=== PATIENT | male | born 1950 | race Caucasian/White ===

== ENCOUNTER → 2016-11-15 | Outpatient (CLI) | payer BC, OTHER ==
[~2016-11-15] MED LIST: ADVIN10/60 INH; ASPI81TA28 PO; CARB25TA7 PO; CARBIDOPA-LEVO PO; DIAZ5TAB3 PO; DSWCR15 TOP; JNV100 PO; KETO2CRE14 TOP; LPT/20 PO; METF500T5 PO; MULT-506 PO; NRV/5 PO; OMEP20CA9 PO; REPA1TAB8 PO; TNR50 PO; VALSARTAN-HCTZ PO
[2016-11-15 13:01] LABS: ALT/SGPT 23 U/L (12-78); BLOOD UREA NITROGEN 18 mg/dl (7-18); BUN/CREATININE RATIO 19.9 (10-20); CALCIUM 9.3 mg/dl (8.5-10.1); CARBON DIOXIDE 28 mmol/L (21-32); CHLORIDE 105 mmol/L (98-107); CHOLESTEROL 199 mg/dl (0-200); GLUCOSE 156 mg/dl (70-99); POTASSIUM 3.9 mmol/L (3.5-5.1); SODIUM 141 mmol/L (136-145); TRIGLYCERIDES 122 mg/dl (0-150); VERY LOW DENSITY LIPOPROT CALC 24 mg/dl
[2016-11-15 13:16] LABS: HEMATOCRIT 40.5 % (42-52); MEAN CELL VOLUME 91.8 fL (80-100); MEAN CORPUSCULAR HEMOGLOBIN 31.7 pg (25-34); MEAN CORPUSCULAR HGB CONC 34.6 g/dl (32-36); MEAN PLATELET VOLUME 9.4 fL (7.4-10.4); PLATELET COUNT 309 K/uL (130-400); RED BLOOD COUNT 4.41 M/uL (4.7-6.1); WHITE BLOOD COUNT 5.56 K/uL (4.8-10.8)
[2016-11-15 13:19] LABS: RATIO 673.3 mcg/mg (0-30.0)
[2016-11-15 13:26] LABS: ESTIMATED AVERAGE GLUCOSE 154 mg/dl; HA1C FLAG Normal (Normal)
[2016-11-15 13:30] LABS: ALB/GLOB RATIO 1.2 (0.9-2); ALKALINE PHOSPHATASE 46 U/L (45-117); AST/SGOT 13 U/L (15-37); CHOLESTEROL/HDL RATIO 3.8; HDL CHOLESTEROL 53 mg/dl; LDL CHOLESTEROL CALCULATED 122 mg/dl
== END | disposition home or self-care (01) ==
LOC: C.LABBFT 08:29
PROVIDERS: ATTEND Internal Medicine
DX: E11.29 Type 2 diabetes mellitus with other diabetic kidney complication (principal); Z12.5 Encounter for screening for malignant neoplasm of prostate

== ENCOUNTER → 2016-12-10 | Outpatient (CLI) | payer BC ==
--- NOTE | 2016-12-10 14:37 | DIAGNOSTIC IMAGING REPORT ---
CT LUNG SCREENING, LOW DOSE WITH COMPUTER-AIDED DETECTION (CAD) CLINICAL HISTORY: FORMER SMOKER COMPARISON STUDY: No previous studies for comparison. CT DOSE: 85.12 mGy.cm TECHNIQUE: Low-dose helical CT was acquired without intravenous contrast from lung apices to bases and reconstructed at 2.5 mm every 2 mm. CAD was utilized for this study. FINDINGS: No enlarged axillary, mediastinal or hilar lymph nodes are present. The size of the heart is at the upper limits of normal. This extensive coronary artery calcification. Central airways are patent. There is no consolidation to suggest pneumonia. There is a 3 mm calcified granuloma within the right lower lobe. There are no suspicious pulmonary nodules. Low attenuation bilateral adrenal nodules favor adenomas. The left adrenal nodule measures 3.1 cm. The right adrenal nodule measures 2.2 cm. IMPRESSION: 1. No suspicious pulmonary nodules. 2. No acute intrathoracic findings. 3. Bilateral adrenal nodules which measure near water attenuation and suggest adenomas. CAD FINDINGS: Overall Lung RADS Category: 1 Lung RADS Management Recommendation: Lung-RADS 1: Continue annual screening in 12 months. Lung RADS Follow Up Date: 2017-12-10 Electronically signed by: Sammy Segura M.D. 12/10/2016 2:36 PM Dictated Date/Time: 12/10/2016 1:20 PM
== END | disposition home or self-care (01) ==
LOC: C.CTS 12:14
PROVIDERS: ATTEND Internal Medicine
DX: Z87.891 Personal history of nicotine dependence (principal)

== ENCOUNTER 2018-12-17 12:40 | Inpatient (IN) ==
--- NOTE | 2018-12-17 13:34 | Emergency Department Note ---
History of Present Illness General Chief complaint: Visual Disturbance Stated complaint: TROUBLE WITH VISION,CLOUDY,SEEING COLOR Time Seen by Provider: 12/17/18 12:58 History of Present Illness This 68-year-old male presents the ER with chief complaint of visual disturbances in both eyes and bilateral eye pain. The patient states that he was seen by his radioactivity technician at [facility] on December 02 for the symptoms. He was not given any diagnosis at the time. He was told that they would contact his PCP to get a carotid Doppler. The patient states that he just got called last week and has an appointment on January 19 for the Doppler exam. The patient states that the visual disturbances are getting worse. He states that he sees different colors and images that are not really there. The states that they were driving down the road the other day and he was asking her why she was driving through the [place]. The patient denies any dizziness. The patient does admit to history of smoking for 32 years but quit 17 years ago. He does have hyperlipidemia. Home Medications Home Medications Medication Instructions Recorded Confirmed Type Tradjenta 5 mg PO HS 07/06/18 12/17/18 History amlodipine 5 mg PO QAM 07/06/18 12/17/18 History aspirin 81 mg PO QAM 07/06/18 12/17/18 History atenolol 50 mg PO HS 07/06/18 12/17/18 History carbidopa-levodopa 1 tab PO BID 07/06/18 12/17/18 History carbidopa-levodopa 1 tab PO DAILY PRN 07/06/18 12/17/18 History escitalopram oxalate 10 mg PO QAM 07/06/18 12/17/18 History glipizide 10 mg PO BID 07/06/18 12/17/18 History ibuprofen [Advil] 400 mg PO TID PRN 07/06/18 12/17/18 History losartan 100 mg PO HS 07/06/18 12/17/18 History metformin 1,000 mg PO BID 07/06/18 12/17/18 History mometasone [Nasonex] 2 spray INTRANASAL QAM PRN 07/06/18 12/17/18 History multivitamin 1 tab PO QAM 07/06/18 12/17/18 History nicotine (polacrilex) 2 mg BUCCAL UD PRN 07/06/18 12/17/18 History omeprazole 20 mg PO BID 07/06/18 12/17/18 History amlodipine 2.5 mg PO QAM 08/31/18 12/17/18 History cholecalciferol (vitamin D3) 2,000 unit PO QAM 08/31/18 12/17/18 History [Vitamin D3] fluticasone propion-salmeterol 1 puff INHALATION DAILY PRN 08/31/18 12/17/18 History [Advair Diskus] tamsulosin 0.4 mg PO HS 08/31/18 12/17/18 History albuterol sulfate 1 - 2 puff INHALATION UD PRN 10/07/18 12/17/18 History oxycodone-acetaminophen [Percocet] 1 tab PO Q8H PRN #5 tab 10/19/18 12/17/18 Rx carbidopa-levodopa [Sinemet] 1 tab PO TID 12/17/18 12/17/18 History Allergies Allergy/AdvReac Type Severity Reaction Status Date / Time Tetanus Vaccines and Toxoid AdvReac Unknown "TETANUS Verified 10/19/18 06:36 SHOT" - FEVER [employer] AdvReac Unknown SEE NOTES Uncoded 10/19/18 06:36 Past Med/Surg History Medical History Anxiety Asthma STABLE BPH (benign prostatic hyperplasia) Basal cell carcinoma of face Chronic obstructive pulmonary disease STABLE Depression Diabetes mellitus, type 2 NIDDM GERD (gastroesophageal reflux disease) History of poliomyelitis Hyperlipidemia Hypertension IBS (irritable bowel syndrome) POSSIBLE Restless leg syndrome ON CARBIDOPA-LEVODOPA Sleep apnea NO DEVICE Surgical History History of colonoscopy History of esophagogastroduodenoscopy (EGD) History of right inguinal hernia repair History of tooth extraction Family History Sister Family history of diabetes mellitus 2 Father Family history of lung cancer Mother Family history of adrenal cancer Social History Preferred Language: Swiss Communication Ability: Effective Communication Ability Comment: [facility] Flatware Maker Required: No Beliefs That Will Affect Care: None Current Living Situation: Spouse Feels Safe at Home: Yes Safety Concerns: Feels Safe At This Time Smoking Status: Former smoker Tobacco Type: cigarettes Smoking End Date: 2001, still uses nicotine gum Second Hand Exposure: Yes (childhood) Tobacco Cessation Education Requested by Patient: No Hx Alcohol Use: Yes Alcohol type: wine Hx Substance Use: No Review of Systems A total of 10 systems reviewed and were otherwise negative Physical Exam Vital Signs Vital Signs - 24 hr 12/17/18 12:42 12/17/18 15:31 12/17/18 17:17 Temperature 36.6 C Temperature Source Oral Sepsis Recent Fever Within 48 Hours No Sepsis Action Taken by Nursing No Action Required Pulse Rate 86 Pulse Rate [Left Finger] 91 H Pulse Rhythm Regular Pulse Strength Normal Respiratory Rate 20 20 Respiratory Effort / Characteristics Non-Labored Spontaneous Non-Labored Spontaneous Spontaneous Respiratory Depth Normal Normal Normal Respiratory Pattern Regular Regular Regular Blood Pressure 151/80 H Blood Pressure [Right Arm] 170/123 H Blood Pressure Mean 103 Blood Pressure Mean [Right Arm] 138 Blood Pressure Position Sitting Pulse Oximetry 95 97 Oxygen Delivery Method Room Air Room Air Room Air GENERAL: 68-year-old male appears in no acute distress. MENTAL Status: Alert and oriented x3. HEAD: Atraumatic, nontender to palpation throughout. EYES: PERRLA. EOMs intact. Pressure in the left eye was 13.5 and pressure in the right eye was 15 EARS: Canals clear. TMs without fluid level noted. NECK: Supple, no lymphadenopathy noted. No carotid bruits noted. LUNGS: Clear auscultation without wheezes rales or rhonchi. CARDIAC: Regular rate and rhythm without murmur. Pulses is full and equal thr oughout. NEURO:Cranial nerves two through 12 intact. Cerebellar function intact with [id number]. Fine motor intact with alternating finger motions. Course Administered Medications Discontinued Medications Aspirin (Aspirin Chew) 324 mg PO NOW STA Stop: 12/17/18 16:05 Last Admin: 12/17/18 16:25 Dose: 324 mg Documented by: [id number] Medical Decision Making Differential Diagnosis Macular degeneration, MS, neoplasm, cataract, ocular migraine, infarction Medical Records Attestation: I reviewed the patient's medical records. Home Medications Current Medication List: was personally reviewed by me Laboratory Data Result diagrams: 12/17/18 16:06 12/17/18 16:06 Lab Results 12/17/18 12/17/18 12/17/18 Range/Units 16:06 16:06 16:06 WBC 7.24 (4.8-10.8) K/uL RBC 4.66 L (4.7-6.1) M/uL Hgb 15.0 (14.0-18.0) g/dL Hct 43.2 (42-52) % MCV 92.7 (80-100) fL MCH 32.2 (25-34) pg MCHC 34.7 (32-36) g/dL RDW Std Deviation 47.9 H (36.4-46.3) fL RDW Coeff of Jose 14.3 (11.5-14.5) % Plt Count 286 (130-400) K/uL MPV 9.3 (7.4-10.4) fL Immature Gran % (Auto) 0.3 % Neut % (Auto) 64.8 % Lymph % (Auto) 21.8 % [place] % (Auto) 10.4 % Eos % (Auto) 2.6 % Baso % (Auto) 0.1 % Immature Gran # (Auto) 0.02 (0.00-0.02) K/uL Neut # (Auto) 4.69 (1.4-6.5) K/uL Lymph # (Auto) 1.58 (1.2-3.4) K/uL [place] # (Auto) 0.75 H (0.11-0.59) K/uL Eos # (Auto) 0.19 (0-0.5) K/uL Baso # (Auto) 0.01 (0-0.2) K/uL PT 9.7 (9.0-12.0) Seconds INR 0.9 (0.9-1.1) Sodium 141 (136-145) mmol/L Potassium 3.7 (3.5-5.1) mmol/L Chloride 108 H (98-107) mmol/L Carbon Dioxide 28 (21-32) mmol/L Anion Gap 5.0 (3-11) BUN 18 (7-18) mg/dl Creatinine 0.98 (0.6-1.4) mg/dl Est Cr Clr Drug Dosing 71.8 ml/min Est GFR ( Amer) 92.1 Est GFR (Non-Af Amer) 79.5 BUN/Creatinine Ratio 18.4 (10-20) Glucose 127 H (70-99) mg/dl Calcium 8.9 (8.5-10.1) mg/dl Total Bilirubin 0.2 (0.2-1) mg/dl AST 16 (15-37) U/L ALT 15 (12-78) U/L Alkaline Phosphatase 45 (45-117) U/L CK-MB (CK-2) 3.6 (0.5-3.6) ng/ml Troponin I < 0.015 (0-0.045) ng/ml Total Protein 7.3 (6.4-8.2) gm/dl Albumin 3.5 (3.4-5.0) gm/dl Globulin 3.8 (2.5-4.0) gm/dl Albumin/Globulin Ratio 0.9 (0.9-2) Specimen Hemolysis Imaging Data Attestation: I personally reviewed and interpreted this imaging study as fo llows: Radiologist's Impression: MRI OF THE BRAIN WITHOUT CONTRAST CLINICAL HISTORY: Bilateral visual disturbances COMPARISON STUDY: Noncontrast head CT dated 01/13/2014 FINDINGS: Sagittal T1, axial diffusion, proton density and T2 weighted axial, coronal F LAIR, and axial T1-weighted images were acquired. No intra or extra-axial mass lesions are visualized There are foci restricted water diffusion within both occipital lobes. There is also a probable punctate focus of restricted water diffusion within the left cerebellar hemisphere. The findings are consistent with areas of acute/subacute infarction. There is no evidence of ventricular dilatation. Proton density T2-weighted and FLAIR images reveal scattered foci of increased T2 signal within the white matter, likely on a small vessel basis. There are gyriform foci of increased FLAIR signal within the central lobes, consistent with acute/subacute infarcts. There is a small focus of increased T2 signal within the lasha. This is felt to be old. There are no abnormal flow voids. Foci of increased T2 signal within the mastoids are felt to be inflammatory. IMPRESSION: 1. Foci of restricted water diffusion involving both occipital lobes with corresponding FLAIR signal abnormalities. In addition there is a small focus of restricted water diffusion within the left cerebellar hemisphere. The findings are consistent with acute/subacute infarcts. Electronically signed by: Jonathan Flanagan M.D. 12/17/2018 3:38 PM ECG Data Indication: other Rhythm: normal sinus Findings: + PVC Blood Pressure Blood Pressure Findings: Elevated blood pressure Blood Pressure Disposition: elevated BP felt to be situational MDM Narrative The patient was evaluated. The patient's case was discussed with Dr. Noriega who agrees with treatment plan. He also evaluated the patient. MRI of the brain was ordered interpreted by the radiologist and myself as above with bilateral occipital lobe infarcts as well as left cerebral infarct. Patient was given 324 mg of baby aspirin chewable. IV access was obtained. EKG was ordered was interpreted as above without any acute findings.. CBC and differential, renal profile, LFTs and lipase levels were ordered. [facility] hospitalist was consulted for admission. Labs are later reviewed. The patient's CBC was un remarkable. Coags were normal. Patient's glucose was 127, CK-MB was 3.6 and troponin was less than 0.015. Remainder of labs unremarkable. Attending Attestation: Bennett Noriega MD independently saw and evaluated this patient and agree with history and physical is otherwise documented by the physician clinical trial assistant. See their note for full details. Patient with interesting bilateral visual complaints over some time worsening. No focal motor or sensory deficit otherwise noted; lower visual field cuts. Eye pressures wnl. Doubt bilateral vitreous hemorrhage or retinal detachment. MRI ordered to exclude mass or CVA as cause. Positive for infarcts. ASA given. Admitted for further. Impression & Plan Cerebral infarct, Hypertension Discharge Plan Visit Data Chief Complaint: Visual Disturbance Stated Complaint: TROUBLE WITH VISION,CLOUDY,SEEING COLOR ED Provider: Timothy Noriega ED Midlevel Provider: Elizabeth De Leon Discharge Problem: Cerebral infarct, Hypertension Patient Disposition: Being Evaluated by Hospitalist Condition: Good Forms Stand Alone Forms: My [facility] Prescriptions Prescriptions: No Action multivitamin Tablet 1 tab PO QAM RF: 0 metformin 500 mg Tablet 1,000 mg PO BID RF: 0 nicotine (polacrilex) 2 mg Gum 2 mg BUCCAL UD PRN (Reason: nicotine withdrawl) RF: 0 carbidopa-levodopa 25-250 mg Tablet 1 tab PO DAILY PRN (Reason: Unknown) RF: 0 glipizide 10 mg Tablet 10 mg PO BID RF: 0 carbidopa-levodopa 50-200 mg Tablet Extended Release 1 tab PO BID RF: 0 amlodipine 5 mg Tablet 5 mg PO QAM RF: 0 aspirin 81 mg Tablet,Delayed Release (Dr/Ec) 81 mg PO QAM RF: 0 ibuprofen [Advil] 200 mg Tablet 400 mg PO TID PRN (Reason: Pain) RF: 0 mometasone [Nasonex] 50 mcg/actuation [place],Non-Aerosol 2 spray INTRANASAL QAM PRN (Reason: NASAL CONGESTION ) RF: 0 losartan 100 mg Tablet 100 mg PO HS RF: 0 atenolol 50 mg Tablet 50 mg PO HS RF: 0 escitalopram oxalate 10 mg Tablet 10 mg PO QAM RF: 0 omeprazole 20 mg Tablet,Delayed Release (Dr/Ec) 20 mg PO BID RF: 0 Tradjenta 5 mg Tablet 5 mg PO HS RF: 0 amlodipine 2.5 mg Tablet 2.5 mg PO QAM RF: 0 tamsulosin 0.4 mg Capsule 0.4 mg PO HS RF: 0 fluticasone propion-salmeterol [Advair Diskus] 100-50 mcg/dose Blister With Device 1 puff INHALATION DAILY PRN (Reason: SOB) RF: 0 cholecalciferol (vitamin D3) [Vitamin D3] 2,000 unit Tablet 2,000 unit PO QAM RF: 0 carbidopa-levodopa [Sinemet] 25-250 mg tablet 1 tab PO TID RF: 0 albuterol sulfate 90 mcg/actuation Hfa Aerosol Inhaler 1 - 2 puff INHALATION UD PRN (Reason: ASTHMA/COPD) RF: 0 oxycodone-acetaminophen [Percocet] 5-325 mg tablet 1 tab PO Q8H PRN (Reason: pain) Qty: 5 RF: 0 Referrals Referrals: Eduardo Cat III, MD [Primary Care Provider] - Discharge Problem: Cerebral infarct Qualifiers: Cerebral infarction mechanism: unspecified mechanism Qualified Code(s): I63.9 - Cerebral infarction, unspecified Hypertension Qualifiers: Hypertension type: unspecified Qualified Code(s): I10 - Essential (primary) hypertension
--- NOTE | 2018-12-17 15:39 | Magnetic Resonance Report ---
MRI OF THE BRAIN WITHOUT CONTRAST CLINICAL HISTORY: Bilateral visual disturbances COMPARISON STUDY: Noncontrast head CT dated 01/13/2014 FINDINGS: Sagittal T1, axial diffusion, proton density and T2 weighted axial, coronal FLAIR, and axial T1-weigh yomaira images were acquired. No intra or extra-axial mass lesions are visualized There are foci restricted water diffusion within both occipital lobes. There is also a probable punct ate focus of restricted water diffusion within the left cerebellar hemisphere. The findings are consi stent with areas of acute/subacute infarction. There is no evidence of ventricular dilatation. Proton density T2-weighted and FLAIR images reveal scattered foci of increased T2 signal within the w anthony matter, likely on a small vessel basis. There are gyriform foci of increased FLAIR signal within the central lobes, consistent with acute/subacute infarcts. There is a small focus of increased T2 s ignal within the lasha. This is felt to be old. There are no abnormal flow voids. Foci of increased T2 signal within the mastoids are felt to be inflammatory. IMPRESSION: 1. Foci of restricted water diffusion involving both occipital lobes with corresponding FLAIR signal abnormalities. In addition there is a small focus of restricted water diffusion within the left cereb ellar hemisphere. The findings are consistent with acute/subacute infarcts. Electronically signed by: Jonathan Flanagan M.D. 12/17/2018 3:38 PM
[2018-12-17] MEDS ORDERED: ASPIRIN 81 MG CHEW PO STA (16:04)
[2018-12-17 16:21] LABS: Basophils # (auto) 0.01 K/uL (0-0.2); Basophils % (auto) 0.1 %; Eosinophils # (auto) 0.19 K/uL (0-0.5); Eosinophils % (auto) 2.6 %; Hematocrit (blood only) 43.2 % (42-52); Immature Granulocytes # (auto) 0.02 K/uL (0.00-0.02); Immature Granulocytes % (auto) 0.3 %; Lymphocytes # (auto) 1.58 K/uL (1.2-3.4); Lymphocytes % (auto) 21.8 %; Mean Corpuscular Hgb Conc 34.7 g/dL (32-36); Mean Corpuscular Volume 92.7 fL (80-100); Mean Platelet Volume 9.3 fL (7.4-10.4); Monocytes # (auto) 0.75 K/uL (0.11-0.59); Monocytes % (auto) 10.4 %; Neutrophils # (auto) 4.69 K/uL (1.4-6.5); Neutrophils % (auto) 64.8 %; Platelet Count 286 K/uL (130-400); RDW Coefficient of Variation 14.3 % (11.5-14.5); RDW Standard Deviation 47.9 fL (36.4-46.3); Red Blood Count 4.66 M/uL (4.7-6.1); White Blood Count 7.24 K/uL (4.8-10.8)
[2018-12-17 16:37] LABS: INR 0.9 (0.9-1.1); Prothrombin Time 9.7 Seconds (9.0-12.0)
[2018-12-17 17:00] LABS: Alanine Aminotransferase 15 U/L (12-78); Albumin Globulin Ratio 0.9 (0.9-2); Albumin Level 3.5 gm/dl (3.4-5.0); Alkaline Phosphatase 45 U/L (45-117); Aspartate Aminotransferase 16 U/L (15-37); BUN Creatinine Ratio 18.4 (10-20); Bilirubin,Total 0.2 mg/dl (0.2-1); Blood Urea Nitrogen 18 mg/dl (7-18); Calcium 8.9 mg/dl (8.5-10.1); Carbon Dioxide 28 mmol/L (21-32); Chloride 108 mmol/L (98-107); Creatine Kinase MB 3.6 ng/ml (0.5-3.6); Creatinine Clr Calc Pharmacy 71.8 ml/min; Est GFR (African American) 92.1; Est GFR (Non-African American) 79.5; Globulin 3.8 gm/dl (2.5-4.0); Glucose 127 mg/dl (70-99); Potassium 3.7 mmol/L (3.5-5.1); Sodium 141 mmol/L (136-145); Total Protein 7.3 gm/dl (6.4-8.2); Troponin I < 0.015 ng/ml (0-0.045)
[2018-12-17] MEDS ORDERED: HydrALAZINE HCL 20 MG/ML VIAL IV STA (17:19)
--- NOTE | 2018-12-17 17:25 | History & Physical Report ---
Date of Service December 17, 2018 Assessment & Plan (1) Acute CVA (cerebrovascular accident): Presented with 2 weeks of visual hallucinations and dizziness-found to have acute and subacute infarcts of the bilateral occipital lobes and left cerebellar hemisphere on MRI of the brain without contrast CT angiogram of the head and neck shows moderate-severe multifocal bilateral vertebral artery stenosis as well as a 70% proximal stenosis of the right vertebral artery, as well as bilateral KENDRICK right greater than left, no occlusions or aneurysm. No history of atrial fibrillation but has multiple other risk factors for atherosclerosis and CVA to include diabetes, hypertension, history of smoking Strokes most likely from bilateral severe atherosclerosis of vertebral arteries, but question if could be embolic from a more central source. Basilar artery is patent. -Admit to telemetry for cardiac arrhythmia monitoring-if no atrial fibrillation/flutter found, consider 30-day event monitor after discharge -Continue home aspirin and add Plavix at least for 1 month and then return to a single antiplatelet agent alone-discussed with neurology -Consult neurology -Stroke order set in place-neurochecks, daily stroke score, PT/OT/speech therapy consults ordered -Check lipid panel in the morning but LDL was 133 back in 05/2018. He has had myalgias with atorvastatin and simvastatin in the past and stopped taking them. -Start Crestor 20 mg p.o. every morning and see if he can tolerate this-needs high intensity statin for severe cerebrovascular disease -Permissive hypertension although blood pressures are significantly elevated in the ER-we will give hydralazine 10 mg IV x1 now and continue home BP meds -Awaiting transthoracic echocardiogram with bubble study to look for thrombus and inter-atrial shunt (2) Visual hallucinations: Secondary to occipital lobe CVAs With visual field deficit on physical examination -Recommended no driving until seen by ophthalmology for visual field testing as an outpatient (3) Dizziness: Secondary to left cerebellar CVA -PT/OT consults ordered (4) Vertebral artery stenosis: As above -Plan to add Plavix to his aspirin and start high intensity statin No intervention needed at this time, no indication for anticoagulation (5) Head ache: Likely secondary to acute CVAs -Tylenol as needed for pain (6) Chronic obstructive pulmonary disease: Stable at this time -Continue home Advair twice daily Albuterol as needed (7) Sleep apnea: Does not use CPAP and instead sleeps on his side to avoid snoring Untreated sleep apnea would be a risk factor for atrial fibrillation (8) Hyperlipidemia: Failed atorvastatin and simvastatin due to myalgias as above -Starting Crestor in the morning and observe for myalgias -Checking lipid panel in the morning -Recommend following LFTs in 4 to 6 weeks -consider CoQ10 supplementation if has myalgias (9) Hypertension: Severely elevated on admission with blood pressure 190/110 -IV hydralazine x1 given -Continue home losartan, atenolol, amlodipine We will not drop blood pressure too low given recent strokes Maintain map of 95 if possible (10) Restless leg syndrome: Severe and has tried multiple medications and seen neurology in the past -Currently well controlled with Sinemet both extended release twice daily and immediate release throughout the day (11) Depression: Stable -Continue Lexapro (12) Diabetes mellitus, type 2: Previously uncontrolled with A1c 9.3% back in the fall, now much improved to 6.9% -Holding home metformin, glipizide, and can bring in home Tradjenta if possible Insulin sliding scale ordered while here (13) GERD (gastroesophageal reflux disease): Stable, with a history of short segment Cee's with biopsies negative for dysplasia -Continue Protonix -Continue recommended surveillance with EGD in 3 more years (14) BPH (benign prostatic hyperplasia): Stable, mild on recent cystoscopy, had a meatal stricture dilated, has a large bladder diverticulum and 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 Albumin here is normal at 3.5 -Continue to follow with nephrology -Continue losartan (16) Carotid artery stenosis: With 75% stenosis of the right internal carotid artery and 50% stenosis left internal carotid artery seen on CT angiogram here None of his strokes are within that distribution, no indication for vascular surgery intervention at this time but should be followed closely as an outpatient -continue ASA, Plavix to be started, and starting statin as above (17) DVT prophylaxis: Lovenox SQ, SCDs Disposition-admit to telemetry for observation overnight and completion of work- up History of Present Illness Chief Complaint: Visual changes, dizziness, headache Primary Care Provider: Eduardo Cat MD This patient is a 68-year-old male with a history of CKD stage II with proteinuria, HTN, HL, COPD, RLS, VIKRAM not on CPAP, DM 2 with retinopathy and nephropathy, BPH with meatal stricture, GERD with Cee's esophagus, anxiety/depression, vitamin D deficiency, and history of polio, hearing loss and tinnitus, who presents to the ER with 2 weeks of visual hallucinations and dizziness. He reports his symptoms came on around the same time. He has been seeing a variety of hallucinations including people walking around him that are not really there, plants growing in the middle of the road while his is driving him in the car, letters and numbers, streaks of colors, etc. He has been having dizziness and has not fallen but has felt like he was going to fall on occasion. Today, he developed pressure behind his eyes and came into the hospital. He was seen by an chip mucker and the notes from that visit were reviewed from 12/02-he was noted to have hypertensive retinopathy of the left eye and diabetic retinopathy as well. Recommendation was made for carotid artery ultrasound but this was not scheduled until later in January as an outpatient. In the ER, he was noted to be significantly hypertensive, and a brain MRI was obtained which showed bilateral subacute and acute occipital infarcts, as well as a another punctate focus of infarct in the left cerebellar hemisphere. The patient denies any history of atrial fibrillation, chest pains, or palpitations. Denies any previous history of stroke. He has been taking aspirin daily and reports that his blood pressure has been uncontrolled at times but had been improved more recently. He denies any focal weakness, numbness or tingling, no speech issues. He does report an episode approximately 7 months ago where he suddenly felt like he could not move his legs [place] airport and he had to sit down and wait for his strength to come back. No other recent issues prior to the last 2 weeks. No fevers, chills, sweats. No chest pain or shortness of breath. Allergies Allergy/AdvReac Type Severity Reaction Status Date / Time Tetanus Vaccines and Toxoid AdvReac Unknown "TETANUS Verified 10/19/18 06:36 SHOT" - FEVER MICROFILM [employer]PLIC[employer] AdvReac Unknown SEE NOTES Uncoded 10/19/18 06:36 Home Medications Home Medications Medication Instructions Recorded Confirmed Type Tradjenta 5 mg PO HS 07/06/18 12/17/18 History amlodipine 5 mg PO QAM 07/06/18 12/17/18 History aspirin 81 mg PO QAM 07/06/18 12/17/18 History atenolol 50 mg PO HS 07/06/18 12/17/18 History carbidopa-levodopa 1 tab PO BID 07/06/18 12/17/18 History carbidopa-levodopa 1 tab PO DAILY PRN 07/06/18 12/17/18 History escitalopram oxalate 10 mg PO QAM 07/06/18 12/17/18 History glipizide 10 mg PO BID 07/06/18 12/17/18 History ibuprofen [Advil] 400 mg PO TID PRN 07/06/18 12/17/18 History losartan 100 mg PO HS 07/06/18 12/17/18 History metformin 1,000 mg PO BID 07/06/18 12/17/18 History mometasone [Nasonex] 2 spray INTRANASAL QAM PRN 07/06/18 12/17/18 History multivitamin 1 tab PO QAM 07/06/18 12/17/18 History nicotine (polacrilex) 2 mg BUCCAL UD PRN 07/06/18 12/17/18 History omeprazole 20 mg PO BID 07/06/18 12/17/18 History amlodipine 2.5 mg PO QAM 08/31/18 12/17/18 History cholecalciferol (vitamin D3) 2,000 unit PO QAM 08/31/18 12/17/18 History [Vitamin D3] fluticasone propion-salmeterol 1 puff INHALATION DAILY PRN 08/31/18 12/17/18 History [Advair Diskus] tamsulosin 0.4 mg PO HS 08/31/18 12/17/18 History albuterol sulfate 1 - 2 puff INHALATION UD PRN 10/07/18 12/17/18 History oxycodone-acetaminophen [Percocet] 1 tab PO Q8H PRN #5 tab 10/19/18 12/17/18 Rx carbidopa-levodopa [Sinemet] 1 tab PO TID 12/17/18 12/17/18 History Past Med/Surg History Medical History Barretts esophagus CKD (chronic kidney disease), stage II Diabetic retinopathy Hearing loss Hypertensive retinopathy of left eye Proteinuria due to type 2 diabetes mellitus Tinnitus Vitamin D deficiency Anxiety Asthma STABLE BPH (benign prostatic hyperplasia) Basal cell carcinoma of face Chronic obstructive pulmonary disease STABLE Depression Diabetes mellitus, type 2 NIDDM GERD (gastroesophageal reflux disease) History of poliomyelitis Hyperlipidemia Hypertension IBS (irritable bowel syndrome) POSSIBLE Restless leg syndrome ON CARBIDOPA-LEVODOPA Sleep apnea NO DEVICE Surgical History History of basal cell carcinoma excision History of colonoscopy History of esophagogastroduodenoscopy (EGD) History of right inguinal hernia repair History of tooth extraction Family History Sister Family history of diabetes mellitus 2 Colorectal cancer Father Family history of lung cancer Mother Family history of adrenal cancer Social History Preferred Language: Ethiopian Communication Ability: Effective Communication Ability Comment: [facility] Economics Professor Required: No Beliefs That Will Affect Care: None Current Living Situation: Spouse current occupational status: retired 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 Feels Safe at Home: Yes Safety Concerns: Feels Safe At This Time Smoking Status: Former smoker Tobacco Type: cigarettes Age Quit Using Tobacco: 50 packs per day: 1 Years Smoked: 30 Smoking End Date: 2001, still uses nicotine gum Second Hand Exposure: Yes (childhood) Tobacco Cessation Education Requested by Patient: No Hx Alcohol Use: Yes Alcohol type: wine Hx Substance Use: No Review of Systems Review of Systems: All systems reviewed & are unremarkable except as noted in HPI & below Physical Exam Constitutional: WD/WN, vitals as above average body habitus; no acute distress Eyes: PERRL, conjunctivae normal, anicteric sclerae EOM intact bilaterally; + abnormal visual field confrontation (Had a left-sided visual field deficit with the left eye) ENMT: external ear and nose normal, oropharynx normal Ears: + hearing impairment Mouth: no oropharynx abnormality Neck: trachea midline, no thyromegaly Respiratory: normal respiratory effort, lungs clear to auscultation Cardiovascular: RRR, no murmur, no edema Gastrointestinal (Abdomen): normal bowel sounds, soft, nontender, no hepatos plenomegaly Musculoskeletal: Extremities: extremities normal to inspection; no cyanosis and no clubbing Skin: no rashes, warm and dry Neurologic: patellar DTR's 2+ bilat, sensation intact and PERRL, EOMI, accommodation nl, no face palsy, no dysarthria CN's II-XI intact bilaterally (Except left-sided visual field deficit as above), deep tendon reflexes 2+ bilaterally, moves all extremities (5 out of 5 strength throughout upper and lower extremities bilaterally) and awake Motor/Sensory: no tremor and no sensory deficit (Sensation intact light touch throughout upper and lower extremities) Cranial Nerves: no nystagmus Coordination: + abnormal [id number] test (No ataxia, but was unable to see my finger when it was off to his left and therefore he pointed right in front of him and missed my finger); normal coll-mr-fico test and normal rapid alternating movements Psychiatric: A+Ox3, euthymic affect Results & Data Vital Signs (Past 12 Hours) Vital Signs Temp Pulse Pulse Resp BP BP Pulse Ox 12/17/18 15:31 91 H 20 170/123 H 97 12/17/18 12:42 36.6 C 86 20 151/80 H 95 Laboratory Results 12/17/18 12/17/18 12/17/18 Range/Units 20:53 19:12 19:11 WBC (4.8-10.8) K/uL RBC (4.7-6.1) M/uL Hgb (14.0-18.0) g/dL Hct (42-52) % MCV (80-100) fL MCH (25-34) pg MCHC (32-36) g/dL RDW Std Deviation (36.4-46.3) fL RDW Coeff of Jose (11.5-14.5) % Plt Count (130-400) K/uL MPV (7.4-10.4) fL Immature Gran % (Auto) % Neut % (Auto) % Lymph % (Auto) % [place] % (Auto) % Eos % (Auto) % Baso % (Auto) % Immature Gran # (Auto) (0.00-0.02) K/uL Neut # (Auto) (1.4-6.5) K/uL Lymph # (Auto) (1.2-3.4) K/uL [place] # (Auto) (0.11-0.59) K/uL Eos # (Auto) (0-0.5) K/uL Baso # (Auto) (0-0.2) K/uL ESR (0-14) mm/hr PT (9.0-12.0) Seconds INR (0.9-1.1) Sodium (136-145) mmol/L Potassium (3.5-5.1) mmol/L Chloride (98-107) mmol/L Carbon Dioxide (21-32) mmol/L Anion Gap (3-11) BUN (7-18) mg/dl Creatinine (0.6-1.4) mg/dl Est Cr Clr Drug Dosing ml/min Est GFR ( Amer) Est GFR (Non-Af Amer) BUN/Creatinine Ratio (10-20) Glucose (70-99) mg/dl POC Glucose 154 H 113 H (70-99) Calcium (8.5-10.1) mg/dl Total Bilirubin (0.2-1) mg/dl AST (15-37) U/L ALT (12-78) U/L Alkaline Phosphatase (45-117) U/L CK-MB (CK-2) (0.5-3.6) ng/ml Troponin I (0-0.045) ng/ml Total Protein (6.4-8.2) gm/dl Albumin (3.4-5.0) gm/dl Globulin (2.5-4.0) gm/dl Albumin/Globulin Ratio (0.9-2) TSH (0.300-4.500) uIu/ml Specimen Hemolysis Lyme Disease IgG Ab Pending Lyme Disease IgM Ab Pending 12/17/18 12/17/18 12/17/18 Range/Units 16:06 16:06 16:06 WBC (4.8-10.8) K/uL RBC (4.7-6.1) M/uL Hgb (14.0-18.0) g/dL Hct (42-52) % MCV (80-100) fL MCH (25-34) pg MCHC (32-36) g/dL RDW Std Deviation (36.4-46.3) fL RDW Coeff of Jose (11.5-14.5) % Plt Count (130-400) K/uL MPV (7.4-10.4) fL Immature Gran % (Auto) % Neut % (Auto) % Lymph % (Auto) % [place] % (Auto) % Eos % (Auto) % Baso % (Auto) % Immature Gran # (Auto) (0.00-0.02) K/uL Neut # (Auto) (1.4-6.5) K/uL Lymph # (Auto) (1.2-3.4) K/uL [place] # (Auto) (0.11-0.59) K/uL Eos # (Auto) (0-0.5) K/uL Baso # (Auto) (0-0.2) K/uL ESR 15 H (0-14) mm/hr PT 9.7 (9.0-12.0) Seconds INR 0.9 (0.9-1.1) Sodium 141 (136-145) mmol/L Potassium 3.7 (3.5-5.1) mmol/L Chloride 108 H (98-107) mmol/L Carbon Dioxide 28 (21-32) mmol/L Anion Gap 5.0 (3-11) BUN 18 (7-18) mg/dl Creatinine 0.98 (0.6-1.4) mg/dl Est Cr Clr Drug Dosing 71.8 ml/min Est GFR ( Amer) 92.1 Est GFR (Non-Af Amer) 79.5 BUN/Creatinine Ratio 18.4 (10-20) Glucose 127 H (70-99) mg/dl POC Glucose (70-99) Calcium 8.9 (8.5-10.1) mg/dl Total Bilirubin 0.2 (0.2-1) mg/dl AST 16 (15-37) U/L ALT 15 (12-78) U/L Alkaline Phosphatase 45 (45-117) U/L CK-MB (CK-2) 3.6 (0.5-3.6) ng/ml Troponin I < 0.015 (0-0.045) ng/ml Total Protein 7.3 (6.4-8.2) gm/dl Albumin 3.5 (3.4-5.0) gm/dl Globulin 3.8 (2.5-4.0) gm/dl Albumin/Globulin Ratio 0.9 (0.9-2) TSH 2.040 (0.300-4.500) uIu/ml Specimen Hemolysis Lyme Disease IgG Ab Lyme Disease IgM Ab 12/17/18 Range/Units 16:06 WBC 7.24 (4.8-10.8) K/uL RBC 4.66 L (4.7-6.1) M/uL Hgb 15.0 (14.0-18.0) g/dL Hct 43.2 (42-52) % MCV 92.7 (80-100) fL MCH 32.2 (25-34) pg MCHC 34.7 (32-36) g/dL RDW Std Deviation 47.9 H (36.4-46.3) fL RDW Coeff of Jose 14.3 (11.5-14.5) % Plt Count 286 (130-400) K/uL MPV 9.3 (7.4-10.4) fL Immature Gran % (Auto) 0.3 % Neut % (Auto) 64.8 % Lymph % (Auto) 21.8 % [place] % (Auto) 10.4 % Eos % (Auto) 2.6 % Baso % (Auto) 0.1 % Immature Gran # (Auto) 0.02 (0.00-0.02) K/uL Neut # (Auto) 4.69 (1.4-6.5) K/uL Lymph # (Auto) 1.58 (1.2-3.4) K/uL [place] # (Auto) 0.75 H (0.11-0.59) K/uL Eos # (Auto) 0.19 (0-0.5) K/uL Baso # (Auto) 0.01 (0-0.2) K/uL ESR (0-14) mm/hr PT (9.0-12.0) Seconds INR (0.9-1.1) Sodium (136-145) mmol/L Potassium (3.5-5.1) mmol/L Chloride (98-107) mmol/L Carbon Dioxide (21-32) mmol/L Anion Gap (3-11) BUN (7-18) mg/dl Creatinine (0.6-1.4) mg/dl Est Cr Clr Drug Dosing ml/min Est GFR ( Amer) Est GFR (Non-Af Amer) BUN/Creatinine Ratio (10-20) Glucose (70-99) mg/dl POC Glucose (70-99) Calcium (8.5-10.1) mg/dl Total Bilirubin (0.2-1) mg/dl AST (15-37) U/L ALT (12-78) U/L Alkaline Phosphatase (45-117) U/L CK-MB (CK-2) (0.5-3.6) ng/ml Troponin I (0-0.045) ng/ml Total Protein (6.4-8.2) gm/dl Albumin (3.4-5.0) gm/dl Globulin (2.5-4.0) gm/dl Albumin/Globulin Ratio (0.9-2) TSH (0.300-4.500) uIu/ml Specimen Hemolysis Lyme Disease IgG Ab Lyme Disease IgM Ab Diagnostic Findings MRI OF THE BRAIN WITHOUT CONTRAST CLINICAL HISTORY: Bilateral visual disturbances COMPARISON STUDY: Noncontrast head CT dated 01/13/2014 FINDINGS: Sagittal T1, axial diffusion, proton density and T2 weighted axial, coronal FLAIR, and axial T1-weighted images were acquired. No intra or extra-axial mass lesions are visualized There are foci restricted water diffusion within both occipital lobes. There is also a probable punctate focus of restricted water diffusion within the left cerebellar hemisphere. The findings are consistent with areas of acute/subacute infarction. There is no evidence of ventricular dilatation. Proton density T2-weighted and FLAIR images reveal scattered foci of increased T2 signal within the white matter, likely on a small vessel basis. There are gyriform foci of increased FLAIR signal within the central lobes, consistent with acute/subacute infarcts. There is a small focus of increased T2 signal within the lasha. This is felt to be old. There are no abnormal flow voids. Foci of increased T2 signal within the mastoids are felt to be inflammatory. IMPRESSION: 1. Foci of restricted water diffusion involving both occipital lobes with corresponding FLAIR signal abnormalities. In addition there is a small focus of restricted water diffusion within the left cerebellar hemisphere. The findings are consistent with acute/subacute infarcts. HEAD & NECK CTA HISTORY: acute cva TECHNIQUE: Multiaxial CT images of the head were performed following the intravenous administration of contrast to evaluate the major cerebral vessels. Multiaxial CT images of the neck were also performed following the intravenous administration of contrast to evaluate the major cervical vessels. Maximum intensity projection images were also obtained. A dose lowering technique was utilized adhering to the principles of ALARA. COMPARISON: Brain MRI 12/17/2018. FINDINGS: Mild diffuse narrowing within the carotid siphons due to the calcified plaque. There is also multifocal moderate to severe narrowing of the distal intracranial portions of the bilateral vertebral arteries due to the atherosclerotic plaque. The basilar artery is patent. A 7 mm segment of moderate to severe narrowing within the right proximal P2 segment. Mild focal narrowing within the proximal left P2 segment. No occlusion identified. The bilateral MCAs are patent. There is a hypoplastic right A1 segment. Otherwise, no significant stenosis or occlusion within the bilateral ACAs. The major dural venous sinuses are patent. No aneurysm identified. The patient's bilateral occipital lobe infarcts are better present on the same day brain MRI. The aortic arch is normal in caliber. Mild focal narrowing within the proximal right common carotid artery and proximal left subclavian artery of approximately 20%. Moderate calcified plaque within the bilateral carotid bifurcations. This results in approximately 75% focal stenosis at the origin of the right internal carotid artery best seen on image 239 and approximately 50% focal narrowing at the origin of the left internal carotid artery best seen on image 239. Mild multifocal narrowing within the left cervical vertebral artery. There is also a focal area of 70% stenosis within the proximal right vertebral artery at the C6- C7 level. No carotid or vertebral artery dissection identified. A 9 mm right thyroid nodule. IMPRESSION: 1. The patient's known occipital lobe infarcts are not well visualized on this study. 2. Multifocal moderate to severe narrowing within the distal intracranial porti ons of the bilateral vertebral arteries. 3. A 7 mm signal within the proximal right P2 segment demonstrating moderate to severe narrowing. 4. Approximate 75% focal stenosis at the origin of the right internal carotid artery and 50% focal stenosis at the origin of the left internal carotid artery. 5. There is 70% stenosis within the proximal right vertebral artery. 6. Additional findings as described above. ECG Additional Comments: ECG with normal sinus rhythm with PACs, no ischemic changes Code Status & VTE Plan Code Status Full code VTE Prophylaxis Plan VTE Prophylaxis will be ordered: Yes
[2018-12-17] MEDS ORDERED: OPTIRAY 320 125ml IV PRN (17:36)
--- NOTE | 2018-12-17 17:59 | CT Scan Report ---
HEAD & NECK CTA HISTORY: acute cva TECHNIQUE: Multiaxial CT images of the head were performed following the intravenous administration o f contrast to evaluate the major cerebral vessels. Multiaxial CT images of the neck were also perform ed following the intravenous administration of contrast to evaluate the major cervical vessels. Maxim um intensity projection images were also obtained. A dose lowering technique was utilized adhering to the principles of ALARA. COMPARISON: Brain MRI 12/17/2018. FINDINGS: Mild diffuse narrowing within the carotid siphons due to the calcified plaque. There is also multifoc al moderate to severe narrowing of the distal intracranial portions of the bilateral vertebral arteri es due to the atherosclerotic plaque. The basilar artery is patent. A 7 mm segment of moderate to sev ere narrowing within the right proximal P2 segment. Mild focal narrowing within the proximal left P2 segment. No occlusion identified. The bilateral MCAs are patent. There is a hypoplastic right A1 segm ent. Otherwise, no significant stenosis or occlusion within the bilateral ACAs. The major dural venou s sinuses are patent. No aneurysm identified. The patient's bilateral occipital lobe infarcts are bet ter present on the same day brain MRI. The aortic arch is normal in caliber. Mild focal narrowing within the proximal right common carotid artery and proximal left subclavian artery of approximately 20%. Moderate calcified plaque within the bilateral carotid bifurcations. This results in approximately 75% focal stenosis at the origin of th e right internal carotid artery best seen on image 239 and approximately 50% focal narrowing at the o rigin of the left internal carotid artery best seen on image 239. Mild multifocal narrowing within th e left cervical vertebral artery. There is also a focal area of 70% stenosis within the proximal righ t vertebral artery at the C6-C7 level. No carotid or vertebral artery dissection identified. A 9 mm r ight thyroid nodule. IMPRESSION: 1. The patient's known occipital lobe infarcts are not well visualized on this study. 2. Multifocal moderate to severe narrowing within the distal intracranial portions of the bilateral v ertebral arteries. 3. A 7 mm signal within the proximal right P2 segment demonstrating moderate to severe narrowing. 4. Approximate 75% focal stenosis at the origin of the right internal carotid artery and 50% focal st enosis at the origin of the left internal carotid artery. 5. There is 70% stenosis within the proximal right vertebral artery. 6. Additional findings as described above. Electronically signed by: Brooks Loredo M.D. 12/17/2018 5:57 PM
[2018-12-17] MEDS ORDERED: GLUCOSE 40% GEL 15 GM TUBE PO PRN (18:49)
[2018-12-17] MEDS ORDERED: NICOTINE POLACRILEX 2 MG GUM MT PRN (18:49)
[2018-12-17] MEDS ORDERED: DEXTROSE 50% 50 ML SYRINGE IV PRN (18:49)
[2018-12-17] MEDS ORDERED: CARBOHYDRATES FOR HYPOGLYCEMIA PO PRN (18:49)
[2018-12-17] MEDS ORDERED: MAGNESIUM HYDROXIDE SUSP 30 ML UDC PO PRN (18:49)
[2018-12-17] MEDS ORDERED: PHARMACIST DISCHARGE MED REC CONSULT PRN (18:49)
[2018-12-17] MEDS ORDERED: ALBUTEROL HFA 8 GM INHALER INH PRN (18:49)
[2018-12-17] MEDS ORDERED: GLUCOSE 10 TABS/TUBE PO PRN (18:49)
[2018-12-17] MEDS ORDERED: GLUCAGON FOR INJ 1 MG VIAL SQ PRN (18:49)
[2018-12-17] MEDS ORDERED: POLYETHYLENE (MIRALAX) 17 GM PACK PO PRN (18:49)
[2018-12-17] MEDS ORDERED: ONDANSETRON INJ 2 MG/ML 2 ML VIAL IV PRN (18:49)
[2018-12-17] MEDS ORDERED: ALUMINUM/MAGNESIUM SUSP 30 ML UDC PO PRN (18:49)
[2018-12-17] MEDS ORDERED: FLUTICASONE PROPIONATE NA SPR 16 GM BTL PRN (19:45)
[2018-12-17] MEDS ORDERED: ENOXAPARIN INJ 40 MG/0.4 ML SYR SQ SCH (21:00)
[2018-12-17] MEDS ORDERED: LOSARTAN POTASSIUM 50 MG TAB PO SCH (21:00)
[2018-12-17] MEDS ORDERED: ATENOLOL 50 MG TABLET PO SCH (21:00)
[2018-12-17] MEDS ORDERED: TAMSULOSIN HCL 0.4 MG CAP PO SCH (21:00)
[2018-12-17] MEDS: FLUTICASONE/SALMETEROL 100/50 (ADVAIR) 14 PUFF/1 INHALER INH SCH (21:08)
[2018-12-17] MEDS: INSULIN ASPART 100 UNITS/ML 3 ML PEN SC SCH (21:11)
[2018-12-17] MEDS: PANTOprazole 40 MG TAB PO SCH (21:12)
[2018-12-17] MEDS: CARBIDOPA/LEVODOPA 25-250 1 EA TAB PO SCH (21:12)
[2018-12-17] MEDS: CARBIDOPA/LEVODOPA 50/200MG EXT REL TAB PO SCH (21:12)
[2018-12-17] MEDS ORDERED: ACETAMINOPHEN 500 MG TAB PO PRN (21:28)
[2018-12-17 22:43] LABS: Lyme Ab IgG w/WB Rflx Negative (Negative); Lyme Ab IgM w/WB Rflx Negative (Negative)
[2018-12-18 06:37] LABS: Basophils # (auto) 0.02 K/uL (0-0.2); Basophils % (auto) 0.3 %; Eosinophils # (auto) 0.19 K/uL (0-0.5); Eosinophils % (auto) 2.7 %; Hematocrit (blood only) 41.7 % (42-52); Immature Granulocytes # (auto) 0.02 K/uL (0.00-0.02); Immature Granulocytes % (auto) 0.3 %; Lymphocytes # (auto) 1.49 K/uL (1.2-3.4); Lymphocytes % (auto) 21.5 %; Mean Corpuscular Volume 90.7 fL (80-100); Mean Platelet Volume 9.2 fL (7.4-10.4); Monocytes # (auto) 0.94 K/uL (0.11-0.59); Monocytes % (auto) 13.6 %; Neutrophils # (auto) 4.27 K/uL (1.4-6.5); Neutrophils % (auto) 61.6 %; Platelet Count 297 K/uL (130-400); RDW Coefficient of Variation 14.2 % (11.5-14.5); RDW Standard Deviation 47.1 fL (36.4-46.3); White Blood Count 6.93 K/uL (4.8-10.8)
[2018-12-18 07:13] LABS: BUN Creatinine Ratio 14.5 (10-20); Creatinine Clr Calc Pharmacy 65.8 ml/min; Est GFR (African American) 84.7; Est GFR (Non-African American) 73.1; Potassium 3.2 mmol/L (3.5-5.1)
--- NOTE | 2018-12-18 08:25 | Neurology Consultation ---
Date of Consultation December 18, 2018 Assessment & Plan (1) Acute CVA (cerebrovascular accident): Patient has acute/subacute right greater than left occipital lobe infarct and a tiny left cerebellar hemisphere infarct. Clinically he has decreased vision to the left and some slight vertiginous/b alance issues which can be explained by the lesion seen on MRI. He also has subtle upgoing toes on examination bilaterally secondary to the infarcts. His MRI also shows old chronic small vessel ischemia and a large old left occipital infarct. The etiology of these strokes is likely thrombotic and he has significant vascular issues in the vertebrals and carotids. He has multiple risk factors fo r stroke including blood pressure was not adequately controlled, diabetes, and dyslipidemia. He also has sleep apnea and does not use a CPAP mask. He quit cigarette smoking 17 years ago. He has no history of heart disease and although I cannot entirely exclude emboli I think this is a less likely explanation for his strokes. The echocardiogram is pending (2) Vertebral artery stenosis: Patient has bilateral distal vertebral stenoses intracranially and a 70 percent proximal right vertebral stenosis. (3) Carotid artery stenosis: Patient has 75 persistent right ICA stenoses at the origin with a similar location on the left at 50 percent. He has very little in the way of ischemia in the anterior circulation. (4) Restless leg syndrome: Patient has a longstanding history of restless leg syndrome refractory to many medications. Currently he is help some with carbidopa/levodopa. (5) History of poliomyelitis: Patient has a history of poliomyelitis at age 13 in both legs of a mild form. I do not see any residual weakness in the legs. He has absent ankle reflexes which are probably a sign of early polyneuropathy from his longstanding diabetes. Recommendations: 1. Awaiting echocardiogram results. 2. Continue clopidogrel 75 milligrams daily with 81 milligram aspirin tablet daily. After 3 weeks discontinue aspirin and keep on clopidogrel alone. 3. The patient would be a high-dose statin candidate 4. Control blood pressure, aiming for a mean arterial pressure of approximately 100. 5. Control glucose, aiming for hemoglobin A1c of closer to 6.0. 6. 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 7. Continue carbidopa/levodopa for restless leg syndrome the current doses. Overall, I spent a total of 140 minutes with this case including review of records, review of MRI and CT films with Radiology, direct evaluation the patient at bedside, and discussion of the case with the patient at bedside, clinical staff, Drs. Flanagan and Colton, and Dr. Manzano including differential diagnosis and treatment options. History of Present Illness Reason for Consultation: Patient is a 68-year-old, who was asked to see the request of Dr. Church, for neurologic consultation regarding stroke Requesting Physician: Dr. Church Attending Physician: Josep Manzano MD History of Present Illness Has a longstanding history of hypertension (30 years), diabetes (15-20 years), dyslipidemia, COPD, restless leg syndrome, and sleep apnea for which he does not use CPAP. Patient tells me that when he was 13 years old he contracted polio (even after having the oral polio vaccine). He had very mild weakness in his legs which recovered for the most part. He used to smoke cigarettes for over 30 years and quit 17 years ago. The patient states that over the last 3 months he started getting some vision problems. He had focusing issues bilaterally and was starting to see things in his vision that were there. These could be colors or sparkles/spectacles and, as time went by, he would see things that others would not such as dark clouds or grass was not there. On December [address] Denny bocanegra shotgun shell reprinting unit operator, who felt that he had some vision issues with his left eye particularly secondary to blood pressure and diabetes. He had no specific treatment otherwise. Over the last 2 and half weeks he has continued to have the visual hallucinations and star burst of flashing lights in his vision that would come and go. He started getting headaches under and around his eyes and bi occipitally. He noticed recently that his balance has been off any gets woozy or vertiginous at times. He has no weakness or numbness speech or mentation problems. He has no incontinence of urine. Because of the headaches he came to the emergency room yesterday. On December 16, at 1242 blood pressure was 151/80, temperature 36.6, pulse 86, respiratory rate 20, and O2 saturation 95 percent. Later on his blood pressure was 170/123. On exam there was some possible decreased vision to the left but no other focal findings. CBC and Chem profile were unremarkable except for an elevated glucose. Hemoglobin A1c today was 6.9. TSH, ESR, and Lyme antibody titers were unremarkable. MRI of the brain showed multiple scattered bioccipital acute/subacute strokes right greater than left side. There was an acute punctate left cerebellar hemis phere stroke as well. Flare imaging revealed old ischemia scattered in the hemispheres bilaterally of a mild nature and a large old left occipital stroke (at least 2 months old). I reviewed these films with doctors Colton and Panchito. CT angiography of the head and neck revealed greater than 75 percent stenosis of the right internal carotid artery at the origin and 50 percent in the left i nternal carotid artery at the origin. There was 70 percent stenosis of the proximal right vertebral and significant stenoses distally in the vertebral arteries intracranially bilaterally. The right P2 segment was severely narrowed. I reviewed these films with doctors Colton and Panchito. Triglyceride was 200, cholesterol 190, LDL 104, and blood pressure 164/97 this morning. He has some blurriness in his left eye at times and feels a little vertiginous when he walks. He has no pain or headache today. Allergies Allergy/AdvReac Type Severity Reaction Status Date / Time Tetanus Vaccines and Toxoid AdvReac Unknown "TETANUS Verified 10/19/18 06:36 SHOT" - [employer] AdvReac Unknown SEE NOTES Uncoded 10/19/18 06:36 Home Medications Home Medications Medication Instructions Recorded Confirmed Type Tradjenta 5 mg PO HS 07/06/18 12/17/18 History amlodipine 5 mg PO QAM 07/06/18 12/17/18 History aspirin 81 mg PO QAM 07/06/18 12/17/18 History atenolol 50 mg PO HS 07/06/18 12/17/18 History carbidopa-levodopa 1 tab PO BID 07/06/18 12/17/18 History carbidopa-levodopa 1 tab PO DAILY PRN 07/06/18 12/17/18 History escitalopram oxalate 10 mg PO QAM 07/06/18 12/17/18 History glipizide 10 mg PO BID 07/06/18 12/17/18 History ibuprofen [Advil] 400 mg PO TID PRN 07/06/18 12/17/18 History losartan 100 mg PO HS 07/06/18 12/17/18 History metformin 1,000 mg PO BID 07/06/18 12/17/18 History mometasone [Nasonex] 2 spray INTRANASAL QAM PRN 07/06/18 12/17/18 History multivitamin 1 tab PO QAM 07/06/18 12/17/18 History nicotine (polacrilex) 2 mg BUCCAL UD PRN 07/06/18 12/17/18 History omeprazole 20 mg PO BID 07/06/18 12/17/18 History amlodipine 2.5 mg PO QAM 08/31/18 12/17/18 History cholecalciferol (vitamin D3) 2,000 unit PO QAM 08/31/18 12/17/18 History [Vitamin D3] fluticasone propion-salmeterol 1 puff INHALATION DAILY PRN 08/31/18 12/17/18 History [Advair Diskus] tamsulosin 0.4 mg PO HS 08/31/18 12/17/18 History albuterol sulfate 1 - 2 puff INHALATION UD PRN 10/07/18 12/17/18 History oxycodone-acetaminophen [Percocet] 1 tab PO Q8H PRN #5 tab 10/19/18 12/17/18 Rx carbidopa-levodopa [Sinemet] 1 tab PO TID 12/17/18 12/17/18 History Patient History Medical History Barretts esophagus CKD (chronic kidney disease), stage II Diabetic retinopathy Hearing loss Hypertensive retinopathy of left eye Proteinuria due to type 2 diabetes mellitus Tinnitus Vitamin D deficiency Anxiety Asthma STABLE BPH (benign prostatic hyperplasia) Basal cell carcinoma of face Chronic obstructive pulmonary disease STABLE Depression Diabetes mellitus, type 2 NIDDM GERD (gastroesophageal reflux disease) History of poliomyelitis Hyperlipidemia Hypertension IBS (irritable bowel syndrome) POSSIBLE Restless leg syndrome ON CARBIDOPA-LEVODOPA Sleep apnea NO DEVICE Surgical History History of basal cell carcinoma excision History of colonoscopy History of esophagogastroduodenoscopy (EGD) History of right inguinal hernia repair History of tooth extraction Family History Sister Family history of diabetes mellitus 2 Colorectal cancer Father Family history of lung cancer Mother Family history of adrenal cancer Social History Preferred Language: [place] Communication Ability: Effective Communication Ability Comment: [facility] Manager Of Selection And Assessment Required: No Beliefs That Will Affect Care: None Current Living Situation: Spouse current occupational status: retired 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 Hx Substance Use: No Review of Systems Constitutional: no fever and no fatigue Eyes: + worsening vision; no diplopia and no eye pain Ear, Nose, Mouth, Throat: + tinnitus and + hearing loss; no ear pain and no dysphagia Respiratory: no cough and no dyspnea Cardiovascular: no chest pain, no dyspnea and no palpitations Gastrointestinal: no abdominal pain, no nausea and no vomiting Genitourinary: no dysuria, no urinary frequency and no urinary incontinence Musculoskeletal: no back pain, no neck pain, no radicular pain, no myalgia, no muscle weakness and no muscle atrophy Integumentary: no rash and no lesions Neurologic: + restless legs, + dizziness and + headache(s); no gait abnormality, no falls, no localized weakness, no generalized weakness, no tingling, no numbness, no tremor(s), no abnormal movements, no abnormal speech, no behavioral changes, no confusion and no memory loss Psychiatric: no depression, no abnormal sleep pattern, no anxiety, no difficulty concentrating, no confusion and no hallucinations Endocrine: no fatigue and no flushing Hematologic / Lymphatic: no easy bleeding and no easy bruising Allergy / Immunological: no urticaria Physical Exam Physical Exam: The patient is right-handed. The patient is awake, alert, and attentive. Speech is normal without any aphasia or dysarthria. Mentation and thought processes are intact, with full orientation and normal fund of knowledge. Attention and concentration are normal. Mood and affect are normal and appropriate. General appearance and grooming are normal. Short and long-term memory are intact. The discs are sharp with positive venous pulsations bilaterally. There are no exudates, hemorrhages, or blood vessel changes seen. Pupils are 4 mm bilaterally and reactive to light. Extraocular eye muscles are intact without nystagmus, although occasionally, he has some decreased fixation/exotropia in the right eye. This only lasts seconds and he comes back to conjugate gaze. Visual acuity is reasonable and visual field testing shows decreased vision to the left in both eyes particularly the lower quadrant. There are no deficits to sensation in the face in all 3 distributions of the fifth cranial nerve bilaterally. Corneal reflexes are positive bilaterally. Facial strength and symmetry was normal bilaterally. Hearing seems intact grossly to voice and finger rub bilaterally. Palate moves well without asymmetry. There is normal sternocleidomastoid and trapezius (shoulder shrug) strength bilaterally. Tongue is midline with good strength bilaterally. Neck has a full range of motion without discomfort. There are no cervical bruits bilaterally. There are no cranial or ocular bruits. Heart is without murmur. There is a regular rhythm and rate. Cervical, thoracic, and lumbar spine are nontender to palpation. Gait is narrow based, with good arm swing, turns, and stance. Balance is normal eyes open or closed. With outstretched arms there is no drift. There are no resting, postural, or action tremors. There is no ataxia with finger to nose testing, however, he can't hit the target off to the left because he can't see it. There is good facility in the hands. No other abnormal involuntary movements are noted. Motor strength is 5/5 diffusely in the arms bilaterally including deltoids, biceps, triceps, brachioradialis, wrist flexors and extensors, print controller, and intrinsic hand muscles. Motor strength is 5/5 diffusely in the legs bilaterally including hip flexors, quadriceps, hamstrings, gastrocnemius, tibialis anterior, tibialis posterior, and Peroneii muscles bilaterally. Toe extensors are normal and there is good bulk in the extensor digitorum brevis muscles bilaterally. The limbs have good tone without rigidity or spasticity. There is no atrophy noted in the muscles. Muscle bulk is normal, there is no tenderness to palpation, no myotonia to percussion, and no fasciculations seen. Sensory examination is intact to touch and pin throughout all 4 limbs diffusely. Reflexes are 2/4 in the biceps, triceps, brachioradialis, and quadriceps tendons bilaterally. Achilles tendon reflexes are absent bilaterally. Toes are upgoing with plantar stimulation bilaterally. Peripheral pulses are present and of normal quality distally in all 4 limbs. There is no peripheral edema noted in the limbs. Results & Data Vital Signs (Past 12 Hours) Vital Signs Temp Pulse Resp BP Pulse Ox 12/18/18 07:17 36.7 C 90 15 164/97 H 94 12/18/18 02:50 36.9 C 85 16 159/82 H 93 12/17/18 23:31 36.8 C 84 16 119/55 L 94 12/17/18 21:05 97 H 19 157/89 H [facility] [phone] Magnetic Resonance Report Patient: LORELEI GELLER Date: 12/17/18 MR#: [id number] [address] Acct ID:[id number]: Date: 1950ity Zip: [place] [id number] Age: 68Location: ED Sex: M Room/Bed: Att Phy: Diagnosis: TROUBLE WITH VISION,CLOUDY,SEEING COLOR Taylor Phy: Eduardo Cat III, MDService Date: 12/17/18 Fam Phy: Interpreting Phy: Jonathan Flanagan MD Admit Phy: Ordering Phy: Elizabeth De Leon PA-C cc: ~ MRI OF THE BRAIN WITHOUT CONTRAST CLINICAL HISTORY: Bilateral visual disturbances COMPARISON STUDY: Noncontrast head CT dated 01/13/2014 FINDINGS: Sagittal T1, axial diffusion, proton density and T2 weighted axial, coronal FLAIR, and axial T1-weighted images were acquired. No intra or extra-axial mass lesions are visualized There are foci restricted water diffusion within both occipital lobes. There is also a probable punctate focus of restricted water diffusion within the left cerebellar hemisphere. The findings are consistent with areas of acute/subacute infarction. There is no evidence of ventricular dilatation. Proton density T2-weighted and FLAIR images reveal scattered foci of increased T2 signal within the white matter, likely on a small vessel basis. There are gyriform foci of increased FLAIR signal within the central lobes, consistent with acute/subacute infarcts. There is a small focus of increased T2 signal within the lasha. This is felt to be old. There are no abnormal flow voids. Foci of increased T2 signal within the mastoids are felt to be inflammatory. IMPRESSION: 1. Foci of restricted water diffusion involving both occipital lobes with corresponding FLAIR signal abnormalities. In addition there is a small focus of restricted water diffusion within the left cerebellar hemisphere. The findings are consistent with acute/subacute infarcts. Electronically signed by: Jonathan Flanagan M.D. 12/17/2018 3:38 PM
[2018-12-18] MEDS: INSULIN ASPART 100 UNITS/ML 3 ML PEN SC SCH ×2 (08:46→12:21)
[2018-12-18] MEDS: FLUTICASONE/SALMETEROL 100/50 (ADVAIR) 14 PUFF/1 INHALER INH SCH (08:47)
[2018-12-18] MEDS: PANTOprazole 40 MG TAB PO SCH (08:50)
[2018-12-18] MEDS: CARBIDOPA/LEVODOPA 50/200MG EXT REL TAB PO SCH (08:50)
[2018-12-18] MEDS: CARBIDOPA/LEVODOPA 25-250 1 EA TAB PO SCH ×2 (08:51→13:30)
[2018-12-18] MEDS ORDERED: ASPIRIN 81 MG ECTAB PO SCH (09:00)
[2018-12-18] MEDS ORDERED: ESCITALOPRAM OXALATE 10 MG TAB PO SCH (09:00)
[2018-12-18] MEDS ORDERED: MULTIVITAMIN TAB PO SCH (09:00)
[2018-12-18] MEDS ORDERED: CHOLECALCIFEROL 1,000 UNITS TAB PO SCH (09:00)
[2018-12-18] MEDS ORDERED: AMLODIPINE BESYLATE 5 MG TAB PO SCH ×2 (09:00)
[2018-12-18] MEDS ORDERED: ROSUVASTATIN CALCIUM 20 MG TAB PO SCH (09:00)
[2018-12-18] MEDS ORDERED: CLOPIDOGREL BISULFATE 75 MG TAB PO SCH (11:45)
[2018-12-18] MEDS ORDERED: STROKE PATIENT DISCHARGE STA (12:39)
--- NOTE | 2018-12-18 12:45 | Discharge Summary ---
Date of Service December 18, 2018 Admission HPI Per Admitting Provider This patient is a 68-year-old male with a history of CKD stage II with proteinuria, HTN, HL, COPD, RLS, VIKRAM not on CPAP, DM 2 with retinopathy and nephropathy, BPH with meatal stricture, GERD with Cee's esophagus, anx iety/depression, vitamin D deficiency, and history of polio, hearing loss and tinnitus, who presents to the ER with 2 weeks of visual hallucinations and dizziness. He reports his symptoms came on around the same time. He has been seeing a variety of hallucinations including people walking around him that are not really there, plants growing in the middle of the road while his is driving him in the car, letters and numbers, streaks of colors, etc. He has been having dizziness and has not fallen but has felt like he was going to fall on occasion. Today, he developed pressure behind his eyes and came into the hospital. He was seen by an rack puncher and the notes from that visit were reviewed from 12/02-he was noted to have hypertensive retinopathy of the left eye and diabetic retinopathy as well. Recommendation was made for carotid artery ultrasound but this was not scheduled until later in January as an outpatient. In the ER, he was noted to be significantly hypertensive, and a brain MRI was obtained which showed bilateral subacute and acute occipital infarcts, as well as a another punctate focus of infarct in the left cerebellar hemisphere. The patient denies any history of atrial fibrillation, chest pains, or palpitations. Denies any previous history of stroke. He has been taking aspirin daily and reports that his blood pressure has been uncontrolled at times but had been improved more recently. He denies any focal weakness, numbness or tingling, no speech issues. He does report an episode approximately 7 months ago where he suddenly felt like he could not move his legs [place] and he had to sit down and wait for his strength to come back. No other recent issues prior to the last 2 weeks. No fevers, chills, sweats. No chest pain or shortness of breath. Principal Diagnosis Occipital CVAs Discharge Exam Constitutional WD/WN, vitals as above average body habitus; no acute distress Eyes PERRL, conjunctivae normal, anicteric sclerae EOM intact bilaterally; + abnormal visual field confrontation (Had a left-sided visual field deficit with the left eye) ENMT external ear and nose normal, oropharynx normal Ears: + hearing impairment Mouth: no oropharynx abnormality Neck trachea midline, no thyromegaly Respiratory normal respiratory effort, lungs clear to auscultation Cardiovascular RRR, no murmur, no edema Gastrointestinal (Abdomen) normal bowel sounds, soft, nontender, no hepatosplenomegaly Musculoskeletal Extremities: extremities normal to inspection; no cyanosis and no clubbing Skin no rashes, warm and dry Neurologic patellar DTR's 2+ bilat, sensation intact and PERRL, EOMI, accommodation nl, no face palsy, no dysarthria CN's II-XI intact bilaterally (Except left-sided visual field deficit as above), deep tendon reflexes 2+ bilaterally, moves all extremities (5 out of 5 strength throughout upper and lower extremities bilaterally) and awake Motor/Sensory: no tremor and no sensory deficit (Sensation intact light touch throughout upper and lower extremities) Cranial Nerves: no nystagmus Coordination: + abnormal fypdax-jb-havh test (No ataxia, but was unable to see my finger when it was off to his left and therefore he pointed right in front of him and missed my finger); normal ylfa-or-bigg test and normal rapid alternating movements Psychiatric A+Ox3, euthymic affect Discharge Data Allergies Allergy/AdvReac Type Severity Reaction Status Date / Time Tetanus Vaccines and Toxoid AdvReac Unknown "TETANUS Verified 10/19/18 06:36 SHOT" - FEVER [employer] AdvReac Unknown SEE NOTES Uncoded 10/19/18 06:36 Consultations 12/17/18 16:43 ED Decision to Admit Stat 12/17/18 18:49 Consult Case Management - Discharge Planning Routine Consult Neurology Routine Ordered Studies 12/17/18 13:38 MR brain wo con Stat 12/17/18 17:19 CT angio head w con Urgent CT angio neck with con Urgent Hospital Course (1) Acute CVA (cerebrovascular accident): Presented with 2 weeks of visual hallucinations and dizziness-found to have acute and subacute infarcts of the bilateral occipital lobes and left cerebellar hemisphere on MRI of the brain without contrast. CT angiogram of the head and neck shows moderate-severe multifocal bilateral vertebral artery stenosis as well as a 70% proximal stenosis of the right vertebral artery, as well as bilateral KENDRICK right greater than left, no occlusions or aneurysm. No history of atrial fibrillation but has multiple other risk factors for atherosclerosis and CVA to include diabetes, hypertension, history of smoking Strokes most likely from bilateral severe atherosclerosis of vertebral arteries, but question if could be embolic from a more central source. Basilar artery is patent. -Admit to telemetry for cardiac arrhythmia monitoring-if no atrial fibrillation/flutter found, consider 30-day event monitor after discharge -Continue home aspirin and add Plavix at least for 1 month and then return to a single antiplatelet agent alone-discussed with neurology -Check lipid panel in the morning but LDL was 133 back in 05/2018. He has had myalgias with atorvastatin and simvastatin in the past and stopped taking them. -Start Crestor 20 mg p.o. every morning and see if he can tolerate this-needs high intensity statin for severe cerebrovascular disease -Permissive hypertension although blood pressures are significantly elevated in the ER-we will give hydralazine 10 mg IV x1 now and continue home BP meds -Awaiting transthoracic echocardiogram with bubble study to look for thrombus and inter-atrial shunt - Not done by time of transfer - Discussed with Dr. Centeno (neurology) and radiologist who felt this was less likely embolic given the distribution and more likely just very bad vascular dis ease in the vertebral distribution. (2) Visual hallucinations: Secondary to occipital lobe CVAs With visual field deficit on physical examination -Recommended no driving until seen by ophthalmology for visual field testing as an outpatient (3) Dizziness: Secondary to left cerebellar CVA -PT/OT consults ordered (4) Vertebral artery stenosis: As above - Added Plavix to his aspirin and start high intensity statin - No intervention needed at this time, no indication for anticoagulation (5) Head ache: Likely secondary to acute CVAs -Tylenol as needed for pain (6) Chronic obstructive pulmonary disease: Stable at this time -Continue home Advair twice daily Albuterol as needed (7) Sleep apnea: Does not use CPAP and instead sleeps on his side to avoid snoring Untreated sleep apnea would be a risk factor for atrial fibrillation. (8) Hyperlipidemia: Failed atorvastatin and simvastatin due to myalgias as above -Starting Crestor in the morning and observe for myalgias -Checking lipid panel in the morning -Recommend following LFTs in 4 to 6 weeks -consider CoQ10 supplementation if has myalgias (9) Hypertension: Severely elevated on admission with blood pressure 190/110 -IV hydralazine x1 given -Continue home losartan, atenolol, amlodipine We will not drop blood pressure too low given recent strokes Maintain map of 95 if possible - Maintained this during his admission prior to transfer. (10) Restless leg syndrome: Severe and has tried multiple medications and seen neurology in the past -Currently well controlled with Sinemet both extended release twice daily and immediate release throughout the day (11) Depression: Stable -Continue Lexapro (12) Diabetes mellitus, type 2: Previously uncontrolled with A1c 9.3% back in the fall, now much improved to 6.9% -Holding home metformin, glipizide, and can bring in home Tradjenta if possible Insulin sliding scale ordered while here (13) GERD (gastroesophageal reflux disease): Stable, with a history of short segment Cee's with biopsies negative for dysplasia -Continue Protonix -Continue recommended surveillance with EGD in 3 more years (14) BPH (benign prostatic hyperplasia): Stable, mild on recent cystoscopy, had a meatal stricture dilated, has a large bladder diverticulum and 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 Albumin here is normal at 3.5 -Continue to follow with nephrology -Continue losartan (16) Carotid artery stenosis: With 75% stenosis of the right internal carotid artery and 50% stenosis left internal carotid artery seen on CT angiogram here None of his strokes are within that distribution, no indication for vascular surgery intervention at this time but should be followed closely as an outpatient -continue ASA, Plavix to be started, and starting statin as above (17) DVT prophylaxis: Lovenox SQ, SCDs Disposition-admit to telemetry for observation overnight and completion of work- up Total Time Total Time Spent Total Time Spent (In Minutes): 35 Total Time Includes: Examination of the Patient and Communication With Other Providers Discharge Plan Discharge Items Patient Disposition: Transfer Acute Care Hospital Reason For Visit: ACUTE CVA Discharge Diagnosis: Acute strokes Condition: Good Discharge Goals: Decrease discomfort and Diagnostic testing Activity: Resume your previous activity Driving/Machine Use Comment: No driving until after visual field inspection. Non-emergency contact: Primary Care Provider and Neurologist Call non-emergency contact if: you have any medication questions and your symptoms worsen Follow-up/Referrals: Eduardo Cat III, MD [Primary Care Provider] - Diet: Heart Healthy [facility] Provider Instructions: Transferred to [facility] for further CVA testing. Prescriptions: New enoxaparin 40 mg/0.4 mL Syringe 40 mg subcut Q24H Qty: 1 RF: 0 rosuvastatin [Crestor] 20 mg Tablet 20 mg PO QAM Qty: 1 RF: 0 Novolog Flexpen U-100 Insulin 100 unit/mL (3 mL) Insulin Pen 1 unit SC ACHS Qty: 1 RF: 0 clopidogrel 75 mg Tablet 75 mg PO QAM Qty: 1 RF: 0 Continued multivitamin Tablet 1 tab PO QAM RF: 0 nicotine (polacrilex) 2 mg Gum 2 mg BUCCAL UD PRN (Reason: nicotine withdrawl) RF: 0 carbidopa-levodopa 25-250 mg Tablet 1 tab PO DAILY PRN (Reason: Unknown) RF: 0 carbidopa-levodopa 50-200 mg Tablet Extended Release 1 tab PO BID RF: 0 amlodipine 5 mg Tablet 5 mg PO QAM RF: 0 aspirin 81 mg Tablet,Delayed Release (Dr/Ec) 81 mg PO QAM RF: 0 mometasone [Nasonex] 50 mcg/actuation Satartia,Non-Aerosol 2 spray INTRANASAL QAM PRN (Reason: NASAL CONGESTION ) RF: 0 losartan 100 mg Tablet 100 mg PO HS RF: 0 atenolol 50 mg Tablet 50 mg PO HS RF: 0 escitalopram oxalate 10 mg Tablet 10 mg PO QAM RF: 0 omeprazole 20 mg Tablet,Delayed Release (Dr/Ec) 20 mg PO BID RF: 0 amlodipine 2.5 mg Tablet 2.5 mg PO QAM RF: 0 tamsulosin 0.4 mg Capsule 0.4 mg PO HS RF: 0 fluticasone propion-salmeterol [Advair Diskus] 100-50 mcg/dose Blister With Device 1 puff INHALATION DAILY PRN (Reason: SOB) RF: 0 cholecalciferol (vitamin D3) [Vitamin D3] 2,000 unit Tablet 2,000 unit PO QAM RF: 0 carbidopa-levodopa [Sinemet] 25-250 mg tablet 1 tab PO TID RF: 0 albuterol sulfate 90 mcg/actuation Hfa Aerosol Inhaler 1 - 2 puff INHALATION UD PRN (Reason: ASTHMA/COPD) RF: 0 oxycodone-acetaminophen [Percocet] 5-325 mg tablet 1 tab PO Q8H PRN (Reason: pain) Qty: 5 RF: 0 Discontinued metformin 500 mg Tablet 1,000 mg PO BID RF: 0 glipizide 10 mg Tablet 10 mg PO BID RF: 0 ibuprofen [Advil] 200 mg Tablet 400 mg PO TID PRN (Reason: Pain) RF: 0 Tradjenta 5 mg Tablet 5 mg PO HS RF: 0 Stand-Alone Forms: [facility] Discharge Orders: Discharge Order (Routine); Ordered 12/18/18 Ordered By: Josep Manzano Admission Data Admit Date/Time: 12/17/18 17:24 Attending Provider: Josep Manzano Admit Provider: Lula Church Primary Care Provider: Eduardo Cat III Other Providers: Jcarlos Centeno III ; Josep Manzano Service: Telemetry
== END 2018-12-18 16:20 | disposition short-term general hospital (02) | DRG 66 ==
LOC: ED 12:40 → SUATTDRO 17:24 → 2E 17:24

== ENCOUNTER 2019-02-25 09:15 | Inpatient (IN) ==
[2019-02-25 10:10] LABS: Basophils # (auto) 0.01 K/uL (0-0.2); Basophils % (auto) 0.1 %; Eosinophils % (auto) 1.5 %; Hematocrit (blood only) 42.1 % (42-52); Hemoglobin 14.3 g/dL (14.0-18.0); Immature Granulocytes # (auto) 0.01 K/uL (0.00-0.02); Immature Granulocytes % (auto) 0.1 %; Lymphocytes # (auto) 0.91 K/uL (1.2-3.4); Lymphocytes % (auto) 13.5 %; Mean Corpuscular Volume 92.1 fL (80-100); Mean Platelet Volume 9.6 fL (7.4-10.4); Monocytes # (auto) 0.56 K/uL (0.11-0.59); Monocytes % (auto) 8.3 %; Neutrophils # (auto) 5.15 K/uL (1.4-6.5); Neutrophils % (auto) 76.5 %; Platelet Count 257 K/uL (130-400); RDW Coefficient of Variation 13.7 % (11.5-14.5); RDW Standard Deviation 46.4 fL (36.4-46.3); Red Blood Count 4.57 M/uL (4.7-6.1); White Blood Count 6.74 K/uL (4.8-10.8)
[2019-02-25 10:19] LABS: Alanine Aminotransferase 27 U/L (12-78); Albumin Level 3.7 gm/dl (3.4-5.0); Aspartate Aminotransferase 13 U/L (15-37); BUN Creatinine Ratio 21.1 (10-20); Blood Urea Nitrogen 24 mg/dl (7-18); Carbon Dioxide 28 mmol/L (21-32); Chloride 105 mmol/L (98-107); Creatinine Clr Calc Pharmacy 61.5 ml/min; Est GFR (African American) 76.7; Est GFR (Non-African American) 66.2; Glucose 196 mg/dl (70-99); Magnesium 1.8 mg/dl (1.8-2.4); Potassium 3.7 mmol/L (3.5-5.1); Sodium 138 mmol/L (136-145)
[2019-02-25 10:20] LABS: Partial Thromboplastin Ratio 0.9; Partial Thromboplastin Time 25.2 Seconds (21.0-31.0); Prothrombin Time 9.8 Seconds (9.0-12.0)
[2019-02-25 10:24] LABS: Albumin Globulin Ratio 1.1 (0.9-2); Alkaline Phosphatase 46 U/L (45-117); Bilirubin,Total 0.3 mg/dl (0.2-1); Creatine Kinase 180 U/L (39-308); Creatine Kinase MB 4.7 ng/ml (0.5-3.6); Globulin 3.5 gm/dl (2.5-4.0); Total Protein 7.2 gm/dl (6.4-8.2); Troponin I < 0.015 ng/ml (0-0.045)
--- NOTE | 2019-02-25 10:29 | XRay Report ---
XR chest 1V portable HISTORY: 68 years-old Male Pt c/o AMS acutely altered mental status COMPARISON: Chest CT 12/10/2016 TECHNIQUE: Portable AP view of the chest FINDINGS: Cardiac silhouette is mildly enlarged. Patient is slightly rotated towards the left. Calcification of the thoracic aortic arch. No pneumothorax, pleural effusion, focal airspace consolidation or overt p ulmonary edema. Degenerative changes of the shoulders and spine. IMPRESSION: No acute process. The above report was generated using voice recognition software. It may contain grammatical, syntax o r spelling errors. Electronically signed by: Jose Luis Gr M.D. 02/25/2019 10:27 AM
[2019-02-25] MEDS ORDERED: OPTIRAY 320 125ml IV PRN (10:41)
--- NOTE | 2019-02-25 10:44 | CT Scan Report ---
CT head/brain wo con CLINICAL HISTORY: Stroke evaluation COMPARISON STUDY: 01/13/2014 TECHNIQUE: Axial CT of the brain is performed from the vertex to the skull base. IV contrast was not administered for this examination. A dose lowering technique was utilized adhering to the principles of ALARA. CT DOSE: FINDINGS: No intra or extra-axial mass lesions are visualized. There is a left occipital infarct which is likel y subacute or chronic. There is no midline shift. There is no evidence of acute hemorrhage. There are patchy white matter hypodensities likely on a small vessel basis. There is no evidence of pathologic ventricular dilatation. There is mild mucosal thickening within sphenoid sinus. There is a left maxillary sinus retention cys t. There are dense vertebral artery calcifications. IMPRESSION: 1. Left occipital infarct, likely subacute or chronic. An MRI could be obtained in follow-up for more accurate dating. 2. No evidence of acute hemorrhage. 3. No evidence of intracranial mass on this noncontrast study Electronically signed by: Jonathan Flanagan M.D. 02/25/2019 10:42 AM
[2019-02-25 10:47] LABS: Appearance Urine Clear (Clear); Bacteria Urine Automated Negative (Negative); Bilirubin Urine Negative (Negative); Blood Urine Negative (Negative); Color Urine Yellow; Glucose Urine UA Trace (Negative); Ketones Urine Negative (Negative); Leukocyte Esterase Urine Negative (Negative); Nitrite Urine Negative (Negative); Protein Urine 3+ (Negative); RBC Urine Automated 0-4 /hpf (0-4); Specific Gravity Urine 1.021 (1.000-1.030); Urobilinogen Urine Negative (Negative)
--- NOTE | 2019-02-25 11:01 | CT Scan Report ---
CT angio neck with con, CT angio head w con CLINICAL HISTORY: 68 years-old Male with Pt c/o AMS. Acutely altered mental status COMPARISON STUDY: CT head of same day, CTA head and neck 12/17/2017 TECHNIQUE: Following the IV administration of 119 of Optiray 320, CT angiogram of the head and neck w as performed from the aortic arch to the skull base. Images are reviewed in the axial, sagittal, and coronal planes. 3-D MIPS images are created and assessed. IV contrast was administered without compli cation. All measurements were calculated based on NASCET criteria. A dose lowering technique was uti lized adhering to the principles of ALARA. CT DOSE: 1102.30 mGy.cm FINDINGS: Moderate mixed plaque formation of the thoracic aortic arch and origin of the great vessels. Mixed pl aque formation at the origin of the left subclavian artery results in less than 50% stenosis. Bilater al common carotid arteries are patent. Moderate mixed plaque formation involves the distal common car otid arteries with severe mixed plaque formation about the bilateral carotid bulbs and origins of the internal carotid arteries. Approximately 75% luminal narrowing at the origin of the right internal c arotid artery and 50% luminal narrowing at the origin of the left internal carotid artery appears unc hanged from comparison. Calcified plaque about the cavernous segment right ICA results in approximate ly 50% stenosis on image 356 series 6, also unchanged. Mild luminal narrowing of less than 50% involves the proximal aspect of the right M1 segment, unchang ed. Left middle cerebral artery appears unremarkable. Diminutive right A1 segment, likely development al. Anterior cerebral arteries are patent. Unchanged 70% stenosis about the proximal right vertebral artery at the C6-C7 level secondary to mixe d plaque formation. Multifocal severe luminal narrowing is again noted about the V4 segments of the b ilateral vertebral arteries. Patent basilar artery. Long segment of moderate to severe narrowing is n oted about the right P2 segment. Moderate focal narrowing of the left P1 segment appears unchanged. N o aneurysm, dissection or proximal branch occlusion identified. No abnormal enhancement identified. R emote infarcts of the bilateral occipital lobes redemonstrated. No pneumothorax. Heterogeneous right thyroid lobe with subcentimeter nodules. No adenopathy. Airway a ppears patent. Mild mucosal thickening about the paranasal sinuses with areas of polypoid mucosal thi ckening noted about the maxillary sinuses. Multilevel degenerative changes of the spine. IMPRESSION: 1. Unchanged CTA of the head and neck. Encephalomalacia about the bilateral occipital distributions n oted compatible with areas of remote infarct. 2. Multifocal high-grade stenosis redemonstrated about the V4 segments of the bilateral vertebral art eries. 3. Long segment moderate to severe narrowing about the right P2 segment with moderate focal narrowing of the left P2 segment, also unchanged. 4. Severe mixed plaque formation of the carotid bulbs results in 75% stenosis on the right and 50% st enosis on the left. 5. Additional findings as above. The above report was generated using voice recognition software. It may contain grammatical, syntax o r spelling errors. Electronically signed by: Jose Luis Gr M.D. 02/25/2019 10:59 AM
--- NOTE | 2019-02-25 11:58 | Magnetic Resonance Report ---
MRI OF THE BRAIN WITHOUT CONTRAST CLINICAL HISTORY: Abnormal head CT. Age-indeterminate occipital infarcts COMPARISON STUDY: CT scan dated 02/25/2019, MRI of the brain dated 12/17/2018 FINDINGS: Sagittal T1, axial diffusion, proton density and T2 weighted axial, coronal FLAIR, and axial T1-weigh yomaira images were acquired. No intra or extra-axial mass lesions are visualized There are new diffusion signal abnormalities within the left posterior temporal and left occipital lo be. Indicative of acute/subacute infarcts. There are also punctate diffusion signal abnormalities wit hin the right occipital lobe. There is a tiny diffusion signal abnormality within the left superior l ateral thalamus. There is no evidence of ventricular dilatation. Proton density T2-weighted and FLAIR images reveal scattered foci of increased T2 signal within the w anthony matter, likely on a small vessel basis. In addition there is cortical signal abnormality involvi ng the occipital lobes left greater than right consistent with infarcts. There are no abnormal flow voids. IMPRESSION: 1. New foci of restricted water diffusion involving the left posterior temporal and left occipital lo bes. Given the CT findings and the FLAIR signal abnormalities, these infarcts are likely greater than 24 hours old. In addition there are additional acute/subacute infarcts involving the right occipital lobe, and left superior lateral thalamus. Electronically signed by: Jonathan Flanagan M.D. 02/25/2019 11:57 AM
--- NOTE | 2019-02-25 12:43 | History & Physical Report ---
Date of Service February 25, 2019 Assessment & Plan (1) Acute CVA (cerebrovascular accident): Continue Plavix therapy. Brain MRI scan head and neck CTA have been done. Recent cardiac echo will not be repeated. Neurology consultation. OT, PT, speech therapy assessments. N.p.o. until cleared by speech therapy Present on Admission?: Yes (2) DM (diabetes mellitus): Hold metformin. Sliding scale insulin coverage. ADA diet after cleared by speech therapy Present on Admission?: Yes (3) Hypertension: Treated with losartan, atenolol, amlodipine Present on Admission?: Yes (4) COPD (chronic obstructive pulmonary disease): Stable. Continue inhalation therapy Present on Admission?: Yes (5) DVT prophylaxis: Lovenox subcu History of Present Illness Chief Complaint: Worsening confusion for the past several days Primary Care Provider: Eduardo Cat MD 68-year-old male with worsening confusion and lethargy for the past several days according to his . He was hospitalized in December of this year with multiple ischemic strokes. At that time he had visual hallucinations and headache. He has continued to have visual hallucinations since that time which have not changed. He also has a left-sided visual field defect that has not changed. However his mental status has changed over the past day or 2 according to his which prompted the ED visit. Brain MRI scan reveals what appears to be a relatively new subacute left posterior temporal CVA, left occipital CVA, right occipital CVA, and left lateral thalamic CVA. He already takes Plavix. He had a cardiac echo done in December of this year which will not be repeated. Remarkably he does not have any significant motor deficits although coordination of the left arm [id number] is slightly worse than the right side. He has normal deep tendon reflexes and no pronator drift. His balance is fair and he does have a left lower visual field defect which is not new. He will be admitted with neurological consultation and remain on Plavix therapy. Metformin will be placed on hold for the time being. Other medications remain the same. OT, PT, speech therapy consults have been requested. Allergies Allergy/AdvReac Type Severity Reaction Status Date / Time Tetanus Vaccines and Toxoid AdvReac Unknown "TETANUS Verified 02/03/19 13:49 SHOT" - FEVER [employer] AdvReac Unknown SEE NOTES Uncoded 10/19/18 06:36 Home Medications Home Medications Medication Instructions Recorded Confirmed Type amlodipine [Norvasc] 5 mg PO QAM 07/06/18 02/25/19 History losartan 100 mg PO HS 07/06/18 02/25/19 History mometasone [Nasonex] 2 spray INTRANASAL QAM PRN 07/06/18 02/25/19 History multivitamin 1 tab PO QAM 07/06/18 02/25/19 History nicotine (polacrilex) 2 mg BUCCAL UD PRN 07/06/18 02/25/19 History cholecalciferol (vitamin D3) 2,000 unit PO QAM 08/31/18 02/25/19 History [Vitamin D3] tamsulosin 0.4 mg PO HS 08/31/18 02/25/19 History atenolol 50 mg tablet 50 mg PO PM tab 02/03/19 02/25/19 History carbidopa 25 mg-levodopa 250 mg 1 tab PO QAM PRN tab 02/03/19 02/25/19 History tablet escitalopram 10 mg tablet 10 mg PO DAILY 02/03/19 02/25/19 History fluticasone 100 mcg-salmeterol 50 1 puff INHALATION DAILY PRN ea 02/03/19 02/25/19 History mcg/dose blistr powdr for inhalation atorvastatin [Lipitor] 80 mg PO QAM 02/25/19 02/25/19 History clopidogrel [Plavix] 75 mg PO QAM 02/25/19 02/25/19 History glipizide 10 mg PO BID 02/25/19 02/25/19 History metformin [Glucophage] 1,000 mg PO BID 02/25/19 02/25/19 History pantoprazole [Protonix] 40 mg PO QAM 02/25/19 02/25/19 History Past Med/Surg History Medical History Anxiety Asthma STABLE BPH (benign prostatic hyperplasia) Barretts esophagus Basal cell carcinoma of face CKD (chronic kidney disease), stage II Chronic obstructive pulmonary disease STABLE Depression Diabetes mellitus, type 2 NIDDM Diabetic retinopathy GERD (gastroesophageal reflux disease) Hearing loss History of poliomyelitis Hyperlipidemia Hypertension Hypertensive retinopathy of left eye IBS (irritable bowel syndrome) POSSIBLE Proteinuria due to type 2 diabetes mellitus Restless leg syndrome ON CARBIDOPA-LEVODOPA Sleep apnea NO DEVICE Tinnitus Vitamin D deficiency Surgical History History of basal cell carcinoma excision History of colonoscopy History of esophagogastroduodenoscopy (EGD) History of right inguinal hernia repair History of tooth extraction Family History Sister Family history of diabetes mellitus 2 Colorectal cancer Father Family history of lung cancer Mother Family history of adrenal cancer Social History Preferred Language: Tajik Communication Ability: Effective Beliefs That Will Affect Care: None marital status: Current Living Situation: Spouse current occupational status: retired 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 Hx Substance Use: No Review of Systems Review of Systems: Constitutional-no fever or chills ENT-no blurred vision, no double vision, no epistaxis, no sore throat. Intermittent visual hallucinations since December 2018 Respiratory-no cough, no wheezing, no shortness of breath Cardiac-no palpitations, no chest pain, no syncope GI-no nausea, vomiting, diarrhea, melena, hematochezia -no urinary retention, no urinary incontinence, no dysuria, no hematuria Musculoskeletal-no joint pain, no muscle tenderness Skin-no bruising, no rashes, no pruritus Neuro-altered mental status with increased confusion. Some balance deficit dating to December 2018 without change Psych-no depression, no anxiety Physical Exam Physical Exam: General-alert and oriented x3, no fevers, no chills HEENT-head atraumatic and normocephalic, TMs intact bilaterally, pupils equal and reactive to light, extraocular muscles intact Neck-no lymphadenopathy or thyromegaly, trachea midline Chest-clear to auscultation percussion. No rales wheezing or rhonchi Cardiac-regular rate and rhythm, normal S1 and S2, no JVD Abdomen-normal bowel sounds, nontender, no hepatosplenomegaly Extremities-no cyanosis, clubbing, or edema Neuro-mildly abnormal left [id number]. No pronator drift. No focal motor deficits. Normal [id number] bilaterally. Mild balance deficit. Mild left lower visual field deficit Psych-normal affect, normal mood Results & Data Vital Signs (Past 12 Hours) Vital Signs Temp Pulse Pulse Resp BP BP Pulse Ox 02/25/19 12:23 90 18 169/97 H 95 02/25/19 11:08 64 17 148/86 H 94 02/25/19 09:18 36.4 C L 91 H 20 143/85 H 96 Laboratory Results 02/25/19 09:32 02/25/19 09:32 PG Care Time/CCT Total # of Minutes Spent Total Time Spent with Patient: Total time spent is greater than 50% in coordination of care (as documented) at patient's floor/unit and/or counseling patient: (1) Hypertension Hypertension type: unspecified Qualified Code(s): I10 - Essential (primary) hypertension
--- NOTE | 2019-02-25 13:27 | Emergency Department Note ---
ED Visit Note I assisted in the care of this patient with Dr. Knowles. Please see his note for further details. . Resident Activity Tracking Resident Involvement: Resident Care Provided Care Provided: Adult ED
[2019-02-25] MEDS ORDERED: FLUTICASONE/SALMETEROL 100/50 (ADVAIR) 14 PUFF/1 INHALER INH PRN (14:53)
[2019-02-25] MEDS ORDERED: FLUTICASONE PROPIONATE NA SPR 16 GM BTL PRN (14:53)
[2019-02-25] MEDS ORDERED: PHARMACIST DISCHARGE MED REC CONSULT PRN (14:53)
[2019-02-25] MEDS ORDERED: CARBIDOPA/LEVODOPA 25-250 1 EA TAB PO PRN (14:53)
[2019-02-25] MEDS ORDERED: SODIUM CHLORIDE 0.9% 1000ML 1,000 ML IV SCH (14:53)
[2019-02-25] MEDS ORDERED: GLUCOSE 10 TABS/TUBE PO PRN (15:00)
[2019-02-25] MEDS ORDERED: GLUCOSE 40% GEL 15 GM TUBE PO PRN (15:00)
[2019-02-25] MEDS ORDERED: CARBOHYDRATES FOR HYPOGLYCEMIA PO PRN (15:00)
[2019-02-25] MEDS ORDERED: DEXTROSE 50% 50 ML SYRINGE IV PRN (15:00)
[2019-02-25] MEDS ORDERED: GLUCAGON FOR INJ 1 MG VIAL IM PRN (15:00)
[2019-02-25] MEDS: INSULIN ASPART 100 UNITS/ML 3 ML PEN SC SCH ×2 (17:41→20:31)
[2019-02-25] MEDS ORDERED: Nursing to Pharmacy Communication ONE (18:28)
[2019-02-25] MEDS ORDERED: ENOXAPARIN INJ 40 MG/0.4 ML SYR SQ SCH (21:00)
[2019-02-25] MEDS ORDERED: TAMSULOSIN HCL 0.4 MG CAP PO SCH (21:00)
[2019-02-25] MEDS ORDERED: ATENOLOL 50 MG TABLET PO SCH (21:00)
[2019-02-25] MEDS ORDERED: LOSARTAN POTASSIUM 50 MG TAB PO SCH (21:00)
[2019-02-26 06:34] LABS: Basophils # (auto) 0.02 K/uL (0-0.2); Basophils % (auto) 0.3 %; Eosinophils # (auto) 0.18 K/uL (0-0.5); Eosinophils % (auto) 2.6 %; Hematocrit (blood only) 44.7 % (42-52); Hemoglobin 15.1 g/dL (14.0-18.0); Immature Granulocytes # (auto) 0.01 K/uL (0.00-0.02); Immature Granulocytes % (auto) 0.1 %; Lymphocytes % (auto) 20.6 %; Mean Corpuscular Hgb Conc 33.8 g/dL (32-36); Mean Corpuscular Volume 92.9 fL (80-100); Mean Platelet Volume 9.4 fL (7.4-10.4); Monocytes # (auto) 0.98 K/uL (0.11-0.59); Monocytes % (auto) 14.4 %; Neutrophils # (auto) 4.21 K/uL (1.4-6.5); Platelet Count 252 K/uL (130-400); RDW Coefficient of Variation 13.4 % (11.5-14.5); RDW Standard Deviation 45.8 fL (36.4-46.3); Red Blood Count 4.81 M/uL (4.7-6.1)
[2019-02-26 07:15] LABS: BUN Creatinine Ratio 18.4 (10-20); Creatinine Clr Calc Pharmacy 57.7 ml/min; Est GFR (African American) 72.8; Est GFR (Non-African American) 62.8; Potassium 3.4 mmol/L (3.5-5.1)
--- NOTE | 2019-02-26 07:53 | Neurology Consultation ---
Date of Consultation February 26, 2019 Assessment & Plan (1) Acute CVA (cerebrovascular accident): Patient has new left occipital and parietal strokes in addition to some smaller right occipital and left thalamic strokes. Echocardiogram in December was unremarkable and he has no obvious cardiac issues or dysrhythmias. He has significant carotid and vertebral system cerebral vascular disease/stenosis. I suspect that in December and also currently he has been having emboli from his vertebral and posterior circulations stenoses, although I cannot entirely exclude thrombosis in certain areas. The aortic arch and proximal great vessels have plaque noted on CT angiography as well. He has multiple additional risk factors for stroke including longstanding hypertension, diabetes, and dyslipidemia. These have been reasonably well controlled and his hemoglobin A1c at 6.9 is the same as it was in December. He also has obstructive sleep apnea and apparently is not using his CPAP mask. He quit cigarette smoking 17 years ago. I spoke with Dr. Valdes, stroke specialist neurologist at [facility] regarding this case, including MRI findings, CT angiography findings and clinical course, in order to discuss treatment options. (2) Vertebral artery stenosis: Patient has vertebral artery stenosis of moderate to severe nature at the V4 segment level. The right is considered to be 70%. He also has P2 segment stenosis severe on the right and moderate on the left. This posterior circulation stenoses are unchanged compared the previous study of December of 2018. (3) Carotid artery stenosis: Patient has a history of bilateral carotid bulb stenosis with the right at 75% on the left at 50%. This is unchanged on CT angiography compared to the previous study of December of 2018. There is no evidence on MRI that the carotid system is responsible for his strokes. (4) History of poliomyelitis: This patient has a history of poliomyelitis at age 13 which affected his legs in a mild nature. He does not have significant leg weakness. His absent ankle reflexes are probably a sign of early polyneuropathy from his longstanding diabetes. Recommendations: 1. He becomes a treatment dilemma because of multiple strokes despite antiplatelet medication treatment. Currently, I see no indication for anticoagulation in this patient. I would recommend adding 81 mg aspirins to 75 mg clopidogrel daily. Ticagrelor (Brilinta), was discussed but the really is not any good CROZER/stroke data comparing this medication to Plavix/aspirin. 2. I am not certain that another echocardiogram is necessary. 3. Continue controlling blood pressure as you are doing, aiming for a mean arterial pressure of 95-100. 4. Continue high-dose statin treatment as you are doing. 5. Control glucose, trying to get a hemoglobin A1c of closer to 6.0. Overall, I spent 100 minutes total on this case including review of records, review of MRI films, direct evaluation the patient at bedside, and discussion of the case with the patient at bedside, nursing staff at bedside, Dr. Valdes at [facility], and Dr. Manzano, including differential diagnosis and treatment options. History of Present Illness Reason for Consultation: Patient is a 68-year-old, who I was asked to see the request of Dr. Juarez, for neurologic consultation regarding stroke. Requesting Physician: Dr. Juarez Attending Physician: Josep Manzano MD History of Present Illness I first saw this patient December 18, 2018. At that time he had had an acute right greater than left occipital lobe infarct and a tiny left cerebellar hemispheric infarct. Clinically at that time he had decreased vision to the left and some slight vertigo and balance issues. He had been having some visual hallucinations and dizziness for a couple of weeks prior to presenting. He had subtle upgoing toes on examination but the rest of his neurologic examination was largely unremarkable except for some decreased vision to the left which was felt to be due to an older left occipital stroke which was seen on the MRI at that time. He was put on aspirin and Plavix and after several weeks the aspirin was discontinued and he remained on Plavix alone. He was put on high-dose statin and his glucose and hypertension were controlled as best as possible. Ophthalmology visits reveals hypertensive retinopathy of the left and diabetic retinopathy. On February [address] Cat for a follow-up visit. He was stable but still having some visual hallucinations. He was seeing snakes" that were not there. His balance was still somewhat tenuous and did have occasional fall (without injury). He remains on Plavix. Apparently has been having some confusion of an increase nature for several days prior to admission. Patient thinks that he has continued to have some hallucinations of seeing people and has been having some occasional bioccipital headaches (rarely for bifrontal) but has not had any new weakness or numbness. He arrived at the hospital at 0918 on February 20 with a temperature of 36.4, pulse 91 and regular, blood pressure 143/85, O2 saturation 96%. Examination was described as having some decreased coordination of his left upper extremity and some visual defects to the left which is likely old. His balance was not good either. CT scan of the head showed an old left occipital stroke. CBC was unremarkable and glucose was I 100. Chem profile was otherwise unremarkable. Fasting lipids revealed a triglyceride of 165 and a cholesterol of 134 (both of these were improved compared to the previous studies of December of 2018). Hemoglobin A1c was 6.9 MRI of the brain showed new acute/subacute strokes in the left posterior temporal head region and left occipital head region. There was some tiny strokes in the right occipital head region and 1 spot in the left thalamus of a small nature. CT angiography of the head neck showed no significant changes compared to the previous studies of December of 2018. There continued to be moderate to severe stenosis of the V4 segments of the vertebral arteries bilaterally (right 70%). There were severe right and moderate left P2 stenoses and carotid bulb stenosis bilaterally (75% on the right and 50% on the left). Again, there was no significant change. Today patient's blood pressure is 151/75. His pulse has been in sinus rhythm in the 70s and 80s with no dysrhythmia overnight since admission. Patient does not have any complaints of headache, confusion, new vision problems, weakness or numbness of the limbs but he does feel little bit dizzy at times when he stands up and his balance is off a little bit. Summary of past medical history obtained December 18, 2018: Has a longstanding history of hypertension (30 years), diabetes (15-20 years), dyslipidemia, COPD, restless leg syndrome, and sleep apnea for which he does not use CPAP. Patient tells me that when he was 13 years old he contracted polio (even after having the oral polio vaccine). He had very mild weakness in his legs which recovered for the most part. He used to smoke cigarettes for over 30 years and quit 17 years ago. The patient states that over the last 3 months he started getting some vision problems. He had focusing issues bilaterally and was starting to see things in his vision that were there. These could be colors or sparkles/spectacles and, a s time went by, he would see things that others would not such as dark clouds or grass was not there. On December [address] Denny bocanegra cuff matcher, who felt that he had some vision issues with his left eye particularly secondary to blood pressure and diabetes. He had no specific treatment otherwise. Over the last 2 and half weeks he has continued to have the visual hallucinations and star burst of flashing lights in his vision that would come and go. He started getting headaches under and around his eyes and bi occipitally. He noticed recently that his balance has been off any gets woozy or vertiginous at times. On December 16, at 1242 blood pressure was 151/80, temperature 36.6, pulse 86, respiratory rate 20, and O2 saturation 95 percent. Later on his blood pressure was 170/123. On exam there was some possible decreased vision to the left but no other focal findings. CBC and Chem profile were unremarkable except for an elevated glucose. Hemoglobin A1c today was 6.9. TSH, ESR, and Lyme antibody titers were unremarkable. MRI of the brain showed multiple scattered bioccipital acute/subacute strokes right greater than left side. There was an acute punctate left cerebellar hemisphere stroke as well. Flare imaging revealed old ischemia scattered in the hemispheres bilaterally of a mild nature and a large old left occipital stroke (at least 2 months old). I reviewed these films with doctors Colton and Panchito. CT angiography of the head and neck revealed greater than 75 percent stenosis of the right internal carotid artery at the origin and 50 percent in the left internal carotid artery at the origin. There was 70 percent stenosis of the proximal right vertebral and significant stenoses distally in the vertebral arteries intracranially bilaterally. The right P2 segment was severely narrowed. I reviewed these films with doctors Colton and Panchito. Triglyceride was 200, cholesterol 190, LDL 104, and blood pressure 164/97 this morning. Allergies Allergy/AdvReac Type Severity Reaction Status Date / Time Tetanus Vaccines and Toxoid AdvReac Unknown "TETANUS Verified 02/03/19 13:49 SHOT" - FEVER MICA [employer] AdvReac Unknown SEE NOTES Uncoded 10/19/18 06:36 Home Medications Home Medications Medication Instructions Recorded Confirmed Type amlodipine [Norvasc] 5 mg PO QAM 07/06/18 02/25/19 History losartan 100 mg PO HS 07/06/18 02/25/19 History mometasone [Nasonex] 2 spray INTRANASAL QAM PRN 07/06/18 02/25/19 History multivitamin 1 tab PO QAM 07/06/18 02/25/19 History nicotine (polacrilex) 2 mg BUCCAL UD PRN 07/06/18 02/25/19 History cholecalciferol (vitamin D3) 2,000 unit PO QAM 08/31/18 02/25/19 History [Vitamin D3] tamsulosin 0.4 mg PO HS 08/31/18 02/25/19 History atenolol 50 mg tablet 50 mg PO PM tab 02/03/19 02/25/19 History carbidopa 25 mg-levodopa 250 mg 1 tab PO QAM PRN tab 02/03/19 02/25/19 History tablet escitalopram 10 mg tablet 10 mg PO DAILY 02/03/19 02/25/19 History fluticasone 100 mcg-salmeterol 50 1 puff INHALATION DAILY PRN ea 02/03/19 02/25/19 History mcg/dose blistr powdr for inhalation atorvastatin [Lipitor] 80 mg PO QAM 02/25/19 02/25/19 History clopidogrel [Plavix] 75 mg PO QAM 02/25/19 02/25/19 History glipizide 10 mg PO BID 02/25/19 02/25/19 History metformin [Glucophage] 1,000 mg PO BID 02/25/19 02/25/19 History pantoprazole [Protonix] 40 mg PO QAM 02/25/19 02/25/19 History Patient History Medical History COPD (chronic obstructive pulmonary disease) (Chronic) Acute CVA (cerebrovascular accident) (Acute) Hypertension (Chronic) DM (diabetes mellitus) (Chronic) Anxiety Asthma STABLE BPH (benign prostatic hyperplasia) Barretts esophagus Basal cell carcinoma of face CKD (chronic kidney disease), stage II Chronic obstructive pulmonary disease STABLE Depression Diabetes mellitus, type 2 NIDDM Diabetic retinopathy GERD (gastroesophageal reflux disease) Hearing loss History of poliomyelitis Hyperlipidemia Hypertension Hypertensive retinopathy of left eye IBS (irritable bowel syndrome) POSSIBLE Proteinuria due to type 2 diabetes mellitus Restless leg syndrome ON CARBIDOPA-LEVODOPA Sleep apnea NO DEVICE Tinnitus Vitamin D deficiency Surgical History History of basal cell carcinoma excision History of colonoscopy History of esophagogastroduodenoscopy (EGD) History of right inguinal hernia repair History of tooth extraction Family History Sister Family history of diabetes mellitus 2 Colorectal cancer Father Family history of lung cancer Mother Family history of adrenal cancer Social History Preferred Language: Slovenian Communication Ability: Effective Supply Person Required: No Beliefs That Will Affect Care: Mu-Ism Mu-Ism Beliefs: Anabaptist marital status: Current Living Situation: Spouse current occupational status: retired 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 Hx Substance Use: No Review of Systems Constitutional: no fever, no fatigue and no weakness Eyes: no blind spots, no diplopia, no eye pain and no worsening vision Ear, Nose, Mouth, Throat: no ear pain, no tinnitus, no hearing loss, no dizziness, no snoring, no hoarseness and no dysphagia Respiratory: no cough and no dyspnea Cardiovascular: no chest pain, no palpitations and no lightheadedness Gastrointestinal: no abdominal pain, no nausea and no vomiting Genitourinary: + urinary incontinence; no dysuria and no difficulty urinating Musculoskeletal: no back pain, no neck pain, no radicular pain, no joint pain and no myalgia Integumentary: no rash and no lesions Neurologic: + dizziness; no gait abnormality, no localized weakness, no generalized weakness, no tingling, no numbness, no tremor(s), no abnormal movements, no headache(s), no abnormal speech, no confusion and no memory loss Psychiatric: no depression, no irritability, no anxiety, no difficulty concentrating, no confusion and no hallucinations Endocrine: no fatigue and no flushing Hematologic / Lymphatic: no easy bleeding and no easy bruising Allergy / Immunological: no urticaria and no problem reported Physical Exam Physical Exam: The patient is right-handed. The patient is awake, alert, and attentive. Speech is with some slight dysarthria noted on repeating test phrases. In addition the patient has some trouble reading words. This could be a combination of not having good vision but with wearing glasses and good light he seemed to see the were but had trouble forming or same the word as if he had some mild motor speech issues. At times he could not come up with the noun and that he wanted to say (other times he did). When given choices, however, he would pick out the right noun. He could name objects and colors of a simple nature. Mentation and thought processes were reasonable to conversation and he was oriented to person and place but not day, date, or year. He knew the month and the president. He could do simple calculations. Attention and concentration are normal. Mood and affect are normal and appropriate. General appearance and grooming are normal. His short-term memory was moderately impaired. The discs are sharp with positive venous pulsations bilaterally. There are no exudates, hemorrhages, or blood vessel changes seen. Pupils are 4 mm bilaterally and reactive to light. Extraocular eye muscles are intact without nystagmus. Visual acuity and visual murillo seem reasonable to confrontation today. I did not detect any homonymous hemianopia or quadrantanopsia with finger confrontation this morning. There are no deficits to sensation in the face in all 3 distributions of the fifth cranial nerve bilaterally. Corneal reflexes are positive bilaterally. Facial strength and symmetry was normal bilaterally. Hearing seems intact grossly to voice and finger rub bilaterally. Palate moves well without asymmetry. There is normal sternocleidomastoid and trapezius (shoulder shrug) strength bilaterally. Tongue is midline with good strength bilaterally. Neck has a full range of motion without discomfort. There are no cervical bruits bilaterally. There are no cranial or ocular bruits. Heart is without murmur. There is a regular rhythm and rate. Cervical, thoracic, and lumbar spine are nontender to palpation. Gait is narrow based, with good arm swing, but hesitant and cautious particularly with turns.. Balance is reasonable eyes open. With outstretched arms there is no drift. There are no resting, postural, or action tremors. There is no ataxia with finger to nose testing. There is good facility in the hands. No other abnormal involuntary movements are noted. Motor strength is 5/5 diffusely in the right upper extremity including deltoids, biceps, triceps, brachioradialis, wrist flexors and extensors, plant controller, and intrinsic hand muscles. The left upper extremity had 4+/5 strength diffusely. Motor strength is 5/5 diffusely in the legs bilaterally including hip flexors, quadriceps, hamstrings, gastrocnemius, tibialis anterior, tibialis posterior, and Peroneii muscles bilaterally. Toe extensors are normal and there is good bulk in the extensor digitorum brevis muscles bilaterally. The limbs have good tone without rigidity or spasticity. There is no atrophy noted in the muscles. Muscle bulk is normal, there is no tenderness to palpation, no myotonia to percussion, and no fasciculations seen. Sensory examination is intact to touch and pin throughout all 4 limbs diffusely. Reflexes are 2/4 in the biceps, triceps, brachioradialis, and quadriceps tendons bilaterally. Achilles tendon reflexes are absent bilaterally. Toes are downgoing with plantar stimulation bilaterally. Peripheral pulses are present and of normal quality distally in all 4 limbs. There is no peripheral edema noted in the limbs. Results & Data Vital Signs (Past 12 Hours) Vital Signs Temp Pulse Resp BP BP Pulse Ox 02/26/19 06:57 36.7 C 78 18 151/75 H 94 02/26/19 02:41 36.7 C 86 20 162/90 H 94 02/25/19 23:07 36.7 C 84 20 167/97 H 94 Diagnostic Findings MRI OF THE BRAIN WITHOUT CONTRAST CLINICAL HISTORY: Abnormal head CT. Age-indeterminate occipital infarcts COMPARISON STUDY: CT scan dated 02/25/2019, MRI of the brain dated 12/17/2018 FINDINGS: Sagittal T1, axial diffusion, proton density and T2 weighted axial, coronal FLAIR, and axial T1-weighted images were acquired. No intra or extra-axial mass lesions are visualized There are new diffusion signal abnormalities within the left posterior temporal and left occipital lobe. Indicative of acute/subacute infarcts. There are also punctate diffusion signal abnormalities within the right occipital lobe. There is a tiny diffusion signal abnormality within the left superior lateral thalamus. There is no evidence of ventricular dilatation. Proton density T2-weighted and FLAIR images reveal scattered foci of increased T2 signal within the white matter, likely on a small vessel basis. In addition there is cortical signal abnormality involving the occipital lobes left greater than right consistent with infarcts. There are no abnormal flow voids. IMPRESSION: 1. New foci of restricted water diffusion involving the left posterior temporal and left occipital lobes. Given the CT findings and the FLAIR signal abn ormalities, these infarcts are likely greater than 24 hours old. In addition there are additional acute/subacute infarcts involving the right occipital lobe, and left superior lateral thalamus. Electronically signed by: Jonathan Flanagan M.D. 02/25/2019 11:57 AM
[2019-02-26 08:08] LABS: Estimated Average Glucose 151 mg/dl; Hemoglobin A1C 6.9 % (4.5-5.6)
[2019-02-26] MEDS: INSULIN ASPART 100 UNITS/ML 3 ML PEN SC SCH ×2 (08:34→12:14)
[2019-02-26] MEDS ORDERED: CHOLECALCIFEROL 1,000 UNITS TAB PO SCH (09:00)
[2019-02-26] MEDS ORDERED: CLOPIDOGREL BISULFATE 75 MG TAB PO SCH (09:00)
[2019-02-26] MEDS ORDERED: PANTOprazole 40 MG TAB PO SCH (09:00)
[2019-02-26] MEDS ORDERED: ESCITALOPRAM OXALATE 10 MG TAB PO SCH (09:00)
[2019-02-26] MEDS ORDERED: AMLODIPINE BESYLATE 5 MG TAB PO SCH (09:00)
[2019-02-26] MEDS ORDERED: MULTIVITAMIN TAB PO SCH (09:00)
[2019-02-26] MEDS ORDERED: ATORVASTATIN 40 MG TAB PO SCH (09:00)
--- NOTE | 2019-02-26 09:22 | Emergency Department Note ---
Entered by Laura Garcia acting as a scribe for Jd Knowels MD History of Present Illness General Chief complaint: Stroke/CVA Symptoms Stated complaint: DISORIENTED, CONFUSED, HEADACHE, HISTORY OF STROKE Time Seen by Provider: 02/25/19 09:30 Source: patient Mode of arrival: ambulatory Limitations: no limitations History of Present Illness Provider complaint: stroke-like symptoms Onset (ago): day(s) Location: head Pain Consistency: + other (persistent) Quality: + other (stroke-like) Associated symptoms: + confusion, + headaches and + other (imbalance, hallucinations) The patient is a 68 year old male who presents to the ER with complaints of persistent stroke-like symptoms that onset yesterday. The patient reports that he has been confused and hallucinating since yesterday. He also states that he has had an associated headache and balance issues. He notes that he was experiencing similar in December and was found to be having a stroke. Home Medications Home Medications Medication Instructions Recorded Confirmed Type amlodipine [Norvasc] 5 mg PO QAM 07/06/18 02/25/19 History losartan 100 mg PO HS 07/06/18 02/25/19 History mometasone [Nasonex] 2 spray INTRANASAL QAM PRN 07/06/18 02/25/19 History multivitamin 1 tab PO QAM 07/06/18 02/25/19 History nicotine (polacrilex) 2 mg BUCCAL UD PRN 07/06/18 02/25/19 History cholecalciferol (vitamin D3) 2,000 unit PO QAM 08/31/18 02/25/19 History [Vitamin D3] tamsulosin 0.4 mg PO HS 08/31/18 02/25/19 History atenolol 50 mg tablet 50 mg PO PM tab 02/03/19 02/25/19 History carbidopa 25 mg-levodopa 250 mg 1 tab PO QAM PRN tab 02/03/19 02/25/19 History tablet escitalopram 10 mg tablet 10 mg PO DAILY 02/03/19 02/25/19 History fluticasone 100 mcg-salmeterol 50 1 puff INHALATION DAILY PRN ea 02/03/19 02/25/19 History mcg/dose blistr powdr for inhalation atorvastatin [Lipitor] 80 mg PO QAM 02/25/19 02/25/19 History clopidogrel [Plavix] 75 mg PO QAM 02/25/19 02/25/19 History glipizide 10 mg PO BID 02/25/19 02/25/19 History metformin [Glucophage] 1,000 mg PO BID 02/25/19 02/25/19 History pantoprazole [Protonix] 40 mg PO QAM 02/25/19 02/25/19 History Allergies Allergy/AdvReac Type Severity Reaction Status Date / Time Tetanus Vaccines and Toxoid AdvReac Unknown "TETANUS Verified 02/03/19 13:49 SHOT" - [employer] AdvReac Unknown SEE NOTES Uncoded 10/19/18 06:36 Past Med/Surg History Medical History COPD (chronic obstructive pulmonary disease) (Chronic) Acute CVA (cerebrovascular accident) (Acute) Hypertension (Chronic) DM (diabetes mellitus) (Chronic) Anxiety Asthma STABLE BPH (benign prostatic hyperplasia) Barretts esophagus Basal cell carcinoma of face CKD (chronic kidney disease), stage II Chronic obstructive pulmonary disease STABLE Depression Diabetes mellitus, type 2 NIDDM Diabetic retinopathy GERD (gastroesophageal reflux disease) Hearing loss History of poliomyelitis Hyperlipidemia Hypertension Hypertensive retinopathy of left eye IBS (irritable bowel syndrome) POSSIBLE Proteinuria due to type 2 diabetes mellitus Restless leg syndrome ON CARBIDOPA-LEVODOPA Sleep apnea NO DEVICE Tinnitus Vitamin D deficiency Surgical History History of basal cell carcinoma excision History of colonoscopy History of esophagogastroduodenoscopy (EGD) History of right inguinal hernia repair History of tooth extraction Family History Sister Family history of diabetes mellitus 2 Colorectal cancer Father Family history of lung cancer Mother Family history of adrenal cancer Social History Preferred Language: Uzbek Communication Ability: Effective Dashboard Developer Required: No Beliefs That Will Affect Care: Mu-Ism Mu-Ism Beliefs: Buddhist marital status: Current Living Situation: Spouse current occupational status: retired 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 Hx Substance Use: No Review of Systems See HPI for pertinent positives & negatives. and A total of 10 systems reviewed and were otherwise negative Physical Exam Vital Signs Vital Signs - 24 hr 02/25/19 11:08 02/25/19 12:23 Pulse Rate [Apical] 64 90 Pulse Rhythm [Apical] Regular Regular Respiratory Rate 17 18 Respiratory Effort / Characteristics Non-Labored Spontaneous Non-Labored Spontaneous Respiratory Depth Normal Normal Respiratory Pattern Regular Regular Blood Pressure [Left Arm] 148/86 H 169/97 H Blood Pressure Mean [Left Arm] 106 121 Pulse Oximetry 94 95 Oxygen Delivery Method Room Air Room Air GENERAL: Awake, alert, well-appearing, in no acute distress HENT: Normocephalic, atraumatic. Oropharynx unremarkable. EYES: Normal conjunctiva. Sclera non-icteric. NECK: Supple. No nuchal rigidity. FROM. No JVD. RESPIRATORY: Clear to auscultation. CARDIAC: Regular rate, normal rhythm. Extremities warm and well perfused. Pulses equal. ABDOMEN: Soft, non-distended. No tenderness to palpation. No rebound or guarding. No masses. RECTAL: Deferred. MUSCULOSKELETAL: Chest examination reveals no tenderness. The back is symmetrical on inspection without obvious abnormality. There is no CVA tende rness to palpation. No joint edema. LOWER EXTREMITIES: Calves are equal size bilaterally and non-tender. No edema. No discoloration. NEURO: Normal sensorium. No sensory or motor deficits noted. SKIN: No rash or jaundice noted. Course 0932: The resident, Dr. Jimenez - PGY - 3, evaluated the patient. 0955: Dr. Jimenez updated the patient. 1131: I did perform an independent evaluation and examination of this patient as described. I also saw this patient in conjunction with the resident, Dr. Jimenez, and guided management for the patient. 1210: I discussed the patient's case with Dr. Juarez - [facility] Hospitalist. He will evaluate the patient for further management. Administered Medications Amlodipine Besylate (Norvasc) 5 mg PO QAM [facility] Stop: 03/28/19 08:59 Last Admin: 02/26/19 08:36 Dose: 5 mg Documented by: [id number] Atenolol (Tenormin) 50 mg PO PM [facility] Stop: 03/27/19 20:59 Last Admin: 02/25/19 20:34 Dose: 50 mg Documented by: [id number] Atorvastatin Calcium (Lipitor) 80 mg PO QAM [facility] Stop: 03/28/19 08:59 Last Admin: 02/26/19 08:35 Dose: 80 mg Documented by: [id number] Clopidogrel Bisulfate (Plavix) 75 mg PO QAM [facility] Stop: 03/28/19 08:59 Last Admin: 02/26/19 08:36 Dose: 75 mg Documented by: [id number] Enoxaparin Sodium (Lovenox) 40 mg SQ Q24H [facility] Stop: 03/27/19 20:59 Last Admin: 02/25/19 20:35 Dose: 40 mg Documented by: [id number] Escitalopram Oxalate (Lexapro Tab) 10 mg PO DAILY [facility] Stop: 03/28/19 08:59 Last Admin: 02/26/19 08:35 Dose: 10 mg Documented by: [id number] Insulin Aspart (Novolog Flexpen) 0 units SC ACHS [facility] Stop: 03/27/19 16:29 Last Admin: 02/26/19 08:34 Dose: 3 units Documented by: [id number] Cosigned by: [id number] Admin: 02/25/19 20:31 Dose: 3 units Documented by: [id number] Cosigned by: [id number] Admin: 02/25/19 17:41 Dose: 1 units Documented by: [id number] Cosigned by: [id number] Ioversol (Optiray 320 125ml) 119 ml IV ONCE PRN PRN Reason: Interaction Checking Stop: 03/01/19 10:40 Last Admin: 02/25/19 10:41 Dose: 119 ml Documented by: [id number] Losartan Potassium (Cozaar) 100 mg PO HS [facility] Stop: 03/27/19 20:59 Last Admin: 02/25/19 20:35 Dose: 100 mg Documented by: [id number] Multivitamins (Multivitamin Tab) 1 tab PO QAM [facility] Stop: 03/28/19 08:59 Last Admin: 02/26/19 08:36 Dose: 1 tab Documented by: [id number] Pantoprazole Sodium (Protonix) 40 mg PO QAM [facility] Stop: 03/28/19 08:59 Last Admin: 02/26/19 08:36 Dose: 40 mg Documented by: [id number] Tamsulosin HCl (Flomax) 0.4 mg PO HS [facility] Stop: 03/27/19 20:59 Last Admin: 02/25/19 20:35 Dose: 0.4 mg Documented by: [id number] Vitamin D (Vitamin D3) 2,000 units PO QAM [facility] Stop: 03/28/19 08:59 Last Admin: 02/26/19 08:36 Dose: 2,000 units Documented by: [id number] Discontinued Medications Sodium Chloride (Nss 1000ml) 1,000 mls @ 80 mls/hr IV .[id number] [facility] Stop: 03/27/19 14:52 Last Admin: 02/25/19 19:53 Dose: Not Given Documented by: [id number] Medical Decision Making Differential Diagnosis Differential Diagnosis includes: ischemic stroke, hemorrhagic stroke, bells palsy, mass, neoplasm, migraine headache, seizure, subarachnoid hemorrhage, TIA, and transient global amnesia. Medical Records Attestation: I reviewed the patient's medical records. Home Medications Current Medication List: was personally reviewed by me Laboratory Data Attestation: I reviewed the patient's lab results. Result diagrams: 02/26/19 05:51 02/26/19 05:51 Lab Results 02/25/19 02/25/19 02/25/19 Range/Units 09:28 09:32 09:32 WBC 6.74 (4.8-10.8) K/uL RBC 4.57 L (4.7-6.1) M/uL Hgb 14.3 (14.0-18.0) g/dL Hct 42.1 (42-52) % MCV 92.1 (80-100) fL MCH 31.3 (25-34) pg MCHC 34.0 (32-36) g/dL RDW Std Deviation 46.4 H (36.4-46.3) fL RDW Coeff of Jose 13.7 (11.5-14.5) % Plt Count 257 (130-400) K/uL MPV 9.6 (7.4-10.4) fL Immature Gran % (Auto) 0.1 % Neut % (Auto) 76.5 % Lymph % (Auto) 13.5 % Putnam % (Auto) 8.3 % Eos % (Auto) 1.5 % Baso % (Auto) 0.1 % Immature Gran # (Auto) 0.01 (0.00-0.02) K/uL Neut # (Auto) 5.15 (1.4-6.5) K/uL Lymph # (Auto) 0.91 L (1.2-3.4) K/uL Putnam # (Auto) 0.56 (0.11-0.59) K/uL Eos # (Auto) 0.10 (0-0.5) K/uL Baso # (Auto) 0.01 (0-0.2) K/uL PT 9.8 (9.0-12.0) Seconds INR 1.0 (0.9-1.1) APTT 25.2 (21.0-31.0) Seconds PTT Ratio 0.9 Sodium (136-145) mmol/L Potassium (3.5-5.1) mmol/L Chloride (98-107) mmol/L Carbon Dioxide (21-32) mmol/L Anion Gap (3-11) BUN (7-18) mg/dl Creatinine (0.6-1.4) mg/dl Est Cr Clr Drug Dosing ml/min Est GFR ( Amer) Est GFR (Non-Af Amer) BUN/Creatinine Ratio (10-20) Glucose (70-99) mg/dl POC Glucose 201 H (70-99) Estimat Average Glucose mg/dl Hemoglobin A1c (4.5-5.6) % Calcium (8.5-10.1) mg/dl Magnesium (1.8-2.4) mg/dl Total Bilirubin (0.2-1) mg/dl AST (15-37) U/L ALT (12-78) U/L Alkaline Phosphatase (45-117) U/L Total Creatine Kinase (39-308) U/L CK-MB (CK-2) (0.5-3.6) ng/ml CK/CKMB % Calc (0-3.0) Troponin I (0-0.045) ng/ml Total Protein (6.4-8.2) gm/dl Albumin (3.4-5.0) gm/dl Globulin (2.5-4.0) gm/dl Albumin/Globulin Ratio (0.9-2) Urine Color Urine Appearance (Clear) Urine pH (4.5-7.5) Ur Specific Crawford (1.000-1.030) Urine Protein (Negative) Urine Glucose (UA) (Negative) Urine Ketones (Negative) Urine Blood (Negative) Urine Nitrite (Negative) Urine Bilirubin (Negative) Urine Urobilinogen (Negative) Ur Leukocyte Esterase (Negative) Urine WBC (Auto) (0-5) /hpf Urine RBC (Auto) (0-4) /hpf U Hyaline Cast (Auto) (0-5) /lpf U Epithel Cells (Auto) (0-5) /lpf Urine Bacteria (Auto) (Negative) 02/25/19 02/25/19 02/25/19 Range/Units 09:32 09:32 10:22 WBC (4.8-10.8) K/uL RBC (4.7-6.1) M/uL Hgb (14.0-18.0) g/dL Hct (42-52) % MCV (80-100) fL MCH (25-34) pg MCHC (32-36) g/dL RDW Std Deviation (36.4-46.3) fL RDW Coeff of Jose (11.5-14.5) % Plt Count (130-400) K/uL MPV (7.4-10.4) fL Immature Gran % (Auto) % Neut % (Auto) % Lymph % (Auto) % Putnam % (Auto) % Eos % (Auto) % Baso % (Auto) % Immature Gran # (Auto) (0.00-0.02) K/uL Neut # (Auto) (1.4-6.5) K/uL Lymph # (Auto) (1.2-3.4) K/uL Putnam # (Auto) (0.11-0.59) K/uL Eos # (Auto) (0-0.5) K/uL Baso # (Auto) (0-0.2) K/uL PT (9.0-12.0) Seconds INR (0.9-1.1) APTT (21.0-31.0) Seconds PTT Ratio Sodium 138 (136-145) mmol/L Potassium 3.7 (3.5-5.1) mmol/L Chloride 105 (98-107) mmol/L Carbon Dioxide 28 (21-32) mmol/L Anion Gap 5.0 (3-11) BUN 24 H (7-18) mg/dl Creatinine 1.14 (0.6-1.4) mg/dl Est Cr Clr Drug Dosing 61.5 ml/min Est GFR ( Amer) 76.7 Est GFR (Non-Af Amer) 66.2 BUN/Creatinine Ratio 21.1 H (10-20) Glucose 196 H (70-99) mg/dl POC Glucose (70-99) Estimat Average Glucose 151 mg/dl Hemoglobin A1c 6.9 H (4.5-5.6) % Calcium 9.0 (8.5-10.1) mg/dl Magnesium 1.8 (1.8-2.4) mg/dl Total Bilirubin 0.3 (0.2-1) mg/dl AST 13 L (15-37) U/L ALT 27 (12-78) U/L Alkaline Phosphatase 46 (45-117) U/L Total Creatine Kinase 180 (39-308) U/L CK-MB (CK-2) 4.7 H (0.5-3.6) ng/ml CK/CKMB % Calc 2.6 (0-3.0) Troponin I < 0.015 (0-0.045) ng/ml Total Protein 7.2 (6.4-8.2) gm/dl Albumin 3.7 (3.4-5.0) gm/dl Globulin 3.5 (2.5-4.0) gm/dl Albumin/Globulin Ratio 1.1 (0.9-2) Urine Color Yellow Urine Appearance Clear (Clear) Urine pH 5.0 (4.5-7.5) Ur Specific Crawford 1.021 (1.000-1.030) Urine Protein 3+ H (Negative) Urine Glucose (UA) Trace H (Negative) Urine Ketones Negative (Negative) Urine Blood Negative (Negative) Urine Nitrite Negative (Negative) Urine Bilirubin Negative (Negative) Urine Urobilinogen Negative (Negative) Ur Leukocyte Esterase Negative (Negative) Urine WBC (Auto) 1-5 (0-5) /hpf Urine RBC (Auto) 0-4 (0-4) /hpf U Hyaline Cast (Auto) 1-5 (0-5) /lpf U Epithel Cells (Auto) 5-10 H (0-5) /lpf Urine Bacteria (Auto) Negative (Negative) Imaging Data Radiologist's Impression: Radiology results as stated below per my review and the radiologist's interpretation: XR chest 1V portable HISTORY: 68 years-old Male Pt c/o AMS acutely altered mental status COMPARISON: Chest CT 12/10/2016 TECHNIQUE: Portable AP view of the chest FINDINGS: Cardiac silhouette is mildly enlarged. Patient is slightly rotated towards the left. Calcification of the thoracic aortic arch. No pneumothorax, pleural e ffusion, focal airspace consolidation or overt pulmonary edema. Degenerative changes of the shoulders and spine. IMPRESSION: No acute process. The above report was generated using voice recognition software. It may contain grammatical, syntax or spelling errors. Electronically signed by: Jose Luis Gr M.D. 02/25/2019 10:[address] head/brain wo con CLINICAL HISTORY: Stroke evaluation COMPARISON STUDY: 01/13/2014 TECHNIQUE: Axial CT of the brain is performed from the vertex to the skull base. IV contrast was not administered for this examination. A dose lowering technique was utilized adhering to the principles of ALARA. CT DOSE: FINDINGS: No intra or extra-axial mass lesions are visualized. There is a left occipital infarct which is likely subacute or chronic. There is no midline shift. There is no evidence of acute hemorrhage. There are patchy white matter hypodensities likely on a small vessel basis. There is no evidence of pathologic ventricular dilatation. There is mild mucosal thickening within sphenoid sinus. There is a left maxillary sinus retention cyst. There are dense vertebral artery calcifications. IMPRESSION: 1. Left occipital infarct, likely subacute or chronic. An MRI could be obtained in follow-up for more accurate dating. 2. No evidence of acute hemorrhage. 3. No evidence of intracranial mass on this noncontrast study Electronically signed by: Jnoathan Flanagan M.D. 02/25/2019 10:[address] angio neck with con, CT angio head w con CLINICAL HISTORY: 68 years-old Male with Pt c/o AMS. Acutely altered mental status COMPARISON STUDY: CT head of same day, CTA head and neck 12/17/2017 TECHNIQUE: Following the IV administration of 119 of Optiray 320, CT angiogram of the head and neck was performed from the aortic arch to the skull base. Images are reviewed in the axial, sagittal, and coronal planes. 3-D MIPS images are created and assessed. IV contrast was administered without complication. All measurements were calculated based on NASCET criteria. A dose lowering technique was utilized adhering to the principles of ALARA. CT DOSE: 1102.30 mGy.cm FINDINGS: Moderate mixed plaque formation of the thoracic aortic arch and origin of the great vessels. Mixed plaque formation at the origin of the left subclavian artery results in less than 50% stenosis. Bilateral common carotid arteries are patent. Moderate mixed plaque formation involves the distal common carotid arteries with severe mixed plaque formation about the bilateral carotid bulbs and origins of the internal carotid arteries. Approximately 75% luminal narrowing at the origin of the right internal carotid artery and 50% luminal narrowing at the origin of the left internal carotid artery appears unchanged from comparison. Calcified plaque about the cavernous segment right ICA results in approximately 50% stenosis on image 356 series 6, also unchanged. Mild luminal narrowing of less than 50% involves the proximal aspect of the right M1 segment, unchanged. Left middle cerebral artery appears unremarkable. Diminutive right A1 segment, likely developmental. Anterior cerebral arteries are patent. Unchanged 70% stenosis about the proximal right vertebral artery at the C6-C7 level secondary to mixed plaque formation. Multifocal severe luminal narrowing is again noted about the V4 segments of the bilateral vertebral arteries. Patent basilar artery. Long segment of moderate to severe narrowing is noted about the right P2 segment. Moderate focal narrowing of the left P1 segment appears unchanged. No aneurysm, dissection or proximal branch occlusion identified. No abnormal enhancement identified. Remote infarcts of the bilateral occipital lobes redemonstrated. No pneumothorax. Heterogeneous right thyroid lobe with subcentimeter nodules. No adenopathy. Airway appears patent. Mild mucosal thickening about the paranasal sinuses with areas of polypoid mucosal thickening noted about the maxillary sinuses. Multilevel degenerative changes of the spine. IMPRESSION: 1. Unchanged CTA of the head and neck. Encephalomalacia about the bilateral occipital distributions noted compatible with areas of remote infarct. 2. Multifocal high-grade stenosis redemonstrated about the V4 segments of the bilateral vertebral arteries. 3. Long segment moderate to severe narrowing about the right P2 segment with moderate focal narrowing of the left P2 segment, also unchanged. 4. Severe mixed plaque formation of the carotid bulbs results in 75% stenosis on the right and 50% stenosis on the left. 5. Additional findings as above. The above report was generated using voice recognition software. It may contain grammatical, syntax or spelling errors. Electronically signed by: Jose Luis Gr M.D. 02/25/2019 10:59 AM MRI OF THE BRAIN WITHOUT CONTRAST CLINICAL HISTORY: Abnormal head CT. Age-indeterminate occipital infarcts COMPARISON STUDY: CT scan dated 02/25/2019, MRI of the brain dated 12/17/2018 FINDINGS: Sagittal T1, axial diffusion, proton density and T2 weighted axial, coronal FLAIR, and axial T1-weighted images were acquired. No intra or extra-axial mass lesions are visualized There are new diffusion signal abnormalities within the left posterior temporal and left occipital lobe. Indicative of acute/subacute infarcts. There are also punctate diffusion signal abnormalities within the right occipital lobe. There is a tiny diffusion signal abnormality within the left superior lateral thalamus. There is no evidence of ventricular dilatation. Proton density T2-weighted and FLAIR images reveal scattered foci of increased T2 signal within the white matter, likely on a small vessel basis. In addition there is cortical signal abnormality involving the occipital lobes left greater than right consistent with infarcts. There are no abnormal flow voids. IMPRESSION: 1. New foci of restricted water diffusion involving the left posterior temporal and left occipital lobes. Given the CT findings and the FLAIR signal abnormalities, these infarcts are likely greater than 24 hours old. In addition there are additional acute/subacute infarcts involving the right occipital lobe, and left superior lateral thalamus. Electronically signed by: Jonathan Flanagan M.D. 02/25/2019 11:57 AM ECG Data Attestation: I personally reviewed and interpreted this ECG as follows: Indication: other (stroke sx) Rate (beats per minute): 87 Rhythm: normal sinus Findings: + other (old septal infarct); no ST depression and no ST elevation Blood Pressure Blood Pressure Findings: Elevated blood pressure Blood Pressure Disposition: further management by hospitalist [facility] Narrative This is a 68-year-old male who presents emergency department complaining of hallucinations. Patient's family is concerned that the patient is having another CVA therefore stroke alert was initiated. His symptoms have been ongoing longer than 24 hours therefore I did not feel he was a candidate for TPA. He was sent for a CAT scan of the head which was concerning for an occipital infarct. Patient's CAT scan was compared to previous MRI and the decision was made to send the patient back for repeat MRI. Does appear that the patient has had a new CVA therefore he was discussed with the hospitalist ritesh kang who agreed to admit the patient. Patient and family were in agreement with the treatment plan. Impression & Plan HTN (hypertension), Acute CVA (cerebrovascular accident), Visual hallucinations Discharge Plan Visit Data *Final* Discharge Date/Time: 02/25/19 13:38 Chief Complaint: Stroke/CVA Symptoms Stated Complaint: DISORIENTED, CONFUSED, HEADACHE, HISTORY OF STROKE ED Provider: Jd Knowles ED Midlevel Provider: Elisabet Jimenez Discharge Problem: HTN (hypertension), Acute CVA (cerebrovascular accident), Visual hallucinations Patient Disposition: Admitted As Inpatient Discharge Instructions Interventions: ED Discharge Assessment Last Done: 02/25/19 13:38 The scribe's documentation has been prepared under my direction and personally reviewed by me in its entirety. I confirm that the note above accurately reflects all work, treatment, procedures, and medical decision making performed by me.
[2019-02-26] MEDS ORDERED: STROKE PATIENT DISCHARGE STA (15:02)
--- NOTE | 2019-02-26 15:32 | Pharmacy Report ---
Pharmacist Stroke Counseling - Date of Service February 26, 2019 - Scope: Pharmacy has been consulted to provide medication discharge counseling for this patient admitted with ischemic stroke as per the Pharmacist Discharge Counseling for Stroke Patients Protocol. - Medications on Discharge: Home Medications Medication Instructions Recorded Confirmed amlodipine [Norvasc] 5 mg PO QAM 07/06/18 02/25/19 losartan 100 mg PO HS 07/06/18 02/25/19 mometasone [Nasonex] 2 spray INTRANASAL QAM PRN 07/06/18 02/25/19 multivitamin 1 tab PO QAM 07/06/18 02/25/19 nicotine (polacrilex) 2 mg BUCCAL UD PRN 07/06/18 02/25/19 cholecalciferol (vitamin D3) 2,000 unit PO QAM 08/31/18 02/25/19 [Vitamin D3] tamsulosin 0.4 mg PO HS 08/31/18 02/25/19 atenolol 50 mg tablet 50 mg PO PM tab 02/03/19 02/25/19 carbidopa 25 mg-levodopa 250 mg 1 tab PO QAM PRN tab 02/03/19 02/25/19 tablet escitalopram 10 mg tablet 10 mg PO DAILY 02/03/19 02/25/19 fluticasone 100 mcg-salmeterol 50 1 puff INHALATION DAILY PRN ea 02/03/19 02/25/19 mcg/dose blistr powdr for inhalation atorvastatin [Lipitor] 80 mg PO QAM 02/25/19 02/25/19 clopidogrel [Plavix] 75 mg PO QAM 02/25/19 02/25/19 glipizide 10 mg PO BID 02/25/19 02/25/19 metformin [Glucophage] 1,000 mg PO BID 02/25/19 02/25/19 pantoprazole [Protonix] 40 mg PO QAM 02/25/19 02/25/19 New Rx's Medication Instructions Recorded aspirin 81 mg PO DAILY #30 tab 02/26/19 - Action: The above medications, specifically ones for stroke treatment/prophylaxis, have been reviewed in detail with the patient and patient's prior to discharge. This includes indication, common adverse reactions, drug interactions, and medication administration. Medication counseling has been employed using the teach-back method to ensure understanding. - Outcome: The patient and his have demonstrated understanding of the medications. Please note, they are aware that the pharmacist will call them within 72 hours post-discharge to confirm that the appropriate medications are being taken and answer any further medication related questions the patient might have at that time. Contact information Individual to be contacted: Patient/ Phone number: [phone] Best time to call: anytime, feel free to leave a message and they will call back Additional comments: Also reviewed when to take medications, in addition when to resume glipizide and metformin ([address] on 7.25) Thank you for allowing pharmacy to be involved in the care of this patient. Please call [phone] or [phone] with any additional questions
--- NOTE | 2019-02-26 16:57 | Discharge Summary ---
Date of Service February 26, 2019 Admission HPI Per Admitting Provider 68-year-old male with worsening confusion and lethargy for the past several days according to his . He was hospitalized in December of this year with multiple ischemic strokes. At that time he had visual hallucinations and headache. He has continued to have visual hallucinations since that time which have not changed. He also has a left-sided visual field defect that has not changed. However his mental status has changed over the past day or 2 according to his which prompted the ED visit. Brain MRI scan reveals what appears to be a relatively new subacute left posterior temporal CVA, left occipital CVA, right occipital CVA, and left lateral thalamic CVA. He already takes Plavix. He had a cardiac echo done in December of this year which will not be repeated. Remarkably he does not have any significant motor deficits although coordination of the left arm [id number] is slightly worse than the right side. He has normal deep tendon reflexes and no pronator drift. His balance is fair and he does h ave a left lower visual field defect which is not new. He will be admitted with neurological consultation and remain on Plavix therapy. Metformin will be placed on hold for the time being. Other medications remain the same. OT, PT, speech therapy consults have been requested. Principal Diagnosis Stroke Discharge Exam Constitutional WD/WN, vitals as above Eyes EOM intact bilaterally; no conjunctival abnormality ENMT external ear and nose normal, oropharynx normal Neck trachea midline, no thyromegaly normal visual inspection Respiratory normal respiratory effort, lungs clear to auscultation no respiratory distress Cardiovascular RRR, no murmur, no edema Gastrointestinal (Abdomen) Inspection/Auscultation: abdomen normal to inspection; abdomen not distended Musculoskeletal no cyanosis or clubbing, extremities motor strength 5/5 Skin no rashes, warm and dry Neurologic moves all extremities and awake Psychiatric Orientation: alert, oriented to person and cooperative Discharge Data Allergies Allergy/AdvReac Type Severity Reaction Status Date / Time Tetanus Vaccines and Toxoid AdvReac Unknown "TETANUS Verified 02/03/19 13:49 SHOT" - FEVER 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 New foci of restricted water diffusion involving the left posterior temporal and left occipital lobes. Given the CT findings and the FLAIR signal abnormalities, these infarcts are likely greater than 24 hours old. In addition there are additional acute/subacute infarcts involving the right occipital lobe, and left superior lateral thalamus. - Seen by neurology - Thought that he needs to restart DAPT and continue indefinitely - Told to restart ASA and continue Plavix. - Follow up with [facility] neurology (2) DM (diabetes mellitus): Hold metformin. Sliding scale insulin coverage. ADA diet after cleared by speech therapy (3) Hypertension: Treated with losartan, atenolol, amlodipine (4) COPD (chronic obstructive pulmonary disease): Stable. Continue inhalation therapy (5) DVT prophylaxis: Lovenox subcu Total Time Total Time Spent Total Time Spent (In Minutes): 35 Discharge Plan Discharge Items Patient Disposition: Home - Self-Care Reason For Visit: ACUTE CVA Discharge Diagnosis: Acute CVA Discharge Goals: Decrease discomfort and Diagnostic testing Activity: Resume your previous activity Non-emergency contact: Primary Care Provider and Neurologist Call non-emergency contact if: your symptoms worsen Follow-up/Referrals: Eduardo Cat III, MD [Primary Care Provider] - Diet: Heart Healthy Addtl Provider Instructions: Mr. Laboy, You were admitted with an acute stroke. This happened even though you were on Plavix. Dr. Centeno (the [facility] neurologist) saw you and feels that you should stay on aspirin 81 mg (baby aspirin) and Plavix to help minimize your chances of further strokes. Please follow up with your [facility] neurology team. Prescriptions: New aspirin 81 mg tablet,chewable 81 mg PO DAILY Qty: 30 RF: 0 Continued carbidopa-levodopa 25-250 mg tablet 1 tab PO QAM PRN (Reason: restless legs) RF: 0 escitalopram oxalate 10 mg tablet 10 mg PO DAILY RF: 0 multivitamin Tablet 1 tab PO QAM RF: 0 nicotine (polacrilex) 2 mg Gum 2 mg BUCCAL UD PRN (Reason: nicotine withdrawl) RF: 0 amlodipine [Norvasc] 5 mg Tablet 5 mg PO QAM RF: 0 mometasone [Nasonex] 50 mcg/actuation [place],Non-Aerosol 2 spray INTRANASAL QAM PRN (Reason: NASAL CONGESTION ) RF: 0 losartan 100 mg Tablet 100 mg PO HS RF: 0 atenolol [Tenormin] 50 mg tablet 50 mg PO PM RF: 0 tamsulosin 0.4 mg Capsule 0.4 mg PO HS RF: 0 cholecalciferol (vitamin D3) [Vitamin D3] 2,000 unit Tablet 2,000 unit PO QAM RF: 0 fluticasone propion-salmeterol [Advair Diskus] 100-50 mcg/dose blister with device 1 puff INHALATION DAILY PRN (Reason: SOB) RF: 0 metformin [Glucophage] 500 mg tablet 1,000 mg PO BID RF: 0 atorvastatin [Lipitor] 80 mg tablet 80 mg PO QAM RF: 0 glipizide 10 mg tablet 10 mg PO BID RF: 0 clopidogrel [Plavix] 75 mg tablet 75 mg PO QAM RF: 0 pantoprazole [Protonix] 40 mg tablet,delayed release (DR/EC) 40 mg PO QAM RF: 0 Stand-Alone Forms: Medications to Prevent Stroke, [facility]/Other Patient Handouts: Hyperglycemia Discharge Orders: Discharge Order (Routine); Ordered 02/26/19 Ordered By: Josep Manzano Admission Data Admit Date/Time: 02/25/19 12:50 Attending Provider: Josep Manzano Admit Provider: Jareth Juarez Primary Care Provider: Eduardo Cat III Other Providers: Chato Vagras ; Jcarlos Centeno III ; Jennifer Sanz ; Miles Lunsford ; Josep Manzano Service: Telemetry Medical Other Interventions: Discharge Summary Assessment (RN) Last Done: 02/26/19 15:04 DC Date/Time DO NOT enter until pt leaves facility: 02/26/19 15:30
--- NOTE | 2019-03-01 12:26 | Pharmacy Report ---
Pharmacist Post D/C Phone Note - Phone Note: Date of phone call: March 01, 2019. Individual with whom pharmacist spoke to: LORELEI GELLER The following questions were reviewed during the phone call with responses listed below each: Can you tell me the medications that you are currently taking as well as when and how you take each medication? -See Table Below (added Tradjenta {patient started prior to this admission}, changed Advair to [place]ix[place], included comments that patient stopped Sinemet) When have you missed any doses of your medications? - Patient has not taken any Sinemet since discharge (he noted that Dr. Cat told him to do this before as he may not even need it). He has not noted any increase in involuntary movements, muscle rigidity, fevers, etc that would be assc with abrupt discontinuation symptoms. - He did not realize his fluticasone/salmeterol inhaler should be BID ATC. He was only taking qday or prn. He will start taking as prescribed for his COPD. What side effects are you having from your medications, specifically, the new medications you were started on? - None; no bruising/bleeding What questions do you have about your medications? - Patient wanted to know when to take diabetes medications. I clarified this for him. What problems are you having obtaining your medications? - None When is your next appointment with your primary care doctor? - 05/14 - routine f/u with Dr. Cat Additional comments: - 30 minutes was spent speaking to the patient today. He had quite a few questions about his medications and we went through his entire med list to confirm each med and dose. He reports still having visual disturbances, which have been ongoing. His nicotine gum is down to 2-3/day and he's trying to wean off of this. He plans to contact Dr. Cat's office about his Flomax as he feels this has not made that much of a difference with his urinary symptoms. As per the Pharmacist Discharge Counseling for Stroke Patients Protocol, this phone call has been completed within 72 hours of discharge. Thank you for allowing us to be involved in the care of this patient.
== END 2019-02-26 15:30 | disposition home or self-care (01) | DRG 66 ==
LOC: ED 09:15 → SUATTDRO 12:50 → 2S 12:50

== ENCOUNTER 2020-02-25 04:34 | Inpatient (IN) ==
--- NOTE | 2020-02-25 04:49 | Emergency Department Note ---
History of Present Illness General Chief complaint: Fall Stated complaint: fall Time Seen by Provider: 02/25/20 04:37 Source: patient Mode of arrival: EMS Limitations: no limitations History of Present Illness Provider complaint: fall Onset (ago): hour(s) Location: head Radiation: non-radiation Treatments prior to arrival: none This is a 69-year-old male who presents via EMS following a fall. Patient does not remember going to bed, does not remember how he fell, or if he lost consciousness. Patient brought in by EMS due to concern as patient takes aspirin and Brilinta for anticoagulation since he has previously had a stroke. Patient states he just started a new medication last night prior to bed. States he took the first dose at 7 PM of olanzapine. States that after taking it he began to feel "funny". Patient denies any other recent illness or known sick contact. Patient states he has chronic vision changes secondary to his stroke, no acute change since his fall. Pt seen during a time of high acuity and [facility] emergency pandemic while wearing PPE. Home Medications Home Medications Medication Instructions Recorded Confirmed Type multivitamin 1 tab PO QAM 07/06/18 02/25/20 History cholecalciferol (vitamin D3) 2,000 unit PO QAM 08/31/18 02/25/20 History [Vitamin D3] fluticasone propion-salmeterol 1 puff INHALATION BID 03/15/19 02/25/20 History [Advair Diskus] mometasone 50 mcg/actuation nasal 2 spray INTRANASAL QAM PRN 03/31/19 02/25/20 History spray nicotine (polacrilex) 2 mg gum 2 mg BUCCAL UD PRN 03/31/19 02/25/20 History OneTouch Delica Lancets 33 gauge #100 ea NS 05/11/19 02/25/20 Rx OneTouch Ultra Blue Test Strip #100 ea NS 05/11/19 02/25/20 Rx atorvastatin 80 mg tablet 80 mg PO QAM #90 tab 06/10/19 02/25/20 Rx pantoprazole 40 mg tablet,delayed 40 mg PO QAM #90 tab 07/09/19 02/25/20 Rx release tamsulosin 0.4 mg capsule 0.4 mg PO HS #90 cap 08/16/19 02/25/20 Rx glipizide 10 mg tablet 10 mg PO BID #180 tab 01/07/20 02/25/20 Rx acetaminophen [Tylenol Extra 500 mg PO Q6H PRN 01/29/20 02/25/20 History Strength] amlodipine 5 mg PO HS 01/29/20 02/25/20 History aspirin 81 mg PO QAM 01/29/20 02/25/20 History atenolol 50 mg PO QAM 01/29/20 02/25/20 History cholestyramine (with sugar) 4 g PO QAM 01/29/20 02/25/20 History escitalopram oxalate 10 mg PO QAM 01/29/20 02/25/20 History linagliptin [Tradjenta] 5 mg PO HS 01/29/20 02/25/20 History losartan 100 mg PO QAM 01/29/20 02/25/20 History metformin [Glucophage] 1,000 mg PO BIDM 01/29/20 02/25/20 History olanzapine 2.5 mg tablet 2.5 mg PO DAILY #90 tab 02/17/20 02/25/20 Rx tramadol 50 mg tablet 50 mg PO HS PRN #90 tab 02/17/20 02/25/20 Rx calcium polycarbophil [Fiber 625 mg PO DAILY 02/25/20 02/25/20 History (calcium polycarbophil)] ticagrelor 90 mg PO BID 02/25/20 02/25/20 History Allergies Allergy/AdvReac Type Severity Reaction Status Date / Time Tetanus Vaccines and Toxoid AdvReac Unknown "TETANUS Verified 02/25/20 04:45 SHOT" - FEVER [employer] AdvReac Unknown SEE NOTES Uncoded 02/25/20 04:45 Past Med/Surg History Social History Smoking Status: Never smoker Age Quit Using Tobacco: 51; packs per day: 1; Second Hand Exposure: Yes (in childhhod); Hx Alcohol Use: Yes Alcohol type: wine Hx Substance Use: No Preferred Language: Amharic Communication Ability: Effective Communication Ability Comment: Multiple strokes Visual Impairment: No Limitations Hearing Ability: Normal 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 and A total of 10 systems reviewed and were otherwise negative Physical Exam Vital Signs Vital Signs - 24 hr 02/25/20 04:47 02/25/20 05:13 02/25/20 06:00 Temperature 36.6 C Temperature Source Oral Pulse Rate 92 H 92 H 91 H Pulse Rate from SpO2 Sensor 93 H Respiratory Rate 20 22 16 Respiratory Effort / Characteristics Non-Labored Spontaneous Respiratory Depth Normal Blood Pressure 167/93 H 171/92 H 170/85 H Blood Pressure Mean 117 120 95 Pulse Oximetry 97 98 98 Oxygen Delivery Method Room Air Room Air Room Air Sepsis Recent Fever Within 48 Hours No Sepsis New/Unexplained Change in Mental Status No Sepsis Action Taken by Nursing No Action Required GENERAL: alert, well appearing, well nourished, no distress, non-toxic EYE EXAM: normal conjunctiva, PERRL and EOM's grossly intact OROPHARYNX: no exudate, no erythema, lips, buccal mucosa, and tongue normal and mucous membranes are moist NECK: supple, no nuchal rigidity, no adenopathy, non-tender LUNGS: Clear to auscultation. Normal chest wall mechanics, no w/r/r HEART: no murmurs, S1 normal and S2 normal ABDOMEN: abdomen soft, non-tender, normo-active bowel sounds, no masses, no rebound or guarding. BACK: Back is symmetrical on inspection and there is no deformity, no midline tenderness, no CVA tenderness. SKIN: no rashes and no bruising UPPER EXTREMITIES: upper extremities are grossly normal. FROM, nml pulses b/l. LOWER EXTREMITIES: No pitting edema. FROM, nml pulses b/l. NEURO EXAM: Normal sensorium, cranial nerves II-XII grossly intact, normal speech, no gross weakness of arms, no gross weakness of legs. Gross sensation intact. Course Course 0650: Pt updated on results. now at bedside. She heard a thud and found him on the floor. Awake and alert, no seizure like activity. 0732: Discussed results and disposition with pt and at bedside. 0755: Case discussed with Dr. Manzano. Administered Medications Amlodipine Besylate (Norvasc) 5 mg PO HS [facility] Stop: 03/26/20 20:59 Last Admin: 02/26/20 20:06 Dose: 5 mg Documented by: [id number] Admin: 02/25/20 21:19 Dose: 5 mg Documented by: [id number] Aspirin (Ecotrin Ectab) 81 mg PO [facility] Stop: 03/26/20 10:29 Last Admin: 02/26/20 08:40 Dose: 81 mg Documented by: [id number] Admin: 02/25/20 11:13 Dose: 81 mg Documented by: [id number] Atenolol (Tenormin) 50 mg PO [facility] Stop: 03/26/20 10:29 Last Admin: 02/26/20 08:42 Dose: 50 mg Documented by: [id number] Admin: 02/25/20 11:12 Dose: 50 mg Documented by: [id number] Atorvastatin Calcium (Lipitor) 80 mg PO [facility] Stop: 03/26/20 10:29 Last Admin: 02/26/20 08:41 Dose: 80 mg Documented by: [id number] Admin: 02/25/20 11:12 Dose: 80 mg Documented by: [id number] Calcium Polycarbophil (Fibercon) 625 mg PO DAILY [facility] Stop: 03/26/20 10:29 Last Admin: 02/26/20 08:42 Dose: 625 mg Documented by: [id number] Admin: 02/25/20 11:12 Dose: 625 mg Documented by: [id number] Cholestyramine Resin (Questran) 4 gm PO [facility] Stop: 03/26/20 10:29 Last Admin: 02/26/20 08:43 Dose: 4 gm Documented by: [id number] Admin: 02/25/20 11:11 Dose: Not Given Documented by: [id number] Escitalopram Oxalate (Lexapro Tab) 10 mg PO [facility] Stop: 03/26/20 10:29 Last Admin: 02/26/20 08:41 Dose: 10 mg Documented by: [id number] Admin: 02/25/20 11:12 Dose: 10 mg Documented by: [id number] Fluticasone/Vilanterol (Breo Ellipta 100/25 Mcg Inh) 1 puffs INH DAILY [facility] Stop: 03/27/20 08:59 Last Admin: 02/26/20 08:43 Dose: 1 puffs Documented by: [id number] Insulin Aspart (Novolog Flexpen) 0 units SC ACHS [facility] Stop: 03/26/20 11:29 Last Admin: 02/26/20 21:06 Dose: 2 units Documented by: [id number] Cosigned by: [id number] Admin: 02/26/20 18:03 Dose: 5 units Documented by: [id number] Cosigned by: [id number] Admin: 02/26/20 13:07 Dose: 8 units Documented by: [id number] Cosigned by: [id number] Admin: 02/26/20 08:46 Dose: 3 units Documented by: [id number] Cosigned by: [id number] Admin: 02/25/20 20:59 Dose: Not Given Documented by: [id number] Cosigned by: [id number] Admin: 02/25/20 18:43 Dose: 4 units Documented by: [id number] Cosigned by: [id number] Admin: 02/25/20 12:54 Dose: 6 units Documented by: [id number] Cosigned by: [id number] Losartan Potassium (Cozaar) 100 mg PO QAM [facility] Stop: 03/26/20 10:29 Last Admin: 02/26/20 08:39 Dose: 100 mg Documented by: [id number] Admin: 02/25/20 11:12 Dose: 100 mg Documented by: [id number] Melatonin (Melatonin) 3 mg PO HS PRN PRN Reason: Sleep Stop: 03/26/20 21:33 Last Admin: 02/25/20 21:43 Dose: 3 mg Documented by: [id number] Multivitamins (Multivitamin Tab) 1 tab PO QAM [facility] Stop: 03/26/20 10:29 Last Admin: 02/26/20 08:41 Dose: 1 tab Documented by: [id number] Admin: 02/25/20 11:13 Dose: 1 tab Documented by: [id number] Olanzapine (Zyprexa) 2.5 mg PO HS [facility] Stop: 03/27/20 20:59 Last Admin: 02/26/20 20:07 Dose: 2.5 mg Documented by: [id number] Pantoprazole Sodium (Protonix) 40 mg PO QAM [facility] Stop: 03/26/20 10:29 Last Admin: 02/26/20 08:40 Dose: 40 mg Documented by: [id number] Admin: 02/25/20 11:13 Dose: 40 mg Documented by: [id number] Tamsulosin HCl (Flomax) 0.4 mg PO HS [facility] Stop: 03/26/20 20:59 Last Admin: 02/26/20 20:06 Dose: 0.4 mg Documented by: [id number] Admin: 02/25/20 21:19 Dose: 0.4 mg Documented by: [id number] Ticagrelor (Brilinta) 90 mg PO BID [facility] Stop: 03/26/20 10:29 Last Admin: 02/26/20 20:07 Dose: 90 mg Documented by: [id number] Admin: 02/26/20 08:39 Dose: 90 mg Documented by: [id number] Admin: 02/25/20 21:19 Dose: 90 mg Documented by: [id number] Admin: 02/25/20 11:14 Dose: 90 mg Documented by: [id number] Vitamin D (Vitamin D3) 2,000 units PO QAM [facility] Stop: 03/26/20 10:29 Last Admin: 02/26/20 08:39 Dose: 2,000 units Documented by: [id number] Admin: 02/25/20 11:12 Dose: 2,000 units Documented by: [id number] Discontinued Medications Sodium Chloride (Nss 1000ml) 1,000 mls @ 125 mls/hr IV .Q8H [facility] Stop: 03/26/20 04:59 Last Infusion: 02/26/20 07:47 Dose: 0 mls/hr Documented by: [id number] Admin: 02/26/20 05:22 Dose: 125 mls/hr Documented by: [id number] Infusion: 02/26/20 05:22 Dose: 125 mls/hr Documented by: [id number] Admin: 02/25/20 21:39 Dose: 125 mls/hr Documented by: [id number] Infusion: 02/25/20 19:08 Dose: 125 mls/hr Documented by: [id number] Admin: 02/25/20 11:08 Dose: 125 mls/hr Documented by: [id number] Infusion: 02/25/20 10:55 Dose: 0 mls/hr Documented by: [id number] Admin: 02/25/20 05:13 Dose: 125 mls/hr Documented by: [id number] Magnesium Sulfate/Dextrose (Magnesium Sulfate / D5w) 1 gm in 100 mls @ 100 mls/hr IV Q1H [facility] Stop: 02/25/20 08:20 Last Infusion: 02/25/20 10:55 Dose: 0 mls/hr Documented by: [id number] Admin: 02/25/20 07:39 Dose: 100 mls/hr Documented by: [id number] Infusion: 02/25/20 07:35 Dose: 100 mls/hr Documented by: [id number] Admin: 02/25/20 06:35 Dose: 100 mls/hr Documented by: [id number] Magnesium Sulfate/Dextrose (Magnesium Sulfate / D5w) 1 gm in 100 mls @ 50 mls/hr IV Q2H [facility] Stop: 02/26/20 11:59 Last Infusion: 02/26/20 12:03 Dose: 0 mls/hr Documented by: [id number] Admin: 02/26/20 09:57 Dose: 50 mls/hr Documented by: [id number] Infusion: 02/26/20 09:51 Dose: 50 mls/hr Documented by: [id number] Admin: 02/26/20 07:51 Dose: 50 mls/hr Documented by: [id number] Olanzapine (Zyprexa) 2.5 mg PO DAILY [facility] Stop: 03/26/20 10:29 Last Admin: 02/25/20 11:13 Dose: 2.5 mg Documented by: [id number] Potassium Chloride (Klor-Con M20) 40 meq PO NOW ONE Stop: 02/26/20 08:01 Last Admin: 02/26/20 08:42 Dose: 40 meq Documented by: [id number] Medical Decision Making Differential Diagnosis Differential diagnoses include major intracranial, cervical, spinal, thoracic, abdominal, pelvic and neurologic injury. Fracture, contusion, sprain, strain, laceration, abrasions included as well. Medical Records Attestation: I reviewed the patient's medical records. Home Medications Current Medication List: was personally reviewed by me Laboratory Data Attestation: I reviewed the patient's lab results. Result diagrams: 02/25/20 04:13 02/26/20 05:31 Lab Results 02/25/20 02/25/20 02/25/20 Range/Units 04:13 04:13 04:13 WBC 10.37 (4.8-10.8) K/uL RBC 4.03 L (4.7-6.1) M/uL Hgb 12.7 L (14.0-18.0) g/dL Hct 37.0 L (42-52) % MCV 91.8 (80-100) fL MCH 31.5 (25-34) pg MCHC 34.3 (32-36) g/dL RDW Std Deviation 47.3 H (36.4-46.3) fL RDW Coeff of Jose 14.0 (11.5-14.5) % Plt Count 255 (130-400) K/uL MPV 9.2 (7.4-10.4) fL Immature Gran % (Auto) 0.2 % Neut % (Auto) 76.4 % Lymph % (Auto) 12.0 % Tift % (Auto) 9.2 % Eos % (Auto) 2.0 % Baso % (Auto) 0.2 % Neut # (Auto) 7.93 H (1.4-6.5) K/uL Lymph # (Auto) 1.24 (1.2-3.4) K/uL Tift # (Auto) 0.95 H (0.11-0.59) K/uL Eos # (Auto) 0.21 (0-0.5) K/uL Baso # (Auto) 0.02 (0-0.2) K/uL Immature Gran # (Auto) 0.02 (0.00-0.02) K/uL PT 10.1 (9.0-12.0) Seconds INR 1.0 (0.9-1.1) Sodium 144 (136-145) mmol/L Potassium 3.6 (3.5-5.1) mmol/L Chloride 113 H (98-107) mmol/L Carbon Dioxide 22 (21-32) mmol/L Anion Gap 9.0 (3-11) BUN 25 H (7-18) mg/dl Creatinine 1.46 H (0.6-1.4) mg/dl Est Cr Clr Drug Dosing 45.8 ml/min Est GFR ( Amer) 56.5 Est GFR (Non-Af Amer) 48.7 BUN/Creatinine Ratio 17.2 (10-20) Glucose 67 L (70-99) mg/dl POC Glucose (70-99) mg/dl Calcium 8.8 (8.5-10.1) mg/dl Magnesium 1.3 L (1.8-2.4) mg/dl Total Bilirubin 0.3 (0.2-1) mg/dl AST 12 L (15-37) U/L ALT 19 (12-78) U/L Alkaline Phosphatase 36 L (45-117) U/L Troponin I < 0.015 (0-0.045) ng/ml Total Protein 6.9 (6.4-8.2) gm/dl Albumin 3.4 (3.4-5.0) gm/dl Globulin 3.5 (2.5-4.0) gm/dl Albumin/Globulin Ratio 1.0 (0.9-2) Lipase 179 (73-393) U/L TSH 2.180 (0.300-4.500) uIu/ml Urine Color Urine Appearance (Clear) Urine pH (4.5-7.5) Ur Specific [place] (1.000-1.030) Urine Protein (Negative) Urine Glucose (UA) (Negative) Urine Ketones (Negative) Urine Blood (Negative) Urine Nitrite (Negative) Urine Bilirubin (Negative) Urine Urobilinogen (Negative) Ur Leukocyte Esterase (Negative) Urine WBC (Auto) (0-5) /hpf Urine RBC (Auto) (0-4) /hpf U Hyaline Cast (Auto) (0-5) /lpf U Epithel Cells (Auto) (0-5) /lpf Urine Bacteria (Auto) (Negative) 02/25/20 02/25/20 02/25/20 Range/Units 04:42 05:15 06:15 WBC (4.8-10.8) K/uL RBC (4.7-6.1) M/uL Hgb (14.0-18.0) g/dL Hct (42-52) % MCV (80-100) fL MCH (25-34) pg MCHC (32-36) g/dL RDW Std Deviation (36.4-46.3) fL RDW Coeff of Jose (11.5-14.5) % Plt Count (130-400) K/uL MPV (7.4-10.4) fL Immature Gran % (Auto) % Neut % (Auto) % Lymph % (Auto) % [place]ift % (Auto) % Eos % (Auto) % Baso % (Auto) % Neut # (Auto) (1.4-6.5) K/uL Lymph # (Auto) (1.2-3.4) K/uL Tift # (Auto) (0.11-0.59) K/uL Eos # (Auto) (0-0.5) K/uL Baso # (Auto) (0-0.2) K/uL Immature Gran # (Auto) (0.00-0.02) K/uL PT (9.0-12.0) Seconds INR (0.9-1.1) Sodium (136-145) mmol/L Potassium (3.5-5.1) mmol/L Chloride (98-107) mmol/L Carbon Dioxide (21-32) mmol/L Anion Gap (3-11) BUN (7-18) mg/dl Creatinine (0.6-1.4) mg/dl Est Cr Clr Drug Dosing ml/min Est GFR ( Amer) Est GFR (Non-Af Amer) BUN/Creatinine Ratio (10-20) Glucose (70-99) mg/dl POC Glucose 56 L* 106 H (70-99) mg/dl Calcium (8.5-10.1) mg/dl Magnesium (1.8-2.4) mg/dl Total Bilirubin (0.2-1) mg/dl AST (15-37) U/L ALT (12-78) U/L Alkaline Phosphatase (45-117) U/L Troponin I (0-0.045) ng/ml Total Protein (6.4-8.2) gm/dl Albumin (3.4-5.0) gm/dl Globulin (2.5-4.0) gm/dl Albumin/Globulin Ratio (0.9-2) Lipase (73-393) U/L TSH (0.300-4.500) uIu/ml Urine Color Yellow Urine Appearance Clear (Clear) Urine pH 5.5 (4.5-7.5) Ur Specific [place] 1.009 (1.000-1.030) Urine Protein Negative (Negative) Urine Glucose (UA) Negative (Negative) Urine Ketones Negative (Negative) Urine Blood 1+ H (Negative) Urine Nitrite Negative (Negative) Urine Bilirubin Negative (Negative) Urine Urobilinogen Negative (Negative) Ur Leukocyte Esterase Negative (Negative) Urine WBC (Auto) 0 (0-5) /hpf Urine RBC (Auto) 0-4 (0-4) /hpf U Hyaline Cast (Auto) 0 (0-5) /lpf U Epithel Cells (Auto) 0-5 (0-5) /lpf Urine Bacteria (Auto) Negative (Negative) Imaging Data Radiologist's Impression: CT head: Comparison to January 29, 2020 There is a 12 mm polyp or mucous retention cyst in the left maxillary sinus, similar to previous. The remaining sinuses and mastoids are well aerated. There is no skull fracture or significant visible scalp hematoma. Brain windows demonstrate encephalomalacia in the occipital poles bilaterally consistent with old infarcts. Mild periventricular white matter low-density consistent with chronic small vessel disease, unchanged. No evidence of acute large vessel infarct or intracranial hemorrhage. Severe vascular calcification is present. There is a basilar artery stent. Radiologist: Timothy Christie MD CT C-spine: Sagittal reformatted images show normal prevertebral soft tissues. There is m ild narrowing and osteo-phytosis of the atlantodental joint. The odontoid process is intact. Mild to moderate disc space narrowing and anterior osteophytosis greatest at C4- 5 and C5-6. There is mild multilevel facet sclerosis and osteophytosis. No acute cervical spine fracture, subluxation, or canal compromise is identified. Moderate arterial calcification is seen involving the carotid bifurcations bilaterally. Radiologist: Timothy Christie MD ECG Data Attestation: I personally reviewed and interpreted this ECG as follows: Indication: + weakness Rate (beats per minute): 85 Rhythm: + normal sinus ECG Intervals/blocks: + Normal QRS and + Normal QT ECG [place]: + Normal ECG ST segments: + Normal ST segments Blood Pressure Blood Pressure Findings: Elevated blood pressure Blood Pressure Disposition: further management by hospitalist JAVON Narrative An order was placed for continuous cardiac monitoring. The monitor shows a rate of 80_ with normal sinus_ rhythm. Pt here after a fall at home. He was a poor historian regarding events of the fall. Pt has had prior CVA's and difficulty with memory since then. Pt with apparent contusion to posterior scalp. Labs sent as a precaution and pt sent for imaging. Labs and imaging reassuring with exception of hypomagnesemia. Pt started on IV repletion. VS otw stable. When arrived she stated pt has had worsening confusion over the last month, worse at night and he doesn't sleep and paces the house. Unclear if pt worse since initiation of new medication. concerned about him being a fall risk and him being safe at home with her as a primary caregiver. Case discussed with hospitalist. I have a low suspicion for any additional occult trauma. Pt had no other complaints or evolving symptoms while here. Impression & Plan CHI (closed head injury), Contusion of scalp, Fall, Hypomagnesemia Discharge Plan Visit Data *Final* Discharge Date/Time: 02/25/20 09:25 Chief Complaint: Fall Stated Complaint: fall ED Provider: Nena Plummer Discharge Problem: CHI (closed head injury), Contusion of scalp, Fall, Hypomagnesemia Patient Disposition: Admitted As Inpatient Discharge Instructions Interventions: ED Discharge Assessment Last Done: 02/25/20 09:25 Discharge Problem: CHI (closed head injury) Qualifiers: Encounter type: initial encounter Qualified Code(s): S09.90XA - Unspecified inj ury of head, initial encounter Contusion of scalp Qualifiers: Encounter type: initial encounter Qualified Code(s): S00.03XA - Contusion of scalp, initial encounter Fall Qualifiers: Encounter type: initial encounter Qualified Code(s): W19.XXXA - Unspecified fall, initial encounter
[2020-02-25 04:57] LABS: Basophils # (auto) 0.02 K/uL (0-0.2); Basophils % (auto) 0.2 %; Eosinophils # (auto) 0.21 K/uL (0-0.5); Hemoglobin 12.7 g/dL (14.0-18.0); Immature Granulocytes # (auto) 0.02 K/uL (0.00-0.02); Immature Granulocytes % (auto) 0.2 %; Lymphocytes # (auto) 1.24 K/uL (1.2-3.4); Mean Corpuscular Hemoglobin 31.5 pg (25-34); Mean Corpuscular Hgb Conc 34.3 g/dL (32-36); Mean Corpuscular Volume 91.8 fL (80-100); Mean Platelet Volume 9.2 fL (7.4-10.4); Monocytes # (auto) 0.95 K/uL (0.11-0.59); Monocytes % (auto) 9.2 %; Neutrophils # (auto) 7.93 K/uL (1.4-6.5); Neutrophils % (auto) 76.4 %; Platelet Count 255 K/uL (130-400); RDW Standard Deviation 47.3 fL (36.4-46.3); Red Blood Count 4.03 M/uL (4.7-6.1); White Blood Count 10.37 K/uL (4.8-10.8)
[2020-02-25 05:13] LABS: Prothrombin Time 10.1 Seconds (9.0-12.0)
[2020-02-25] MEDS: SODIUM CHLORIDE 0.9% 1000ML 1,000 ML IV SCH ×3 (05:13→21:39)
[2020-02-25 05:34] LABS: Alanine Aminotransferase 19 U/L (12-78); Albumin Level 3.4 gm/dl (3.4-5.0); Aspartate Aminotransferase 12 U/L (15-37); BUN Creatinine Ratio 17.2 (10-20); Blood Urea Nitrogen 25 mg/dl (7-18); Calcium 8.8 mg/dl (8.5-10.1); Carbon Dioxide 22 mmol/L (21-32); Chloride 113 mmol/L (98-107); Creatinine Clr Calc Pharmacy 45.8 ml/min; Est GFR (African American) 56.5; Est GFR (Non-African American) 48.7; Glucose 67 mg/dl (70-99); Lipase 179 U/L (73-393); Magnesium 1.3 mg/dl (1.8-2.4); Potassium 3.6 mmol/L (3.5-5.1); Sodium 144 mmol/L (136-145)
[2020-02-25 05:45] LABS: Alkaline Phosphatase 36 U/L (45-117); Bilirubin,Total 0.3 mg/dl (0.2-1); Globulin 3.5 gm/dl (2.5-4.0); Total Protein 6.9 gm/dl (6.4-8.2); Troponin I < 0.015 ng/ml (0-0.045)
[2020-02-25 06:35] LABS: Appearance Urine Clear (Clear); Bacteria Urine Automated Negative (Negative); Bilirubin Urine Negative (Negative); Blood Urine 1+ (Negative); Cast Urine Automated 0 /lpf (0-5); Color Urine Yellow; Epithelial Cell Urine Auto 0-5 /lpf (0-5); Glucose Urine UA Negative (Negative); Ketones Urine Negative (Negative); Leukocyte Esterase Urine Negative (Negative); Nitrite Urine Negative (Negative); Protein Urine Negative (Negative); RBC Urine Automated 0-4 /hpf (0-4); Specific Gravity Urine 1.009 (1.000-1.030); Urobilinogen Urine Negative (Negative); WBC Urine Automated 0 /hpf (0-5); pH Urine 5.5 (4.5-7.5)
[2020-02-25] MEDS: MAGNESIUM SULFATE / D5W 1 GM/100 ML BAG IV SCH ×2 (06:35→07:39)
--- NOTE | 2020-02-25 06:37 | CT Scan Report ---
CT OF THE HEAD WITHOUT CONTRAST CLINICAL HISTORY: trauma COMPARISON STUDY: CT and CTA of the head January 29, 2020. CT DOSE: 614.27 mGy.cm TECHNIQUE: Helical axial images of the head were obtained without IV contrast. Automated exposure con trol was utilized for the study. A dose lowering technique was utilized adhering to the principles o f ALARA. FINDINGS: No acute intracranial hemorrhage, midline shift or mass effect is present. The ventricular system is stable. Encephalomalacia within the bilateral occipital lobe is unchanged. The basilar cist erns are patent. No extra-axial collections are present. There are no findings to suggest acute dural sinus thrombosis or acute territorial infarct. No significant calvarial abnormalities are present. M ucous retention cyst within the left maxillary sinus is incidentally noted. IMPRESSION: 1. No acute intracranial findings. No change in appearance of the brain. 2. No calvarial fracture. ACT 112: Negative or not required by law. Electronically signed by: Sammy Segura M.D. 02/25/2020 6:35 AM
--- NOTE | 2020-02-25 06:38 | XRay Report ---
XR chest 1V portable CLINICAL HISTORY: trauma COMPARISON STUDY: Chest radiograph January 29, 2020. FINDINGS: Lung volumes are normal. Lungs are clear. There is no pneumothorax or pleural effusion. Mil d cardiomegaly is unchanged. Mediastinal contours are normal. There is no evidence for pulmonary sam a. IMPRESSION: No acute cardiopulmonary findings. No change in appearance of the chest. ACT 112: Negative or not required by law. Electronically signed by: Sammy Segura M.D. 02/25/2020 6:37 AM
--- NOTE | 2020-02-25 06:39 | XRay Report ---
XR pelvis 1-2V routine CLINICAL HISTORY: trauma COMPARISON: CT of the abdomen and pelvis July 30, 2019. FINDINGS: The sacroiliac joints and symphysis pubis are intact. There is no acute fracture within th e pelvis or the hips. There is mild osteoarthritis of the hips. IMPRESSION: No acute fracture within the pelvis or hips. ACT 112: Negative or not required by law. Electronically signed by: Sammy Segura M.D. 02/25/2020 6:38 AM
--- NOTE | 2020-02-25 06:41 | CT Scan Report ---
CT OF THE CERVICAL SPINE WITHOUT CONTRAST CLINICAL HISTORY: trauma COMPARISON STUDY: CTA of the neck January 29, 2020. TECHNIQUE: Helical axial images of the cervical spine were obtained without IV contrast. Sagittal a nd coronal reconstructions were viewed. Automated exposure control was utilized for the study. A do se lowering technique was utilized adhering to the principles of ALARA. FINDINGS: Alignment of the cervical spine is anatomic. Vertebral body heights are maintained. No acut e cervical spine fracture or subluxation is present. There is no prevertebral edema. Facet joints are intact. Note is made of moderate multilevel facet arthrosis. The craniocervical junction is intact. There is mild to moderate disc space narrowing and osteophytosis within the cervical spine. IMPRESSION: No acute cervical spine fracture or subluxation. ACT 112: Negative or not required by law. Electronically signed by: Sammy Segura M.D. 02/25/2020 6:40 AM
--- NOTE | 2020-02-25 08:08 | History & Physical Report ---
Date of Service February 25, 2020 Assessment & Plan (1) Fall: (2) CHI (closed head injury): -Admit to [facility] -Imaging studies reviewed and are negative for acute fracture, continues ice/heat pack if patient is sore -PT/OT -Restless leg in combination of increased confusion, likely worsening balance and precipitated fall. (3) Hypomagnesemia: -1.3 on admission, replace with 2 g in the ER, follow a.m. labs (4) Basilar artery stenosis with infarction: -History of multiple strokes:7 strokes in 2019 total: 3 in November, 2 in January, and 2 in March due to basilar artery stenosis associated CVA. 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 Despite antiplatelet therapy he developed the CVA in March 2019. He underwent right vertebral and basilar artery angioplasty at [facility]. He continues on aspirin and Brilinta without complications. -He is scheduled to establish with neuro-ophthalmology [facility] on Friday, 02/27, as a new patient -would attempt to keep this appointment if possible - asked to call and see when the next available appt is if in case he would miss it on Friday from staying in hospital. -Follow with [facility] neurology as outpatient (5) HTN (hypertension): -Continue amlodipine 5 mg HS, atenolol 50 mg Qam, losartan 100 mg Qam, (6) Hypercholesterolemia: - Cont atorvastatin 80 mg Qam (7) Carotid artery stenosis: - Hx of such. (8) COPD (chronic obstructive pulmonary disease): -History of such, continue Advair (9) Diabetes mellitus type 2, controlled, with complications: -We will hold metformin, glipizide, linagliptin -ISS with Accu-Cheks AC at bedtime -HH/DM diet (10) Chronic kidney disease (CKD), stage III (moderate): -Creatinine 1.46, BUN 25 at time of admission, appears to be baseline, follow with a.m. CMP (11) Benign prostatic hyperplasia without urinary obstruction: -Continue Flomax (12) Restless leg syndrome: -Noted, does not appear that he is on any medication for this -Hx of falls -PT/OT consults (13) GERD (gastroesophageal reflux disease): -Noted stable (14) Depression with anxiety: -Continue Lexapro 10 mg daily (15) Visual hallucinations: -Hallucinations noted as per HPI, are nonthreatening, patient recently started Zyprexa 2.5 mg yesterday on 02/23, unlikely that this is the cause of fall last evening, continue this medication for now for improvement with confusion (16) DVT prophylaxis: - teds, ASA/Brilinta CODE: Full code Dispo: From home, likely to remain in the hospital x 1-2 days, CM to assist with DC planning History of Present Illness Primary Care Provider: Eduardo Cat MD This is a 69 yo M with PMHx of basilary artery stenosis with infarction, HTN, HLD, COPD, DM II, CKD stage III, hx of colon cancer, BPH, hypomagnesemia, RLS, depression, anxiety and GERD who presents after sustaining a fall. Patient is present with his . reports the history as she says the patient has been somewhat confused over the past month. Patient normally is up roaming about the house due to restless leg every night, and last night around 2 AM the patient fell and hit his head, the fall was unwitnessed as his was sleeping, but she woke up when she heard a thud. He denies any headache, loss of consciousness, dizziness, significant injury. He has had other falls before in the past but none recently. He does not use anything for ambulation assistance like a cane or walker. They have lived for the past 14 years in a one-story ranch style home. Patient has had 7 strokes in 2019 total: 3 in November, 2 in January, and 2 in March due to basilar artery stenosis associated CVA. 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 Despite antiplatelet therapy he developed the CVA in March 2019. He underwent right vertebral and basilar artery angioplasty at [facility]. He continues on aspirin and Brilinta without complications. He is scheduled to establish with neuro-ophthalmology [facility] on Friday, 02/27, as a new patient. He was recently seen here in the ER on 01/29/2024 AMS and disequilibrium and headache, so there was concern for repeat CVA although he did not display any new focal neurologic deficits. Imaging included CTA of neck showing significant carotid plaque formation bilaterally, multifocal significant stenotic changes of vertebrobasilar systems unchanged. CTA of brain revealed moderate scattered atherosclerotic narrowing of intracranial vasculature unchanged verses prior. No new or interval findings were noted. CT scan of brain revealed old occipital infarct but no acute intracranial abnormalities or processes. He was discharged home on same medications and advised follow-up. Most recently the patient was seen by his PCP on 02/15/2020 where he was started on olanzapine 2.5 daily for complaints of increased hallucinations and confusion. His reports that he took 1 tablet yesterday, 02/23, as they just picked up the prescription. Patient's visual hallucinations are nonthreatening however, he sees him throughout his house and in bathrooms, and causes him to need to walk to other parts of the house to get away from them at times. Allergies Allergy/AdvReac Type Severity Reaction Status Date / Time Tetanus Vaccines and Toxoid AdvReac Unknown "TETANUS Verified 02/25/20 04:45 SHOT" - FEVER DRAWING HAND PRODUCTS AdvReac Unknown SEE NOTES Uncoded 02/25/20 04:45 Home Medications Home Medications Medication Instructions Recorded Confirmed Type multivitamin 1 tab PO QAM 07/06/18 02/25/20 History cholecalciferol (vitamin D3) 2,000 unit PO QAM 08/31/18 02/25/20 History [Vitamin D3] fluticasone propion-salmeterol 1 puff INHALATION BID 03/15/19 02/25/20 History [Advair Diskus] mometasone 50 mcg/actuation nasal 2 spray INTRANASAL QAM PRN 03/31/19 02/25/20 History spray nicotine (polacrilex) 2 mg gum 2 mg BUCCAL UD PRN 03/31/19 02/25/20 History OneTouch Delica Lancets 33 gauge #100 ea NS 05/11/19 02/25/20 Rx OneTouch Ultra Blue Test Strip #100 ea NS 05/11/19 02/25/20 Rx atorvastatin 80 mg tablet 80 mg PO QAM #90 tab 06/10/19 02/25/20 Rx pantoprazole 40 mg tablet,delayed 40 mg PO QAM #90 tab 07/09/19 02/25/20 Rx release tamsulosin 0.4 mg capsule 0.4 mg PO HS #90 cap 08/16/19 02/25/20 Rx glipizide 10 mg tablet 10 mg PO BID #180 tab 01/07/20 02/25/20 Rx acetaminophen [Tylenol Extra 500 mg PO Q6H PRN 01/29/20 02/25/20 History Strength] amlodipine 5 mg PO HS 01/29/20 02/25/20 History aspirin 81 mg PO QAM 01/29/20 02/25/20 History atenolol 50 mg PO QAM 01/29/20 02/25/20 History cholestyramine (with sugar) 4 g PO QAM 01/29/20 02/25/20 History escitalopram oxalate 10 mg PO QAM 01/29/20 02/25/20 History linagliptin [Tradjenta] 5 mg PO HS 01/29/20 02/25/20 History losartan 100 mg PO QAM 01/29/20 02/25/20 History metformin [Glucophage] 1,000 mg PO BIDM 01/29/20 02/25/20 History olanzapine 2.5 mg tablet 2.5 mg PO DAILY #90 tab 02/17/20 02/25/20 Rx tramadol 50 mg tablet 50 mg PO HS PRN #90 tab 02/17/20 02/25/20 Rx calcium polycarbophil [Fiber 625 mg PO DAILY 02/25/20 02/25/20 History (calcium polycarbophil)] ticagrelor 90 mg PO BID 02/25/20 02/25/20 History Past Med/Surg History Social History Smoking Status: Never smoker Age Quit Using Tobacco: 51; packs per day: 1; Second Hand Exposure: Yes (in childhhod); Hx Alcohol Use: Yes Alcohol type: wine Hx Substance Use: No Preferred Language: Yi Communication Ability: Effective Communication Ability Comment: Multiple strokes Visual Impairment: No Limitations Hearing Ability: Normal Reviewer Sales Required: No Beliefs That Will Affect Care: None marital status: Current Living Situation: Spouse current occupational status: retired 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 Feels Safe at Home: Yes Safety Concerns: Feels Safe At This Time Seatbelt Use: always Sunscreen Use: Yes Review of Systems Review of Systems: Constitutional: No fever, sweats or chills Eyes: No diplopia, no worsening or blurred vision ENT: normal hearing, no trouble swallowing Respiratory: No cough, sputum, dyspnea at rest or on exertion Cardiovascular: No chest pain, tightness or palpitations Abdomen: No pain, nausea, vomiting, + intermittent diarrhea, no constipation Musculoskeletal: + RLS, no joint pain, calf pain, swelling Neurologic: No weakness, numbness/tingling, or balance problems Psychiatric: + Anxiety and depression on medication, visual hallucinations Skin: No rash or itch Physical Exam Physical Exam: General: awake, alert, no apparent distress, + fatigue, falls asleep easily during exam Head: Normocephalic, atraumatic ENT: PERRL, EOMI, no pharyngeal exudate, mucous membranes moist Chest: Clear to auscultation, on room air, no adventitious breath sounds Cardiac: Regular rate and rhythm, no murmur, no JVD, normal peripheral pulses, good capillary refill Abdominal: NABS x 4 quadrants, soft, nondistended, nontender to palpation, no rebound, guarding or tenderness Extremities: + Muscle spasms due to RLS throughout exam, normal inspection, no peripheral edema or erythema, calfs nontender to palpation Psych: Normal mood and affect Neuro: AAO to self and place, knows month and year, cannot name the president, no gross motor deficits, speech is clear, no peripheral sensory deficits Skin: no rash or erythema Results & Data Results & Data ([facility]) Vital Signs (Past 12 Hours) Vital Signs Temp Pulse Resp BP Pulse Ox 02/25/20 06:00 91 H 16 170/85 H 98 02/25/20 05:13 92 H 22 171/92 H 98 02/25/20 04:47 36.6 C 92 H 20 167/93 H 97 Diagnostic Findings XR pelvis 1-2V routine CLINICAL HISTORY: trauma COMPARISON: CT of the abdomen and pelvis July 30, 2019. FINDINGS: The sacroiliac joints and symphysis pubis are intact. There is no acute fracture within the pelvis or the hips. There is mild osteoarthritis of the hips. IMPRESSION: No acute fracture within the pelvis or hips. XR chest 1V portable CLINICAL HISTORY: trauma COMPARISON STUDY: Chest radiograph January 29, 2020. FINDINGS: Lung volumes are normal. Lungs are clear. There is no pneumothorax or pleural effusion. Mild cardiomegaly is unchanged. Mediastinal contours are normal. There is no evidence for pulmonary edema. IMPRESSION: No acute cardiopulmonary findings. No change in appearance of the chest. CT OF THE HEAD WITHOUT CONTRAST CLINICAL HISTORY: trauma COMPARISON STUDY: CT and CTA of the head January 29, 2020. CT DOSE: 614.27 mGy.cm TECHNIQUE: Helical axial images of the head were obtained without IV contrast. Automated exposure control was utilized for the study. A dose lowering technique was utilized adhering to the principles of ALARA. FINDINGS: No acute intracranial hemorrhage, midline shift or mass effect is present. The ventricular system is stable. Encephalomalacia within the bilateral occipital lobe is unchanged. The basilar cisterns are patent. No extra-axial collections are present. There are no findings to suggest acute dural sinus thrombosis or acute territorial infarct. No significant calvarial abnormalities are present. Mucous retention cyst within the left maxillary sinus is incidentally noted. IMPRESSION: 1. No acute intracranial findings. No change in appearance of the brain. 2. No calvarial fracture. CT OF THE CERVICAL SPINE WITHOUT CONTRAST CLINICAL HISTORY: trauma COMPARISON STUDY: CTA of the neck January 29, 2020. TECHNIQUE: Helical axial images of the cervical spine were obtained without IV contrast. Sagittal and coronal reconstructions were viewed. Automated exposure control was utilized for the study. A dose lowering technique was utilized adhering to the principles of ALARA. FINDINGS: Alignment of the cervical spine is anatomic. Vertebral body heights are maintained. No acute cervical spine fracture or subluxation is present. Ther e is no prevertebral edema. Facet joints are intact. Note is made of moderate multilevel facet arthrosis. The craniocervical junction is intact. There is mild to moderate disc space narrowing and osteophytosis within the cervical spine. IMPRESSION: No acute cervical spine fracture or subluxation. ECG Change: no significant change Additional Comments: 25-FEB-2020 04:54:26 [facility]-EDSTAT ROUTINE RETRIEVAL Poor data quality, interpretation may be adversely affected Normal sinus rhythm Normal ECG When compared with ECG of 29-JAN-2020 12:44, No significant change was found 25mm/s 10mm/mV 150Hz 9.0.9 12SL 241 JOSE DAVID: 3 Referred by: REFERRED SELF Unconfirmed Vent. rate 85 BPM ME interval 158 ms QRS duration 90 ms QT/QTc 380/452 ms P-R-T axes 56 35 52 Code Status & VTE Plan Code Status Full code-discussed with the patient and at bedside Supervising Physician Co-Signing Physician Notes I supervised Adrianna Umaña PA-C on this admission. I interviewed and examined the patient independently of her. The plan is as written in the PA/YOUNG ADULT LIBRARIAN's note except for any following changes/exceptions: None No acute injury noted. Will try to reduce his nocturnal symptoms and reduce risk for falls. PG Care Time/CCT Total # of Minutes Spent Total Time Spent with Patient: Total time spent is greater than 50% in coordination of care (as documented) at patient's floor/unit and/or counseling patient: Coding Level of Care Code 49134 Initial Inpt Care Lvl 3 Diagnoses Fall W19.XXXA Encounter type: initial encounter CHI (closed head injury) S09.90XA Encounter type: initial encounter Hypomagnesemia E83.42 Basilar artery stenosis with infarction I63.22 HTN (hypertension) I10 Hypercholesterolemia E78.00 Carotid artery stenosis I65.29 COPD (chronic obstructive pulmonary disease) J44.9 Diabetes mellitus type 2, controlled, with complications E11.8 Chronic kidney disease (CKD), stage III (moderate) N18.3 Benign prostatic hyperplasia without urinary obstruction N40.0 Restless leg syndrome G25.81 GERD (gastroesophageal reflux disease) K21.9 Depression with anxiety F41.8 Visual hallucinations R44.1 DVT prophylaxis Z29.9 (1) CHI (closed head injury) Encounter type: initial encounter Qualified Code(s): S09.90XA - Unspecified injury of head, initial encounter (2) Fall Encounter type: initial encounter Qualified Code(s): W19.XXXA - Unspecified fall, initial encounter
[2020-02-25] MEDS ORDERED: NICOTINE POLACRILEX 2 MG GUM MT PRN (10:05)
[2020-02-25] MEDS ORDERED: CARBOHYDRATES FOR HYPOGLYCEMIA PO PRN (10:05)
[2020-02-25] MEDS ORDERED: ACETAMINOPHEN 500 MG TAB PO PRN (10:05)
[2020-02-25] MEDS ORDERED: GLUCOSE 40% GEL 15 GM TUBE PO PRN (10:05)
[2020-02-25] MEDS ORDERED: TRAMADOL HCL 50 MG TABLET PO PRN (10:05)
[2020-02-25] MEDS ORDERED: DEXTROSE 50% 50 ML SYRINGE IV PRN (10:05)
[2020-02-25] MEDS ORDERED: GLUCOSE 10 TABS/TUBE PO PRN (10:05)
[2020-02-25] MEDS ORDERED: ONDANSETRON INJ 2 MG/ML 2 ML VIAL IV PRN (10:05)
[2020-02-25] MEDS ORDERED: GLUCAGON FOR INJ 1 MG VIAL SQ PRN (10:05)
[2020-02-25] MEDS ORDERED: FLUTICASONE PROPIONATE NA SPR 16 GM BTL PRN (10:19)
[2020-02-25] MEDS ORDERED: OLANZAPINE 2.5 MG TAB PO SCH (10:30)
[2020-02-25] MEDS: CHOLESTYRAMINE LIGHT 4 GM PKT PO SCH (11:11)
[2020-02-25] MEDS: CALCIUM POLYCARBOPHIL 625MG TAB PO SCH (11:12)
[2020-02-25] MEDS: ATORVASTATIN 40 MG TAB PO SCH (11:12)
[2020-02-25] MEDS: ESCITALOPRAM OXALATE 10 MG TAB PO SCH (11:12)
[2020-02-25] MEDS: CHOLECALCIFEROL 1,000 UNITS 25 MCG TAB PO SCH (11:12)
[2020-02-25] MEDS: LOSARTAN POTASSIUM 50 MG TAB PO SCH (11:12)
[2020-02-25] MEDS: ATENOLOL 50 MG TABLET PO SCH (11:12)
[2020-02-25] MEDS: MULTIVITAMIN TAB PO SCH (11:13)
[2020-02-25] MEDS: PANTOprazole 40 MG TAB PO SCH (11:13)
[2020-02-25] MEDS: ASPIRIN 81 MG ECTAB PO SCH (11:13)
[2020-02-25] MEDS: TICAGRELOR 90 MG TAB PO SCH ×2 (11:14→21:19)
[2020-02-25] MEDS: INSULIN ASPART 100 UNITS/ML 3 ML PEN SC SCH ×3 (12:54→20:59)
--- NOTE | 2020-02-25 16:01 | Electrocardiogram Report ---
Test Reason : Blood Pressure : / mmHG Vent. Rate : 085 BPM Atrial Rate : 085 BPM P-R Int : 158 ms QRS Dur : 090 ms QT Int : 380 ms P-R-T Axes : 056 035 052 degrees QTc Int : 452 ms Poor data quality, interpretation may be adversely affected Normal sinus rhythm Normal ECG When compared with ECG of 29-JAN-2020 12:44, No significant change was found Confirmed by Gus Winter ([id number]) on 02/25/2020 4:01:32 PM Referred By: REFERRED SELF Confirmed By:Gus Winter
[2020-02-25] MEDS: AMLODIPINE BESYLATE 5 MG TAB PO SCH (21:19)
[2020-02-25] MEDS: TAMSULOSIN HCL 0.4 MG CAP PO SCH (21:19)
[2020-02-25] MEDS ORDERED: Nursing to Pharmacy Communication SCH (21:30)
[2020-02-25] MEDS ORDERED: MELATONIN 3 MG TAB PO PRN (21:34)
[2020-02-26] MEDS: SODIUM CHLORIDE 0.9% 1000ML 1,000 ML IV SCH (05:22)
[2020-02-26 06:44] LABS: Albumin Level 3.2 gm/dl (3.4-5.0); BUN Creatinine Ratio 13.8 (10-20); Calcium 8.3 mg/dl (8.5-10.1); Creatinine Clr Calc Pharmacy 66.3 ml/min; Est GFR (African American) 88.2; Est GFR (Non-African American) 76.1; Magnesium 1.5 mg/dl (1.8-2.4); Potassium 3.2 mmol/L (3.5-5.1)
[2020-02-26 06:47] LABS: Bilirubin,Total 0.6 mg/dl (0.2-1); Globulin 3.3 gm/dl (2.5-4.0); Total Protein 6.5 gm/dl (6.4-8.2)
[2020-02-26] MEDS: MAGNESIUM SULFATE / D5W 1 GM/100 ML BAG IV SCH ×2 (07:51→09:57)
[2020-02-26] MEDS ORDERED: POTASSIUM CHLORIDE 20 MEQ TABCR PO ONE (08:00)
[2020-02-26] MEDS: CHOLECALCIFEROL 1,000 UNITS 25 MCG TAB PO SCH (08:39)
[2020-02-26] MEDS: LOSARTAN POTASSIUM 50 MG TAB PO SCH (08:39)
[2020-02-26] MEDS: TICAGRELOR 90 MG TAB PO SCH ×2 (08:39→20:07)
[2020-02-26] MEDS: ASPIRIN 81 MG ECTAB PO SCH (08:40)
[2020-02-26] MEDS: PANTOprazole 40 MG TAB PO SCH (08:40)
[2020-02-26] MEDS: ESCITALOPRAM OXALATE 10 MG TAB PO SCH (08:41)
[2020-02-26] MEDS: ATORVASTATIN 40 MG TAB PO SCH (08:41)
[2020-02-26] MEDS: MULTIVITAMIN TAB PO SCH (08:41)
[2020-02-26] MEDS: ATENOLOL 50 MG TABLET PO SCH (08:42)
[2020-02-26] MEDS: CALCIUM POLYCARBOPHIL 625MG TAB PO SCH (08:42)
[2020-02-26] MEDS: FLUTICASONE/VILANTEROL 100/25MCG 14 PUFFS/INHALER INH SCH (08:43)
[2020-02-26] MEDS: CHOLESTYRAMINE LIGHT 4 GM PKT PO SCH (08:43)
[2020-02-26] MEDS: INSULIN ASPART 100 UNITS/ML 3 ML PEN SC SCH ×4 (08:46→21:06)
--- NOTE | 2020-02-26 12:51 | Hospitalist Progress Note ---
Date of Service February 26, 2020 Assessment & Plan (1) Fall: Appears mechanical in nature from prior strokes, age, visual processing. - PT/OT recommending 24/ supervision and/or rehab - CM consulted (2) Hypomagnesemia: Was 1.3 on admission, replace with 2 g in the ER, follow a.m. labs. - Replete PRN -> More today. (3) Basilar artery stenosis with infarction: History of multiple strokes: 7 strokes in 2019 total: 3 in November, 2 in January, and 2 in March due to basilar artery stenosis associated CVA. 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 Despite anti-platelet therapy he developed the CVA in March 2019. He underwent right vertebral and basilar artery angioplasty at [facility]. - He is scheduled to establish with neuro-ophthalmology [facility] on March 13. - Follow with [facility] neurology as outpatient - Continue aspirin, Brilinta, and atorvastatin (4) HTN (hypertension): BP is 165/80 today. - Continue amlodipine 5 mg HS, atenolol 50 mg Qam, losartan 100 mg Qam, (5) COPD (chronic obstructive pulmonary disease): No shortness of breath today. - Continue Advair (6) Diabetes mellitus type 2, controlled, with complications: A1c 6.5% in 01/2020. - Held metformin, glipizide, linagliptin - Sliding scale insulin - HH/DM diet (7) Chronic kidney disease (CKD), stage III (moderate): -Creatinine 1.46, BUN 25 at time of admission, appears to be baseline. - Cr down to 1.0 today. (8) Benign prostatic hyperplasia without urinary obstruction: No LUTS. - Continue Flomax (9) Restless leg syndrome: Noted, does not appear that he is on any medication for this. - Hx of falls - PT/OT consults (10) GERD (gastroesophageal reflux disease): - Noted stable (11) Depression with anxiety: - Continue Lexapro 10 mg daily (12) Visual hallucinations: Hallucinations noted as per HPI, are nonthreatening, patient recently started Zyprexa 2.5 mg yesterday on 02/23, unlikely that this is the cause of fall last evening. - Continue this medication for now for improvement with confusion. (13) DVT prophylaxis: - teds, ASA/Brilinta Admission and Anticipated Discharge Date Admission Date: February 25, 2020 Subjective Doing well today. Some activity overnight, but did ok with a bed alarm. Reports no fevers/chills, chest pain, shortness of breath, abdominal pain, nausea, or vomiting this morning. Physical Exam Constitutional: WD/WN, vitals as above Eyes: EOM intact bilaterally; no conjunctival abnormality ENMT: external ear and nose normal, oropharynx normal Neck: trachea midline, no thyromegaly normal visual inspection Respiratory: normal respiratory effort, lungs clear to auscultation no respiratory distress Cardiovascular: RRR, no murmur, no edema Gastrointestinal (Abdomen): Inspection/Auscultation: abdomen normal to inspection; abdomen not distended Musculoskeletal: no cyanosis or clubbing, extremities motor strength 5/5 Skin: no rashes, warm and dry Neurologic: moves all extremities and awake Psychiatric: Orientation: alert, oriented to person and cooperative Results & Data Results & Data ([facility]) Vital Signs (Past 12 Hours) Vital Signs Temp Pulse Resp BP Pulse Ox 02/26/20 07:10 36.7 C 76 18 165/82 H 94 PG Care Time/CCT Total # of Minutes Spent Total Time Spent with Patient: Total time spent is greater than 50% in coordination of care (as documented) at patient's floor/unit and/or counseling patient: Coding Level of Care Code 93361 Subseq Hosp Care Lvl 2 Diagnoses Fall W19.XXXA Encounter type: initial encounter Hypomagnesemia E83.42 Basilar artery stenosis with infarction I63.22 HTN (hypertension) I10 COPD (chronic obstructive pulmonary disease) J44.9 Diabetes mellitus type 2, controlled, with complications E11.8 Chronic kidney disease (CKD), stage III (moderate) N18.3 Benign prostatic hyperplasia without urinary obstruction N40.0 Restless leg syndrome G25.81 GERD (gastroesophageal reflux disease) K21.9 Depression with anxiety F41.8 Visual hallucinations R44.1 DVT prophylaxis Z29.9 (1) Fall Encounter type: initial encounter Qualified Code(s): W19.XXXA - Unspecified fall, initial encounter
[2020-02-26] MEDS: AMLODIPINE BESYLATE 5 MG TAB PO SCH (20:06)
[2020-02-26] MEDS: TAMSULOSIN HCL 0.4 MG CAP PO SCH (20:06)
[2020-02-26] MEDS ORDERED: OLANZAPINE 2.5 MG TAB PO SCH (21:00)
[2020-02-27 07:55] LABS: Hematocrit (blood only) 37.4 % (42-52); Hemoglobin 12.9 g/dL (14.0-18.0); Mean Corpuscular Hemoglobin 31.7 pg (25-34); Mean Corpuscular Hgb Conc 34.5 g/dL (32-36); Mean Corpuscular Volume 91.9 fL (80-100); Mean Platelet Volume 9.3 fL (7.4-10.4); Platelet Count 273 K/uL (130-400); RDW Standard Deviation 47.2 fL (36.4-46.3); Red Blood Count 4.07 M/uL (4.7-6.1)
[2020-02-27 08:19] LABS: BUN Creatinine Ratio 13.4 (10-20); Calcium 8.5 mg/dl (8.5-10.1); Creatinine Clr Calc Pharmacy 62.6 ml/min; Est GFR (African American) 82.2; Magnesium 1.9 mg/dl (1.8-2.4); Potassium 3.6 mmol/L (3.5-5.1)
[2020-02-27] MEDS: FLUTICASONE/VILANTEROL 100/25MCG 14 PUFFS/INHALER INH SCH (09:00)
[2020-02-27] MEDS: TICAGRELOR 90 MG TAB PO SCH (09:00)
[2020-02-27] MEDS: ESCITALOPRAM OXALATE 10 MG TAB PO SCH (09:00)
[2020-02-27] MEDS: ASPIRIN 81 MG ECTAB PO SCH (09:00)
[2020-02-27] MEDS: CALCIUM POLYCARBOPHIL 625MG TAB PO SCH (09:01)
[2020-02-27] MEDS: CHOLECALCIFEROL 1,000 UNITS 25 MCG TAB PO SCH (09:01)
[2020-02-27] MEDS: MULTIVITAMIN TAB PO SCH (09:01)
[2020-02-27] MEDS: ATORVASTATIN 40 MG TAB PO SCH (09:01)
[2020-02-27] MEDS: PANTOprazole 40 MG TAB PO SCH (09:01)
[2020-02-27] MEDS: ATENOLOL 50 MG TABLET PO SCH (09:02)
[2020-02-27] MEDS: LOSARTAN POTASSIUM 50 MG TAB PO SCH (09:02)
[2020-02-27] MEDS: CHOLESTYRAMINE LIGHT 4 GM PKT PO SCH (09:02)
[2020-02-27] MEDS: INSULIN ASPART 100 UNITS/ML 3 ML PEN SC SCH ×2 (09:03→12:40)
--- NOTE | 2020-02-27 14:31 | Discharge Summary ---
Date of Service February 27, 2020 Admission HPI Per Admitting Provider This is a 69 yo M with PMHx of basilary artery stenosis with infarction, HTN, HLD, COPD, DM II, CKD stage III, hx of colon cancer, BPH, hypomagnesemia, RLS, depression, anxiety and GERD who presents after sustaining a fall. Patient is present with his . reports the history as she says the patient has been somewhat confused over the past month. Patient normally is up roaming about the house due to restless leg every night, and last night around 2 AM the patient fell and hit his head, the fall was unwitnessed as his was sleeping, but she woke up when she heard a thud. He denies any headache, loss of consciousness, dizziness, significant injury. He has had other falls before in the past but none recently. He does not use anything for ambulation assistance like a cane or walker. They have lived for the past 14 years in a one-story ranch style home. Patient has had 7 strokes in 2019 total: 3 in November, 2 in January, and 2 in March due to basilar artery stenosis associated CVA. 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 Despite antiplatelet therapy he developed the CVA in March 2019. He underwent right vertebral and basilar artery angioplasty at [facility]. He continues on aspirin and Brilinta without complications. He is scheduled to establish with neuro-ophthalmology [facility] on Friday, 02/27, as a new patient. He was recently seen here in the ER on 01/29/2024 AMS and disequilibrium and headache, so there was concern for repeat CVA although he did not display any new focal neurologic deficits. Imaging included CTA of neck showing significant carotid plaque formation bilaterally, multifocal significant stenotic changes of vertebrobasilar systems unchanged. CTA of brain revealed moderate scattered atherosclerotic narrowing of intracranial vasculature unchanged verses prior. No new or interval findings were noted. CT scan of brain revealed old occipital infarct but no acute intracranial abnormalities or processes. He was discharged home on same medications and advised follow-up. Most recently the patient was seen by his PCP on 02/15/2020 where he was started on olanzapine 2.5 daily for complaints of increased hallucinations and confusion. His reports that he took 1 tablet yesterday, 02/23, as they just picked up the prescription. Patient's visual hallucinations are nonthreatening however, he sees him throughout his house and in bathrooms, and causes him to need to walk to other parts of the house to get away from them at times. Principal Diagnosis Fall -> Likely due to Sid's syndrome from prior strokes Low magnesium Discharge Exam Constitutional WD/WN, vitals as above Eyes EOM intact bilaterally; no conjunctival abnormality ENMT external ear and nose normal, oropharynx normal Neck trachea midline, no thyromegaly normal visual inspection Respiratory normal respiratory effort, lungs clear to auscultation no respiratory distress Cardiovascular RRR, no murmur, no edema Gastrointestinal (Abdomen) Inspection/Auscultation: abdomen normal to inspection; abdomen not distended Musculoskeletal no cyanosis or clubbing, extremities motor strength 5/5 Skin no rashes, warm and dry Neurologic moves all extremities and awake Psychiatric Orientation: alert, oriented to person and cooperative Discharge Data Allergies Allergy/AdvReac Type Severity Reaction Status Date / Time Tetanus Vaccines and Toxoid AdvReac Unknown "TETANUS Verified 02/25/20 04:45 SHOT" - FEVER LACE BURN OUT [employer]CTS AdvReac Unknown SEE NOTES Uncoded 02/25/20 04:45 Consultations 02/25/20 07:59 ED Decision to Admit Stat 02/25/20 10:05 Consult Case Management - Discharge Planning Routine Ordered Studies 02/25/20 04:46 CT head/brain wo con Urgent 02/25/20 05:17 CT cervical spine wo con Urgent Hospital Course (1) Restless leg syndrome: Will trial ropinirole which is first-line for RLS. However, this could possibly worsen his hallucinations. On the flip side, an anti-psychotic can worsen his RLS because of its anti-dopaminergic potential, and he does report th at his RLS has been worse with the Zyprexa the last 2 nights. - All in all, this is a very difficult position. Will trial absolute lowest dose of ropinirole at this time and have close follow up with Dr. Cat and his neurology team at [place]. (2) Fall: Appears mechanical in nature from prior strokes, age, visual processing. - PT/OT recommending 24/7 supervision and/or rehab -> and patient would prefer going home with home help. - CM consulted (3) Hypomagnesemia: Was 1.3 on admission, replace with 2 g in the ER, follow a.m. labs. - Replete PRN -> Stable today. (4) Basilar artery stenosis with infarction: History of multiple strokes: 7 strokes in 2019 total: 3 in November, 2 in January, and 2 in March due to basilar artery stenosis associated CVA. 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 Despite anti-platelet therapy he developed the CVA in March 2019. He underwent right vertebral and basilar artery angioplasty at [facility]. - He is scheduled to establish with neuro-ophthalmology [facility] on March 13. - Follow with [facility] neurology as outpatient - Continue aspirin, Brilinta, and atorvastatin (5) HTN (hypertension): BP is 165/80 today. - Continue amlodipine 5 mg HS, atenolol 50 mg Qam, losartan 100 mg Qam, (6) COPD (chronic obstructive pulmonary disease): No shortness of breath today. - Continue Advair (7) Diabetes mellitus type 2, controlled, with complications: A1c 6.5% in 01/2020. - Held metformin, glipizide, linagliptin - Sliding scale insulin - HH/DM diet (8) Chronic kidney disease (CKD), stage III (moderate): -Creatinine 1.46, BUN 25 at time of admission, appears to be baseline. - Cr down to 1.1 today. (9) Benign prostatic hyperplasia without urinary obstruction: No LUTS. - Continue Flomax (10) GERD (gastroesophageal reflux disease): - Noted stable (11) Depression with anxiety: - Continue Lexapro 10 mg daily (12) Visual hallucinations: Hallucinations noted as per HPI, are non-threatening. Patient recently started Zyprexa 2.5 mg on 02/23, unlikely that this is the cause of fall. - Stopped as above. This is really a tough situation as the Zyprexa likely worsens his restless leg syndrome and the ropinirole could worsen his hallucinations. No real clear winner here. (13) DVT prophylaxis: - teds, ASA/Brilinta Total Time Total Time Spent Total Time Spent (In Minutes): 35 Discharge Plan Discharge Items Patient Disposition: Home - Home Health Services Reason For Visit: HYPOMAGNESEMIA,FALL Discharge Diagnosis: Fall, low magnesium Activity: Resume your previous activity Non-emergency contact: Primary Care Provider and Neurologist Call non-emergency contact if: your symptoms worsen Follow-up/Referrals: Eduardo Cat III, MD [Primary Care Provider] - Diet: Carb Consistent or DM2 and Heart Healthy Addtl Attending Provider Instructions: You were admitted to the hospital after a fall with low magnesium. The magnesium may be due to the diarrhea you have. You can take an occasional supplement, but this can also cause diarrhea, so it may be best to only take a supplement once every other day or every few days. For your restless legs, I am adjusting your medication. Instead of the Zyprexa, please try ropinirole which is usually better for restless leg. This is a low dose, so Dr. Cat can help you adjust the dosing and timing. For now, take it about 1 hour before bedtime. Pending Studies at Discharge: No Stand-Alone Forms: My [facility], Smoking Cessation Medications and DC Order Prescriptions: New ropinirole 0.25 mg tablet 0.25 mg PO HS Qty: 30 RF: 0 Continued (DME) lancets [OneTouch Delica Lancets] 33 gauge misc See Dose Instructions .ROUTE .MEDSUPPLY Qty: 100 RF: 3 (DME) OneTouch Ultra Blue Test Strip strip See Dose Instructions .ROUTE .MEDSUPPLY Qty: 100 RF: 3 atorvastatin [Lipitor] 80 mg tablet 80 mg PO QAM Qty: 90 RF: 3 pantoprazole [Protonix] 40 mg tablet,delayed release (DR/EC) 40 mg PO QAM Qty: 90 RF: 3 glipizide 10 mg tablet 10 mg PO BID Qty: 180 RF: 3 tamsulosin 0.4 mg capsule 0.4 mg PO HS Qty: 90 RF: 3 tramadol 50 mg tablet 50 mg PO HS PRN (Reason: Pain) Qty: 90 RF: 1 multivitamin Tablet 1 tab PO QAM RF: 0 nicotine (polacrilex) 2 mg gum 2 mg BUCCAL UD PRN (Reason: nicotine withdrawl) RF: 0 mometasone [Nasonex] 50 mcg/actuation spray,non-aerosol 2 spray INTRANASAL QAM PRN (Reason: NASAL CONGESTION ) RF: 0 cholecalciferol (vitamin D3) [Vitamin D3] 2,000 unit Tablet 2,000 unit PO QAM RF: 0 calcium polycarbophil [Fiber (calcium polycarbophil)] 625 mg tablet 625 mg PO DAILY RF: 0 ticagrelor 90 mg Tablet 90 mg PO BID RF: 0 fluticasone propion-salmeterol [Advair Diskus] 100-50 mcg/dose Blister With Device 1 puff INHALATION BID RF: 0 acetaminophen [Tylenol Extra Strength] 500 mg Tablet 500 mg PO Q6H PRN (Reason: Pain) RF: 0 metformin [Glucophage] 500 mg tablet 1,000 mg PO BIDM RF: 0 amlodipine 5 mg tablet 5 mg PO HS RF: 0 aspirin 81 mg tablet,chewable 81 mg PO QAM RF: 0 losartan 100 mg tablet 100 mg PO QAM RF: 0 atenolol 50 mg tablet 50 mg PO QAM RF: 0 escitalopram oxalate 10 mg tablet 10 mg PO QAM RF: 0 cholestyramine (with sugar) 4 gram powder in packet 4 g PO QAM RF: 0 Tradjenta 5 mg tablet 5 mg PO HS RF: 0 Discontinued olanzapine [Zyprexa] 2.5 mg tablet 2.5 mg PO DAILY Qty: 90 RF: 3 Discharge Orders: Discharge Order (Routine); Ordered 02/27/20 Ordered By: Josep Manzano Admission Data Admit Date/Time: 02/25/20 08:17 Attending Provider: Josep Manzano Admit Provider: Josep Manzano Primary Care Provider: Eduardo Cat III Other Providers: Josep Manzano Coding Level of Care Code D/C Day Management >30 mins Diagnoses Restless leg syndrome G25.81 Fall W19.XXXA Encounter type: initial encounter Hypomagnesemia E83.42 Basilar artery stenosis with infarction I63.22 HTN (hypertension) I10 COPD (chronic obstructive pulmonary disease) J44.9 Diabetes mellitus type 2, controlled, with complications E11.8 Chronic kidney disease (CKD), stage III (moderate) N18.3 Benign prostatic hyperplasia without urinary obstruction N40.0 GERD (gastroesophageal reflux disease) K21.9 Depression with anxiety F41.8 Visual hallucinations R44.1 DVT prophylaxis Z29.9
== END 2020-02-27 15:21 | disposition home or self-care (01) | DRG 605 ==
LOC: ED 04:34 → 3W 08:17

== ENCOUNTER 2021-05-22 15:11 | Inpatient (IN) ==
[2021-05-22] MEDS ORDERED: SODIUM CHLORIDE 0.9% 500 ML IV STA (16:37)
[2021-05-22] MEDS ORDERED: ACETAMINOPHEN 1,000 MG/100 ML VIAL IV STA (16:40)
[2021-05-22 17:05] LABS: Appearance Urine Clear (Clear); Bacteria Urine Automated Negative (Negative); Bilirubin Urine Negative (Negative); Blood Urine Negative (Negative); Color Urine Yellow; Epithelial Cell Urine Auto 20-30 /lpf (0-5); Glucose Urine UA 3+ (Negative); Ketones Urine Negative (Negative); Leukocyte Esterase Urine Negative (Negative); Nitrite Urine Negative (Negative); Protein Urine 2+ (Negative); Specific Gravity Urine 1.021 (1.000-1.030); Urobilinogen Urine Negative (Negative); pH Urine 6.5 (4.5-7.5)
[2021-05-22 17:09] LABS: iSTAT Creatinine 1.5 mg/dl (0.6-1.3); iSTAT Hemoglobin 11.2 g/dl (14.0-18.0); iSTAT Ionized Calcium 1.25 mmol/l (1.12-1.32); iSTAT Potassium 4.2 mmol/L (3.3-5.0)
[2021-05-22 17:28] LABS: Albumin Globulin Ratio 0.9 (0.9-2); Albumin Level 2.6 gm/dl (3.4-5.0); BUN Creatinine Ratio 19.4 (10-20); Bilirubin,Total 0.3 mg/dl (0.2-1); Calcium 8.4 mg/dl (8.5-10.1); Creatinine Clr Calc Pharmacy 42.9 ml/min; Est GFR (African American) 49.5 ml/min; Est GFR (Non-African American) 42.7 ml/min; Potassium 4.2 mmol/L (3.5-5.1); Total Protein 5.6 gm/dl (6.4-8.2)
[2021-05-22 17:40] LABS: Beta-Hydroxybutyrate 0.85 mg/dl (0.2-2.81)
--- NOTE | 2021-05-22 18:14 | Emergency Department Note ---
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 PLAN: Disposition: Admit MEDICAL DECISION MAKING: The patient is a pleasant 70-year-old gentleman with a past medical history of dementia, CAD, COPD, history of CVA on ticagrelor, type 2 diabetes who presents to the emergency department accompanied by his concern for having an unwitnessed fall yesterday where he reports he rolled out of bed but then got himself back into bed and went to sleep. The patient's reports that usually she hears him but did not hear him fall last night. Today he is reporting left lower quadrant abdominal pain where he has area of bruising as well as tailbone pain. He was able to get up on his own and walk however they present for evaluation given he is on a blood thinner and has bruising. He denies any head strike. The patient's feels as though he has been a little bit more confused over the past couple of days but acknowledges that this waxes and wanes and he has intermittent confusion and memory issues. On arrival the patient is no acute distress, afebrile stable vital signs. He has no focal neurologic deficits. He is moving all extremities equally. He does have 20 cm area of ecchymosis and underlying fluctuance of the left lower quadrant abdominal wall. There is mild tenderness in this area. He has no CVA or midline CT L-spine tenderness palpation or step-offs. He has mild tenderness of the sacrum without ecchymosis or bony crepitus. EKG without overt acute ischemia. WBC and platelets wnl. Platelets wnl. Glucose 390 however, chemistry without acidosis. BHB is not significantly elevated . Cr. 1.6 similar to prior range of values. Electrolytes unremarkable. LFTs without significant abnormality. UA without convincing evidence of infection. CT head and spine negative for acute process. CT chest negative for acute process. CT abdomen/pelvis with no acute intra-abdominal findings though does show "large soft tissue contusion present within the subcutaneous soft tissues extending from the left mid abdomen to the pelvis/groin" and "large subcutaneous soft tissue hematoma with several foci of active extravasation seen within the wall of the left ventral pelvis." No abdominal wall musculature involvement or intraperitoneal extension. Abdominal binder ordered. I did review findings with the patient and his at the bedside. We discussion option of outpatient f/u for repeat H/H after wearing abdominal binder and holding his brillinta versus admission for the same. They ultimately agreed/preferred plan for admission as the patient's was concerned that he may be too weak and sore and could fall again given he is already a fall risk. Case was discussed with Dr. Christie, [facility] hospitalist, who will evaluate the patient for admission. Triage Nursing notes reviewed and agree them. Prior medical records reviewed Vital Signs: reviewed and remarkable for no significant abnormalities Differential diagnosis: Fracture, dislocation, contusion, intra-abdominal, pneumothorax, intrathoracic, intracranial, neurologic, compartment syndrome, rhabdomyolysis, as well as other pathologies. ER treatment provided: See below. Diagnostics interpreted by me: ECG: NSR, 69 bpm, no ectopy, no overt ST elevation or depression. Cardiac Monitoring: An order for continuous cardiac monitoring was placed and demonstrated NSR, 69 bpm, no ectopy. Laboratory studies: See below Imaging studies: See below Consultation(s): Case was discussed with CRISTY [facility] hospitalist, who will evaluate the patient for admission. HPI: The patient is a pleasant 70-year-old gentleman with a past medical history of dementia, CAD, COPD, history of CVA on ticagrelor, type 2 diabetes who presents to the emergency department accompanied by his concern for having an unwitnessed fall yesterday where he reports he rolled out of bed but then got himself back into bed and went to sleep. The patient's reports that usually she hears him but did not hear him fall last night. Today he is reporting left lower quadrant abdominal pain where he has area of bruising as well as tailbone pain. He was able to get up on his own and walk however they present for evaluation given he is on a blood thinner and has bruising. He denies any head strike. The patient's feels as though he has been a little bit more confused over the past couple of days but acknowledges that this waxes and wanes and he has intermittent confusion and memory issues. ROS: See above HPI for pertinent positives & negatives. A total of 10 systems reviewed and were otherwise negative. PAST MEDICAL HISTORY:See Below PAST SURGICAL HISTORY:See Below FAMILY HISTORY:See Below SOCIAL HISTORY:See Below HOME MEDICATIONS:See Below ALLERGIES:See Below VITALS:See Below PHYSICAL EXAMINATION: GENERAL: Awake, alert, uncomfortable-appearing, in no distress HENT: Normocephalic, atraumatic. Oropharynx with dry mucous membranes and otherwise unremarkable. EYES: Normal conjunctiva. Sclera non-icteric. NECK: Supple. No nuchal rigidity. FROM. No JVD. RESPIRATORY: Clear to auscultation. CARDIAC: Regular rate, normal rhythm. Extremities warm and well perfused. Pulses equal. ABDOMEN: 20 cm area of ecchymosis and underlying fluctuance of the left lower quadrant abdominal wall. There is mild tenderness in this area. No rebound or guarding. RECTAL: Deferred. MUSCULOSKELETAL: Chest examination reveals no tenderness. The back is symmetrical on inspection without obvious abnormality. No CVA or midline CTL- spine tenderness palpation or step-offs. Mild tenderness of the sacrum without ecchymosis or bony crepitus. Dorsum of left hand with 5cm contusion. FROM and normal riveter helper intact. LOWER EXTREMITIES: Calves are equal size bilaterally and non-tender. No edema. No discoloration. NEURO: No focal sensory or motor deficits noted. SKIN: No rash or jaundice noted. Moody Worrell MD Past Med/Surg History Medical History Acute CVA (cerebrovascular accident) december 2018 x3; february 2019 x2; March 2019 x2 -- generalized weakness, unstable and poor depth perception. follows with Neurology [facility] [place] (Dr. Stef Zavaleta) Anxiety Asthma DOES NOT USE AN INHALER Barretts esophagus Basal cell carcinoma of face BPH (benign prostatic hyperplasia) Chronic obstructive pulmonary disease STABLE>NO INHALER CKD (chronic kidney disease), stage II Depression Diabetes mellitus, type 2 NIDDM Diabetic retinopathy GERD (gastroesophageal reflux disease) Hearing loss History of poliomyelitis Hyperlipidemia Hypertension Hypertensive retinopathy of left eye IBS (irritable bowel syndrome) POSSIBLE Restless leg syndrome Sleep apnea NO DEVICE Surgical History History of basal cell carcinoma excision History of colonoscopy (~07/15/18) History of cystoscopy History of esophagogastroduodenoscopy (EGD) History of right inguinal hernia repair History of tooth extraction S/P arterial stent "small artery in the brain" [facility] [place] March 2019 s/p multiple strokes Family History Sister Family history of diabetes mellitus 2 Colorectal cancer Father Family history of lung cancer Mother Family history of adrenal cancer Other No family history of adverse response to anesthesia Denies family history of Ovarian cancer Prostate cancer Myocardial infarction Breast cancer Social History Smoking Status: Smoker, status unknown Tobacco Type: Cigarettes Age Quit Using Tobacco: 51; packs per day: 1; Years Smoked: 30; Second Hand Exposure: No; Preferred Language: Khmer Communication Ability: Effective Communication Ability Comment: Pt has dementia Visual Impairment: No Limitations Hearing Ability: Normal Assistant Auditor Required: No Beliefs That Will Affect Care: None marital status: Current Living Situation: Spouse current occupational status: retired 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 Feels Safe at Home: Yes Childhood Exposure to Second-Hand Smoke: Yes caffeine: Yes during the past year weight has: remained stable Dental Care, Regularly: Yes Physical Activity Frequency: Daily Seatbelt Use: always Sunscreen Use: Yes Assistive Devices: Cane, Glasses and Walker Assistive Devices Comment: Unable to answer Allergies Allergies Allergy/AdvReac Type Severity Reaction Status Date / Time Tetanus Vaccines and Toxoid AdvReac Mild "TETANUS Verified 05/22/21 18:40 SHOT" - FEVER Home Meds Home Medications Medication Instructions Recorded Confirmed multivitamin (Daily Multi-Vitamin) 1 tab PO QAM 07/06/18 05/22/21 cholecalciferol (vitamin D3) 50 2,000 unit PO QAM 08/31/18 05/22/21 mcg (2,000 unit) tablet (Vitamin D3) aspirin 81 mg chewable tablet 81 mg PO QAM 01/29/20 05/22/21 (Selvin Chewable Low Dose Aspirin) amlodipine 5 mg tablet (Norvasc) 10 mg PO QAM 03/30/21 05/22/21 colestipol 1 gram tablet (Colestid) 2 g PO QAM 03/30/21 05/22/21 escitalopram oxalate 20 mg tablet 20 mg PO QAM 03/30/21 05/22/21 (Lexapro) glipizide 10 mg tablet (Glucotrol) 10 mg PO BID 03/30/21 05/22/21 tamsulosin 0.4 mg capsule (Flomax) 0.4 mg PO HS 03/30/21 05/22/21 acetaminophen 500 mg tablet 500 mg PO Q6H PRN 05/22/21 05/22/21 (Tylenol Extra Strength) budesonide 3 mg 3 mg PO TID 05/22/21 05/22/21 capsule,delayed,extended release (Entocort EC) lorazepam 0.5 mg tablet (Ativan) 0.5 mg PO HS PRN 05/22/21 05/22/21 magnesium oxide 400 mg PO QAM 05/22/21 05/22/21 Previous Rx's Medication Instructions Recorded atorvastatin 80 mg tablet (Lipitor) 80 mg PO QAM #90 tab 06/27/20 pantoprazole 40 mg tablet,delayed 40 mg PO QAM #90 tab 07/11/20 release (Protonix) ticagrelor 60 mg tablet (Brilinta) 60 mg PO BID #180 tab 09/18/20 atenolol 50 mg tablet 50 mg PO QAM #90 tab 09/25/20 ropinirole 0.25 mg tablet 0.25 mg PO HS #90 tab 02/19/21 linagliptin 5 mg tablet (Tradjenta) 5 mg PO HS #90 tab 02/26/21 diphenoxylate-atropine 2.5 1 tab PO QAM #90 tab 03/20/21 mg-0.025 mg tablet (Lomotil) quetiapine 50 mg tablet (Seroquel) 50 mg PO HS #90 tab 05/18/21 Results & Data (ED) Vital Signs Vital Signs - 24 hr 05/22/21 15:27 05/22/21 15:30 05/22/21 15:40 Temperature 36.7 C Temperature Source Oral Pulse Rate 78 79 80 Pulse Rate [Apical] Pulse Rate from SpO2 Sensor 79 80 Respiratory Rate 16 18 17 Respiratory Effort / Characteristics Spontaneous Respiratory Depth Respiratory Pattern Regular Blood Pressure 121/78 121/78 Blood Pressure [Right Arm] Blood Pressure Mean 92 92 Blood Pressure Mean [Right Arm] Pulse Oximetry 97 97 96 Oxygen Delivery Method Room Air Sepsis Recent Fever Within 48 Hours No Sepsis New/Unexplained Change in Mental Status No Sepsis Action Taken by Nursing No Action Required 05/22/21 15:50 05/22/21 16:00 05/22/21 16:10 Temperature Temperature Source Pulse Rate 78 79 80 Pulse Rate [Apical] Pulse Rate from SpO2 Sensor 77 79 80 Respiratory Rate 17 21 17 Respiratory Effort / Characteristics Respiratory Depth Respiratory Pattern Blood Pressure Blood Pressure [Right Arm] Blood Pressure Mean Blood Pressure Mean [Right Arm] Pulse Oximetry 96 97 98 Oxygen Delivery Method Sepsis Recent Fever Within 48 Hours Sepsis New/Unexplained Change in Mental Status Sepsis Action Taken by Nursing 05/22/21 16:20 05/22/21 16:30 05/22/21 16:40 Temperature Temperature Source Pulse Rate 80 82 79 Pulse Rate [Apical] Pulse Rate from SpO2 Sensor 80 81 80 Respiratory Rate 22 20 16 Respiratory Effort / Characteristics Respiratory Depth Respiratory Pattern Blood Pressure Blood Pressure [Right Arm] Blood Pressure Mean Blood Pressure Mean [Right Arm] Pulse Oximetry 97 99 98 Oxygen Delivery Method Sepsis Recent Fever Within 48 Hours Sepsis New/Unexplained Change in Mental Status Sepsis Action Taken by Nursing 05/22/21 16:46 05/22/21 16:50 05/22/21 17:00 Temperature Temperature Source Pulse Rate 81 80 74 Pulse Rate [Apical] Pulse Rate from SpO2 Sensor 78 74 Respiratory Rate 18 21 Respiratory Effort / Characteristics Respiratory Depth Respiratory Pattern Blood Pressure 126/64 Blood Pressure [Right Arm] Blood Pressure Mean 84 Blood Pressure Mean [Right Arm] Pulse Oximetry 99 98 98 Oxygen Delivery Method Room Air Sepsis Recent Fever Within 48 Hours Sepsis New/Unexplained Change in Mental Status Sepsis Action Taken by Nursing 05/22/21 18:00 05/22/21 19:00 05/22/21 19:30 Temperature Temperature Source Pulse Rate 78 87 Pulse Rate [Apical] 84 Pulse Rate from SpO2 Sensor 78 89 Respiratory Rate 16 18 24 Respiratory Effort / Characteristics Respiratory Depth Normal Respiratory Pattern Blood Pressure Blood Pressure [Right Arm] 154/91 H Blood Pressure Mean Blood Pressure Mean [Right Arm] 112 Pulse Oximetry 95 97 97 Oxygen Delivery Method Room Air Sepsis Recent Fever Within 48 Hours Sepsis New/Unexplained Change in Mental Status Sepsis Action Taken by Nursing 05/22/21 19:40 05/22/21 20:00 05/22/21 20:30 Temperature Temperature Source Pulse Rate 76 74 79 Pulse Rate [Apical] Pulse Rate from SpO2 Sensor 76 74 81 Respiratory Rate 18 16 20 Respiratory Effort / Characteristics Respiratory Depth Respiratory Pattern Blood Pressure 143/94 H Blood Pressure [Right Arm] Blood Pressure Mean 110 Blood Pressure Mean [Right Arm] Pulse Oximetry 98 97 99 Oxygen Delivery Method Sepsis Recent Fever Within 48 Hours Sepsis New/Unexplained Change in Mental Status Sepsis Action Taken by Nursing 05/22/21 21:04 05/22/21 21:30 05/22/21 22:00 Temperature Temperature Source Pulse Rate 89 Pulse Rate [Apical] Pulse Rate from SpO2 Sensor 76 76 Respiratory Rate 25 H 24 Respiratory Effort / Characteristics Respiratory Depth Respiratory Pattern Blood Pressure 130/83 160/100 H Blood Pressure [Right Arm] Blood Pressure Mean 98 120 Blood Pressure Mean [Right Arm] Pulse Oximetry 99 98 Oxygen Delivery Method Sepsis Recent Fever Within 48 Hours Sepsis New/Unexplained Change in Mental Status Sepsis Action Taken by Nursing Laboratory Data Attestation: I reviewed the patient's lab results. Result diagrams: 05/22/21 16:47 05/23/21 01:26 Lab Results 05/22/21 05/22/21 05/22/21 Range/Units 16:47 16:47 16:47 WBC 9.47 (4.8-10.8) K/uL RBC 3.73 L (4.7-6.1) M/uL Hgb 11.2 L (14.0-18.0) g/dL POC Hgb (14.0-18.0) g/dl Hct 34.3 L (42-52) % POC Hct (42-52) % MCV 92.0 (80-100) fL MCH 30.0 (25-34) pg MCHC 32.7 (32-36) g/dL RDW Std Deviation 51.5 H (36.4-46.3) fL RDW Coeff of Jose 15.2 H (11.5-14.5) % Plt Count 264 (130-400) K/uL MPV 9.4 (7.4-10.4) fL Immature Gran % (Auto) 0.2 % Neut % (Auto) 78.5 % Lymph % (Auto) 9.7 % [place] % (Auto) 10.6 % Eos % (Auto) 0.8 % Baso % (Auto) 0.2 % Neut # (Auto) 7.43 H (1.4-6.5) K/uL Lymph # (Auto) 0.92 L (1.2-3.4) K/uL [place] # (Auto) 1.00 H (0.11-0.59) K/uL Eos # (Auto) 0.08 (0-0.5) K/uL Baso # (Auto) 0.02 (0-0.2) K/uL Immature Gran # (Auto) 0.02 (0.00-0.02) K/uL PT Cancelled INR Cancelled APTT Cancelled PTT Ratio Cancelled POC Sodium (135-144) mmol/L Sodium 140 (136-145) mmol/L POC Potassium (3.3-5.0) mmol/L Potassium 4.2 (3.5-5.1) mmol/L POC Chloride (101-112) mmol/L Chloride 107 (98-107) mmol/L Carbon Dioxide 29 (21-32) mmol/L POC Total CO2 (24-31) mmol/L Anion Gap 4.0 (3-11) POC Anion Gap (16-25) mmol/L POC BUN (7-18) mg/dl BUN 31 H (7-18) mg/dl Creatinine 1.62 H (0.6-1.4) mg/dl POC Creatinine (0.6-1.3) mg/dl Est Cr Clr Drug Dosing 42.9 ml/min Est GFR ( Amer) 49.5 ml/min Est GFR (Non-Af Amer) 42.7 ml/min BUN/Creatinine Ratio 19.4 (10-20) Glucose 396 H* (70-99) mg/dl POC Glucose (other) (70-99) mg/dl Calcium 8.4 L (8.5-10.1) mg/dl POC Ioniz Calcium Martha (1.12-1.32) mmol/l Total Bilirubin 0.3 (0.2-1) mg/dl AST 10 L (15-37) U/L ALT 41 (12-78) U/L Alkaline Phosphatase 41 L (45-117) U/L Total Protein 5.6 L (6.4-8.2) gm/dl Albumin 2.6 L (3.4-5.0) gm/dl Globulin 3.0 (2.5-4.0) gm/dl Albumin/Globulin Ratio 0.9 (0.9-2) Beta-Hydroxybutyric Acd 0.85 (0.2-2.81) mg/dl Urine Color Urine Appearance (Clear) Urine pH (4.5-7.5) Ur Specific [place] (1.000-1.030) Urine Protein (Negative) Urine Glucose (UA) (Negative) Urine Ketones (Negative) Urine Blood (Negative) Urine Nitrite (Negative) Urine Bilirubin (Negative) Urine Urobilinogen (Negative) Ur Leukocyte Esterase (Negative) Urine WBC (Auto) (0-5) /hpf Urine RBC (Auto) (0-4) /hpf U Hyaline Cast (Auto) (0-5) /lpf U Epithel Cells (Auto) (0-5) /lpf Urine Bacteria (Auto) (Negative) COVID-19 Eval Order SARS-CoV-2 (PCR) (Negative) 05/22/21 05/22/21 05/22/21 Range/Units 16:47 16:54 18:21 WBC (4.8-10.8) K/uL RBC (4.7-6.1) M/uL Hgb (14.0-18.0) g/dL POC Hgb 11.2 L (14.0-18.0) g/dl Hct (42-52) % POC Hct 33 L (42-52) % MCV (80-100) fL MCH (25-34) pg MCHC (32-36) g/dL RDW Std Deviation (36.4-46.3) fL RDW Coeff of Jose (11.5-14.5) % Plt Count (130-400) K/uL MPV (7.4-10.4) fL Immature Gran % (Auto) % Neut % (Auto) % Lymph % (Auto) % [place] % (Auto) % Eos % (Auto) % Baso % (Auto) % Neut # (Auto) (1.4-6.5) K/uL Lymph # (Auto) (1.2-3.4) K/uL [place] # (Auto) (0.11-0.59) K/uL Eos # (Auto) (0-0.5) K/uL Baso # (Auto) (0-0.2) K/uL Immature Gran # (Auto) (0.00-0.02) K/uL PT INR APTT PTT Ratio POC Sodium 139 (135-144) mmol/L Sodium (136-145) mmol/L POC Potassium 4.2 (3.3-5.0) mmol/L Potassium (3.5-5.1) mmol/L POC Chloride 101 (101-112) mmol/L Chloride (98-107) mmol/L Carbon Dioxide (21-32) mmol/L POC Total CO2 27 (24-31) mmol/L Anion Gap (3-11) POC Anion Gap 17.0 (16-25) mmol/L POC BUN 30 H (7-18) mg/dl BUN (7-18) mg/dl Creatinine (0.6-1.4) mg/dl POC Creatinine 1.5 H (0.6-1.3) mg/dl Est Cr Clr Drug Dosing ml/min Est GFR ( Amer) ml/min Est GFR (Non-Af Amer) ml/min BUN/Creatinine Ratio (10-20) Glucose (70-99) mg/dl POC Glucose (other) 394 H* (70-99) mg/dl Calcium (8.5-10.1) mg/dl POC Ioniz Calcium Martha 1.25 (1.12-1.32) mmol/l Total Bilirubin (0.2-1) mg/dl AST (15-37) U/L ALT (12-78) U/L Alkaline Phosphatase (45-117) U/L Total Protein (6.4-8.2) gm/dl Albumin (3.4-5.0) gm/dl Globulin (2.5-4.0) gm/dl Albumin/Globulin Ratio (0.9-2) Beta-Hydroxybutyric Acd (0.2-2.81) mg/dl Urine Color Yellow Urine Appearance Clear (Clear) Urine pH 6.5 (4.5-7.5) Ur Specific [place] 1.021 (1.000-1.030) Urine Protein 2+ H (Negative) Urine Glucose (UA) 3+ H (Negative) Urine Ketones Negative (Negative) Urine Blood Negative (Negative) Urine Nitrite Negative (Negative) Urine Bilirubin Negative (Negative) Urine Urobilinogen Negative (Negative) Ur Leukocyte Esterase Negative (Negative) Urine WBC (Auto) 1-5 (0-5) /hpf Urine RBC (Auto) 5-10 H (0-4) /hpf U Hyaline Cast (Auto) 1-5 (0-5) /lpf U Epithel Cells (Auto) 20-30 H (0-5) /lpf Urine Bacteria (Auto) Negative (Negative) COVID-19 Eval Order Covid19 at [facility] SARS-CoV-2 (PCR) (Negative) 05/22/21 05/22/21 Range/Units 18:21 18:38 WBC (4.8-10.8) K/uL RBC (4.7-6.1) M/uL Hgb (14.0-18.0) g/dL POC Hgb (14.0-18.0) g/dl Hct (42-52) % POC Hct (42-52) % MCV (80-100) fL MCH (25-34) pg MCHC (32-36) g/dL RDW Std Deviation (36.4-46.3) fL RDW Coeff of Jose (11.5-14.5) % Plt Count (130-400) K/uL MPV (7.4-10.4) fL Immature Gran % (Auto) % Neut % (Auto) % Lymph % (Auto) % [place] % (Auto) % Eos % (Auto) % Baso % (Auto) % Neut # (Auto) (1.4-6.5) K/uL Lymph # (Auto) (1.2-3.4) K/uL [place] # (Auto) (0.11-0.59) K/uL Eos # (Auto) (0-0.5) K/uL Baso # (Auto) (0-0.2) K/uL Immature Gran # (Auto) (0.00-0.02) K/uL PT 9.9 INR 1.0 APTT 21.1 PTT Ratio 0.8 POC Sodium (135-144) mmol/L Sodium (136-145) mmol/L POC Potassium (3.3-5.0) mmol/L Potassium (3.5-5.1) mmol/L POC Chloride (101-112) mmol/L Chloride (98-107) mmol/L Carbon Dioxide (21-32) mmol/L POC Total CO2 (24-31) mmol/L Anion Gap (3-11) POC Anion Gap (16-25) mmol/L POC BUN (7-18) mg/dl BUN (7-18) mg/dl Creatinine (0.6-1.4) mg/dl POC Creatinine (0.6-1.3) mg/dl Est Cr Clr Drug Dosing ml/min Est GFR ( Amer) ml/min Est GFR (Non-Af Amer) ml/min BUN/Creatinine Ratio (10-20) Glucose (70-99) mg/dl POC Glucose (other) (70-99) mg/dl Calcium (8.5-10.1) mg/dl POC Ioniz Calcium Martha (1.12-1.32) mmol/l Total Bilirubin (0.2-1) mg/dl AST (15-37) U/L ALT (12-78) U/L Alkaline Phosphatase (45-117) U/L Total Protein (6.4-8.2) gm/dl Albumin (3.4-5.0) gm/dl Globulin (2.5-4.0) gm/dl Albumin/Globulin Ratio (0.9-2) Beta-Hydroxybutyric Acd (0.2-2.81) mg/dl Urine Color Urine Appearance (Clear) Urine pH (4.5-7.5) Ur Specific [place] (1.000-1.030) Urine Protein (Negative) Urine Glucose (UA) (Negative) Urine Ketones (Negative) Urine Blood (Negative) Urine Nitrite (Negative) Urine Bilirubin (Negative) Urine Urobilinogen (Negative) Ur Leukocyte Esterase (Negative) Urine WBC (Auto) (0-5) /hpf Urine RBC (Auto) (0-4) /hpf U Hyaline Cast (Auto) (0-5) /lpf U Epithel Cells (Auto) (0-5) /lpf Urine Bacteria (Auto) (Negative) COVID-19 Eval Order SARS-CoV-2 (PCR) NEGATIVE (Negative) Administered Medications Acetaminophen (Acetaminophen 325 Mg Tab) 650 mg PO Q4H PRN PRN Reason: Pain or Fever Stop: 06/22/21 00:47 Last Admin: 05/23/21 02:00 Dose: 650 mg Documented by: [id number] Insulin Human Regular 250 (units/ Sodium Chloride) 250 mls @ 8 mls/hr IV .Q24H HEAVENLY; Protocol Stop: 06/22/21 01:14 Last Titration: 05/23/21 03:00 Dose: 0 units/hr, 0 mls/hr Documented by: [id number] Cosigned by: [id number] Admin: 05/23/21 01:53 Dose: 8 units/hr, 8 mls/hr Documented by: [id number] Cosigned by: [id number] Potassium Chloride/Sodium Chloride (1/2 Nss + 20meq Kcl 1000ml) 20 meq in 1,000 mls @ 125 mls/hr IV .Q8H HEAVENLY Stop: 06/22/21 01:44 Last Admin: 05/23/21 01:51 Dose: 125 mls/hr Documented by: [id number] Discontinued Medications Sodium Chloride (Nss) 500 mls @ 999 mls/hr IV .Q31M STA Stop: 05/22/21 17:07 Last Infusion: 05/22/21 18:29 Dose: 0 mls/hr Documented by: [id number] Admin: 05/22/21 16:53 Dose: 999 mls/hr Documented by: [id number] Acetaminophen (Ofirmev) 1,000 mg in 100 mls @ 400 mls/hr IV NOW STA Stop: 05/22/21 16:54 Last Infusion: 05/22/21 17:13 Dose: 0 mls/hr Documented by: [id number] Admin: 05/22/21 16:53 Dose: 400 mls/hr Documented by: [id number] Insulin Human Regular 8 units/ (Syringe) 8 mls @ 0 mls/min IV ONE ONE Stop: 05/23/21 01:46 Last Admin: 05/23/21 01:53 Dose: 1 mls/min Documented by: [id number] Cosigned by: [id number] Insulin Aspart (Insulin Aspart 100 Units/Ml 3 Ml Pen) 4 units SC ONE STA Stop: 05/22/21 23:12 Last Admin: 05/22/21 23:48 Dose: 4 units Documented by: [id number] Cosigned by: [id number] Insulin Glargine (Insulin Glargine Solostar 100 Units/Ml 3 Ml Pen) 8 units SC NOW STA Stop: 05/22/21 23:12 Last Admin: 05/22/21 23:47 Dose: 8 units Documented by: [id number] Cosigned by: [id number] Ioversol (Optiray 320 100ml) 91 ml IV ONCE ONE Stop: 05/22/21 18:23 Last Admin: 05/22/21 18:23 Dose: 91 ml Documented by: [id number] Imaging Data Radiologist's Impression: Abdomen/Pelvis CT 05/22/21 16:37 CT SCAN OF THE CHEST, ABDOMEN, AND PELVIS WITH IV CONTRAST CLINICAL HISTORY: Fall. COMPARISON STUDY: Chest x-ray dated 03/30/2021. Chest CT dated 12/10/2016. Abdominal CT dated 02/07/2021. TECHNIQUE: Following the IV administration of 91 of Optiray 320, CT scan of the chest, abdomen, and pelvis was performed from the thoracic inlet to the proximal femora. Images are reviewed in the axial, sagittal, and coronal planes. IV contrast was administered without complication. A dose lowering technique was utilized adhering to the principles of ALARA. CT DOSE: 2619.65 mGy.cm FINDINGS: CHEST: Thyroid: Normal in size and heterogeneous in attenuation. Thoracic aorta: There is advanced atherosclerotic calcification of the thoracic aorta, which is normal in caliber and demonstrates standard 3-vessel arch anatomy. No dissection is seen. There is mild stenosis of the left subclavian artery below the thoracic outlet. Pulmonary vasculature: The pulmonary trunk is normal in caliber. There are no filling defects identified in the central pulmonary vessels to indicate pulmonary embolus. Note that this examination was not protocoled for evaluation of the pulmonary arteries. Heart: The heart is normal in size and without pericardial effusion. The coronary arteries and mitral annulus are densely calcified. Lungs and pleural spaces: Mild emphysematous change is noted. No airspace consolidation, pleural effusion, or pneumothorax is seen. The trachea and central airways are clear. Diffuse peribronchial thickening is observed. There are scattered calcified granulomas. Foci of scarring/atelectasis are seen at the lung bases. Mediastinum: There is no mediastinal hematoma or lymphadenopathy. Niki: Clear. Axillae: There is no axillary lymphadenopathy. Bony thorax: The skeletal structures are osteopenic. No lytic or blastic lesions are identified. There are chronic superior endplate compression deformities of T2, T3, T4, and T5. ABDOMEN AND PELVIS: Liver: The contrast-enhanced liver is normal in size, contour, and attenuation. There is no intra- or extrahepatic biliary ductal dilatation. The hepatic veins and portal veins are patent. Gallbladder: Unremarkable. Spleen: Normal in size and attenuation. Pancreas: Unremarkable. Adrenal glands: Bilateral adrenal adenomas measuring up to 3.4 cm are unchanged from prior studies. Kidneys: The contrast enhanced kidneys demonstrate mild cortical atrophy and are without hydronephrosis. The kidneys enhance symmetrically. Cortical scarring and a cortical calcification is noted in the left upper pole. Scattered subcentimeter cortical hypodensities likely represent cysts but are too small for definitive characterization. Abdominal vasculature: There is advanced atherosclerotic calcification and mild ectasia of the abdominal aorta. Stomach and bowel: There is a small hiatal hernia. There is mild to moderate colonic diverticulosis without CT evidence of acute diverticulitis. No bowel obstruction is seen. Mild fecal retention is noted throughout the colon. The appendix is well-visualized and normal. Body wall and peritoneum: There is a large soft tissue contusion in the left mid to lower abdominal wall with subcutaneous hemorrhage. A large hematoma is seen in the soft tissues of the left ventral pelvis on image #318. This measures approximately 10 x 14.5 x 7.5 cm in aggregate dimension. Several foci of active extravasation identified within this hematoma. This does not appear to involve the abdominal wall musculature, and there is no intraperitoneal extension. Subcutaneous hemorrhage extends inferiorly to the left groin. There is no intraperitoneal free air or abdominal ascites. Lymphadenopathy: None. Pelvic viscera: The prostate gland is enlarged and heterogeneous noting median lobe hypertrophy. A posterior bladder diverticulum measures up to 4.7 cm. The bladder is otherwise normal as imaged. There are right larger than left fat- containing inguinal hernias. Skeletal structures: The skeletal structures are osteopenic. The lumbosacral spine, bony pelvis, and proximal femora appear intact. There is mild lumbosacral spondylosis. No lytic or blastic lesions are seen. IMPRESSION: 1. There is no acute posttraumatic intrathoracic abnormality identified. 2. There is no airspace consolidation, pleural effusion, or pneumothorax. 3. Mild emphysema. 4. There is no evidence of solid organ injury in the abdomen or pelvis. 5. There is a large soft tissue contusion present within the subcutaneous soft tissues extending from the left mid abdomen to the pelvis/groin. 6. There is a large subcutaneous soft tissue hematoma with several foci of active extravasation seen within the wall of the left ventral pelvis. This measures up to 14.5 cm in dimension, and does not appear to involve the abdominal wall musculature. There is no intraperitoneal extension. 7. Colonic diverticulosis without CT evidence of acute diverticulitis. 8. Diffuse peribronchial thickening suggests bronchitis/reactive air disease. Clinical correlation will be required. 9. A large bladder diverticulum. 10. Additional findings as above. ACT 112: Negative or not required by law. Electronically signed by: Ayan Tate M.D. 05/22/2021 6:[address] 05/22/21 16:37 CT SCAN OF THE CERVICAL SPINE CLINICAL HISTORY: Fall. Dementia. COMPARISON STUDY: CT of the cervical spine dated 02/25/2020. TECHNIQUE: CT scan of the cervical spine is performed from the skull base to the upper thoracic spine. Images are reviewed in the axial, sagittal, and coronal planes. IV contrast was not administered for this examination. A dose lowering technique was utilized adhering to the principles of ALARA. FINDINGS: Skeletal structures: The skeletal structures are osteopenic. There is no evidence of fracture or subluxation involving the cervical spine. Vertebral body height and alignment are maintained. There is mild hyperlordosis. Anterior osteophytes are seen throughout. The odontoid process and lateral masses are intact. The atlantoaxial articulation is preserved noting productive degenerative change. The spinous processes appear intact. There is mild multilevel facet arthropathy. Intervertebral discs: There is mild multilevel degenerative disc space narrowing. Central canal: Posterior disc osteophyte complexes at C4-C5 and C5-C6 likely contribute to acquired compromise of the central canal. Soft tissues: The prevertebral and paraspinous soft tissues are within normal limits. There is atherosclerotic calcification of the carotid bulbs. Sialolithiasis is noted in the left parotid gland. Calvarium: The visualized calvarium at the skull base appears intact. Brain parenchyma: Bilateral occipital encephalomalacia is partially visualized. A stent is noted in the basilar artery. Sinuses and mastoids: The visualized paranasal sinuses are clear. There are small bilateral mastoid effusions. Lung apices: Mild emphysematous change is noted at the apices. Apical lung parenchyma is otherwise clear as visualized. IMPRESSION: There is no evidence of fracture or subluxation involving the cervical spine. ACT 112: Negative or not required by law. Electronically signed by: Ayan Tate M.D. 05/22/2021 6:[address] 05/22/21 16:37 CT SCAN OF THE CHEST, ABDOMEN, AND PELVIS WITH IV CONTRAST CLINICAL HISTORY: Fall. COMPARISON STUDY: Chest x-ray dated 03/30/2021. Chest CT dated 12/10/2016. Abdom inal CT dated 02/07/2021. TECHNIQUE: Following the IV administration of 91 of Optiray 320, CT scan of the chest, abdomen, and pelvis was performed from the thoracic inlet to the proximal femora. Images are reviewed in the axial, sagittal, and coronal planes. IV contrast was administered without complication. A dose lowering technique was utilized adhering to the principles of ALARA. CT DOSE: 2619.65 mGy.cm FINDINGS: CHEST: Thyroid: Normal in size and heterogeneous in attenuation. Thoracic aorta: There is advanced atherosclerotic calcification of the thoracic aorta, which is normal in caliber and demonstrates standard 3-vessel arch anatom y. No dissection is seen. There is mild stenosis of the left subclavian artery below the thoracic outlet. Pulmonary vasculature: The pulmonary trunk is normal in caliber. There are no filling defects identified in the central pulmonary vessels to indicate pulmonary embolus. Note that this examination was not protocoled for evaluation of the pulmonary arteries. Heart: The heart is normal in size and without pericardial effusion. The coronary arteries and mitral annulus are densely calcified. Lungs and pleural spaces: Mild emphysematous change is noted. No airspace consolidation, pleural effusion, or pneumothorax is seen. The trachea and central airways are clear. Diffuse peribronchial thickening is observed. There are scattered calcified granulomas. Foci of scarring/atelectasis are seen at the lung bases. Mediastinum: There is no mediastinal hematoma or lymphadenopathy. Niki: Clear. Axillae: There is no axillary lymphadenopathy. Bony thorax: The skeletal structures are osteopenic. No lytic or blastic lesions are identified. There are chronic superior endplate compression deformities of T2, T3, T4, and T5. ABDOMEN AND PELVIS: Liver: The contrast-enhanced liver is normal in size, contour, and attenuation. There is no intra- or extrahepatic biliary ductal dilatation. The hepatic veins and portal veins are patent. Gallbladder: Unremarkable. Spleen: Normal in size and attenuation. Pancreas: Unremarkable. Adrenal glands: Bilateral adrenal adenomas measuring up to 3.4 cm are unchanged from prior studies. Kidneys: The contrast enhanced kidneys demonstrate mild cortical atrophy and are without hydronephrosis. The kidneys enhance symmetrically. Cortical scarring and a cortical calcification is noted in the left upper pole. Scattered subcentimeter cortical hypodensities likely represent cysts but are too small for definitive characterization. Abdominal vasculature: There is advanced atherosclerotic calcification and mild ectasia of the abdominal aorta. Stomach and bowel: There is a small hiatal hernia. There is mild to moderate colonic diverticulosis without CT evidence of acute diverticulitis. No bowel obstruction is seen. Mild fecal retention is noted throughout the colon. The appendix is well-visualized and normal. Body wall and peritoneum: There is a large soft tissue contusion in the left mid to lower abdominal wall with subcutaneous hemorrhage. A large hematoma is seen in the soft tissues of the left ventral pelvis on image #318. This measures approximately 10 x 14.5 x 7.5 cm in aggregate dimension. Several foci of active extravasation identified within this hematoma. This does not appear to involve t he abdominal wall musculature, and there is no intraperitoneal extension. Subcutaneous hemorrhage extends inferiorly to the left groin. There is no intraperitoneal free air or abdominal ascites. Lymphadenopathy: None. Pelvic viscera: The prostate gland is enlarged and heterogeneous noting median lobe hypertrophy. A posterior bladder diverticulum measures up to 4.7 cm. The bladder is otherwise normal as imaged. There are right larger than left fat- containing inguinal hernias. Skeletal structures: The skeletal structures are osteopenic. The lumbosacral spine, bony pelvis, and proximal femora appear intact. There is mild lumbosacral spondylosis. No lytic or blastic lesions are seen. IMPRESSION: 1. There is no acute posttraumatic intrathoracic abnormality identified. 2. There is no airspace consolidation, pleural effusion, or pneumothorax. 3. Mild emphysema. 4. There is no evidence of solid organ injury in the abdomen or pelvis. 5. There is a large soft tissue contusion present within the subcutaneous soft tissues extending from the left mid abdomen to the pelvis/groin. 6. There is a large subcutaneous soft tissue hematoma with several foci of active extravasation seen within the wall of the left ventral pelvis. This measures up to 14.5 cm in dimension, and does not appear to involve the abdominal wall musculature. There is no intraperitoneal extension. 7. Colonic diverticulosis without CT evidence of acute diverticulitis. 8. Diffuse peribronchial thickening suggests bronchitis/reactive air disease. Clinical correlation will be required. 9. A large bladder diverticulum. 10. Additional findings as above. ACT 112: Negative or not required by law. Electronically signed by: Ayan Tate M.D. 05/22/2021 6:[address] 05/22/21 16:37 CT SCAN OF THE BRAIN WITHOUT IV CONTRAST CLINICAL HISTORY: Fall. Dementia. COMPARISON STUDY: CT of the brain dated 03/30/2021. TECHNIQUE: Unenhanced axial CT scan of the brain is performed from the vertex to the skull base. A dose lowering technique was utilized adhering to the principles of ALARA. FINDINGS: Brain parenchyma: Foci of bilateral occipital encephalomalacia are unchanged and consistent with remote infarcts. Chronic lacunar infarcts are noted in both cerebellar hemispheres and the thalami. There are age-related involutional changes noting mild to moderate subcortical and periventricular microangiopathic change. There is no hemorrhage, mass effect, or evidence of acute territorial ischemia by CT criteria. Aviles-white matter differentiation is preserved. No extra-axial fluid collection is seen. Mineralization is noted in the basal ganglia. Ventricles, sulci, cisterns: Prominent secondary to involutional change. Intracranial vasculature: There is atherosclerotic calcification of the ca vernous carotid and vertebral arteries. A stent is again noted in the basilar. Calvarium: The skeletal structures are osteopenic. No depressed calvarial fracture is identified. Sinuses and mastoids: Retention cysts are partially visualized in the maxillary antra and measure up to 1.6 cm. The visualized paranasal sinuses are otherwise clear. There is a small right mastoid effusion. The left mastoid air cells are well pneumatized. Orbits: The bony orbits are grossly intact. There are bilateral ocular lens implants. IMPRESSION: There is no hemorrhage, mass effect, or evidence of acute territorial ischemia by CT criteria. ACT 112: Negative or not required by law. Electronically signed by: Ayan Tate M.D. 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
[2021-05-22] MEDS ORDERED: OPTIRAY 320 100ml IV ONE (18:22)
--- NOTE | 2021-05-22 18:25 | CT Scan Report ---
CT SCAN OF THE BRAIN WITHOUT IV CONTRAST CLINICAL HISTORY: Fall. Dementia. COMPARISON STUDY: CT of the brain dated 03/30/2021. TECHNIQUE: Unenhanced axial CT scan of the brain is performed from the vertex to the skull base. A do se lowering technique was utilized adhering to the principles of ALARA. FINDINGS: Brain parenchyma: Foci of bilateral occipital encephalomalacia are unchanged and consistent with sen te infarcts. Chronic lacunar infarcts are noted in both cerebellar hemispheres and the thalami. There are age-related involutional changes noting mild to moderate subcortical and periventricular microa ngiopathic change. There is no hemorrhage, mass effect, or evidence of acute territorial ischemia by CT criteria. Aviles-white matter differentiation is preserved. No extra-axial fluid collection is seen. Mineralization is noted in the basal ganglia. Ventricles, sulci, cisterns: Prominent secondary to involutional change. Intracranial vasculature: There is atherosclerotic calcification of the cavernous carotid and vertebr al arteries. A stent is again noted in the basilar. Calvarium: The skeletal structures are osteopenic. No depressed calvarial fracture is identified. Sinuses and mastoids: Retention cysts are partially visualized in the maxillary antra and measure up to 1.6 cm. The visualized paranasal sinuses are otherwise clear. There is a small right mastoid effus ion. The left mastoid air cells are well pneumatized. Orbits: The bony orbits are grossly intact. There are bilateral ocular lens implants. IMPRESSION: There is no hemorrhage, mass effect, or evidence of acute territorial ischemia by CT justin bustos. ACT 112: Negative or not required by law. Electronically signed by: Ayan Tate M.D. 05/22/2021 6:24 PM
--- NOTE | 2021-05-22 18:30 | CT Scan Report ---
CT SCAN OF THE CERVICAL SPINE CLINICAL HISTORY: Fall. Dementia. COMPARISON STUDY: CT of the cervical spine dated 02/25/2020. TECHNIQUE: CT scan of the cervical spine is performed from the skull base to the upper thoracic spine . Images are reviewed in the axial, sagittal, and coronal planes. IV contrast was not administered fo r this examination. A dose lowering technique was utilized adhering to the principles of ALARA. FINDINGS: Skeletal structures: The skeletal structures are osteopenic. There is no evidence of fracture or subl uxation involving the cervical spine. Vertebral body height and alignment are maintained. There is mi ld hyperlordosis. Anterior osteophytes are seen throughout. The odontoid process and lateral masses a re intact. The atlantoaxial articulation is preserved noting productive degenerative change. The spin ous processes appear intact. There is mild multilevel facet arthropathy. Intervertebral discs: There is mild multilevel degenerative disc space narrowing. Central canal: Posterior disc osteophyte complexes at C4-C5 and C5-C6 likely contribute to acquired c ompromise of the central canal. Soft tissues: The prevertebral and paraspinous soft tissues are within normal limits. There is athero sclerotic calcification of the carotid bulbs. Sialolithiasis is noted in the left parotid gland. Calvarium: The visualized calvarium at the skull base appears intact. Brain parenchyma: Bilateral occipital encephalomalacia is partially visualized. A stent is noted in t he basilar artery. Sinuses and mastoids: The visualized paranasal sinuses are clear. There are small bilateral mastoid e ffusions. Lung apices: Mild emphysematous change is noted at the apices. Apical lung parenchyma is otherwise cl ear as visualized. IMPRESSION: There is no evidence of fracture or subluxation involving the cervical spine. ACT 112: Negative or not required by law. Electronically signed by: Ayan Tate M.D. 05/22/2021 6:28 PM
--- NOTE | 2021-05-22 18:49 | CT Scan Report ---
CT SCAN OF THE CHEST, ABDOMEN, AND PELVIS WITH IV CONTRAST CLINICAL HISTORY: Fall. COMPARISON STUDY: Chest x-ray dated 03/30/2021. Chest CT dated 12/10/2016. Abdominal CT dated 02/07/2021. TECHNIQUE: Following the IV administration of 91 of Optiray 320, CT scan of the chest, abdomen, and p nella was performed from the thoracic inlet to the proximal femora. Images are reviewed in the axial, sagittal, and coronal planes. IV contrast was administered without complication. A dose lowering te chnique was utilized adhering to the principles of ALARA. CT DOSE: 2619.65 mGy.cm FINDINGS: CHEST: Thyroid: Normal in size and heterogeneous in attenuation. Thoracic aorta: There is advanced atherosclerotic calcification of the thoracic aorta, which is ekaterina l in caliber and demonstrates standard 3-vessel arch anatomy. No dissection is seen. There is mild st enosis of the left subclavian artery below the thoracic outlet. Pulmonary vasculature: The pulmonary trunk is normal in caliber. There are no filling defects identif ied in the central pulmonary vessels to indicate pulmonary embolus. Note that this examination was no t protocoled for evaluation of the pulmonary arteries. Heart: The heart is normal in size and without pericardial effusion. The coronary arteries and mitral annulus are densely calcified. Lungs and pleural spaces: Mild emphysematous change is noted. No airspace consolidation, pleural effu sam, or pneumothorax is seen. The trachea and central airways are clear. Diffuse peribronchial thick ening is observed. There are scattered calcified granulomas. Foci of scarring/atelectasis are seen at the lung bases. Mediastinum: There is no mediastinal hematoma or lymphadenopathy. Niki: Clear. Axillae: There is no axillary lymphadenopathy. Bony thorax: The skeletal structures are osteopenic. No lytic or blastic lesions are identified. Ther e are chronic superior endplate compression deformities of T2, T3, T4, and T5. ABDOMEN AND PELVIS: Liver: The contrast-enhanced liver is normal in size, contour, and attenuation. There is no intra- or extrahepatic biliary ductal dilatation. The hepatic veins and portal veins are patent. Gallbladder: Unremarkable. Spleen: Normal in size and attenuation. Pancreas: Unremarkable. Adrenal glands: Bilateral adrenal adenomas measuring up to 3.4 cm are unchanged from prior studies. Kidneys: The contrast enhanced kidneys demonstrate mild cortical atrophy and are without hydronephros is. The kidneys enhance symmetrically. Cortical scarring and a cortical calcification is noted in the left upper pole. Scattered subcentimeter cortical hypodensities likely represent cysts but are too s mall for definitive characterization. Abdominal vasculature: There is advanced atherosclerotic calcification and mild ectasia of the abdomi nal aorta. Stomach and bowel: There is a small hiatal hernia. There is mild to moderate colonic diverticulosis w ithout CT evidence of acute diverticulitis. No bowel obstruction is seen. Mild fecal retention is not ed throughout the colon. The appendix is well-visualized and normal. Body wall and peritoneum: There is a large soft tissue contusion in the left mid to lower abdominal w all with subcutaneous hemorrhage. A large hematoma is seen in the soft tissues of the left ventral pe lvis on image #318. This measures approximately 10 x 14.5 x 7.5 cm in aggregate dimension. Several fo ci of active extravasation identified within this hematoma. This does not appear to involve the abdom inal wall musculature, and there is no intraperitoneal extension. Subcutaneous hemorrhage extends inf eriorly to the left groin. There is no intraperitoneal free air or abdominal ascites. Lymphadenopathy: None. Pelvic viscera: The prostate gland is enlarged and heterogeneous noting median lobe hypertrophy. A po sterior bladder diverticulum measures up to 4.7 cm. The bladder is otherwise normal as imaged. There are right larger than left fat-containing inguinal hernias. Skeletal structures: The skeletal structures are osteopenic. The lumbosacral spine, bony pelvis, and proximal femora appear intact. There is mild lumbosacral spondylosis. No lytic or blastic lesions are seen. IMPRESSION: 1. There is no acute posttraumatic intrathoracic abnormality identified. 2. There is no airspace consolidation, pleural effusion, or pneumothorax. 3. Mild emphysema. 4. There is no evidence of solid organ injury in the abdomen or pelvis. 5. There is a large soft tissue contusion present within the subcutaneous soft tissues extending from the left mid abdomen to the pelvis/groin. 6. There is a large subcutaneous soft tissue hematoma with several foci of active extravasation seen within the wall of the left ventral pelvis. This measures up to 14.5 cm in dimension, and does not ap pear to involve the abdominal wall musculature. There is no intraperitoneal extension. 7. Colonic diverticulosis without CT evidence of acute diverticulitis. 8. Diffuse peribronchial thickening suggests bronchitis/reactive air disease. Clinical correlation wi ll be required. 9. A large bladder diverticulum. 10. Additional findings as above. ACT 112: Negative or not required by law. Electronically signed by: Ayan Tate M.D. 05/22/2021 6:48 PM
[2021-05-22 19:06] LABS: Partial Thromboplastin Ratio 0.8; Partial Thromboplastin Time 21.1 Seconds (21.0-31.0); Prothrombin Time 9.9 Seconds (9.0-12.0)
[2021-05-22 19:41] LABS: Basophils # (auto) 0.02 K/uL (0-0.2); Basophils % (auto) 0.2 %; Eosinophils # (auto) 0.08 K/uL (0-0.5); Eosinophils % (auto) 0.8 %; Hematocrit (blood only) 34.3 % (42-52); Hemoglobin 11.2 g/dL (14.0-18.0); Immature Granulocytes # (auto) 0.02 K/uL (0.00-0.02); Immature Granulocytes % (auto) 0.2 %; Lymphocytes # (auto) 0.92 K/uL (1.2-3.4); Lymphocytes % (auto) 9.7 %; Mean Corpuscular Hgb Conc 32.7 g/dL (32-36); Mean Platelet Volume 9.4 fL (7.4-10.4); Monocytes % (auto) 10.6 %; Neutrophils # (auto) 7.43 K/uL (1.4-6.5); Neutrophils % (auto) 78.5 %; Platelet Count 264 K/uL (130-400); RDW Coefficient of Variation 15.2 % (11.5-14.5); RDW Standard Deviation 51.5 fL (36.4-46.3); Red Blood Count 3.73 M/uL (4.7-6.1); White Blood Count 9.47 K/uL (4.8-10.8)
--- NOTE | 2021-05-22 21:26 | History & Physical Report ---
Date of Service May 22, 2021 Assessment & Plan (1) Fall: Plan: 70 y/o male w/ PMHx of CVA who presents w/ large left lower abdominal hematoma s/p unwitnessed mechanical fall at home overnight. - imaging reviewed. L ventral pelvic hematoma is not intra or retroperitoneal; nonsurgical management at this time. - current pain is controlled on Tylenol. avoid narcotic and sedating medications given dementia and higher risk for delirium. - follow clinically; supportive care for hematoma. 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 8 u lantus now - SSI and basal w/ 8u lantus BID and aspart w/ CF 50, CR 17. Will adjust as needed. Patient is insulin naive and lower dosed regiment was selected. - hold home po regimen (3) HTN (hypertension): Plan: - continue home regimen amlodipine 10 and atenolol 50 - goal systolic BP <180, may consider 5 mg IV push metoprolol if above - asymptomatic (4) COPD (chronic obstructive pulmonary disease): Plan: - not on inhalers at home and denies resp complaints (5) Ecchymosis: Plan: - of L hand: order xr because of ttp at wrist - of L abd: monitor clinically. monitor CBC. No repeat abd imaging planned. (6) CAD (coronary artery disease): Plan: CAD and hx of CVA - hold home ASA and Brillinta in setting of pelvic hematoma (7) Dementia: Plan: - visual impairment: at baseline. 2/2 stroke. 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 hold home Seroquel because of sedating nature. hold home qhs prn ativan RLS: continue home ropinirole BPH: continue home Flomax FEN/GI: HH and DM2. No IV fluids. ppx: SCDs only code: Full. Discussed w/ patient and . Patient does have out of hosp DNR, however per 04/19/21 palliative note. dispo: med/surg tele History of Present Illness Chief Complaint: fall Primary Care Provider: Eduardo Cat MD 70 y/o male w/ hx of CAD and CVA on Brillinta, Jose Cruz Bonnet Syndrome, demen tia, CKD, BPH, DM2, COPD, HTN, and chronic ambulatory disfunction and falls who presents s/p mechanical fall overnight. His noticed bruising on his abdomen this morning and slightly increased confusion from baseline, so she brought him to the hospital. Patient does not believe he hit his head. His main complaints are intermittent tailbone pain, worsened w/ movement. The abdominal binder is he lping. Pain severity can go up to a 10, currently a 3-4/10, IV tylenol helped. He also has left hand/wrist pain from the fall. Some L hand pain. No weakness, numbness or tingling. The large contusion at his left lower abd does is not noticeably painful. Patient is on wk 4 of a 8 wk course of budesonide 3 mg PO TID for watery diarrhea (presumed microscopic colitis). He is covid immunized w/ Pfizer x 2 in October 2020. Hx was obtained w/ patient's at bedside. ED course: 1L fluid bolus. BSG 396. No anion gap and no serum ketones. Hb 11.2, [address] imaging showing large contusion at left mid abd as well as a large subq soft tissue hematoma at L ventral pelvis. Allergies Allergy/AdvReac Type Severity Reaction Status Date / Time Tetanus Vaccines and Toxoid AdvReac Mild "TETANUS Verified 05/22/21 18:40 SHOT" - FEVER Home Medications Medication Instructions Recorded Confirmed Type multivitamin (Daily Multi-Vitamin) 1 tab PO QAM 07/06/18 05/22/21 History cholecalciferol (vitamin D3) 50 2,000 unit PO QAM 08/31/18 05/22/21 History mcg (2,000 unit) tablet (Vitamin D3) aspirin 81 mg chewable tablet 81 mg PO QAM 01/29/20 05/22/21 History (Selvin Chewable Low Dose Aspirin) atorvastatin 80 mg tablet (Lipitor) 80 mg PO QAM #90 tab 06/27/20 05/22/21 Rx pantoprazole 40 mg tablet,delayed 40 mg PO QAM #90 tab 07/11/20 05/22/21 Rx release (Protonix) ticagrelor 60 mg tablet (Brilinta) 60 mg PO BID #180 tab 09/18/20 05/22/21 Rx atenolol 50 mg tablet 50 mg PO QAM #90 tab 09/25/20 05/22/21 Rx ropinirole 0.25 mg tablet 0.25 mg PO HS #90 tab 02/19/21 05/22/21 Rx linagliptin 5 mg tablet (Tradjenta) 5 mg PO HS #90 tab 02/26/21 05/22/21 Rx diphenoxylate-atropine 2.5 1 tab PO QAM #90 tab 03/20/21 05/22/21 Rx mg-0.025 mg tablet (Lomotil) amlodipine 5 mg tablet (Norvasc) 10 mg PO QAM 03/30/21 05/22/21 History colestipol 1 gram tablet (Colestid) 2 g PO QAM 03/30/21 05/22/21 History escitalopram oxalate 20 mg tablet 20 mg PO QAM 03/30/21 05/22/21 History (Lexapro) glipizide 10 mg tablet (Glucotrol) 10 mg PO BID 03/30/21 05/22/21 History tamsulosin 0.4 mg capsule (Flomax) 0.4 mg PO HS 03/30/21 05/22/21 History quetiapine 50 mg tablet (Seroquel) 50 mg PO HS #90 tab 05/18/21 05/22/21 Rx acetaminophen 500 mg tablet 500 mg PO Q6H PRN 05/22/21 05/22/21 History (Tylenol Extra Strength) budesonide 3 mg 3 mg PO TID 05/22/21 05/22/21 History capsule,delayed,extended release (Entocort EC) lorazepam 0.5 mg tablet (Ativan) 0.5 mg PO HS PRN 05/22/21 05/22/21 History magnesium oxide 400 mg PO QAM 05/22/21 05/22/21 History Past Med/Surg History Medical History Acute CVA (cerebrovascular accident) Anxiety Asthma Barretts esophagus Basal cell carcinoma of face BPH (benign prostatic hyperplasia) Chronic obstructive pulmonary disease CKD (chronic kidney disease), stage II Depression Diabetes mellitus, type 2 Diabetic retinopathy GERD (gastroesophageal reflux disease) Hearing loss History of poliomyelitis Hyperlipidemia Hypertension Hypertensive retinopathy of left eye IBS (irritable bowel syndrome) Restless leg syndrome Sleep apnea Surgical History History of basal cell carcinoma excision History of colonoscopy (~07/15/18) History of cystoscopy History of esophagogastroduodenoscopy (EGD) History of right inguinal hernia repair History of tooth extraction S/P arterial stent Family History Sister Family history of diabetes mellitus Colorectal cancer Father Family history of lung cancer Mother Family history of adrenal cancer Other No family history of adverse response to anesthesia Denies family history of Ovarian cancer Prostate cancer Myocardial infarction Breast cancer Social History Smoking Status: Smoker, status unknown Tobacco Type: Cigarettes Age Quit Using Tobacco: 51; packs per day: 1; Years Smoked: 30; Second Hand Exposure: No; Preferred Language: Amharic Communication Ability: Effective Communication Ability Comment: Pt has dementia Visual Impairment: No Limitations Hearing Ability: Normal Business Services Administrator Required: No Beliefs That Will Affect Care: None marital status: Current Living Situation: Spouse current occupational status: retired 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 Feels Safe at Home: Yes Childhood Exposure to Second-Hand Smoke: Yes caffeine: Yes during the past year weight has: remained stable Dental Care, Regularly: Yes Physical Activity Frequency: Daily Seatbelt Use: always Sunscreen Use: Yes Assistive Devices: Cane, Glasses and Walker Assistive Devices Comment: Unable to answer Review of Systems Review of Systems: All systems reviewed & are unremarkable except as noted in HPI & below Constitutional: Denies fever, chills Eyes: Denies blurry vision, vision changes ENT: Denies sore throat, sinus pain Cardiovascular: Denies chest pain, palpitations Respiratory: Denies shortness of breath Gastrointestinal: Denies abdominal pain, nausea, vomiting, constipation, diarrhea Genitourinary: Denies urinary symptoms including dysuria Musculoskeletal: Pain at tailbone and L hand/wrist Neurological: Denies headache, numbness, tingling, focal weakness. Feels slightly anxious. Some chronic neuropathic type pain of BLE. Physical Exam 2 Physical Exam: General: A&Ox4. NAD. Cooperative. HEENT: Atraumatic, normocephalic. No Guzmán's sign or raccoon eyes. PERRL. Partially blind on exam, unable to complete extraocular eye movement testing Pulm: Mild RLL exp wheeze, other murillo clear to auscultation. No respiratory distress. Cardiac: RRR, -mrg. Radial pulses intact and symmetrical. 2+ bilat DP pulses. L radial pulse 1+ (likely has peripheral vasc disease), R radial 2+. Thin shins w/ tiny amount of pretibial edema. Abdominal: Obese abd. Mild discomfort to palpation at LLQ hematoma. Slightly firmer to touch at L abd near hematoma. No midline spinal ttp. Mild discomfort to palpation of tailbone. Msk: Swelling at L lateral palm. Some ttp at dorsal left lateral wrist and at dorsal 4th-5th MCP area. Normal opposition, strength, and ROM of bilat hands/fingers. Integ: hematoma at L abdomen covering most of the LLQ. Neuro: CN II-XII intact. Neg SLR. Moving all extremities. Normal sensation of bilat hands. Results & Data Results & Data ([facility]) Vital Signs (Past 12 Hours) Vital Signs vitals reviewed Temp Pulse Pulse Resp BP BP Pulse Ox 05/22/21 19:40 76 18 98 05/22/21 19:30 87 24 97 05/22/21 19:00 78 18 97 05/22/21 18:00 84 16 154/91 H 95 05/22/21 17:00 74 21 126/64 98 05/22/21 16:50 80 18 98 05/22/21 16:46 81 99 05/22/21 16:40 79 16 98 05/22/21 16:30 82 20 99 05/22/21 16:20 80 22 97 05/22/21 16:10 80 17 98 05/22/21 16:00 79 21 97 05/22/21 15:50 78 17 96 05/22/21 15:40 80 17 96 05/22/21 15:30 79 18 121/78 97 05/22/21 15:27 36.7 C 78 16 121/78 97 Laboratory Results 05/22/21 16:47 05/22/21 16:47 Cardiac Enzymes 05/22/21 Range/Units 16:47 AST 10 L (15-37) U/L Coagulation 05/22/21 05/22/21 Range/Units 16:47 18:38 PT Cancelled 9.9 APTT Cancelled 21.1 CBC 05/22/21 Range/Units 16:47 WBC 9.47 (4.8-10.8) K/uL RBC 3.73 L (4.7-6.1) M/uL Hgb 11.2 L (14.0-18.0) g/dL Hct 34.3 L (42-52) % Plt Count 264 (130-400) K/uL Neut # (Auto) 7.43 H (1.4-6.5) K/uL Lymph # (Auto) 0.92 L (1.2-3.4) K/uL [place] # (Auto) 1.00 H (0.11-0.59) K/uL Eos # (Auto) 0.08 (0-0.5) K/uL Baso # (Auto) 0.02 (0-0.2) K/uL Comprehensive Metabolic Panel 05/22/21 Range/Units 16:47 Sodium 140 (136-145) mmol/L Potassium 4.2 (3.5-5.1) mmol/L Chloride 107 (98-107) mmol/L Carbon Dioxide 29 (21-32) mmol/L BUN 31 H (7-18) mg/dl Creatinine 1.62 H (0.6-1.4) mg/dl Glucose 396 H* (70-99) mg/dl Calcium 8.4 L (8.5-10.1) mg/dl AST 10 L (15-37) U/L ALT 41 (12-78) U/L Alkaline Phosphatase 41 L (45-117) U/L Total Protein 5.6 L (6.4-8.2) gm/dl Albumin 2.6 L (3.4-5.0) gm/dl Intake and Output 05/22/21 05/22/21 05/22/21 06:59 14:59 22:59 Intake Total 600 / 600 Balance 600 / 600 Intake: IV 600 / 600 Acetaminophen 1,000 mg In 100 100 / 100 ml @ 400 mls/hr IV NOW STA Rx#: [id number] Sodium Chloride 0.9% 500 ml @ 500 / 500 999 mls/hr IV .Q31M STA Rx#: [id number] Other: Weight 83.9 kg Weight Measurement Method Built in [facility] Patient Weight 05/23/21 06:59 Weight 83.9 kg Diagnostic Findings Abdomen/Pelvis CT 05/22/21 16:37 CT SCAN OF THE CHEST, ABDOMEN, AND PELVIS WITH IV CONTRAST CLINICAL HISTORY: Fall. COMPARISON STUDY: Chest x-ray dated 03/30/2021. Chest CT dated 12/10/2016. Abdominal CT dated 02/07/2021. TECHNIQUE: Following the IV administration of 91 of Optiray 320, CT scan of the chest, abdomen, and pelvis was performed from the thoracic inlet to the proximal femora. Images are reviewed in the axial, sagittal, and coronal planes. IV contrast was administered without complication. A dose lowering technique was utilized adhering to the principles of ALARA. CT DOSE: 2619.65 mGy.cm FINDINGS: CHEST: Thyroid: Normal in size and heterogeneous in attenuation. Thoracic aorta: There is advanced atherosclerotic calcification of the thoracic aorta, which is normal in caliber and demonstrates standard 3-vessel arch anatomy. No dissection is seen. There is mild stenosis of the left subclavian artery below the thoracic outlet. Pulmonary vasculature: The pulmonary trunk is normal in caliber. There are no filling defects identified in the central pulmonary vessels to indicate pulmonary embolus. Note that this examination was not protocoled for evaluation of the pulmonary arteries. Heart: The heart is normal in size and without pericardial effusion. The coronary arteries and mitral annulus are densely calcified. Lungs and pleural spaces: Mild emphysematous change is noted. No airspace consolidation, pleural effusion, or pneumothorax is seen. The trachea and central airways are clear. Diffuse peribronchial thickening is observed. There are scattered calcified granulomas. Foci of scarring/atelectasis are seen at the lung bases. Mediastinum: There is no mediastinal hematoma or lymphadenopathy. Niki: Clear. Axillae: There is no axillary lymphadenopathy. Bony thorax: The skeletal structures are osteopenic. No lytic or blastic lesions are identified. There are chronic superior endplate compression deformities of T2, T3, T4, and T5. ABDOMEN AND PELVIS: Liver: The contrast-enhanced liver is normal in size, contour, and attenuation. There is no intra- or extrahepatic biliary ductal dilatation. The hepatic veins and portal veins are patent. Gallbladder: Unremarkable. Spleen: Normal in size and attenuation. Pancreas: Unremarkable. Adrenal glands: Bilateral adrenal adenomas measuring up to 3.4 cm are unchanged from prior studies. Kidneys: The contrast enhanced kidneys demonstrate mild cortical atrophy and are without hydronephrosis. The kidneys enhance symmetrically. Cortical scarring and a cortical calcification is noted in the left upper pole. Scattered subcentimeter cortical hypodensities likely represent cysts but are too small for definitive characterization. Abdominal vasculature: There is advanced atherosclerotic calcification and mild ectasia of the abdominal aorta. Stomach and bowel: There is a small hiatal hernia. There is mild to moderate colonic diverticulosis without CT evidence of acute diverticulitis. No bowel obstruction is seen. Mild fecal retention is noted throughout the colon. The appendix is well-visualized and normal. Body wall and peritoneum: There is a large soft tissue contusion in the left mid to lower abdominal wall with subcutaneous hemorrhage. A large hematoma is seen in the soft tissues of the left ventral pelvis on image #318. This measures approximately 10 x 14.5 x 7.5 cm in aggregate dimension. Several foci of active extravasation identified within this hematoma. This does not appear to involve the abdominal wall musculature, and there is no intraperitoneal extension. Subcutaneous hemorrhage extends inferiorly to the left groin. There is no intraperitoneal free air or abdominal ascites. Lymphadenopathy: None. Pelvic viscera: The prostate gland is enlarged and heterogeneous noting median lobe hypertrophy. A posterior bladder diverticulum measures up to 4.7 cm. The bladder is otherwise normal as imaged. There are right larger than left fat- containing inguinal hernias. Skeletal structures: The skeletal structures are osteopenic. The lumbosacral spine, bony pelvis, and proximal femora appear intact. There is mild lumbosacral spondylosis. No lytic or blastic lesions are seen. IMPRESSION: 1. There is no acute posttraumatic intrathoracic abnormality identified. 2. There is no airspace consolidation, pleural effusion, or pneumothorax. 3. Mild emphysema. 4. There is no evidence of solid organ injury in the abdomen or pelvis. 5. There is a large soft tissue contusion present within the subcutaneous soft tissues extending from the left mid abdomen to the pelvis/groin. 6. There is a large subcutaneous soft tissue hematoma with several foci of active extravasation seen within the wall of the left ventral pelvis. This measures up to 14.5 cm in dimension, and does not appear to involve the abdominal wall musculature. There is no intraperitoneal extension. 7. Colonic diverticulosis without CT evidence of acute diverticulitis. 8. Diffuse peribronchial thickening suggests bronchitis/reactive air disease. Clinical correlation will be required. 9. A large bladder diverticulum. 10. Additional findings as above. ACT 112: Negative or not required by law. Electronically signed by: Ayan Tate M.D. 05/22/2021 6:[address] 05/22/21 16:37 CT SCAN OF THE CERVICAL SPINE CLINICAL HISTORY: Fall. Dementia. COMPARISON STUDY: CT of the cervical spine dated 02/25/2020. TECHNIQUE: CT scan of the cervical spine is performed from the skull base to the upper thoracic spine. Images are reviewed in the axial, sagittal, and coronal planes. IV contrast was not administered for this examination. A dose lowering technique was utilized adhering to the principles of ALARA. FINDINGS: Skeletal structures: The skeletal structures are osteopenic. There is no evidence of fracture or subluxation involving the cervical spine. Vertebral body height and alignment are maintained. There is mild hyperlordosis. Anterior osteophytes are seen throughout. The odontoid process and lateral masses are intact. The atlantoaxial articulation is preserved noting productive degenerative change. The spinous processes appear intact. There is mild multilevel facet arthropathy. Intervertebral discs: There is mild multilevel degenerative disc space narrowing. Central canal: Posterior disc osteophyte complexes at C4-C5 and C5-C6 likely contribute to acquired compromise of the central canal. Soft tissues: The prevertebral and paraspinous soft tissues are within normal limits. There is atherosclerotic calcification of the carotid bulbs. Sialolithiasis is noted in the left parotid gland. Calvarium: The visualized calvarium at the skull base appears intact. Brain parenchyma: Bilateral occipital encephalomalacia is partially visualized. A stent is noted in the basilar artery. Sinuses and mastoids: The visualized paranasal sinuses are clear. There are small bilateral mastoid effusions. Lung apices: Mild emphysematous change is noted at the apices. Apical lung parenchyma is otherwise clear as visualized. IMPRESSION: There is no evidence of fracture or subluxation involving the cervical spine. ACT 112: Negative or not required by law. Electronically signed by: Ayan Tate M.D. 05/22/2021 6:[address] 05/22/21 16:37 CT SCAN OF THE CHEST, ABDOMEN, AND PELVIS WITH IV CONTRAST CLINICAL HISTORY: Fall. COMPARISON STUDY: Chest x-ray dated 03/30/2021. Chest CT dated 12/10/2016. Abdominal CT dated 02/07/2021. TECHNIQUE: Following the IV administration of 91 of Optiray 320, CT scan of the chest, abdomen, and pelvis was performed from the thoracic inlet to the proximal femora. Images are reviewed in the axial, sagittal, and coronal planes. IV contrast was administered without complication. A dose lowering technique was utilized adhering to the principles of ALARA. CT DOSE: 2619.65 mGy.cm FINDINGS: CHEST: Thyroid: Normal in size and heterogeneous in attenuation. Thoracic aorta: There is advanced atherosclerotic calcification of the thoracic aorta, which is normal in caliber and demonstrates standard 3-vessel arch anatomy. No dissection is seen. There is mild stenosis of the left subclavian artery below the thoracic outlet. Pulmonary vasculature: The pulmonary trunk is normal in caliber. There are no filling defects identified in the central pulmonary vessels to indicate pulmonary embolus. Note that this examination was not protocoled for evaluation of the pulmonary arteries. Heart: The heart is normal in size and without pericardial effusion. The coronary arteries and mitral annulus are densely calcified. Lungs and pleural spaces: Mild emphysematous change is noted. No airspace consolidation, pleural effusion, or pneumothorax is seen. The trachea and c entral airways are clear. Diffuse peribronchial thickening is observed. There are scattered calcified granulomas. Foci of scarring/atelectasis are seen at the lung bases. Mediastinum: There is no mediastinal hematoma or lymphadenopathy. Niki: Clear. Axillae: There is no axillary lymphadenopathy. Bony thorax: The skeletal structures are osteopenic. No lytic or blastic lesions are identified. There are chronic superior endplate compression deformities of T2, T3, T4, and T5. ABDOMEN AND PELVIS: Liver: The contrast-enhanced liver is normal in size, contour, and attenuation. There is no intra- or extrahepatic biliary ductal dilatation. The hepatic veins and portal veins are patent. Gallbladder: Unremarkable. Spleen: Normal in size and attenuation. Pancreas: Unremarkable. Adrenal glands: Bilateral adrenal adenomas measuring up to 3.4 cm are unchanged from prior studies. Kidneys: The contrast enhanced kidneys demonstrate mild cortical atrophy and are without hydronephrosis. The kidneys enhance symmetrically. Cortical scarring and a cortical calcification is noted in the left upper pole. Scattered subcentimeter cortical hypodensities likely represent cysts but are too small for definitive characterization. Abdominal vasculature: There is advanced atherosclerotic calcification and mild ectasia of the abdominal aorta. Stomach and bowel: There is a small hiatal hernia. There is mild to moderate colonic diverticulosis without CT evidence of acute diverticulitis. No bowel obstruction is seen. Mild fecal retention is noted throughout the colon. The appendix is well-visualized and normal. Body wall and peritoneum: There is a large soft tissue contusion in the left mid to lower abdominal wall with subcutaneous hemorrhage. A large hematoma is seen in the soft tissues of the left ventral pelvis on image #318. This measures approximately 10 x 14.5 x 7.5 cm in aggregate dimension. Several foci of active extravasation identified within this hematoma. This does not appear to involve the abdominal wall musculature, and there is no intraperitoneal extension. Subcutaneous hemorrhage extends inferiorly to the left groin. There is no intraperitoneal free air or abdominal ascites. Lymphadenopathy: None. Pelvic viscera: The prostate gland is enlarged and heterogeneous noting median lobe hypertrophy. A posterior bladder diverticulum measures up to 4.7 cm. The bladder is otherwise normal as imaged. There are right larger than left fat- containing inguinal hernias. Skeletal structures: The skeletal structures are osteopenic. The lumbosacral spine, bony pelvis, and proximal femora appear intact. There is mild lumbosacral spondylosis. No lytic or blastic lesions are seen. IMPRESSION: 1. There is no acute posttraumatic intrathoracic abnormality identified. 2. There is no airspace consolidation, pleural effusion, or pneumothorax. 3. Mild emphysema. 4. There is no evidence of solid organ injury in the abdomen or pelvis. 5. There is a large soft tissue contusion present within the subcutaneous soft tissues extending from the left mid abdomen to the pelvis/groin. 6. There is a large subcutaneous soft tissue hematoma with several foci of active extravasation seen within the wall of the left ventral pelvis. This corinne sures up to 14.5 cm in dimension, and does not appear to involve the abdominal wall musculature. There is no intraperitoneal extension. 7. Colonic diverticulosis without CT evidence of acute diverticulitis. 8. Diffuse peribronchial thickening suggests bronchitis/reactive air disease. Clinical correlation will be required. 9. A large bladder diverticulum. 10. Additional findings as above. ACT 112: Negative or not required by law. Electronically signed by: Ayan Tate M.D. 05/22/2021 6:[address] 05/22/21 16:37 CT SCAN OF THE BRAIN WITHOUT IV CONTRAST CLINICAL HISTORY: Fall. Dementia. COMPARISON STUDY: CT of the brain dated 03/30/2021. TECHNIQUE: Unenhanced axial CT scan of the brain is performed from the vertex to the skull base. A dose lowering technique was utilized adhering to the principles of ALARA. FINDINGS: Brain parenchyma: Foci of bilateral occipital encephalomalacia are unchanged and consistent with remote infarcts. Chronic lacunar infarcts are noted in both cerebellar hemispheres and the thalami. There are age-related involutional changes noting mild to moderate subcortical and periventricular microangiopathic change. There is no hemorrhage, mass effect, or evidence of acute territorial ischemia by CT criteria. Aviles-white matter differentiation is preserved. No extra-axial fluid collection is seen. Mineralization is noted in the basal ganglia. Ventricles, sulci, cisterns: Prominent secondary to involutional change. Intracranial vasculature: There is atherosclerotic calcification of the cavernous carotid and vertebral arteries. A stent is again noted in the basilar. Calvarium: The skeletal structures are osteopenic. No depressed calvarial fracture is identified. Sinuses and mastoids: Retention cysts are partially visualized in the maxillary antra and measure up to 1.6 cm. The visualized paranasal sinuses are otherwise clear. There is a small right mastoid effusion. The left mastoid air cells are well pneumatized. Orbits: The bony orbits are grossly intact. There are bilateral ocular lens implants. IMPRESSION: There is no hemorrhage, mass effect, or evidence of acute territorial ischemia by CT criteria. ACT 112: Negative or not required by law. Electronically signed by: Ayan Tate M.D. 05/22/2021 6:24 PM ECG Additional Comments: ordered, pending Code Status & VTE Plan Code Status full VTE Prophylaxis Plan VTE Prophylaxis will be ordered: Yes Reason for no VTE drug order: Contraindicated Supervising Physician Co-Signing Physician Notes Patient seen and examined, chart reviewed, case discussed with Dr. Ghotra and I agree with his assessment and plan as above. In brief, patient is a pleasant 70yo male with history of CAD on ASA and Brillinta presenting with abdominal wall hematoma following an unwitnessed fall in the home. Patient states that he typically sleeps on the very edge of the bed and occasionally falls out during the night. He does not recall falling out of bed but thinks he may have hit his bedside table. Denies head trauma. Large ecchymosis and abdominal hematoma without intra or retroperitoneal involvement On exam he is afebrile, HD stable, NAD Bruising noted on right wrist and hand, extensive bruising on anterior abdominal wall, LLQ HEENT - NC/AT, PERRL, no C-spine tenderness, MMM Heart - +S1/S2, regular Lungs - CTA Abd - +BS, soft, NT/ND Labs and images reviewed. Hbg=11.2, Hct=34.3, Cr=1.62, Glu elevated at 396 on arrival Assessment/Plan - Trend CBC, transfuse for symptomatic anemia or Hgb <8 Maintain abdominal binder Insulin gtt initiated - poor control following administration of SQ insulin Remainder as above Resident Activity Tracking Resident Involvement: Resident Care Provided Care Provided: Adult Hospital Medicine (1) Fall Encounter type: initial encounter Qualified Code(s): W19.XXXA - Unspecified fall, initial encounter
[2021-05-22] MEDS ORDERED: CARBOHYDRATES FOR HYPOGLYCEMIA PO PRN (23:11)
[2021-05-22] MEDS ORDERED: INSULIN GLARGINE SOLOSTAR 100 UNITS/ML 3 ML PEN SC STA (23:11)
[2021-05-22] MEDS ORDERED: INSULIN ASPART 100 UNITS/ML 3 ML PEN SC STA (23:11)
[2021-05-22] MEDS ORDERED: GLUCAGON FOR INJ 1 MG VIAL SQ PRN (23:11)
[2021-05-22] MEDS ORDERED: GLUCOSE 40% GEL 15 GM TUBE PO PRN (23:11)
[2021-05-22] MEDS ORDERED: DEXTROSE 50% 50 ML SYRINGE IV PRN (23:11)
[2021-05-22] MEDS ORDERED: GLUCOSE 10 TABS/TUBE PO PRN (23:11)
[2021-05-23] MEDS ORDERED: ALUMINUM/MAGNESIUM SUSP 30 ML UDC PO PRN (00:48)
[2021-05-23] MEDS ORDERED: STAT IV Infusion **Titration per Protocol STA ×2 (01:03)
[2021-05-23] MEDS ORDERED: HHS GOAL RANGE 250-350 mg/dl ONE (01:03)
[2021-05-23] MEDS ORDERED: PHARMACY GLYCEMIC MGMT CONSULT PRN (01:03)
[2021-05-23] MEDS ORDERED: PENDING 1/2NSS+40mEq KCL IVF SCH (01:15)
[2021-05-23] MEDS ORDERED: INSULIN REGULAR 250 UNITS in SODIUM CHLORIDE 0.9% 247.5 ML IV SCH (01:15)
[2021-05-23] MEDS ORDERED: PENDING 1/2NSS+20mEq KCL IVF SCH (01:15)
[2021-05-23] MEDS ORDERED: INSULIN HUMAN REGULAR IV BOLUS 8 UNITS in SYRINGE 0 ML IV ONE (01:45)
[2021-05-23] MEDS: SODIUM CHLOR 0.45% + 20MEQ KCL 20 MEQ/1,000 ML BAG IV SCH ×3 (01:51→16:36)
[2021-05-23] MEDS: ACETAMINOPHEN 325 MG TAB PO PRN ×3 (02:00→23:26)
[2021-05-23 02:12] LABS: BUN Creatinine Ratio 19.6 (10-20); Calcium 8.1 mg/dl (8.5-10.1); Creatinine Clr Calc Pharmacy 40.8 ml/min; Est GFR (African American) 47.3 ml/min; Est GFR (Non-African American) 40.8 ml/min; Magnesium 2.2 mg/dl (1.8-2.4); Phosphorus 4.5 mg/dl (2.5-4.9)
[2021-05-23 02:31] LABS: Beta-Hydroxybutyrate 0.88 mg/dl (0.2-2.81)
--- NOTE | 2021-05-23 03:00 | Billing Data ---
Date of Service May 22, 2021 Coding Level of Care Code INT OBSERVATION CARE 50M LVL 2
[2021-05-23] MEDS ORDERED: PENDING D5 1/2NS+20mEq KCL IVF SCH (04:00)
[2021-05-23 05:35] LABS: Basophils # (auto) 0.01 K/uL (0-0.2); Basophils % (auto) 0.1 %; Eosinophils # (auto) 0.02 K/uL (0-0.5); Eosinophils % (auto) 0.2 %; Hematocrit (blood only) 29.5 % (42-52); Hemoglobin 9.7 g/dL (14.0-18.0); Immature Granulocytes # (auto) 0.04 K/uL (0.00-0.02); Immature Granulocytes % (auto) 0.4 %; Lymphocytes # (auto) 1.15 K/uL (1.2-3.4); Lymphocytes % (auto) 10.7 %; Mean Corpuscular Hemoglobin 29.9 pg (25-34); Mean Corpuscular Hgb Conc 32.9 g/dL (32-36); Mean Platelet Volume 9.2 fL (7.4-10.4); Monocytes # (auto) 1.15 K/uL (0.11-0.59); Monocytes % (auto) 10.7 %; Neutrophils # (auto) 8.41 K/uL (1.4-6.5); Neutrophils % (auto) 77.9 %; Platelet Count 254 K/uL (130-400); RDW Coefficient of Variation 15.2 % (11.5-14.5); RDW Standard Deviation 50.4 fL (36.4-46.3); Red Blood Count 3.24 M/uL (4.7-6.1); White Blood Count 10.78 K/uL (4.8-10.8)
[2021-05-23 05:53] LABS: Albumin Level 2.6 gm/dl (3.4-5.0); BUN Creatinine Ratio 20.1 (10-20); Calcium 8.1 mg/dl (8.5-10.1); Creatinine Clr Calc Pharmacy 42.3 ml/min; Est GFR (African American) 49.5 ml/min; Est GFR (Non-African American) 42.7 ml/min; Magnesium 2.2 mg/dl (1.8-2.4); Potassium 3.7 mmol/L (3.5-5.1)
[2021-05-23 05:55] LABS: Albumin Globulin Ratio 0.8 (0.9-2); Bilirubin,Total 0.3 mg/dl (0.2-1); Globulin 3.1 gm/dl (2.5-4.0); Phosphorus 4.1 mg/dl (2.5-4.9); Total Protein 5.7 gm/dl (6.4-8.2)
--- NOTE | 2021-05-23 06:54 | Hospitalist Progress Note ---
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 Fall/Abdominal wall hematoma: -Fall 2 nights prior. -May be from somniambulism vs Jose Cruz Bonnet Syndrome hallucinations -CT Abd/pelvis large SQ soft tissue hematoma w/ several foci extravasation -Hgb between 8 and 9 today. Latest 8.3, stable -AM CBC. -PT and OT consulted -Continue to monitor for signs of anemia, worsening abdominal pain. T2DM: -BSG 396 on arrival, A1c 10.1 -May be 2/2 steroid use vs increased insulin resistance. -On SQ SSI, pharmacy consulted. -BSG readings 140's-220's -Q6 BG checks. Ecchymosis: -Fall on left hand with ecchymosis. -X-ray showed displaced fracture left 5th metacarpal. -Ortho consulted -Plan for reduction w/ fixation in OR tomorrow. -NPO midnight. HTN (hypertension): - continue home regimen amlodipine 10mg and atenolol 50mg - BP readings acceptable. COPD (chronic obstructive pulmonary disease): -Not on home medications for COPD -O2 sat w/in normal range. JABARI (acute kidney injury): -Cr 1.62, baseline 1.31 -May be due to hyperglycemia/T2DM -On IV fluids. 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 Will get more info regarding this. Admission and Anticipated Discharge Date Admission Date: May 22, 2021 Supervising Physician Co-Signing Physician Notes Resident Physician Supervision Note: I independently interviewed and examined the patient and verified the trejo history and physical, reviewed labs and image studies and agree with resident Dr. Carpenter findings and care plan. Subjective Patient seen at the bedside this morning. Patient says he is feeling better this morning. Said he only feels pain at the site of the fall with movement and may feel a little lightheaded/faint when going to the bathroom. Physical Exam Constitutional: WD/WN, vitals as above Eyes: PERRL, conjunctivae normal, anicteric sclerae Respiratory: normal respiratory effort, lungs clear to auscultation Cardiovascular: RRR, no murmur, no edema Gastrointestinal (Abdomen): Gross ecchymoses across left lower abdomen, no tenderness to palpation. Musculoskeletal: Fracture to left 5th metacarpal, Full range of motion in tact. Neurologic: Sensation in tact at 5th digit on left hand. Results & Data Results & Data ([facility]) Vital Signs (Past 12 Hours) Vital Signs Temp Pulse Pulse Resp BP BP BP 05/23/21 03:15 36.3 C L 83 18 139/82 05/23/21 02:09 83 05/23/21 01:28 36.5 C 84 20 131/70 05/23/21 00:00 84 119/77 05/22/21 23:27 80 153/71 H 05/22/21 22:00 24 160/100 H 05/22/21 21:30 25 H 05/22/21 21:04 89 130/83 05/22/21 20:30 79 20 05/22/21 20:00 74 16 143/94 H 05/22/21 19:40 76 18 05/22/21 19:30 87 24 05/22/21 19:00 78 18 Pulse Ox 05/23/21 03:15 100 05/23/21 02:09 05/23/21 01:28 99 05/23/21 00:00 97 05/22/21 23:27 97 05/22/21 22:00 98 05/22/21 21:30 99 05/22/21 21:04 05/22/21 20:30 99 05/22/21 20:00 97 05/22/21 19:40 98 05/22/21 19:30 97 05/22/21 19:00 97 Resident Activity Tracking Resident Involvement: Resident Care Provided Care Provided: Adult Hospital Medicine (1) Fall Encounter type: initial encounter Qualified Code(s): W19.XXXA - Unspecified fall, initial encounter
[2021-05-23] MEDS ORDERED: INSULIN ASPART 100 UNITS/ML 3 ML PEN SC SCH ×2 (07:30)
[2021-05-23 07:51] LABS: Estimated Average Glucose 243 mg/dl; Hemoglobin A1C 10.1 % (4.5-5.6)
[2021-05-23] MEDS: INSULIN ASPART 100 UNITS/ML 3 ML PEN SC SCH ×4 (08:47→20:41)
[2021-05-23] MEDS: BUDESONIDE EC 3 MG CAP PO SCH ×3 (08:50→20:41)
[2021-05-23] MEDS: amLODIPine BESYLATE 5 MG TAB PO SCH (08:50)
[2021-05-23] MEDS: DIPHENOXYLATE/ATROPINE 2.5/0.025MG TAB PO SCH (08:50)
[2021-05-23] MEDS: COLESTIPOL HCL 1 GM TAB PO SCH (08:51)
[2021-05-23] MEDS: ATORVASTATIN 40 MG TAB PO SCH (08:51)
[2021-05-23] MEDS: ATENOLOL 50 MG TABLET PO SCH (08:51)
[2021-05-23] MEDS: ESCITALOPRAM OXALATE 20 MG TAB PO SCH (08:51)
[2021-05-23] MEDS ORDERED: INSULIN GLARGINE SOLOSTAR 100 UNITS/ML 3 ML PEN SC SCH ×2 (09:00→10:00)
--- NOTE | 2021-05-23 09:23 | XRay Report ---
XR hand LT min 3V routine CLINICAL HISTORY: Left hand pain. Fall. COMPARISON STUDY: None. FINDINGS: Dorsal soft tissue swelling within the left hand. There is oblique fracture through the nec k of the fifth metacarpal with radial angulation and displacement. This demonstrates up to 5 mm of ra dial displacement. No dislocation. IMPRESSION: Displaced fracture at the neck of the left fifth metacarpal. ACT 112: Negative or not required by law. Electronically signed by: Brooks Loredo M.D. 05/23/2021 9:21 AM
[2021-05-23] MEDS ORDERED: SODIUM CHLORIDE 0.9% 1000ML 1,000 ML IV SCH (09:45)
--- NOTE | 2021-05-23 09:50 | Pharmacy Report ---
Pharmacy Glycemic Short Note 2 - Date of Service May 23, 2021 - Glycemic Short BSG Results (Last 24 hours): 05/22/21 05/22/21 05/22/21 16:47 16:54 23:34 Glucose 396 H* POC Glucose 480 H* POC Glucose (other) 394 H* 05/23/21 05/23/21 05/23/21 00:39 00:41 01:26 Glucose 423 H* POC Glucose 452 H* 446 H* POC Glucose (other) 05/23/21 05/23/21 05/23/21 02:52 03:55 04:56 Glucose POC Glucose 249 H 173 H 161 H POC Glucose (other) 05/23/21 05/23/21 05/23/21 05:24 05:48 06:54 Glucose 140 H POC Glucose 146 H 112 H POC Glucose (other) 05/23/21 08:13 Glucose POC Glucose 151 H POC Glucose (other) OUTPATIENT ANTIDIABETIC REGIMEN: * Linagliptin * Glipizide * A1c = 7.3% on 12/05/20 * A1C up to 10.1% 05/23/21 ASSESSMENT: * 70yo T2DM male - deteriorated outpatient control per A1c. Hyperglycemia may be contributing to fall? * Pt with severe hyperglycemia on admission requiring IV insulin infusion. Recently started on budesonide (04/12/21) for colitis. Likely the cause of rise in A1c. * BSGs now in goal range after infusion + 8 units of Lantus last evening. Will transition off of IV insulin infusion and continue with SQ basal bolus insulin regimen. PLAN FOR INPATIENT GLYCEMIC CONTROL: * Hold outpatient oral diabetes medications * Basal insulin * Lantus 8 units SQ BID * Bolus insulin * NovoLog per scale ACHS or Q6hrs while NPO * Goal Range: Low 110 mg/dL - High 140 mg/dL * Correction Factor: 30 mg/dL/unit * Nutritional / Prandial insulin per carb ratio of 1 unit per 10 grams CHO consumed PLAN FOR DISCHARGE: * A1c = 10.1% on 05/23/21 * Goal A1c <7.5-8% * Likely cause of rise in A1c is due to starting budesonide in April. If possible to switch to a different medication for colitis hyperglycemia will resolve with removing steroid. Otherwise additional antidiabetic agent will be needed to cover steroid induced hyperglycemia.
[2021-05-23 10:26] LABS: Hematocrit (blood only) 26.9 % (42-52); Hemoglobin 8.9 g/dL (14.0-18.0)
[2021-05-23 10:47] LABS: BUN Creatinine Ratio 20.6 (10-20); Creatinine Clr Calc Pharmacy 42.9 ml/min; Est GFR (African American) 50.2 ml/min; Est GFR (Non-African American) 43.3 ml/min; Magnesium 2.1 mg/dl (1.8-2.4)
[2021-05-23] MEDS ORDERED: INSULIN GLARGINE SOLOSTAR 100 UNITS/ML 3 ML PEN SC ONE (11:45)
[2021-05-23 14:01] LABS: BUN Creatinine Ratio 19.2 (10-20); Creatinine Clr Calc Pharmacy 39.4 ml/min; Est GFR (African American) 45.4 ml/min; Est GFR (Non-African American) 39.1 ml/min; Magnesium 2.2 mg/dl (1.8-2.4); Potassium 4.2 mmol/L (3.5-5.1)
[2021-05-23 14:02] LABS: Phosphorus 3.4 mg/dl (2.5-4.9)
[2021-05-23 15:15] LABS: Hematocrit (blood only) 27.4 % (42-52); Hemoglobin 9.1 g/dL (14.0-18.0)
--- NOTE | 2021-05-23 15:47 | Orthopedic Consultation ---
Date of Consultation May 23, 2021 Assessment & Plan (1) Closed fracture of 5th metacarpal: X-rays have been reviewed with . Patient will require reduction of the fracture with fixation. Patient will be made n.p.o. after midnight. I have discussed this with Dr. Kelly. I have spoken with the patient's who is his POA. She is in agreement with the surgery. We will plan for fixation of this fracture on . Supervising Physician Co-Signing Physician Notes Patient seen and examined. Agree with REINIER Joyce's note as above. Patient with a significantly displaced left fifth metacarpal neck fracture. He was certainly have improved outcome with his left hand function with reduction and stabilization of this fracture. He has a lot of medical problems, including uncontrolled diabetes with a hemoglobin A1c of 10.1. I therefore think it be best to do a closed reduction and pinning rather than ORIF or intramedullary screw. The patient is awake, alert, appropriately conversant, and oriented to person, place, and year. He seems to have a good understanding of his injury as well as the proposed procedure and potential risks. Risks, benefits, and alternatives of surgery were explained in detail. The surgical procedure, as well as postoperative recovery and rehabilitation, was also explained in detail. Risks include bleeding; infection; damage to surrounding structures such as nerves, blood vessels, and tendons that run in the area; persistent pain or stiffness; nonunion; malunion; hardware failure; painful prominent hardware requiring removal; or need for further surgery. The patient understands all of this and wishes to proceed with surgery. Preoperative workup was completed today, and informed consent was obtained. History of Present Illness Reason for Consultation: Left fifth metacarpal fracture Attending Physician: Meri Kelly MD History of Present Illness 70 y/o male w/ hx of CAD and CVA on Brillinta, Jose Cruz Bonnet Syndrome, dementia, CKD, BPH, DM2, COPD, HTN, and chronic ambulatory disfunction and falls who presents s/p mechanical fall overnight. Had noticed he had some increased bruising on his body and noticed his mentation was not his normal baseline and she brought him into the emergency room. He was admitted by the hospitalist service and in the interim they noticed he had some increased swelling over the left hand with some bruising. Xrays were taken and was found that he had 5th left metacarpal fracture that was displaced. Pt currently is awake and alert but is confused about how his fall had happened. He does not really remember the fall itself. He does not believe he hit his head. He states he has some initial pain in the hand but seems to be dissipating now. We have been asked to see him for his displaced left fifth metacarpal fracture. Allergies Allergy/AdvReac Type Severity Reaction Status Date / Time Tetanus Vaccines and Toxoid AdvReac Mild "TETANUS Verified 05/22/21 18:40 SHOT" - FEVER Home Medications Medication Instructions Recorded Confirmed Type multivitamin (Daily Multi-Vitamin) 1 tab PO QAM 07/06/18 05/22/21 History cholecalciferol (vitamin D3) 50 2,000 unit PO QAM 08/31/18 05/22/21 History mcg (2,000 unit) tablet (Vitamin D3) aspirin 81 mg chewable tablet 81 mg PO QAM 01/29/20 05/22/21 History (Selvin Chewable Low Dose Aspirin) atorvastatin 80 mg tablet (Lipitor) 80 mg PO QAM #90 tab 06/27/20 05/22/21 Rx pantoprazole 40 mg tablet,delayed 40 mg PO QAM #90 tab 07/11/20 05/22/21 Rx release (Protonix) ticagrelor 60 mg tablet (Brilinta) 60 mg PO BID #180 tab 09/18/20 05/22/21 Rx atenolol 50 mg tablet 50 mg PO QAM #90 tab 09/25/20 05/22/21 Rx ropinirole 0.25 mg tablet 0.25 mg PO HS #90 tab 02/19/21 05/22/21 Rx linagliptin 5 mg tablet (Tradjenta) 5 mg PO HS #90 tab 02/26/21 05/22/21 Rx diphenoxylate-atropine 2.5 1 tab PO QAM #90 tab 03/20/21 05/22/21 Rx mg-0.025 mg tablet (Lomotil) amlodipine 5 mg tablet (Norvasc) 10 mg PO QAM 03/30/21 05/22/21 History colestipol 1 gram tablet (Colestid) 2 g PO QAM 03/30/21 05/22/21 History escitalopram oxalate 20 mg tablet 20 mg PO QAM 03/30/21 05/22/21 History (Lexapro) glipizide 10 mg tablet (Glucotrol) 10 mg PO BID 03/30/21 05/22/21 History tamsulosin 0.4 mg capsule (Flomax) 0.4 mg PO HS 03/30/21 05/22/21 History quetiapine 50 mg tablet (Seroquel) 50 mg PO HS #90 tab 05/18/21 05/22/21 Rx acetaminophen 500 mg tablet 500 mg PO Q6H PRN 05/22/21 05/22/21 History (Tylenol Extra Strength) budesonide 3 mg 3 mg PO TID 05/22/21 05/22/21 History capsule,delayed,extended release (Entocort EC) lorazepam 0.5 mg tablet (Ativan) 0.5 mg PO HS PRN 05/22/21 05/22/21 History magnesium oxide 400 mg PO QAM 05/22/21 05/22/21 History Patient History Medical History Acute CVA (cerebrovascular accident) december 2018 x3; february 2019 x2; March 2019 x2 -- generalized weakness, unstable and poor depth perception. follows with [facility] (Dr. Stef Zavaleta) Anxiety Asthma DOES NOT USE AN INHALER Barretts esophagus Basal cell carcinoma of face BPH (benign prostatic hyperplasia) Chronic obstructive pulmonary disease STABLE>NO INHALER CKD (chronic kidney disease), stage II Depression Diabetes mellitus, type 2 NIDDM Diabetic retinopathy GERD (gastroesophageal reflux disease) Hearing loss History of poliomyelitis Hyperlipidemia Hypertension Hypertensive retinopathy of left eye IBS (irritable bowel syndrome) POSSIBLE Restless leg syndrome Sleep apnea NO DEVICE Surgical History History of basal cell carcinoma excision History of colonoscopy (~07/15/18) History of cystoscopy History of esophagogastroduodenoscopy (EGD) History of right inguinal hernia repair History of tooth extraction S/P arterial stent "small artery in the brain" [facility] March 2019 s/p multiple strokes Family History Sister Family history of diabetes mellitus 2 Colorectal cancer Father Family history of lung cancer Mother Family history of adrenal cancer Other No family history of adverse response to anesthesia Denies family history of Ovarian cancer Prostate cancer Myocardial infarction Breast cancer Social History Smoking Status: Smoker, status unknown Tobacco Type: Cigarettes Age Quit Using Tobacco: 51; packs per day: 1; Years Smoked: 30; Second Hand Exposure: No; Preferred Language: Belizean Communication Ability: Effective Communication Ability Comment: Pt has dementia Visual Impairment: No Limitations Hearing Ability: Normal Paper Wood 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 He is able to stand up on his own power and ambulate the room. On examination of his left hand, he has noted swelling and some bruising over the fifth metacarpal. The patient actually takes his finger through range of motion and states he is not having that much discomfort. He does have some discomfort on palpation over the fracture site. He denies any increased numbness in the fifth left finger at this time. Capillary refill is less than 2 seconds. All of his other fingers have good range of motion at this time and are nontender. He has good range of motion of his left wrist without discomfort. His elbow and shoulder of the left upper extremity seem unaffected. Results & Data ([facility]) Vital Signs (Past 12 Hours) Vital Signs Temp Pulse Pulse Resp BP Pulse Ox 05/23/21 15:09 36.5 C 82 20 100/62 98 05/23/21 11:14 36.9 C 82 18 114/74 97 05/23/21 07:42 36.8 C 20 148/78 H 97 05/23/21 07:33 78 Diagnostic Findings Patient: LORELEI GELLER Date: 05/22/21MR#: [id number]: [id number] DRAcct ID:[id number]: Date: [address] [place] [address] Zip: [place] [id number]: 70Location: 2NSex: MRoom/Bed: [id number] Phy: Meri Kelly MDDiagnosis: FALLPri Phy: Eduardo Cat, III, MDService Date: 05/23/21Fam Phy:Interpreting Phy: Brooks Loredo MDAdmit Phy: Jarrell Ghotra MD Ordering Phy: Jarrell Ghotra MD cc: ~ XR hand LT min 3V routine CLINICAL HISTORY: Left hand pain. Fall. COMPARISON STUDY: None. FINDINGS: Dorsal soft tissue swelling within the left hand. There is oblique fracture through the neck of the fifth metacarpal with radial angulation and displacement. This demonstrates up to 5 mm of radial displacement. No d islocation. IMPRESSION: Displaced fracture at the neck of the left fifth metacarpal. ACT 112: Negative or not required by law.
[2021-05-23 17:13] LABS: Hematocrit (blood only) 24.7 % (42-52); Hemoglobin 8.3 g/dL (14.0-18.0)
[2021-05-23 17:31] LABS: BUN Creatinine Ratio 19.7 (10-20); Creatinine Clr Calc Pharmacy 40.3 ml/min; Est GFR (African American) 46.7 ml/min; Est GFR (Non-African American) 40.3 ml/min; Magnesium 2.1 mg/dl (1.8-2.4); Potassium 3.8 mmol/L (3.5-5.1)
[2021-05-23 17:32] LABS: Phosphorus 3.5 mg/dl (2.5-4.9)
[2021-05-23] MEDS: INSULIN GLARGINE SOLOSTAR 100 UNITS/ML 3 ML PEN SC SCH (20:42)
[2021-05-23] MEDS: rOPINIRole HCL 0.25 MG TABLET PO SCH (20:42)
[2021-05-23] MEDS: TAMSULOSIN HCL 0.4 MG CAP PO SCH (20:42)
[2021-05-23 21:47] LABS: BUN Creatinine Ratio 20.4 (10-20); Creatinine Clr Calc Pharmacy 40.6 ml/min; Est GFR (Non-African American) 40.5 ml/min; Magnesium 2.2 mg/dl (1.8-2.4); Potassium 4.1 mmol/L (3.5-5.1)
[2021-05-23 21:53] LABS: Phosphorus 2.9 mg/dl (2.5-4.9)
[2021-05-23] MEDS: MELATONIN 3 MG TAB PO PRN (23:55)
[2021-05-24] MEDS ORDERED: MoRPHine SULFATE 2 MG/ML CARP IV PRN (00:40)
[2021-05-24] MEDS: SODIUM CHLOR 0.45% + 20MEQ KCL 20 MEQ/1,000 ML BAG IV SCH ×3 (02:01→23:26)
[2021-05-24] MEDS ORDERED: Nursing to Pharmacy Communication SCH ×3 (06:45→21:45)
[2021-05-24] MEDS: INSULIN ASPART 100 UNITS/ML 3 ML PEN SC SCH ×5 (06:57→20:52)
[2021-05-24 06:59] LABS: Basophils # (auto) 0.01 K/uL (0-0.2); Basophils % (auto) 0.1 %; Eosinophils # (auto) 0.08 K/uL (0-0.5); Eosinophils % (auto) 0.7 %; Hematocrit (blood only) 22.6 % (42-52); Hemoglobin 7.5 g/dL (14.0-18.0); Immature Granulocytes # (auto) 0.02 K/uL (0.00-0.02); Immature Granulocytes % (auto) 0.2 %; Lymphocytes # (auto) 1.04 K/uL (1.2-3.4); Lymphocytes % (auto) 9.7 %; Mean Corpuscular Hemoglobin 29.8 pg (25-34); Mean Corpuscular Hgb Conc 33.2 g/dL (32-36); Mean Corpuscular Volume 89.7 fL (80-100); Mean Platelet Volume 9.1 fL (7.4-10.4); Monocytes # (auto) 1.07 K/uL (0.11-0.59); Neutrophils # (auto) 8.47 K/uL (1.4-6.5); Neutrophils % (auto) 79.3 %; Platelet Count 198 K/uL (130-400); RDW Coefficient of Variation 15.6 % (11.5-14.5); RDW Standard Deviation 51.2 fL (36.4-46.3); Red Blood Count 2.52 M/uL (4.7-6.1); White Blood Count 10.69 K/uL (4.8-10.8)
[2021-05-24] MEDS ORDERED: SODIUM CHLORIDE 0.9% 250 ML IV PRN (07:07)
[2021-05-24 07:17] LABS: BUN Creatinine Ratio 20.8 (10-20); Calcium 8.2 mg/dl (8.5-10.1); Creatinine Clr Calc Pharmacy 58.6 ml/min; Est GFR (African American) 71.1 ml/min; Est GFR (Non-African American) 61.3 ml/min
[2021-05-24] MEDS: INSULIN GLARGINE SOLOSTAR 100 UNITS/ML 3 ML PEN SC SCH ×2 (07:20→17:21)
[2021-05-24] MEDS: ATENOLOL 50 MG TABLET PO SCH (08:04)
[2021-05-24] MEDS: BUDESONIDE EC 3 MG CAP PO SCH ×3 (08:04→20:50)
[2021-05-24] MEDS: DIPHENOXYLATE/ATROPINE 2.5/0.025MG TAB PO SCH (08:04)
[2021-05-24] MEDS: ESCITALOPRAM OXALATE 20 MG TAB PO SCH (08:04)
[2021-05-24] MEDS: amLODIPine BESYLATE 5 MG TAB PO SCH (08:04)
[2021-05-24] MEDS: ATORVASTATIN 40 MG TAB PO SCH (08:05)
[2021-05-24] MEDS: COLESTIPOL HCL 1 GM TAB PO SCH (08:05)
--- NOTE | 2021-05-24 08:27 | Hospitalist Progress Note ---
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 Fall/Abdominal wall hematoma: Acute blood loss anemia: -Fall 2 nights prior. -May be from somniambulism vs Jose Cruz Bonnet Syndrome hallucinations -CT Abd/pelvis large SQ soft tissue hematoma w/ several foci extravasation -Hgb 7.5 this AM. -Concern for active extravasation, transfused 2 units blood. -AM CBC. -PT and OT consulted -Continue to monitor for signs of anemia, worsening abdominal pain. T2DM: -BSG 396 on arrival, A1c 10.1 -May be 2/2 steroid use vs increased insulin resistance. -On SQ SSI, pharmacy consulted. -BSG readings 140's-220's -Q6 BG checks. Left 5th metacarpal fracture/Ecchymosis: -Fall on left hand with ecchymosis. -X-ray showed displaced fracture left 5th metacarpal. -Ortho consulted -Closed reduction w/ fixation successful. -Full liquid diet, progress as tolerated. HTN (hypertension): - continue home regimen amlodipine 10mg and atenolol 50mg - BP readings acceptable. COPD (chronic obstructive pulmonary disease): -Not on home medications for COPD -O2 sat w/in normal range. JABARI (acute kidney injury): -Cr 1.62, baseline 1.31 -May be due to hyperglycemia/T2DM -On IV fluids. 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 Will get more info regarding this. Admission and Anticipated Discharge Date Admission Date: May 22, 2021 Supervising Physician Co-Signing Physician Notes Resident Physician Supervision Note: I independently interviewed and examined the patient and verified the trejo history and physical, reviewed labs and image studies and agree with resident Dr. Carpenter findings and care plan. Subjective Patient seen at the bedside this morning. Overnight received morphine for pain in left hand. No abdominal pain complaints today. Nausea last night which he attributes to hospital food. Physical Exam Constitutional: WD/WN, vitals as above Eyes: PERRL, conjunctivae normal, anicteric sclerae Respiratory: normal respiratory effort, lungs clear to auscultation Cardiovascular: RRR, no murmur, no edema Results & Data Results & Data ([facility]) Vital Signs (Past 12 Hours) Vital Signs Temp Pulse Pulse Resp BP BP Pulse Ox 05/24/21 07:34 90 05/24/21 07:16 36.9 C 90 20 144/78 H 92 05/24/21 03:19 37.1 C 87 18 133/70 93 05/24/21 01:22 90 05/23/21 23:13 36.7 C 90 20 139/80 96 Resident Activity Tracking Resident Involvement: Resident Care Provided Care Provided: Adult Hospital Medicine (1) Fall Encounter type: initial encounter Qualified Code(s): W19.XXXA - Unspecified fall, initial encounter
[2021-05-24] MEDS: ACETAMINOPHEN 325 MG TAB PO PRN (09:27)
--- NOTE | 2021-05-24 11:43 | Pharmacy Report ---
Pharmacy Glycemic Short Note 2 - Date of Service May 24, 2021 - Glycemic Short BSG Results (Last 24 hours): 05/23/21 05/23/21 05/23/21 13:25 16:31 17:03 Glucose 209 H 151 H POC Glucose 172 H 05/23/21 05/23/21 05/24/21 20:33 21:18 06:12 Glucose 173 H 96 POC Glucose 217 H 05/24/21 05/24/21 06:55 11:31 Glucose POC Glucose 101 H 112 H OUTPATIENT ANTIDIABETIC REGIMEN: * Linagliptin * Glipizide * A1c = 7.3% on 12/05/20 * A1C up to 10.1% 05/23/21 ASSESSMENT: 05/24 * Pt NPO for surgery today. AM fasting BSG 101 mg/dl. Pt did receive 14 units of Lantus last evening so still does have some basal on board. Will HOLD Lantus this AM in anticipation of OR and NPO. Will give full 24hr dose of Lantus after surgery this evening. * Tighten CHO ratio slightly since post-prandial BSGs elevated yesterday. 05/23 * 70yo T2DM male - deteriorated outpatient control per A1c. Hyperglycemia may be contributing to fall? * Pt with severe hyperglycemia on admission requiring IV insulin infusion. Recently started on budesonide (04/12/21) for colitis. Likely the cause of rise in A1c. * BSGs now in goal range after infusion + 8 units of Lantus last evening. Will transition off of IV insulin infusion and continue with SQ basal bolus insulin regimen. PLAN FOR INPATIENT GLYCEMIC CONTROL: * Hold outpatient oral diabetes medications * Basal insulin * Lantus 20 units (0.23 units/kg) SQ Q24hrs given at 1800 * Bolus insulin * NovoLog per scale ACHS or Q6hrs while NPO * Goal Range: Low 110 mg/dL - High 140 mg/dL * Correction Factor: 20 mg/dL/unit * Nutritional / Prandial insulin per carb ratio of 1 unit per 7 grams CHO consumed PLAN FOR DISCHARGE: * A1c = 10.1% on 05/23/21 * Goal A1c <7.5-8% * Likely cause of rise in A1c is due to starting budesonide in April. If possible to switch to a different medication for colitis hyperglycemia will resolve with removing steroid. Otherwise additional antidiabetic agent will be needed to cover steroid induced hyperglycemia.
[2021-05-24] MEDS ORDERED: ONDANSETRON INJ 2 MG/ML 2 ML VIAL ONE (12:20)
[2021-05-24] MEDS ORDERED: DEXAMETHASONE SOD INJ 4 MG/ML VIAL ONE (12:20)
[2021-05-24] MEDS ORDERED: PROPOFOL IV EMULSION 10 MG/ML 20 ML VIAL IV ONE (12:20)
[2021-05-24] MEDS ORDERED: MIDAZOLAM HCL 1 MG/ML 2ML VIAL ONE (12:20)
[2021-05-24] MEDS ORDERED: fentaNYL citrate 100 MCG/2 ML VIAL ONE (12:20)
--- NOTE | 2021-05-24 13:35 | History & Physical Bridge Note ---
Date of Service May 24, 2021 History & Physical Bridge Note I have examined the patient, reviewed the History & Physical and in the interval since the performance of the History & Physical I have noted the following changes of clinical significance: no changes noted
[2021-05-24] MEDS ORDERED: ceFAZolin 2,000 MG/15 ML IV PUSH IV ONE (13:37)
[2021-05-24] MEDS ORDERED: ceFAZolin 2000MG 2,000 MG/15 ML SYR IV ONE (13:45)
[2021-05-24] MEDS ORDERED: LIDOCAINE 1% LOCAL 20 ML VIAL ONE (13:52)
[2021-05-24] MEDS ORDERED: BUPIVACAINE 0.5 % 5 MG/1 ML MPF 30ML VIAL ONE (13:52)
--- NOTE | 2021-05-24 14:01 | Anesthesiology Consultation ---
Date of Service May 24, 2021 Assessment & Plan Chart Review Chart Review: Acceptable Risk for Surgery Consults Requested none History Surgery Operation Date: 05/24/21 08:20 Proposed Procedures p Open Reduction Internal Fixation Left 5th Metacarpal Fracture - Jarad Parker M.D. Height/Weight Height: 5 ft 5 in Weight: 85.9 kg Allergies Allergy/AdvReac Type Severity Reaction Status Date / Time Tetanus Vaccines and Toxoid AdvReac Mild "TETANUS Verified 05/22/21 18:40 SHOT" - FEVER Medications Home Medications Medication Instructions Recorded Confirmed Last Taken multivitamin (Daily Multi-Vitamin) 1 tab PO QAM 07/06/18 05/22/21 05/22/21 cholecalciferol (vitamin D3) 50 2,000 unit PO QAM 08/31/18 05/22/21 03/30/21 mcg (2,000 unit) tablet (Vitamin D3) aspirin 81 mg chewable tablet 81 mg PO QAM 01/29/20 05/22/21 05/22/21 (Selvin Chewable Low Dose Aspirin) atorvastatin 80 mg tablet (Lipitor) 80 mg PO QAM #90 tab 06/27/20 05/22/21 05/22/21 pantoprazole 40 mg tablet,delayed 40 mg PO QAM #90 tab 07/11/20 05/22/21 05/22/21 release (Protonix) ticagrelor 60 mg tablet (Brilinta) 60 mg PO BID #180 tab 09/18/20 05/22/21 05/22/21 atenolol 50 mg tablet 50 mg PO QAM #90 tab 09/25/20 05/22/21 05/22/21 ropinirole 0.25 mg tablet 0.25 mg PO HS #90 tab 02/19/21 05/22/21 05/21/21 linagliptin 5 mg tablet (Tradjenta) 5 mg PO HS #90 tab 02/26/21 05/22/21 05/21/21 diphenoxylate-atropine 2.5 1 tab PO QAM #90 tab 03/20/21 05/22/21 05/22/21 mg-0.025 mg tablet (Lomotil) amlodipine 5 mg tablet (Norvasc) 10 mg PO QAM 03/30/21 05/22/21 05/22/21 colestipol 1 gram tablet (Colestid) 2 g PO QAM 03/30/21 05/22/21 05/22/21 escitalopram oxalate 20 mg tablet 20 mg PO QAM 03/30/21 05/22/21 05/22/21 (Lexapro) glipizide 10 mg tablet (Glucotrol) 10 mg PO BID 03/30/21 05/22/21 05/22/21 tamsulosin 0.4 mg capsule (Flomax) 0.4 mg PO HS 03/30/21 05/22/21 05/21/21 quetiapine 50 mg tablet (Seroquel) 50 mg PO HS #90 tab 05/18/21 05/22/21 05/21/21 acetaminophen 500 mg tablet 500 mg PO Q6H PRN 05/22/21 05/22/21 05/21/21 (Tylenol Extra Strength) budesonide 3 mg 3 mg PO TID 05/22/21 05/22/21 05/22/21 capsule,delayed,extended release (Entocort EC) lorazepam 0.5 mg tablet (Ativan) 0.5 mg PO HS PRN 05/22/21 05/22/21 Unknown magnesium oxide 400 mg PO QAM 05/22/21 05/22/21 05/22/21 Active Medications Generic Name Dose Route Start Last Admin Trade Name Freq PRN Reason Stop Dose Admin Acetaminophen 650 mg 05/23/21 00:48 05/24/21 09:27 Acetaminophen 325 Mg Tab PO 06/22/21 00:47 650 mg Q4H PRN Administration Pain or Fever Amlodipine Besylate 10 mg 05/23/21 09:00 05/24/21 08:04 Amlodipine Besylate 5 Mg Tab PO 06/22/21 08:59 10 mg QAM HEAVENLY Administration Atenolol 50 mg 05/23/21 09:00 05/24/21 08:04 Atenolol 50 Mg Tablet PO 06/22/21 08:59 50 mg QAM HAEVENLY Administration Atorvastatin Calcium 80 mg 05/23/21 09:00 05/24/21 08:05 Atorvastatin 40 Mg Tab PO 06/22/21 08:59 80 mg QAM HEAVENLY Administration Budesonide 3 mg 05/23/21 09:00 05/24/21 08:04 Budesonide Ec 3 Mg Cap PO 06/22/21 08:59 3 mg TID HEAVENLY Administration Colestipol HCl 1 gm 05/23/21 09:00 05/24/21 08:05 Colestipol Hcl 1 Gm Tab PO 06/22/21 08:59 1 gm QAM HEAVENLY Administration Diphenoxylate HCl/Atropine 1 tab 05/23/21 09:00 05/24/21 08:04 Diphenoxylate/Atropine 2.5/0.025mg Tab PO 06/22/21 08:59 1 tab QAM HEAVENLY Administration Escitalopram Oxalate 20 mg 05/23/21 09:00 05/24/21 08:04 Escitalopram Oxalate 20 Mg Tab PO 06/22/21 08:59 20 mg QAM HEAVENLY Administration Potassium Chloride/Sodium Chloride 20 meq in 1,000 mls @ 125 mls/hr 05/23/21 0 1:45 05/24/21 08:50 1/2 Nss + 20meq Kcl 1000ml IV 06/22/21 01:44 0 mls/hr .Q8H HEAVENLY Infusion Insulin Aspart 0 units 05/24/21 06:45 05/24/21 11:41 Insulin Aspart 100 Units/Ml 3 Ml Pen SC 06/23/21 06:44 Not Given Q6 HEAVENLY Melatonin 3 mg 05/23/21 23:23 05/23/21 23:55 Melatonin 3 Mg Tab PO 06/22/21 23:22 3 mg HS PRN Administration Sleep Ropinirole HCl 0.25 mg 05/23/21 21:00 05/23/21 20:42 Ropinirole Hcl 0.25 Mg Tablet PO 06/22/21 20:59 0.25 mg HS HEAVENLY Administration Tamsulosin HCl 0.4 mg 05/23/21 21:00 05/23/21 20:42 Tamsulosin Hcl 0.4 Mg Cap PO 06/22/21 20:59 0.4 mg HS HEAVENLY Administration NPO Date Last Intake of Fluids: 05/24/21 Time Last Intake of Fluids: 08:30 Last Intake of Fluids Comment: meds with sip of water Date Last Intake of Solids: 05/23/21 Time Last Intake of Solids: 21:00 Past Medical History Medical History Acute CVA (cerebrovascular accident) december 2018 x3; february 2019 x2; March 2019 x2 -- generalized weakness, unstable and poor depth perception. follows with Neurology [facility] [place] (Dr. Stef Zavaleta) Anxiety Asthma DOES NOT USE AN INHALER Barretts esophagus Basal cell carcinoma of face BPH (benign prostatic hyperplasia) Chronic obstructive pulmonary disease STABLE>NO INHALER CKD (chronic kidney disease), stage II Depression Diabetes mellitus, type 2 NIDDM Diabetic retinopathy GERD (gastroesophageal reflux disease) Hearing loss History of poliomyelitis Hyperlipidemia Hypertension Hypertensive retinopathy of left eye IBS (irritable bowel syndrome) POSSIBLE Restless leg syndrome Sleep apnea NO DEVICE Past Family History Family History Sister Family history of diabetes mellitus 2 Colorectal cancer Father Family history of lung cancer Mother Family history of adrenal cancer Other No family history of adverse response to anesthesia Denies family history of Ovarian cancer Prostate cancer Myocardial infarction Breast cancer Past Surgical History Surgical History History of basal cell carcinoma excision History of colonoscopy (~07/15/18) History of cystoscopy History of esophagogastroduodenoscopy (EGD) History of right inguinal hernia repair History of tooth extraction S/P arterial stent "small artery in the brain" Lucy Campos March 2019 s/p multiple strokes Social History Smoking Status: Smoker, status unknown tobacco type: cigarettes Alcohol type: wine alcohol intake frequency: holidays/special occasions only substance use type: does not use Substance Use Type Other:: medical marijuana card but does not use Physical Exam Vital Signs Last Vital Signs Temp 37.6 C H 05/24/21 13:20 Pulse 83 05/24/21 13:20 Resp 20 05/24/21 13:20 BP 156/71 H 05/24/21 13:20 Pulse Ox 92 05/24/21 13:20 Testing Laboratory Results 05/24/21 06:12 05/24/21 06:12 PT 9.9 Seconds (9.0-12.0) 05/22/21 18:38 INR 1.0 (0.9-1.1) 05/22/21 18:38 APTT 21.1 Seconds (21.0-31.0) 05/22/21 18:38 Hemoglobin A1c 10.1 % (4.5-5.6) H 05/23/21 05:24 Urine Color Yellow 05/22/21 16:47 Urine Appearance Clear (Clear) 05/22/21 16:47 Urine pH 6.5 (4.5-7.5) 05/22/21 16:47 Ur Specific [place] 1.021 (1.000-1.030) 05/22/21 16:47 Urine Protein 2+ (Negative) H 05/22/21 16:47 Urine Glucose (UA) 3+ (Negative) H 05/22/21 16:47 Urine Ketones Negative (Negative) 05/22/21 16:47 Urine Nitrite Negative (Negative) 05/22/21 16:47 Ur Leukocyte Esterase Negative (Negative) 05/22/21 16:47 Urine WBC (Auto) 1-5 /hpf (0-5) 05/22/21 16:47 Urine RBC (Auto) 5-10 /hpf (0-4) H 05/22/21 16:47 U Hyaline Cast (Auto) 1-5 /lpf (0-5) 05/22/21 16:47 U Epithel Cells (Auto) 20-30 /lpf (0-5) H 05/22/21 16:47 Urine Bacteria (Auto) Negative (Negative) 05/22/21 16:47 Blood Type A Negative 05/24/21 07:19 Antibody Screen NEGATIVE 05/24/21 07:19 05/24/21 05/24/21 11:31 06:55 POC Glucose 112 H 101 H
[2021-05-24] MEDS ORDERED: ROCURONIUM BROMIDE 10 MG/ML 5 ML VIAL IV ONE (14:02)
[2021-05-24] MEDS ORDERED: NEOSTIGMINE METHYLSULFATE 1 MG/ML 10ML VIAL ONE (14:02)
[2021-05-24] MEDS ORDERED: GLYCOPYRROLATE 0.2 MG/ML VIAL ONE (14:02)
[2021-05-24] MEDS ORDERED: ePHEDrine sulfate 50 MG/ML AMP ONE (14:07)
[2021-05-24] MEDS ORDERED: PHENYLEPHRINE HCL 10 MG/ML VIAL ONE (14:07)
[2021-05-24] MEDS ORDERED: ePHEDrine sulfate 50 MG/ML AMP IV PRN (14:09)
[2021-05-24] MEDS ORDERED: ONDANSETRON INJ 2 MG/ML 2 ML VIAL IV PRN (14:09)
[2021-05-24] MEDS ORDERED: fentaNYL citrate 100 MCG/2 ML VIAL IV PRN (14:09)
[2021-05-24] MEDS ORDERED: ATROPINE SULFATE 0.1 MG/ML 10ML SYR IV PRN (14:09)
[2021-05-24] MEDS ORDERED: HYDROmorphone INJ 2 MG/ML SYR/VIAL IV PRN (14:09)
[2021-05-24] MEDS ORDERED: SUGAMMADEX SODIUM 200 MG/2 ML VIAL IV ONE (14:19)
--- NOTE | 2021-05-24 14:25 | Post Operative Brief Note ---
Immediate Post Op Note v1 Date of Surgery May 24, 2021 Pre & Post Diagnosis Operation Date: 05/24/21 08:20 Left hand displaced fifth metacarpal neck fracture I identified the patient and participated in the time-out.: Yes Procedure Operation Date: 05/24/21 08:20 Left hand closed reduction and percutaneous pinning of displaced fifth metaca rpal neck fracture Surgeon Jarad Parker Mate First Riaz Cole PA-C Estimated Blood Loss 1 Findings Consistent with Post-Op Diagnosis
--- NOTE | 2021-05-24 14:27 | Operative Report ---
Post Operative Report Pre & Post Diagnosis Operation Date: 05/24/21 08:20 Left hand displaced fifth metacarpal neck fracture I identified the patient and participated in the time-out.: Yes Procedure Operation Date: 05/24/21 08:20 Left hand closed reduction and percutaneous pinning of displaced fifth metacarpal neck fracture ([id number]) Surgeon Jarad Parker Internal Audit Manager Riaz Cole PA-C Estimated Blood Loss 1 Findings Consistent with Post-Op Diagnosis Specimens None Drains None Anesthesia Type General Complications none Disposition Disposition: Recovery Room Indications Mr. Laboy is a 70-year old male who injured his left hand during a ground- level fall. History, clinical exam, and imaging were consistent with the above diagnosis. Risks, benefits, and alternatives of surgery were explained in det ail. The patient understood all this and wished to proceed. Description of Procedure Patient was identified in the preoperative holding area. Operative extremity was marked. Patient was then brought back to the operating room, and general anesthesia was induced without complication. Appropriate weight-based dose of Ancef was infused intravenously for antibiotic prophylaxis. Tourniquet was placed on the left upper arm, but was not inflated during the case. Arm was then prepped and draped in a standard sterile fashion using Chlorhexidine prep. The left fifth metacarpal neck fracture was examined under fluoroscopic imaging. The distal fragment was significantly displaced radially and volarly, but minimally comminuted. I felt like I could adequately treat this fracture with a closed reduction and percutaneous pinning. Reduction maneuver was performed. I verified acceptable alignment under fluoroscopic imaging. I then selected a 0.045" K-wire and placed this percutaneously at the radial aspect of the fifth metacarpal head. I verified proper K-wire starting position and trajectory, as well as the fracture reduction, then drove the wire retrograde across the fracture site while holding the reduction. I then placed another K-wire in similar fashion from the ulnar side of the metacarpal head for additional fixation. Final fluoroscopic images were obtained to ensure adequate fracture reduction, wire trajectory, and wire length. The K-wires were then bent and cut above the skin surface, and covered with pin caps. Sterile dressings were then applied with Xeroform, sterile gauze, and sterile Webril, followed by a plaster splint and Darrin wrap. The drapes were removed, the patient was awakened from anesthesia, and taken to the Post Anesthesia Care Unit in stable condition. There were no immediate complications from the procedure. I was present and scrubbed for the entire procedure. Due to the complex nature of the procedure, the entire surgery was performed with the operational assistance of Riaz Cole PA-C. The programs assistant, under direct supervision, was involved in the performance of all aspects of the surgical procedure including patient positioning, tissue retraction, hemostasis, wound closure, and dressing application. I attest to the content of the Intraoperative Record and any orders documented therein. Any exceptions are noted below.
--- NOTE | 2021-05-24 14:34 | Fluoroscopy Report ---
FL finger LT 2V CLINICAL HISTORY: LT 5TH ORIF COMPARISON STUDY: Left hand radiographs May 23, 2021. FLUOROSCOPY TIME: 1 minute and 4 seconds. FLUOROSCOPIC IMAGES: 2 FINDINGS: Fluoroscopy was provided during K wire fixation of the left fifth metacarpal fracture. Frac ture alignment has significantly improved. Hardware is intact. There are no unexpected radiopaque for eign bodies. IMPRESSION: Fluoroscopy provided during internal fixation of the left fifth metacarpal fracture. ACT 112: Negative or not required by law. Electronically signed by: Sammy Segura M.D. 05/24/2021 2:33 PM
--- NOTE | 2021-05-24 15:38 | Anesthesiology Progress Note ---
Date of Service May 24, 2021 Anesthesia Post Procedure Vital Signs Vital Signs: Temp Pulse Pulse Resp BP BP BP 05/24/21 15:30 36.8 C 90 16 130/70 05/24/21 15:15 36.5 C 90 16 144/79 H 05/24/21 15:00 96 H 20 142/88 H 05/24/21 14:50 96 H 20 131/77 05/24/21 14:40 36.0 C L 82 20 05/24/21 14:34 36.0 C L 98 H 20 173/98 H 05/24/21 14:00 36.0 C L 82 20 173/98 H 05/24/21 13:20 37.6 C H 83 20 156/71 H 05/24/21 13:17 37.6 C H 83 20 156/71 H 05/24/21 13:04 37.6 C H 82 18 141/70 H 05/24/21 12:47 36.8 C 82 16 130/71 05/24/21 12:32 36.7 C 85 16 147/70 H 05/24/21 12:30 36.7 C 85 16 147/70 H 05/24/21 12:15 37 C 89 18 118/67 05/24/21 11:50 36.7 C 73 18 124/78 05/24/21 10:50 36.6 C 84 20 112/66 05/24/21 09:50 36.8 C 83 18 120/66 05/24/21 09:35 36.7 C 82 16 120/64 05/24/21 09:20 36.4 C L 91 H 16 124/69 05/24/21 09:05 37.1 C 93 H 18 128/75 05/24/21 08:48 36.7 C 92 H 18 156/76 H 05/24/21 07:34 90 05/24/21 07:16 36.9 C 90 20 144/78 H 05/24/21 03:19 37.1 C 87 18 133/70 05/24/21 01:22 90 05/23/21 23:13 36.7 C 90 20 139/80 05/23/21 19:01 36.8 C 89 18 109/48 L 05/23/21 16:12 79 Pulse Ox 05/24/21 15:30 96 05/24/21 15:15 94 05/24/21 15:00 94 05/24/21 14:50 94 05/24/21 14:40 94 05/24/21 14:34 94 05/24/21 14:00 94 05/24/21 13:20 92 05/24/21 13:17 92 05/24/21 13:04 92 05/24/21 12:47 93 05/24/21 12:32 92 05/24/21 12:30 92 05/24/21 12:15 05/24/21 11:50 97 05/24/21 10:50 93 05/24/21 09:50 94 05/24/21 09:35 93 05/24/21 09:20 94 05/24/21 09:05 91 05/24/21 08:48 05/24/21 07:34 05/24/21 07:16 92 05/24/21 03:19 93 05/24/21 01:22 05/23/21 23:13 96 05/23/21 19:01 98 05/23/21 16:12 Pain Intensity Left Hand: Pain Intensity: 6 Transfer of Care Handoff Completed per policy Notes Mental Status: alert / awake / arousable and participated in evaluation Patient Amnestic to Procedure: Yes Nausea / Vomiting: adequately controlled Pain: adequately controlled Airway Patency, RR, SpO2: stable & adequate BP & HR: stable & adequate Hydration State: stable & adequate Anesthetic Complications: no major complications apparent
[2021-05-24 18:54] LABS: Hematocrit (blood only) 30.1 % (42-52); Hemoglobin 10.3 g/dL (14.0-18.0)
[2021-05-24] MEDS: rOPINIRole HCL 0.25 MG TABLET PO SCH (20:50)
[2021-05-24] MEDS: TAMSULOSIN HCL 0.4 MG CAP PO SCH (20:50)
[2021-05-25] MEDS: ACETAMINOPHEN 325 MG TAB PO PRN ×2 (04:33→13:33)
[2021-05-25] MEDS: SODIUM CHLOR 0.45% + 20MEQ KCL 20 MEQ/1,000 ML BAG IV SCH (07:11)
--- NOTE | 2021-05-25 07:34 | Hospitalist Progress Note ---
Date of Service May 25, 2021 Assessment & Plan (1) Fall: (2) Type 2 diabetes mellitus with chronic kidney disease and hypertension: (3) HTN (hypertension): (4) COPD (chronic obstructive pulmonary disease): (5) Ecchymosis: (6) CAD (coronary artery disease): (7) Dementia: (8) Current use of steroid medication: (9) JABARI (acute kidney injury): Plan: 70 y/o male w/ hx of CAD and CVA on Brillinta, Jose Cruz Bonnet Syndrome, dementia, CKD, BPH, DM2, COPD, HTN, and chronic ambulatory disfunction and falls admitted for fall with active intra-abdominal bleed. Fall/Abdominal wall hematoma: Acute blood loss anemia: -Fall 2 nights prior. -May be from somniambulism vs Jose Cruz Bonnet Syndrome hallucinations -CT Abd/pelvis large SQ soft tissue hematoma w/ several foci extravasation -Hgb 7.5 in the AM of 05/24 -Concern for active extravasation, transfused 2 units blood. -Hgb 10.2 this AM, stable. -PT and OT consulted -h/h stable. anticipate d/c home in am. Hypoxia: -O2 sat 85-86 when walking evening 05/25, 2/2 fluid overload from PRBC and IVF during hospital stay -Lasix 40mg IV given at 14:30. Another dose for 18:00 -BMP in am. COPD (chronic obstructive pulmonary disease): -Not on home medications for COPD Left 5th metacarpal fracture/Ecchymosis: -Fall on left hand with ecchymosis. -X-ray showed displaced fracture left 5th metacarpal. -Ortho consulted -Closed reduction w/ fixation successful. T2DM: -BSG 396 on arrival, A1c 10.1 -May be 2/2 steroid use vs increased insulin resistance. -On SQ SSI, pharmacy consulted. -BSG readings 140's-220's -Q6 BG checks. HTN (hypertension): - continue home regimen amlodipine 10mg and atenolol 50mg - BP readings acceptable. JABARI (acute kidney injury): -Cr 1.62, baseline 1.31 -May be due to hyperglycemia/T2DM -On IV fluids. -Cr 1.29 latest reading -AM BMP Dementia: -visual impairment: at baseline. 2/2 stroke. 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 Will get more info regarding this. Admission and Anticipated Discharge Date Admission Date: May 22, 2021 Supervising Physician Co-Signing Physician Notes Resident Physician Supervision Note: I independently interviewed and examined the patient and verified the trejo history and physical, reviewed labs and image studies and agree with resident Dr. Carpenter findings and care plan. Subjective Patient seen at the bedside this morning. Overnight received morphine for pain in left hand. No abdominal pain complaints today. Nausea last night which he attributes to hospital food. Later in the day when the patient tried to walk around for his restless leg syndrome he became short of breath and hypoxic. Physical Exam Constitutional: WD/WN, vitals as above Eyes: PERRL, conjunctivae normal, anicteric sclerae Respiratory: normal respiratory effort, lungs clear to auscultation Cardiovascular: RRR, no murmur, no edema Vessels: + JVD Results & Data Results & Data ([facility]) Vital Signs (Past 12 Hours) Vital Signs Temp Pulse Pulse Resp BP Pulse Ox 05/25/21 07:02 36.9 C 88 22 147/65 H 93 05/25/21 03:00 37.2 C 77 20 132/58 L 92 05/24/21 23:18 36.9 C 82 20 124/71 92 05/24/21 22:19 83 Resident Activity Tracking Resident Involvement: Resident Care Provided Care Provided: Adult Hospital Medicine (1) Fall Encounter type: initial encounter Qualified Code(s): W19.XXXA - Unspecified fall, initial encounter
[2021-05-25] MEDS: INSULIN ASPART 100 UNITS/ML 3 ML PEN SC SCH ×4 (08:26→20:41)
[2021-05-25] MEDS: amLODIPine BESYLATE 5 MG TAB PO SCH (08:27)
[2021-05-25] MEDS: ATENOLOL 50 MG TABLET PO SCH (08:27)
[2021-05-25] MEDS: ESCITALOPRAM OXALATE 20 MG TAB PO SCH (08:27)
[2021-05-25] MEDS: DIPHENOXYLATE/ATROPINE 2.5/0.025MG TAB PO SCH (08:27)
[2021-05-25] MEDS: COLESTIPOL HCL 1 GM TAB PO SCH (08:27)
[2021-05-25] MEDS: BUDESONIDE EC 3 MG CAP PO SCH ×3 (08:27→20:00)
[2021-05-25] MEDS: ATORVASTATIN 40 MG TAB PO SCH (08:27)
[2021-05-25 08:29] LABS: Eosinophils # (auto) 0.01 K/uL (0-0.5); Eosinophils % (auto) 0.1 %; Hematocrit (blood only) 30.1 % (42-52); Hemoglobin 10.2 g/dL (14.0-18.0); Immature Granulocytes # (auto) 0.02 K/uL (0.00-0.02); Immature Granulocytes % (auto) 0.2 %; Lymphocytes % (auto) 5.8 %; Mean Corpuscular Hemoglobin 30.4 pg (25-34); Mean Corpuscular Hgb Conc 33.9 g/dL (32-36); Mean Corpuscular Volume 89.9 fL (80-100); Mean Platelet Volume 9.3 fL (7.4-10.4); Monocytes # (auto) 0.97 K/uL (0.11-0.59); Neutrophils # (auto) 10.37 K/uL (1.4-6.5); Neutrophils % (auto) 85.9 %; Platelet Count 205 K/uL (130-400); RDW Coefficient of Variation 15.9 % (11.5-14.5); Red Blood Count 3.35 M/uL (4.7-6.1); White Blood Count 12.07 K/uL (4.8-10.8)
[2021-05-25 09:04] LABS: BUN Creatinine Ratio 16.5 (10-20); Calcium 8.4 mg/dl (8.5-10.1); Creatinine Clr Calc Pharmacy 54.7 ml/min; Est GFR (African American) 65.1 ml/min; Est GFR (Non-African American) 56.2 ml/min; Magnesium 2.2 mg/dl (1.8-2.4); Potassium 4.4 mmol/L (3.5-5.1)
[2021-05-25 09:05] LABS: Phosphorus 3.4 mg/dl (2.5-4.9)
--- NOTE | 2021-05-25 09:28 | Orthopedic Progress Note ---
Date of Service May 25, 2021 Assessment & Plan (1) Closed fracture of 5th metacarpal: Plan: Postop day 1 status post percutaneous pinning of left fifth metacarpal fracture. Of the left arm on a regular basis. Ice as needed. Dressing to be left intact. Nonweightbearing on the left hand. Orthopedics will sign off at this time. Please call with any questions. Instructions placed in discharge instructions section. Admission and Anticipated Discharge Date Admission Date: May 22, 2021 Subjective Postop day 1 Patient is lying in bed awake and alert. No complaints this morning. States that pain is controlled in his left hand. No new complaints this morning. He is hoping to go home today. Physical Exam Physical Exam: Dressing/splint is clean, dry, and intact. Mild bruising noted over the remainder of fingers. The fingers not visible secondary to bulky dressing. Dressing and splint left intact. Patient is moving the other fingers of his left hand well. Sensation appears intact. Results & Data ([facility]) Vital Signs (Past 12 Hours) Vital Signs Temp Pulse Pulse Resp BP Pulse Ox 05/25/21 07:41 87 05/25/21 07:02 36.9 C 88 22 147/65 H 93 05/25/21 03:00 37.2 C 77 20 132/58 L 92 05/24/21 23:18 36.9 C 82 20 124/71 92 05/24/21 22:19 83
--- NOTE | 2021-05-25 13:08 | Discharge Summary ---
Date of Service May 25, 2021 Admission HPI Per Admitting Provider 70 y/o male w/ hx of CAD and CVA on Brillinta, Jose Cruz Bonnet Syndrome, dementia, CKD, BPH, DM2, COPD, HTN, and chronic ambulatory disfunction and falls who presents s/p mechanical fall overnight. His noticed bruising on his abdomen this morning and slightly increased confusion from baseline, so she brought him to the hospital. Patient does not believe he hit his head. His main complaints are intermittent tailbone pain, worsened w/ movement. The abdominal binder is helping. Pain severity can go up to a 10, currently a 3-4/10, IV tylenol helped. He also has left hand/wrist pain from the fall. Some L hand p ain. No weakness, numbness or tingling. The large contusion at his left lower abd does is not noticeably painful. Patient is on wk 4 of a 8 wk course of budesonide 3 mg PO TID for watery diarrhea (presumed microscopic colitis). He is covid immunized w/ Pfizer x 2 in October 2020. Hx was obtained w/ patient's at bedside. ED course: 1L fluid bolus. BSG 396. No anion gap and no serum ketones. Hb 11.2, [address] imaging showing large contusion at left mid abd as well as a large subq soft tissue hematoma at L ventral pelvis. Admission Exam Per Admitting Provider General: A&Ox4. NAD. Cooperative. HEENT: Atraumatic, normocephalic. No Guzmán's sign or raccoon eyes. PERRL. Partially blind on exam, unable to complete extraocular eye movement testing Pulm: Mild RLL exp wheeze, other murillo clear to auscultation. No respiratory distress. Cardiac: RRR, -mrg. Radial pulses intact and symmetrical. 2+ bilat DP pulses. L radial pulse 1+ (likely has peripheral vasc disease), R radial 2+. Thin shins w/ tiny amount of pretibial edema. Abdominal: Obese abd. Mild discomfort to palpation at LLQ hematoma. Slightly firmer to touch at L abd near hematoma. No midline spinal ttp. Mild discomfort to palpation of tailbone. Msk: Swelling at L lateral palm. Some ttp at dorsal left lateral wrist and at dorsal 4th-5th MCP area. Normal opposition, strength, and ROM of bilat hands/fingers. Integ: hematoma at L abdomen covering most of the LLQ. Neuro: CN II-XII intact. Neg SLR. Moving all extremities. Normal sensation of bilat hands. Discharge Exam Constitutional WD/WN, vitals as above Eyes PERRL, conjunctivae normal, anicteric sclerae Respiratory normal respiratory effort, lungs clear to auscultation Cardiovascular RRR, no murmur, no edema Gastrointestinal (Abdomen) normal bowel sounds, soft, nontender, no hepatosplenomegaly Skin Gross ecchymosis across left hip and left lower abdomen. Discharge Data Allergies Allergy/AdvReac Type Severity Reaction Status Date / Time Tetanus Vaccines and Toxoid AdvReac Mild "TETANUS Verified 05/22/21 18:40 SHOT" - FEVER Consultations 05/22/21 21:14 ED Decision to Admit Stat 05/23/21 07:45 Consult Orthopedic Surgery Routine Procedures Performed Operation Date: 05/24/21 08:20 Actual Procedures p closed Reduction Internal Fixation Left 5th Metacarpal Fracture(Left) - Jarad Parker M.D. 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 Fall/Abdominal wall hematoma: Acute blood loss anemia: -Fall 2 nights prior. -May be from somniambulism vs Jose Cruz Bonnet Syndrome hallucinations -CT Abd/pelvis large SQ soft tissue hematoma w/ several foci extravasation -Hgb 7.5 this AM. -Concern for active extravasation, transfused 2 units blood. -AM CBC. -PT and OT consulted -Continue to monitor for signs of anemia, worsening abdominal pain. T2DM: -BSG 396 on arrival, A1c 10.1 -May be 2/2 steroid use vs increased insulin resistance. -On SQ SSI, pharmacy consulted. -BSG readings 140's-220's -Q6 BG checks. Left 5th metacarpal fracture/Ecchymosis: -Fall on left hand with ecchymosis. -X-ray showed displaced fracture left 5th metacarpal. -Ortho consulted -Closed reduction w/ fixation successful. -Full liquid diet, progress as tolerated. HTN (hypertension): - continue home regimen amlodipine 10mg and atenolol 50mg - BP readings acceptable. COPD (chronic obstructive pulmonary disease): -Not on home medications for COPD -O2 sat w/in normal range. JABARI (acute kidney injury): -Cr 1.62, baseline 1.31 -May be due to hyperglycemia/T2DM -On IV fluids. 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 Will get more info regarding this. Discharge Plan Discharge Items Patient Disposition: Home - Self-Care Reason For Visit: FALL Discharge Diagnosis: Fall with hematoma and fractured left 5th metacarpal Activity: Per Instructions section Non-emergency contact: Surgeon Call non-emergency contact if: your pain is not controlled, your temperature is above 101.5, your wound has increased redness and your wound has increased drainage Follow-up/Referrals: Eduardo Cat III, MD [Primary Care Provider] - Jarad Parker M.D. [Physician] - Diet: Regular and Carb Consistent or DM2 Addtl Attending Provider Instructions: Please do not take your Brilinta (ticagrelor) unitl you see your primary care doctor on Friday. -For routine questions regarding your hand fracture surgery, call the orthop edics clinic at [phone] during regular business hours (8am-5pm). For urgent issues after regular business hours, you may call the clinic to be connected to the on-call physician. Splint/Dressings -Do not remove your splint or dressings until you return to clinic or start with physical therapy. -Keep the splint and dressings clean and dry. If the splint padding gets damp, you may use a chair trimmer on a low heat setting to dry it out. If the splint padding is soaked, call the clinic to have the splint replaced. -Do not put any objects down inside the splint (such as coat hangers). They could scratch your skin and cause a serious infection underneath the splint. Sling/Activity -You may wear a sling for comfort, but come out of the sling 4-5 times a day for active range of motion exercises for your shoulder and elbow. -Keep your hand elevated to reduce swelling. -Do not lift any objects or bear any weight through your operative arm. Fall with hematoma/localized collection of blood -You had a fall onto your left abdomen with subsequent bleeding in your abdomen. The bleeding into the abdomen will take time to heal so please be careful around the area to avoid any trauma or overexertion. If you develop any sudden onset abdominal pain or feel lightheaded or dizzy for a prolonged period of time please come back to the hospital for further evaluation. Please continue taking your home medications as directed except: Please do not take your Brilinta (ticagrelor) until you see your primary care doctor on Friday. This will give blood vessels damaged from the fall time to heal. Please follow up with your: PCP- Friday Orthopedics or PT- 1-2 weeks. Pending Studies at Discharge: No Stand-Alone Forms: My [facility] [employer], Smoking Cessation Medications and DC Order Prescriptions: Continued atorvastatin [Lipitor] 80 mg tablet 80 mg PO QAM Qty: 90 RF: 3 pantoprazole [Protonix] 40 mg tablet,delayed release (DR/EC) 40 mg PO QAM Qty: 90 RF: 3 Hold Instructions: diarrhea atenolol 50 mg tablet 50 mg PO QAM Qty: 90 RF: 3 ropinirole 0.25 mg tablet 0.25 mg PO HS Qty: 90 RF: 1 Tradjenta 5 mg tablet 5 mg PO HS Qty: 90 RF: 3 diphenoxylate-atropine [Lomotil] 2.5-0.025 mg tablet 1 tab PO QAM Qty: 90 RF: 3 quetiapine [Seroquel] 50 mg tablet 50 mg PO HS Qty: 90 RF: 1 multivitamin [Daily Multi-Vitamin] Tablet 1 tab PO QAM RF: 0 cholecalciferol (vitamin D3) [Vitamin D3] 2,000 unit Tablet 2,000 unit PO QAM RF: 0 aspirin [Selvin Chewable Aspirin] 81 mg tablet,chewable 81 mg PO QAM RF: 0 budesonide [Entocort EC] 3 mg capsule,delayed,extend.release 3 mg PO TID RF: 0 acetaminophen [Tylenol Extra Strength] 500 mg Tablet 500 mg PO Q6H PRN (Reason: Pain) RF: 0 lorazepam [Ativan] 0.5 mg Tablet 0.5 mg PO HS PRN (Reason: Anxiety) RF: 0 magnesium oxide 400 mg magnesium Tablet 400 mg PO QAM RF: 0 glipizide [Glucotrol] 10 mg tablet 10 mg PO BID RF: 0 amlodipine [Norvasc] 5 mg tablet 10 mg PO QAM RF: 0 tamsulosin [Flomax] 0.4 mg capsule 0.4 mg PO HS RF: 0 colestipol [Colestid] 1 gram tablet 2 g PO QAM RF: 0 escitalopram oxalate [Lexapro] 20 mg tablet 20 mg PO QAM RF: 0 Discontinued Brilinta 60 mg tablet 60 mg PO BID Qty: 180 RF: 3 Discharge Orders: Discharge Order (Routine); Ordered 05/25/21 Ordered By: Gurwinder Carpenter Admission Data Admit Date/Time: 05/22/21 23:11 Attending Provider: Meri Kelly Admit Provider: Jarrell Ghotra Primary Care Provider: Eduardo Cat III Other Providers: Christina Christie ; Nigel Diaz
[2021-05-25] MEDS ORDERED: FUROSEMIDE 40 MG in SYRINGE 0 ML IV STA (13:25)
--- NOTE | 2021-05-25 13:41 | XRay Report ---
XR chest 1V portable CLINICAL HISTORY: New Shortness of breath TECHNIQUE: Single frontal radiograph of the chest was obtained. Comparison: Comparison is made to chest one view 03/30/2021 FINDINGS: No lines and tubes are seen. Cardiomegaly is noted. Calcification of the aortic knob is seen. Plateli ke atelectasis is seen in the left lower lung. No evidence of pleural effusion or pneumothorax. IMPRESSION: Cardiomegaly without acute pulmonary abnormality. ACT 112: Negative or not required by law. Electronically signed by: Nate Baez M.D. 05/25/2021 1:40 PM
[2021-05-25] MEDS ORDERED: FUROSEMIDE 40 MG/4 ML VIAL IV ONE ×2 (13:45→18:00)
[2021-05-25] MEDS ORDERED: HYDROCODONE/ACETAMOPHEN 5/325MG TAB PO PRN (16:36)
[2021-05-25] MEDS: INSULIN GLARGINE SOLOSTAR 100 UNITS/ML 3 ML PEN SC SCH (17:18)
[2021-05-25] MEDS ORDERED: FUROSEMIDE 40 MG in SYRINGE 0 ML IV ONE (18:00)
[2021-05-25] MEDS: rOPINIRole HCL 0.25 MG TABLET PO SCH (20:00)
[2021-05-25] MEDS: TAMSULOSIN HCL 0.4 MG CAP PO SCH (20:01)
[2021-05-26] MEDS: ACETAMINOPHEN 325 MG TAB PO PRN ×2 (00:18→09:46)
[2021-05-26] MEDS: MELATONIN 3 MG TAB PO PRN (00:18)
[2021-05-26 06:20] LABS: BUN Creatinine Ratio 18.7 (10-20); Calcium 8.4 mg/dl (8.5-10.1); Creatinine Clr Calc Pharmacy 55.6 ml/min; Est GFR (African American) 66.4 ml/min; Est GFR (Non-African American) 57.3 ml/min; Potassium 3.4 mmol/L (3.5-5.1)
[2021-05-26 06:21] LABS: Phosphorus 3.8 mg/dl (2.5-4.9)
[2021-05-26] MEDS: COLESTIPOL HCL 1 GM TAB PO SCH (08:22)
[2021-05-26] MEDS: ATORVASTATIN 40 MG TAB PO SCH (08:22)
[2021-05-26] MEDS: amLODIPine BESYLATE 5 MG TAB PO SCH (08:23)
[2021-05-26] MEDS: ESCITALOPRAM OXALATE 20 MG TAB PO SCH (08:23)
[2021-05-26] MEDS: ATENOLOL 50 MG TABLET PO SCH (08:23)
[2021-05-26] MEDS: DIPHENOXYLATE/ATROPINE 2.5/0.025MG TAB PO SCH (08:23)
[2021-05-26] MEDS: BUDESONIDE EC 3 MG CAP PO SCH (08:23)
[2021-05-26] MEDS: INSULIN ASPART 100 UNITS/ML 3 ML PEN SC SCH ×2 (08:23→12:38)
[2021-05-26] MEDS ORDERED: POTASSIUM CHLORIDE CRTAB 20 MEQ TABCR PO STA (10:05)
[2021-05-26] MEDS ORDERED: FUROSEMIDE 40 MG in SYRINGE 0 ML IV ONE (10:30)
--- NOTE | 2021-05-26 13:47 | Discharge Summary ---
Date of Service May 26, 2021 Admission HPI Per Admitting Provider 70 y/o male w/ hx of CAD and CVA on Brillinta, Jose Cruz Bonnet Syndrome, dementia, CKD, BPH, DM2, COPD, HTN, and chronic ambulatory disfunction and falls who presents s/p mechanical fall overnight. His noticed bruising on his abdomen this morning and slightly increased confusion from baseline, so she brought him to the hospital. Patient does not believe he hit his head. His main complaints are intermittent tailbone pain, worsened w/ movement. The abdominal binder is helping. Pain severity can go up to a 10, currently a 3-4/10, IV tylenol helped. He also has left hand/wrist pain from the fall. Some L hand p ain. No weakness, numbness or tingling. The large contusion at his left lower abd does is not noticeably painful. Patient is on wk 4 of a 8 wk course of budesonide 3 mg PO TID for watery diarrhea (presumed microscopic colitis). He is covid immunized w/ Pfizer x 2 in October 2020. Hx was obtained w/ patient's at bedside. ED course: 1L fluid bolus. BSG 396. No anion gap and no serum ketones. Hb 11.2, [address] imaging showing large contusion at left mid abd as well as a large subq soft tissue hematoma at L ventral pelvis. Principal Diagnosis Abdominal Wall Hematoma Discharge Exam Constitutional WD/WN, vitals as above Eyes PERRL, conjunctivae normal, anicteric sclerae ENMT Mallampati Class: II Neck normal visual inspection Respiratory normal respiratory effort, lungs clear to auscultation normal respiratory effort Auscultation: lungs clear to auscultation bilaterally Cardiovascular RRR, no murmur, no edema Rate/Rhythm: regular rate and regular rhythm Gastrointestinal (Abdomen) normal bowel sounds, soft, nontender, no hepatosplenomegaly Neurologic moves all extremities Psychiatric Orientation: alert and oriented x 3 Discharge Data Allergies Allergy/AdvReac Type Severity Reaction Status Date / Time Tetanus Vaccines and Toxoid AdvReac Mild "TETANUS Verified 05/22/21 18:40 SHOT" - FEVER Consultations 05/22/21 21:14 ED Decision to Admit Stat 05/23/21 07:45 Consult Orthopedic Surgery Routine Procedures Performed Operation Date: 05/24/21 08:20 Actual Procedures p closed Reduction Internal Fixation Left 5th Metacarpal Fracture(Left) - Jarad Parker M.D. 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 Fall/Abdominal wall hematoma: Acute blood loss anemia: -Fall 2 nights prior. -May be from somniambulism vs Jose Cruz Bonnet Syndrome hallucinations -CT Abd/pelvis large SQ soft tissue hematoma w/ several foci extravasation -Hgb 7.5 in the AM of 05/24 -Concern for active extravasation, transfused 2 units blood. -Hgb 10.2 this AM, stable. Hypoxia: -O2 sat 85-86 when walking 05/25, 2/2 fluid overload from blood transfusion and IVF -Received three doses of IV lasix with good diuresis. -K replaced -Hypoxia resolved before discharge Left 5th metacarpal fracture/Ecchymosis: -Fall on left hand with ecchymosis. -X-ray showed displaced fracture left 5th metacarpal. -Ortho consulted -Closed reduction w/ fixation successful. -Outpatient ortho follow up. JABARI (acute kidney injury): -Cr 1.62, baseline 1.31 -Cr 1.29 before discharge. T2DM: -BSG 396 on arrival, A1c 10.1 -Discharged home on home regimen. Outpatient close follow up. 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 syndrome -has baseline mild confusion intermittently Total Time Total Time Spent Total Time Spent (In Minutes): 30 Discharge Plan Discharge Items Patient Disposition: Home - Home Health Services Reason For Visit: FALL Discharge Diagnosis: Fall with hematoma and fractured left 5th metacarpal Activity: Per Instructions section Non-emergency contact: Primary Care Provider and Surgeon Call non-emergency contact if: your pain is not controlled, your temperature is above 101.5, your wound has increased redness and your wound has increased drainage Follow-up/Referrals: Eduardo Cat III, MD [Primary Care Provider] - 05/28/21 2:00 pm (Your appointment is with the nurse practioner, Marlena Jhaveri. If you have any questions or need to change this appointment, please call [phone].) Jarad Parker M.D. [Physician] - Diet: Regular and Carb Consistent or DM2 Addtl Attending Provider Instructions: Please do not take your Brilinta (ticagrelor) unitl you see your primary care doctor on Friday. -For routine questions regarding your hand fracture surgery, call the orthopedics clinic at [phone] during regular business hours (8am-5pm). For urgent issues after regular business hours, you may call the clinic to be connected to the on-call physician. Splint/Dressings -Do not remove your splint or dressings until you return to clinic or start with physical therapy. -Keep the splint and dressings clean and dry. If the splint padding gets damp, you may use a chair pad maker on a low heat setting to dry it out. If the splint padding is soaked, call the clinic to have the splint replaced. -Do not put any objects down inside the splint (such as coat hangers). They could scratch your skin and cause a serious infection underneath the splint. Sling/Activity -You may wear a sling for comfort, but come out of the sling 4-5 times a day for active range of motion exercises for your shoulder and elbow. -Keep your hand elevated to reduce swelling. -Do not lift any objects or bear any weight through your operative arm. Fall with hematoma/localized collection of blood -You had a fall onto your left abdomen with subsequent bleeding in your abdomen. The bleeding into the abdomen will take time to heal so please be careful around the area to avoid any trauma or overexertion. If you develop any sudden onset abdominal pain or feel lightheaded or dizzy for a prolonged period of time please come back to the hospital for further evaluation. Please continue taking your home medications as directed except: Please do not take your Brilinta (ticagrelor) until you see your primary care doctor on Friday. This will give blood vessels damaged from the fall time to heal. Please follow up with your: PCP- Friday Orthopedics or PT- 1-2 weeks. Pending Studies at Discharge: No Stand-Alone Forms: My [facility] [employer], Smoking Cessation Medications and DC Order Prescriptions: Continued atorvastatin [Lipitor] 80 mg tablet 80 mg PO QAM Qty: 90 RF: 3 pantoprazole [Protonix] 40 mg tablet,delayed release (DR/EC) 40 mg PO QAM Qty: 90 RF: 3 Hold Instructions: diarrhea atenolol 50 mg tablet 50 mg PO QAM Qty: 90 RF: 3 ropinirole 0.25 mg tablet 0.25 mg PO HS Qty: 90 RF: 1 Tradjenta 5 mg tablet 5 mg PO HS Qty: 90 RF: 3 diphenoxylate-atropine [Lomotil] 2.5-0.025 mg tablet 1 tab PO QAM Qty: 90 RF: 3 quetiapine [Seroquel] 50 mg tablet 50 mg PO HS Qty: 90 RF: 1 multivitamin [Daily Multi-Vitamin] Tablet 1 tab PO QAM RF: 0 cholecalciferol (vitamin D3) [Vitamin D3] 2,000 unit Tablet 2,000 unit PO QAM RF: 0 aspirin [Selvin Chewable Aspirin] 81 mg tablet,chewable 81 mg PO QAM RF: 0 budesonide [Entocort EC] 3 mg capsule,delayed,extend.release 3 mg PO TID RF: 0 acetaminophen [Tylenol Extra Strength] 500 mg Tablet 500 mg PO Q6H PRN (Reason: Pain) RF: 0 lorazepam [Ativan] 0.5 mg Tablet 0.5 mg PO HS PRN (Reason: Anxiety) RF: 0 magnesium oxide 400 mg magnesium Tablet 400 mg PO QAM RF: 0 glipizide [Glucotrol] 10 mg tablet 10 mg PO BID RF: 0 amlodipine [Norvasc] 5 mg tablet 10 mg PO QAM RF: 0 tamsulosin [Flomax] 0.4 mg capsule 0.4 mg PO HS RF: 0 colestipol [Colestid] 1 gram tablet 2 g PO QAM RF: 0 escitalopram oxalate [Lexapro] 20 mg tablet 20 mg PO QAM RF: 0 Discontinued Brilinta 60 mg tablet 60 mg PO BID Qty: 180 RF: 3 Discharge Orders: Discharge Order (Routine); Ordered 05/26/21 Ordered By: Leonardo Saleh Admission Data Admit Date/Time: 05/25/21 19:29 Attending Provider: Meri Kelly Admit Provider: Jarrell Ghotra Primary Care Provider: Eduardo Cat III Other Providers: Christina Christie ; Nigel Diaz Other Interventions: Discharge Summary Assessment (RN) Last Done: 05/25/21 13:05 Supervising Physician Co-Signing Physician Notes Resident Physician Supervision Note: I independently interviewed and examined the patient and verified the trejo history and physical, reviewed labs and image studies and agree with resident Dr. Saleh findings and care plan.
--- NOTE | 2021-05-26 14:17 | Orthopedic Progress Note ---
Date of Service May 26, 2021 Assessment & Plan (1) Closed fracture of 5th metacarpal: Plan: Postoperative day #2 status post closed reduction and pinning of displaced left fifth metacarpal neck fracture -Keep left hand splint and dressings intact until he follows up in orthopedic surgery clinic. -Keep the left hand elevated, with range of motion of the radial 3 digits to prevent stiffness. -Follow-up with me in orthopedics clinic 10 to 14 days after surgery upon discharge. [facility] call [facility] at [phone] to make an appointment. Admission and Anticipated Discharge Date Admission Date: May 25, 2021 Subjective Patient is doing well. He denies any complaints with his left hand. He is currently getting dressed to get ready to go home for discharge. Physical Exam Physical Exam: Dressing and splint on the left hand are clean, dry, intact. Results & Data ([facility]) Vital Signs (Past 12 Hours) Vital Signs Temp Pulse Pulse Resp BP Pulse Ox 05/26/21 11:46 36.8 C 73 18 128/69 95 05/26/21 09:58 76 05/26/21 08:05 37.0 C 83 18 154/80 H 92 05/26/21 04:00 36.7 C 81 19 152/66 H 90
== END 2021-05-26 14:26 | disposition home health service (06) | DRG 982 ==
LOC: 2N 15:11 → ED 15:11 → SUATTDRO 23:11 → 2N 05-23 00:30
DX: Z86.73 Personal history of transient ischemic attack (TIA), and cerebral infarction without residual deficits; W19.XXXA Unspecified fall, initial encounter; S62.307A Unspecified fracture of fifth metacarpal bone, left hand, initial encounter for closed fracture; I12.9 Hypertensive chronic kidney disease with stage 1 through stage 4 chronic kidney disease, or unspecified chronic kidney disease; S30.1XXA Contusion of abdominal wall, initial encounter; N18.30 Chronic kidney disease, stage 3 unspecified; F03.90 Unspecified dementia, unspecified severity, without behavioral disturbance, psychotic disturbance, mood disturbance, and anxiety; S60.222A Contusion of left hand, initial encounter; E11.22 Type 2 diabetes mellitus with diabetic chronic kidney disease; Z66 Do not resuscitate; Z79.52 Long term (current) use of systemic steroids; J44.9 Chronic obstructive pulmonary disease, unspecified; N17.9 Acute kidney failure, unspecified; D62 Acute posthemorrhagic anemia; I25.10 Atherosclerotic heart disease of native coronary artery without angina pectoris

== ENCOUNTER 2021-08-16 08:51 | Observation (INO) ==
--- NOTE | 2021-08-16 09:22 | Emergency Department Note ---
History of Present Illness General Chief complaint: Hypothermia Stated complaint: HYPOTHERMIA Time Seen by Provider: 08/16/21 09:03 History of Present Illness 70-year-old male presents via EMS reportedly has a history of dementia he was found this morning wandering in the snow. Reportedly his has a history of dementia to and he was last seen at 2:00 this morning according to EMS. They found him wandering they rewarmed him by placing him inside a residence and started him on warmed IV fluids. Patient is a poor historian as to exactly the events that occurred today. He has no current complaints. Denies any chest pain shortness of breath abdominal pain nausea vomiting. And there is no reported history of the same; EMS states that there temperature was 33 C for this patient prior to emergency department arrival Home Medications Medication Instructions Recorded Confirmed Type multivitamin (Daily Multi-Vitamin) 1 tab PO QAM 07/06/18 05/28/21 History cholecalciferol (vitamin D3) 50 2,000 unit PO QAM 08/31/18 05/28/21 History mcg (2,000 unit) tablet (Vitamin D3) aspirin 81 mg chewable tablet 81 mg PO QAM 01/29/20 05/28/21 History (Selvin Chewable Low Dose Aspirin) pantoprazole 40 mg tablet,delayed 40 mg PO QAM #90 tab 07/11/20 05/28/21 Rx release (Protonix) atenolol 50 mg tablet 50 mg PO QAM #90 tab 09/25/20 05/28/21 Rx linagliptin 5 mg tablet (Tradjenta) 5 mg PO HS #90 tab 02/26/21 05/28/21 Rx diphenoxylate-atropine 2.5 1 tab PO QAM #90 tab 03/20/21 05/28/21 Rx mg-0.025 mg tablet (Lomotil) amlodipine 5 mg tablet (Norvasc) 10 mg PO QAM 03/30/21 05/28/21 History colestipol 1 gram tablet (Colestid) 2 g PO QAM 03/30/21 05/28/21 History escitalopram oxalate 20 mg tablet 20 mg PO QAM 03/30/21 05/28/21 History (Lexapro) glipizide 10 mg tablet (Glucotrol) 10 mg PO BID 03/30/21 05/28/21 History acetaminophen 500 mg tablet 500 mg PO Q6H PRN 05/22/21 05/28/21 History (Tylenol Extra Strength) magnesium oxide 400 mg PO QAM 05/22/21 05/28/21 History quetiapine 50 mg tablet (Seroquel) 50 mg PO HS #90 tab 05/30/21 Rx blood sugar diagnostic (OneTouch #100 ea 05/31/21 Rx Ultra Test) tamsulosin 0.4 mg capsule (Flomax) 0.4 mg PO HS #90 cap 06/05/21 Rx losartan 100 mg tablet (Cozaar) 100 mg PO QAM #90 tab 06/13/21 Rx atorvastatin 80 mg tablet (Lipitor) 80 mg PO QAM #90 tab 06/20/21 Rx ticagrelor 60 mg tablet (Brilinta) 60 mg PO BID #180 tab 07/04/21 Rx lorazepam 0.5 mg tablet (Ativan) 0.5 mg PO HS PRN #135 tab 08/06/21 Rx ropinirole 0.25 mg tablet 0.25 mg PO HS #90 tab 08/06/21 Rx Allergies Allergy/AdvReac Type Severity Reaction Status Date / Time Tetanus Vaccines and Toxoid AdvReac Mild "TETANUS Verified 08/16/21 11:56 SHOT" - FEVER Past Med/Surg History Medical History Acute CVA (cerebrovascular accident) december 2018 x3; february 2019 x2; March 2019 x2 -- generalized weakness, unstable and poor depth perception. follows with Neurology [facility] (Dr. Stef Zavaleta) Anxiety Asthma DOES NOT USE AN INHALER Barretts esophagus Basal cell carcinoma of face BPH (benign prostatic hyperplasia) Chronic obstructive pulmonary disease STABLE>NO INHALER CKD (chronic kidney disease), stage II Depression Diabetes mellitus, type 2 NIDDM Diabetic retinopathy Fall GERD (gastroesophageal reflux disease) Hearing loss Hematoma of abdominal wall History of poliomyelitis Hyperlipidemia Hypertension Hypertensive retinopathy of left eye IBS (irritable bowel syndrome) POSSIBLE Restless leg syndrome Sleep apnea NO DEVICE Surgical History History of basal cell carcinoma excision History of colonoscopy (~07/15/18) History of cystoscopy History of esophagogastroduodenoscopy (EGD) History of right inguinal hernia repair History of tooth extraction S/P arterial stent "small artery in the brain" [facility] March 2019 s/p multiple strokes Family History Sister Family history of diabetes mellitus 2 Colorectal cancer Father Family history of lung cancer Mother Family history of adrenal cancer Other No family history of adverse response to anesthesia Denies family history of Ovarian cancer Prostate cancer Myocardial infarction Breast cancer Social History Smoking Status: Former smoker Tobacco Type: Cigarettes Age Quit Using Tobacco: 51; packs per day: 1; Years Smoked: 30; Second Hand Exposure: No; Preferred Language: French Communication Ability: Effective Visual Impairment: No Limitations Hearing Ability: Normal Car Bracer Required: No Beliefs That Will Affect Care: None marital status: Current Living Situation: Spouse current occupational status: retired 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 Feels Safe at Home: Yes Childhood Exposure to Second-Hand Smoke: Yes caffeine: Yes during the past year weight has: remained stable Dental Care, Regularly: Yes Physical Activity Frequency: Daily Seatbelt Use: always Sunscreen Use: Yes Assistive Devices: Oxygen - Continuous Review of Systems Unobtainable due to cognitive status Patient with dementia, unable to obtain full review of systems with this patient Physical Exam Vital Signs Vital Signs - 24 hr 08/16/21 09:04 08/16/21 09:05 08/16/21 09:38 Temperature 35.5 C L Temperature Source Rectal Pulse Rate 90 Pulse Rate [Apical] 90 Respiratory Rate 16 18 Blood Pressure 172/82 H Blood Pressure [Right Arm] 141/69 H Blood Pressure Mean 112 Blood Pressure Mean [Right Arm] 93 Pulse Oximetry 98 97 Oxygen Delivery Method Room Air Room Air Room Air Sepsis Recent Fever Within 48 Hours No Sepsis New/Unexplained Change in Mental Status No Sepsis Action Taken by Nursing No Action Required 08/16/21 10:00 08/16/21 10:30 08/16/21 11:00 Temperature 36.1 C L Temperature Source Rectal Pulse Rate Pulse Rate [Apical] 78 80 84 Respiratory Rate 15 16 15 Blood Pressure Blood Pressure [Right Arm] 143/74 H 144/82 H 156/86 H Blood Pressure Mean Blood Pressure Mean [Right Arm] 97 102 109 Pulse Oximetry 95 95 95 Oxygen Delivery Method Room Air Room Air Room Air Sepsis Recent Fever Within 48 Hours Sepsis New/Unexplained Change in Mental Status Sepsis Action Taken by Nursing 08/16/21 11:30 Temperature Temperature Source Pulse Rate Pulse Rate [Apical] 86 Respiratory Rate 18 Blood Pressure Blood Pressure [Right Arm] 153/76 H Blood Pressure Mean Blood Pressure Mean [Right Arm] 101 Pulse Oximetry 96 Oxygen Delivery Method Sepsis Recent Fever Within 48 Hours Sepsis New/Unexplained Change in Mental Status Sepsis Action Taken by Nursing VITAL SIGNS - Vital signs and nursing notes were reviewed. GENERAL -70-year-old male appearing his stated age who is in no acute distress. Patient has a bear hugger present on his body SKIN - Without rashes. HEAD - NC/AT. EYES - PERRL with EOMI bilaterally. Sclera anicteric. Palpebral conjunctiva pink and moist with no injection noted. EARS - No deformities of external structures noted on gross examination bilaterally. NOSE - Midline and without cyanosis. No epistaxis or purulent drainage noted. Septum midline without deviation or septal hematoma noted. MOUTH/OROPHARYNX - Without perioral cyanosis. NECK - Neck with FROM. Supple to palpation. No nuchal rigidity. LUNGS - Chest wall symmetric without accessory muscle use, intercostals retractions, or central cyanosis. Normal vesicular breath sounds CTA B/L. No wheezes, rales, or rhonchi appreciated. CARDIAC - RRR with S1/S2. No murmur, rubs, or gallops appreciated. ABDOMEN - Abdominal contour soft without pulsations or visible masses. BS normoactive all four quadrants. Patient has a palpable mass in the left lower quadrant. EXTREMITIES - No clubbing or peripheral cyanosis. No pretibial edema present. +5/5 strength noted in UE/LE bilaterally. NEUROLOGIC - Cranial nerves II through XII grossly intact. PSYCH -alert and oriented x2, answers when interviewed, very calm at this time Course Administered Medications Discontinued Medications Ceftriaxone Sodium (Rocephin) 2,000 mg in 70 mls @ 140 mls/hr IV NOW STA Stop: 08/16/21 11:07 Last Admin: 08/16/21 11:25 Dose: 140 mls/hr Documented by: [id number] Sodium Chloride (Nss 1000ml) 1,000 mls @ 999 mls/hr IV .Q1H1M HEAVENLY Stop: 08/16/21 11:39 Last Admin: 08/16/21 11:25 Dose: 999 mls/hr Documented by: [id number] Critical Care Time Critical Care Time: Yes Total Critical Care Time: 35 Critical care time due to multiple reevaluations the patient is hypothermic, discussion with EMS, discussion with hospitalist program Medical Decision Making Medical Records Attestation: I reviewed the patient's medical records. Home Medications Current Medication List: was personally reviewed by me Laboratory Data Result diagrams: 08/16/21 09:25 08/16/21 09:25 Lab Results 08/16/21 08/16/21 08/16/21 Range/Units 09:25 09:25 09:25 WBC 16.74 H (4.8-10.8) K/uL RBC 4.32 L (4.7-6.1) M/uL Hgb 13.9 L (14.0-18.0) g/dL Hct 41.3 L (42-52) % MCV 95.6 (80-100) fL MCH 32.2 (25-34) pg MCHC 33.7 (32-36) g/dL RDW Std Deviation 48.9 H (36.4-46.3) fL RDW Coeff of Jose 13.9 (11.5-14.5) % Plt Count 290 (130-400) K/uL MPV 9.1 (7.4-10.4) fL Immature Gran % (Auto) 0.2 % Neut % (Auto) 92.3 % Lymph % (Auto) 5.6 % [place] % (Auto) 1.9 % Eos % (Auto) 0.0 % Baso % (Auto) 0.0 % Neut # (Auto) 15.45 H (1.4-6.5) K/uL Lymph # (Auto) 0.94 L (1.2-3.4) K/uL [place] # (Auto) 0.31 (0.11-0.59) K/uL Eos # (Auto) 0.00 (0-0.5) K/uL Baso # (Auto) 0.00 (0-0.2) K/uL Immature Gran # (Auto) 0.04 H (0.00-0.02) K/uL PT 9.8 (9.0-12.0) Seconds INR 1.0 (0.9-1.1) APTT 21.9 (21.0-31.0) Seconds PTT Ratio 0.8 Sodium 139 (136-145) mmol/L Potassium 5.6 H (3.5-5.1) mmol/L Chloride 107 (98-107) mmol/L Carbon Dioxide 22 (21-32) mmol/L Anion Gap 10 (3-11) BUN 36 H (6-23) mg/dl Creatinine 1.63 H (0.6-1.4) mg/dl Est Cr Clr Drug Dosing 42.0 ml/min Est GFR ( Amer) 49.1 ml/min Est GFR (Non-Af Amer) 42.4 ml/min BUN/Creatinine Ratio 22.1 H (10-20) Glucose 265 H (70-99) mg/dl Lactate (0.4-2.0) mmol/L Calcium 9.1 (8.5-10.1) mg/dl Magnesium 1.7 (1.7-2.4) mg/dl Total Bilirubin 0.4 (0.2-1.0) mg/dl AST 17 (13-39) U/L ALT 19 (7-52) U/L Alkaline Phosphatase 43 (34-104) U/L Troponin I < 0.03 (0-0.04) ng/ml Total Protein 7.0 (6.0-8.3) gm/dl Albumin 4.2 (3.4-5.0) gm/dl Globulin 2.8 (2.5-4.0) gm/dl Albumin/Globulin Ratio 1.5 (0.9-2) Urine Color Urine Appearance (Clear) Urine pH (4.5-7.5) Ur Specific [place] (1.000-1.030) Urine Protein (Negative) Urine Glucose (UA) (Negative) Urine Ketones (Negative) Urine Blood (Negative) Urine Nitrite (Negative) Urine Bilirubin (Negative) Urine Urobilinogen (Negative) Ur Leukocyte Esterase (Negative) Urine WBC (Auto) (0-5) /hpf Urine RBC (Auto) (0-4) /hpf U Hyaline Cast (Auto) (0-5) /lpf U Epithel Cells (Auto) (0-5) /lpf Urine Bacteria (Auto) (Negative) Urine Yeast SARS-CoV-2, RNA, NAAT (NEGATIVE) 08/16/21 08/16/21 08/16/21 Range/Units 09:25 09:45 10:45 WBC (4.8-10.8) K/uL RBC (4.7-6.1) M/uL Hgb (14.0-18.0) g/dL Hct (42-52) % MCV (80-100) fL MCH (25-34) pg MCHC (32-36) g/dL RDW Std Deviation (36.4-46.3) fL RDW Coeff of Jose (11.5-14.5) % Plt Count (130-400) K/uL MPV (7.4-10.4) fL Immature Gran % (Auto) % Neut % (Auto) % Lymph % (Auto) % [place] % (Auto) % Eos % (Auto) % Baso % (Auto) % Neut # (Auto) (1.4-6.5) K/uL Lymph # (Auto) (1.2-3.4) K/uL [place] # (Auto) (0.11-0.59) K/uL Eos # (Auto) (0-0.5) K/uL Baso # (Auto) (0-0.2) K/uL Immature Gran # (Auto) (0.00-0.02) K/uL PT (9.0-12.0) Seconds INR (0.9-1.1) APTT (21.0-31.0) Seconds PTT Ratio Sodium (136-145) mmol/L Potassium (3.5-5.1) mmol/L Chloride (98-107) mmol/L Carbon Dioxide (21-32) mmol/L Anion Gap (3-11) BUN (6-23) mg/dl Creatinine (0.6-1.4) mg/dl Est Cr Clr Drug Dosing ml/min Est GFR ( Amer) ml/min Est GFR (Non-Af Amer) ml/min BUN/Creatinine Ratio (10-20) Glucose (70-99) mg/dl Lactate 2.5 H* (0.4-2.0) mmol/L Calcium (8.5-10.1) mg/dl Magnesium (1.7-2.4) mg/dl Total Bilirubin (0.2-1.0) mg/dl AST (13-39) U/L ALT (7-52) U/L Alkaline Phosphatase (34-104) U/L Troponin I (0-0.04) ng/ml Total Protein (6.0-8.3) gm/dl Albumin (3.4-5.0) gm/dl Globulin (2.5-4.0) gm/dl Albumin/Globulin Ratio (0.9-2) Urine Color Dark Yellow Urine Appearance Clear (Clear) Urine pH 5.0 (4.5-7.5) Ur Specific [place] 1.022 (1.000-1.030) Urine Protein 2+ H (Negative) Urine Glucose (UA) 2+ H (Negative) Urine Ketones Trace H (Negative) Urine Blood Trace H (Negative) Urine Nitrite Negative (Negative) Urine Bilirubin Negative (Negative) Urine Urobilinogen Negative (Negative) Ur Leukocyte Esterase Negative (Negative) Urine WBC (Auto) 1-5 (0-5) /hpf Urine RBC (Auto) 5-10 H (0-4) /hpf U Hyaline Cast (Auto) 1-5 (0-5) /lpf U Epithel Cells (Auto) 5-10 H (0-5) /lpf Urine Bacteria (Auto) Negative (Negative) Urine Yeast Not Reportable SARS-CoV-2, RNA, NAAT NEGATIVE (NEGATIVE) Imaging Data Radiologist's Impression: Chest X-Ray 08/16/21 09:13 XR chest 1V portable HISTORY: 70 years-old Male SEPSIS acute sepsis COMPARISON: Chest radiograph 05/25/2021 TECHNIQUE: Portable AP view of the chest FINDINGS: The cardiac silhouette is enlarged. Calcified plaque of the thoracic aorta. No pneumothorax, pleural effusion, airspace consolidation or overt pulmonary edema. Calcified plaque the thoracic aorta. Degenerative changes of the shoulders and spine. IMPRESSION: Cardiomegaly without acute process. ACT 112: Negative or not required by law. The above report was generated using voice recognition software. It may contain grammatical, syntax or spelling errors. Electronically signed by: Deondre Gr M.D. 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 intervention Impression & Plan Hypothermia, Dementia, Leukocytosis, SIRS (systemic inflammatory response syndrome), CKD (chronic kidney disease) Discharge Plan Visit Data Chief Complaint: Hypothermia Stated Complaint: HYPOTHERMIA ED Provider: Miles Lamar Discharge Problem: Hypothermia, Dementia, Leukocytosis, SIRS (systemic inflammatory response syndrome), CKD (chronic kidney disease) Patient Disposition: Being Evaluated by Hospitalist Forms Stand Alone Forms: [facility] Prescriptions Prescriptions: No Action pantoprazole [Protonix] 40 mg tablet,delayed release (DR/EC) 40 mg PO QAM Qty: 90 RF: 3 Hold Instructions: diarrhea atenolol 50 mg tablet 50 mg PO QAM Qty: 90 RF: 3 Tradjenta 5 mg tablet 5 mg PO HS Qty: 90 RF: 3 diphenoxylate-atropine [Lomotil] 2.5-0.025 mg tablet 1 tab PO QAM Qty: 90 RF: 3 quetiapine [Seroquel] 50 mg tablet 50 mg PO HS Qty: 90 RF: 1 (DME) [employer] Ultra Test Strip See Rx Instructions .Route Qty: 100 RF: 3 tamsulosin [Flomax] 0.4 mg capsule 0.4 mg PO HS Qty: 90 RF: 3 losartan [Cozaar] 100 mg tablet 100 mg PO QAM Qty: 90 RF: 3 atorvastatin [Lipitor] 80 mg tablet 80 mg PO QAM Qty: 90 RF: 3 Brilinta 60 mg tablet 60 mg PO BID Qty: 180 RF: 3 lorazepam [Ativan] 0.5 mg tablet 0.5 mg PO HS PRN (Reason: Anxiety) Qty: 135 RF: 0 ropinirole 0.25 mg tablet 0.25 mg PO HS Qty: 90 RF: 1 multivitamin [Daily Multi-Vitamin] Tablet 1 tab PO QAM RF: 0 cholecalciferol (vitamin D3) [Vitamin D3] 2,000 unit Tablet 2,000 unit PO QAM RF: 0 aspirin [Selvin Chewable Aspirin] 81 mg tablet,chewable 81 mg PO QAM RF: 0 acetaminophen [Tylenol Extra Strength] 500 mg Tablet 500 mg PO Q6H PRN (Reason: Pain) RF: 0 magnesium oxide 400 mg magnesium Tablet 400 mg PO QAM RF: 0 glipizide [Glucotrol] 10 mg tablet 10 mg PO BID RF: 0 amlodipine [Norvasc] 5 mg tablet 10 mg PO QAM RF: 0 colestipol [Colestid] 1 gram tablet 2 g PO QAM RF: 0 escitalopram oxalate [Lexapro] 20 mg tablet 20 mg PO QAM RF: 0 Referrals Referrals: Eduardo Cat III, MD [Physician] -
[2021-08-16 09:40] LABS: Hematocrit (blood only) 41.3 % (42-52); Hemoglobin 13.9 g/dL (14.0-18.0); Immature Granulocytes # (auto) 0.04 K/uL (0.00-0.02); Immature Granulocytes % (auto) 0.2 %; Lymphocytes # (auto) 0.94 K/uL (1.2-3.4); Lymphocytes % (auto) 5.6 %; Mean Corpuscular Hemoglobin 32.2 pg (25-34); Mean Corpuscular Hgb Conc 33.7 g/dL (32-36); Mean Corpuscular Volume 95.6 fL (80-100); Mean Platelet Volume 9.1 fL (7.4-10.4); Monocytes # (auto) 0.31 K/uL (0.11-0.59); Monocytes % (auto) 1.9 %; Neutrophils # (auto) 15.45 K/uL (1.4-6.5); Neutrophils % (auto) 92.3 %; Platelet Count 290 K/uL (130-400); RDW Coefficient of Variation 13.9 % (11.5-14.5); RDW Standard Deviation 48.9 fL (36.4-46.3); Red Blood Count 4.32 M/uL (4.7-6.1); White Blood Count 16.74 K/uL (4.8-10.8)
[2021-08-16 09:54] LABS: Partial Thromboplastin Ratio 0.8; Partial Thromboplastin Time 21.9 Seconds (21.0-31.0); Prothrombin Time 9.8 Seconds (9.0-12.0)
--- NOTE | 2021-08-16 09:59 | XRay Report ---
XR chest 1V portable HISTORY: 70 years-old Male SEPSIS acute sepsis COMPARISON: Chest radiograph 05/25/2021 TECHNIQUE: Portable AP view of the chest FINDINGS: The cardiac silhouette is enlarged. Calcified plaque of the thoracic aorta. No pneumothorax, pleural effusion, airspace consolidation or overt pulmonary edema. Calcified plaque the thoracic aorta. Degen erative changes of the shoulders and spine. IMPRESSION: Cardiomegaly without acute process. ACT 112: Negative or not required by law. The above report was generated using voice recognition software. It may contain grammatical, syntax o r spelling errors. Electronically signed by: Deondre Gr M.D. 08/16/2021 9:57 AM
[2021-08-16 10:03] LABS: Troponin I < 0.03 ng/ml (0-0.04)
[2021-08-16 10:06] LABS: Albumin Level 4.2 gm/dl (3.4-5.0); Anion Gap 10 (3-11); Bilirubin,Total 0.4 mg/dl (0.2-1.0); Calcium 9.1 mg/dl (8.5-10.1); Carbon Dioxide 22 mmol/L (21-32); Chloride 107 mmol/L (98-107); Magnesium 1.7 mg/dl (1.7-2.4); Potassium 5.6 mmol/L (3.5-5.1); Sodium 139 mmol/L (136-145)
[2021-08-16 10:12] LABS: Alanine Aminotransferase 19 U/L (7-52); Albumin Globulin Ratio 1.5 (0.9-2); Alkaline Phosphatase 43 U/L (34-104); Aspartate Aminotransferase 17 U/L (13-39); BUN Creatinine Ratio 22.1 (10-20); Blood Urea Nitrogen 36 mg/dl (6-23); Est GFR (African American) 49.1 ml/min; Est GFR (Non-African American) 42.4 ml/min; Globulin 2.8 gm/dl (2.5-4.0); Glucose 265 mg/dl (70-99)
[2021-08-16] MEDS ORDERED: cefTRIAXone SODIUM 2,000 MG/70 ML BAG IV STA (10:38)
[2021-08-16] MEDS ORDERED: SODIUM CHLORIDE 0.9% 1000ML 1,000 ML IV SCH (10:39)
[2021-08-16 11:19] LABS: Appearance Urine Clear (Clear); Bacteria Urine Automated Negative (Negative); Bilirubin Urine Negative (Negative); Blood Urine Trace (Negative); Color Urine Dark Yellow; Glucose Urine UA 2+ (Negative); Ketones Urine Trace (Negative); Leukocyte Esterase Urine Negative (Negative); Nitrite Urine Negative (Negative); Protein Urine 2+ (Negative); Specific Gravity Urine 1.022 (1.000-1.030); Urobilinogen Urine Negative (Negative)
--- NOTE | 2021-08-16 13:08 | History & Physical Report ---
Date of Service August 16, 2021 Assessment & Plan (1) Encephalopathy: Plan: Patient presents with acute encephalopathy of undetermined exact etiology. Concerns could be metabolic encephalopathy from urinary tract infection present on admission. There is some concern this could be from cerebrovascular disease as says in the past the patient presented similarly. Is also plus minus is hypothermic exposure causing some encephalopathy. Patient will be treated with ceftriaxone cultures will be obtained. 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 Will have additional images of brain and cerebral vasculature to determine if this is playing a role in his acute encephalopathy Certainly some of this could be progression of his dementia, will continue seroquel and lexapro maybe a role for geriatric psychiatry eval once medical issues are stabilized (2) HTN (hypertension): Plan: Will continue atenolol and antiplatelet meds of brillinta and aspirin for cardiovascular and cerebrovascular prevention hold cozaar for chidi and allow permissive htn (3) Hyperkalemia: Plan: hopeful to be improved with better glucose control will give a dose of patiromer (4) Hypercholesterolemia: Plan: continues atrovastatin (5) COPD (chronic obstructive pulmonary disease): Plan: seems stable at his time, remains on advair (6) 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 On the day of presentation his found him in the morning sitting in the yard for undisclosed period of time. To this he has been quite agitated in the early evening hours tearing apart his bedroom and breaking a television. The says he has had escalation of nighttime agitation over the last few months. She had been seeing outpatient psychiatric care who attempted to use medication to control his behavior without good success. In the emergency department he presented with hypothermia leukocytosis and an abnormal urine analysis with a mild elevation of lactic acid. The patient upon my evaluation can follow commands he does have upward outward gaze to the right which his says sometimes occurs with him but she has been in discussion with his neurologist who was in [facility] about performing repeat carotid imaging as the patient previously has had a vertebral artery stent placed. She is concerned that his escalation of agitation is from cerebral ischemia as his previous strokes have all been associated with behavioral change and not focal deficits. On examination the patient does not have any focal deficits with exception of him not looking directly at me upon command his extraocular muscles likewise cannot be evaluated by command but he does seem to spontaneously move them in all directions he is got a quiet perseverating voice no carotid bruits and no evidence of any frostbite or frostnip from being out in the yard in the furnace fitter hours. Allergies Allergy/AdvReac Type Severity Reaction Status Date / Time Tetanus Vaccines and Toxoid AdvReac Mild "TETANUS Verified 08/16/21 11:56 SHOT" - FEVER Home Medications Medication Instructions Recorded Confirmed Type multivitamin (Daily Multi-Vitamin) 1 tab PO QAM 07/06/18 08/16/21 History cholecalciferol (vitamin D3) 50 2,000 unit PO QAM 08/31/18 08/16/21 History mcg (2,000 unit) tablet (Vitamin D3) aspirin 81 mg chewable tablet 81 mg PO QAM 01/29/20 08/16/21 History (Selvin Chewable Low Dose Aspirin) atenolol 50 mg tablet 50 mg PO QAM #90 tab 09/25/20 08/16/21 Rx linagliptin 5 mg tablet (Tradjenta) 5 mg PO HS #90 tab 02/26/21 08/16/21 Rx escitalopram oxalate 20 mg tablet 20 mg PO QAM 03/30/21 08/16/21 History (Lexapro) glipizide 10 mg tablet (Glucotrol) 10 mg PO .AC BID 03/30/21 08/16/21 History acetaminophen 500 mg tablet 500 mg PO Q6H PRN 05/22/21 08/16/21 History (Tylenol Extra Strength) quetiapine 50 mg tablet (Seroquel) 50 mg PO HS #90 tab 05/30/21 08/16/21 Rx blood sugar diagnostic (OneTouch #100 ea 05/31/21 Rx Ultra Test) tamsulosin 0.4 mg capsule (Flomax) 0.4 mg PO HS #90 cap 06/05/21 08/16/21 Rx losartan 100 mg tablet (Cozaar) 100 mg PO QAM #90 tab 06/13/21 08/16/21 Rx atorvastatin 80 mg tablet (Lipitor) 80 mg PO QAM #90 tab 06/20/21 08/16/21 Rx ticagrelor 60 mg tablet (Brilinta) 60 mg PO BID #180 tab 07/04/21 08/16/21 Rx lorazepam 0.5 mg tablet (Ativan) 0.5 mg PO HS PRN #135 tab 08/06/21 08/16/21 Rx ropinirole 0.25 mg tablet 0.25 mg PO HS #90 tab 08/06/21 08/16/21 Rx calcium polycarbophil 625 mg 625 mg PO DAILY 08/16/21 08/16/21 History tablet (Fiber (calcium polycarbophil)) desonide 0.05 % topical cream 1 applic TOPICAL DIRECTED PRN 08/16/21 08/16/21 History fluticasone 100 mcg-salmeterol 50 1 inh INHALATION BID 08/16/21 08/16/21 History mcg/dose blistr powdr for inhalation (Advair Diskus) Past Med/Surg History Medical History Acute CVA (cerebrovascular accident) december 2018 x3; february 2019 x2; March 2019 x2 -- generalized weakness, unstable and poor depth perception. follows with Neurology [facility] (Dr. Stef Zavaleta) Anxiety Asthma DOES NOT USE AN INHALER Barretts esophagus Basal cell carcinoma of face BPH (benign prostatic hyperplasia) Chronic obstructive pulmonary disease STABLE>NO INHALER CKD (chronic kidney disease), stage II Depression Diabetes mellitus, type 2 NIDDM Diabetic retinopathy Fall GERD (gastroesophageal reflux disease) Hearing loss Hematoma of abdominal wall History of poliomyelitis Hyperlipidemia Hypertension Hypertensive retinopathy of left eye IBS (irritable bowel syndrome) POSSIBLE Restless leg syndrome Sleep apnea NO DEVICE Surgical History History of basal cell carcinoma excision History of colonoscopy (~07/15/18) History of cystoscopy History of esophagogastroduodenoscopy (EGD) History of right inguinal hernia repair History of tooth extraction S/P arterial stent "small artery in the brain" Lucy Campos March 2019 s/p multiple strokes Family History Sister Family history of diabetes mellitus 2 Colorectal cancer Father Family history of lung cancer Mother Family history of adrenal cancer Other No family history of adverse response to anesthesia Denies family history of Ovarian cancer Prostate cancer Myocardial infarction Breast cancer Social History Smoking Status: Former smoker Tobacco Type: Cigarettes Age Quit Using Tobacco: 51; packs per day: 1; Years Smoked: 30; Second Hand Exposure: No; Hx Alcohol Use: Yes Alcohol type: hard liquor Hx Substance Use: No Preferred Language: Kazakh Communication Ability: Effective Visual Impairment: No Limitations Hearing Ability: Normal Oxygen Therapist Required: No Beliefs That Will Affect Care: None marital status: Current Living Situation: Spouse current occupational status: retired 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 Vital signs as documented. Head exam is normocephalic atraumatic Eyes have a upward outward gaze to the right Neck is without JVD, thyromegaly, or carotid bruits. Lungs are clear to auscultation, no focal loss of breath sounds Cardiac exam, Rhythm is regular.. No murmurs, rubs or gallops. Abdominal exam reveals normal bowel sounds, soft non tender, no masses Extremities are nonedematous and both pedal pulses are present Neurologic exam is alert and follows commands, no focal loss of strength or sensation the exception of his visual changes listed above Skin is without bruises or rashes Psychologically is with concerns for dementia with agitation Results & Data Results & Data ([facility]) Vital Signs (Past 12 Hours) Vital Signs Temp Pulse Pulse Resp BP BP Pulse Ox 08/16/21 12:00 90 19 145/84 H 96 08/16/21 11:30 86 18 153/76 H 96 08/16/21 11:00 84 15 156/86 H 95 08/16/21 10:30 97.0 F L 80 16 144/82 H 95 08/16/21 10:00 78 15 143/74 H 95 08/16/21 09:38 90 18 141/69 H 97 08/16/21 09:05 95.9 F L 90 16 172/82 H 98 Diagnostic Findings Chest X-Ray 08/16/21 09:13 XR chest 1V portable HISTORY: 70 years-old Male SEPSIS acute sepsis COMPARISON: Chest radiograph 05/25/2021 TECHNIQUE: Portable AP view of the chest FINDINGS: The cardiac silhouette is enlarged. Calcified plaque of the thoracic aorta. No pneumothorax, pleural effusion, airspace consolidation or overt pulmonary edema. Calcified plaque the thoracic aorta. Degenerative changes of the shoulders and spine. IMPRESSION: Cardiomegaly without acute process. Electronically signed by: Deondre Gr M.D. 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
[2021-08-16] MEDS ORDERED: GLUCOSE 10 TABS/TUBE PO PRN (13:19)
[2021-08-16] MEDS ORDERED: CARBOHYDRATES FOR HYPOGLYCEMIA PO PRN (13:19)
[2021-08-16] MEDS ORDERED: LORazepam 0.5 MG TAB PO PRN (13:19)
[2021-08-16] MEDS ORDERED: GLUCOSE 40% GEL 15 GM TUBE PO PRN (13:19)
[2021-08-16] MEDS ORDERED: ONDANSETRON INJ 2 MG/ML 2 ML VIAL IV PRN (13:19)
[2021-08-16] MEDS ORDERED: GLUCAGON FOR INJ 1 MG VIAL SQ PRN (13:19)
[2021-08-16] MEDS ORDERED: DEXTROSE 50% 50 ML SYRINGE IV PRN (13:19)
[2021-08-16] MEDS ORDERED: ALUMINUM/MAGNESIUM SUSP 30 ML UDC PO PRN (13:19)
[2021-08-16] MEDS ORDERED: LORazepam 0.5 MG/1 ML VIAL IV PRN (13:23)
[2021-08-16] MEDS ORDERED: PNEUMOCOCCAL Polysaccharide Vaccine 25mcg/0.5mL vial/Syr IM ONE (14:45)
[2021-08-16] MEDS ORDERED: Flu Vaccine-High Dose (Fluzone-HD) PF 65+ 0.7mL SYR IM ONE (14:45)
[2021-08-16] MEDS: INSULIN ASPART PER UNIT SC SCH ×3 (14:47→20:39)
[2021-08-16] MEDS: LACTATED RINGER'S 1,000 ML IV SCH (16:17)
[2021-08-16] MEDS ORDERED: INSULIN ASPART PER UNIT SC SCH (16:30)
--- NOTE | 2021-08-16 18:25 | Electrocardiogram Report ---
Test Reason : Blood Pressure : / mmHG Vent. Rate : 085 BPM Atrial Rate : 085 BPM P-R Int : 170 ms QRS Dur : 074 ms QT Int : 372 ms P-R-T Axes : 069 060 073 degrees QTc Int : 442 ms Poor data quality, interpretation may be adversely affected Normal sinus rhythm Normal ECG When compared with ECG of 30-MAR-2021 09:56, No significant change was found Confirmed by Ru Barbosa ([id number]) on 08/16/2021 6:25:06 PM Referred By: Confirmed By:Ru Barbosa
[2021-08-16] MEDS: HEPARIN SOD 5,000 UNIT/0.5 ML VIAL SQ SCH (20:38)
[2021-08-16] MEDS: QUEtiapine FUMARATE 25 MG TABLET PO SCH (20:38)
[2021-08-16] MEDS: TAMSULOSIN HCL 0.4 MG CAP PO SCH (20:38)
[2021-08-16] MEDS ORDERED: rOPINIRole HCL 0.25 MG TABLET PO SCH (21:00)
[2021-08-16] MEDS ORDERED: GADOBUTROL 65ML VIAL IV ONE (22:07)
[2021-08-17] MEDS: LACTATED RINGER'S 1,000 ML IV SCH (04:08)
--- NOTE | 2021-08-17 07:33 | Magnetic Resonance Report ---
MR ANGIOGRAM OF THE NECK COMBO CLINICAL HISTORY: Change in mental status. COMPARISON STUDY: CT angiogram of the neck dated 01/29/2020. TECHNIQUE: Axial 3-D [id number] MR angiography of the neck is performed. Subsequently, following the IV administration of 7 cc of Gadavist. Coronal MR angiogram of the neck was performed to corrobor ate the findings. 3-D reformats are created and assessed. All measurements were calculated based on N ASCET criteria. FINDINGS: Visualized portions of the thoracic aorta are normal in caliber. The aortic arch demonstrat es standard 3-vessel anatomy. The subclavian arteries are widely patent bilaterally. The right common carotid artery is widely patent. There is greater than 75% focal stenosis at the origin of the right internal carotid artery. The remainder of the right internal carotid artery and the external carotid artery are patent. The left common carotid artery is widely patent. There is approximately 50% focal stenosis at the origin of the left internal carotid artery. The remainder of the left internal carot id artery is patent, as is the left external carotid artery. The vertebral arteries are widely patent . The vertebral arteries are codominant. The visualized intracranial vessels at the skull base appear patent. IMPRESSION: 1. There is greater than 75% focal stenosis at the origin of the right internal carotid artery. 2. There is approximately 50% focal stenosis at the origin of the left internal carotid artery. 3. These findings are similar to the 01/29/2020 CT angiogram of the neck. ACT 112: Negative or not required by law. Electronically signed by: Ayan Tate M.D. 08/17/2021 7:31 AM
--- NOTE | 2021-08-17 07:48 | Magnetic Resonance Report ---
MR brain wo con HISTORY: 70 years-old Male eval for acute stroke acutely altered mental status COMPARISON: MRA of the neck of same day, head CT 05/22/2021, brain MRI 03/19/2021 TECHNIQUE: Multiplanar multisequence MRI of the brain was obtained without the use of IV contrast. FINDINGS: No restricted diffusion to suggest acute or subacute infarct. No acute intracranial hemorrhage, midli ne shift, abnormal extra axial collection, hydrocephalus or intracranial mass identified. Senescent c alcifications of the basal ganglia. Involutional changes. Moderate T2/FLAIR hyperintensities suggesti ve of chronic microvascular ischemic disease. Chronic infarcts of the bilateral posterior cerebral ar rojelio distributions with gliosis and encephalomalacia. Chronic lacunar infarcts of the cerebellum and brainstem again noted. Cerebral venous sinuses and major arterial flow voids appear patent. Trace mastoid effusions. Mild polypoid mucosal thickening of the maxillary sinuses. The skull and sof t tissues are unremarkable. Prior bilateral lens repair. The study is mildly motion degraded. IMPRESSION: 1. No acute intracranial abnormality. No acute or subacute infarct. 2. Chronic findings as above. ACT 112: Negative or not required by law. The above report was generated using voice recognition software. It may contain grammatical, syntax o r spelling errors. Electronically signed by: Deondre Gr M.D. 08/17/2021 7:47 AM
[2021-08-17] MEDS: LOSARTAN POTASSIUM 50 MG TAB PO SCH (08:11)
[2021-08-17] MEDS: ATORVASTATIN 40 MG TAB PO SCH (08:11)
[2021-08-17] MEDS: MULTIVITAMIN TAB PO SCH (08:11)
[2021-08-17] MEDS: ESCITALOPRAM OXALATE 20 MG TAB PO SCH (08:11)
[2021-08-17] MEDS: DIPHENOXYLATE/ATROPINE 2.5/0.025MG TAB PO SCH (08:11)
[2021-08-17] MEDS: ASPIRIN 81 MG CHEW PO SCH (08:11)
[2021-08-17] MEDS: CHOLECALCIFEROL 1,000 UNITS 25 MCG TAB PO SCH (08:11)
[2021-08-17] MEDS: PANTOprazole 40 MG TAB PO SCH (08:12)
[2021-08-17] MEDS: HEPARIN SOD 5,000 UNIT/0.5 ML VIAL SQ SCH ×2 (08:12→20:42)
[2021-08-17] MEDS: ATENOLOL 50 MG TABLET PO SCH (08:12)
[2021-08-17 08:19] LABS: Hematocrit (blood only) 37.1 % (42-52); Hemoglobin 12.5 g/dL (14.0-18.0); Mean Corpuscular Hgb Conc 33.7 g/dL (32-36); Mean Corpuscular Volume 94.9 fL (80-100); Mean Platelet Volume 9.1 fL (7.4-10.4); Platelet Count 252 K/uL (130-400); RDW Coefficient of Variation 13.9 % (11.5-14.5); RDW Standard Deviation 48.4 fL (36.4-46.3); Red Blood Count 3.91 M/uL (4.7-6.1); White Blood Count 9.83 K/uL (4.8-10.8)
[2021-08-17] MEDS: INSULIN ASPART PER UNIT SC SCH ×4 (08:39→21:18)
[2021-08-17] MEDS: PATIROMER CALCIUM SORBITEX 8.4 GM PACK PO SCH (08:40)
[2021-08-17 09:10] LABS: Estimated Average Glucose 166 mg/dl; Hemoglobin A1C 7.4 % (4.5-5.6)
[2021-08-17 09:16] LABS: BUN Creatinine Ratio 18.5 (10-20); Calcium 8.6 mg/dl (8.5-10.1); Creatinine Clr Calc Pharmacy 54.1 ml/min; Est GFR (African American) 68.3 ml/min; Est GFR (Non-African American) 58.9 ml/min; Potassium 3.6 mmol/L (3.5-5.1)
--- NOTE | 2021-08-17 10:12 | Hospitalist Progress Note ---
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 History of basilar artery stenosis with infarction March 2019. Currently treated with Rocephin for possible infectious etiology (UTI). Evaluate metabolic (history of proteinuria and variable renal function) vs other. -patient seen by Dr. Hernandez, neuropsychologist, in August 2020-at that time verbal learning and memory or thought to be essentially normal. History suggested prior CVA affected visual-spatial function and deficiency with fluid tasks. -MRI of the brain 08/16/21 - no acute CVA, mass, hemorrhage. -currently being treated for possible UTI-culture pending-in negative recommend dc ceftriaxone. -evaluate proteinuria/renal function as noted below -appreciate psychiatry evaluation-discussed case with Dr. Andrews. Given clinical history suspect worsening vascular dementia with some psychosis worsened by the visual hallucinations which were related to prior CVA. Will make medication adjustments as recommended by Psychiatry. -discussed need for possible device to track for wandering with Psychiatry. This can be addressed as an outpatient. Hyperkalemia-status post treatment with patiromer, potassium now normalized, follow. Acute kidney injury with possible chronic kidney disease and history of proteinuria - Cr=1.63 on admission. Improved today. Patient has variable kidn ey function in the past. -follow renal function -discussed with Dr. Raza-24 hour urine for total protein and creatinine clearance, Anca, C3, C4, serum and urine protein electrophoresis, serum and urine immunofixation, free light chain ratio, check CPK since patient was found sitting in the yd for unknown time -pending lab results consider Nephrology consultation as an inpatient or outpatient follow-up. Restless leg syndrome-treated with ropinirole which may be affecting his behavior. Discussed changing to gabapentin with Dr. Andrews. Microscopic hematuria-urine specimen was not optimal. History of prior cigarette smoking. The patient did have outpatient cystoscopy October 2018 and was found to have meatal stricture and large bladder diverticulum- will need repeated as an outpatient. Consider workup if microscopic hematuria persists. Possible secondary hyperparathyroidism-prior intact PTH elevated, recheck laboratory. Carotid artery stenosis-CT angiogram of the neck 08/16/2021- >75% right internal carotid artery, 50% left internal carotid artery-similar to CT angiogram of the neck 01/29/2020. Followed as an outpatient by physicians at the [facility]. -continue aspirin. -[facility] Neurosurgery note recommended continuing Brilinta-will resume (pt was taking the Brilinta as an outpatient) History of CVAs-status post angioplasty and stenting of basilar artery March 2019-continue medical management. -restart Brilinta. Continue aspirin. Monitor blood pressure. History of left homonymous hemianopsia-this along with a prior CVA is likely causing the Jose Cruz Alrisa syndrome. Jose Cruz Larisa Syndrome-visual hallucinations that the patient is aware are not real. -appreciate Psychiatry input. Hypertension-continue losartan and atenolol COPD-previously treated with Advair Diskus. Patient no longer takes an inhaler. History of cigarette smoking. Asymptomatic at the present time. BPH-treated with tamsulosin. Stable at the present time. Depression-noted previously by neuropsychiatry. Continue current meds. Pending his course psychiatry noted potentially Lexapro could be decreased from 20 mg to 10 mg. This change would likely take place as an outpatient if done. Diabetes mellitus-pharmacy management at this time. A1c 7.4%. At home he is treated with glipizide and Tradjenta. The oral medications are currently on hold. History of coronary artery disease-? details-continue medical management. Hyperlipidemia-continue with high-intensity atorvastatin for now. History of colon polyps-last colonoscopy 07/15/2018-GI recommended follow-up in 2022. DVT prophylaxis-continue subcu heparin Disposition-uncertain at this time. Telephone call with patient's this afternoon. She is having difficulty caring for her at home because of his behaviors at night. She has 2 children who are supportive but have jobs in her not able to help. Plan to discuss with social service. Admission and Anticipated Discharge Date Admission Date: August 16, 2021 Subjective 70-year-old male former patient of Dr. Cat admitted with possible encephalopathy. 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 During admission to [facility] in December of 2018 he was found to have left-sided homonymous hemianopsia with bilateral occipital strokes. He has a history of progressively worsening visual hallucinations and delusions. Patient's has had a difficult time caring for the patient at home because behavior is significantly worsening over the last 4 months. The patient has not been physically aggressive with his . The patients behavior problems are at night per his . 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 Recent history is significant for episodes of agitation including damage to the inside of the home such as breaking a television and tearing apart his bedroom. On the day of admission his found him sitting in the yard for uncertain period of time. On admission patient had mild hyperkalemia. He received a dose of Patiromer. Potassium this morning normalized. The patient's chronic medical problems include hypertension, diabetes mellitus, possible chronic kidney disease with proteinuria (he has very variable renal function), BPH, hyperlipidemia, depression with anxiety This morning the patient is pleasant and is cooperative. He is answering questions appropriately. He knows that he was sitting in the yard yesterday but states he does not know why. Today he denies any chest pain or palpitations. He denies any focal neurologic complaint. He has had no fevers. He denies cough. No leg edema. No orthopnea or PND. No headache at this time. Review of Systems Review of Systems: As noted in the HPI Physical Exam Constitutional: no acute distress Eyes: EOM intact bilaterally Neck: trachea midline, no thyromegaly Respiratory: normal respiratory effort, lungs clear to auscultation Auscultation: no rales, no rhonchi and no wheezes Cardiovascular: RRR, no murmur, no edema Gastrointestinal (Abdomen): normal bowel sounds, soft, nontender, no hepatosplenomegaly Palpable hematoma left lower abdominal quadrant-this was noted previously in May 2021-see CT scan report. Musculoskeletal: no cyanosis or clubbing, extremities motor strength 5/5 Neurologic: Extraocular muscles intact, cranial nerves 2-12 intact, motor exam nonfocal. Patient is cooperative with the exam. Psychiatric: Orientation: cooperative Eye Contact: good eye contact Mood: no depressed mood, no anxious mood and no irritable mood Lymphatic: no subclavicular lymphadenopathy and no axillary lymphadenopathy Results & Data Results & Data ([facility]) Vital Signs (Past 12 Hours) Vital Signs Temp Pulse Resp BP Pulse Ox 08/17/21 08:01 97.7 F 83 18 148/66 H 98 08/16/21 22:11 99.1 F 89 18 150/81 H 93 Primary Care Results Results Primary Care Results: WBC 9.83 K/uL (4.8-10.8) 08/17/21 RBC 3.91 M/uL (4.7-6.1) L 08/17/21 Hgb 12.5 g/dL (14.0-18.0) L 08/17/21 Hct 37.1 % (42-52) L 08/17/21 MCV 94.9 fL (80-100) 08/17/21 MCH 32.0 pg (25-34) 08/17/21 MCHC 33.7 g/dL (32-36) 08/17/21 RDW Coefficient of Variation 13.9 % (11.5-14.5) 08/17/21 Plt Count 252 K/uL (130-400) 08/17/21 MPV 9.1 fL (7.4-10.4) 08/17/21 Immature Granulocyte % (Auto) 0.2 % 08/16/21 Neutrophils (%) (Auto) 92.3 % 08/16/21 Lymphocytes (%) (Auto) 5.6 % 08/16/21 INR 1.0 (0.9-1.1) 08/16/21 APTT 21.9 Seconds (21.0-31.0) 08/16/21 Na 141 mmol/L (136-145) 08/17/21 K 3.6 mmol/L (3.5-5.1) 08/17/21 Cl 109 mmol/L (98-107) H 08/17/21 CO2 25 mmol/L (21-32) 08/17/21 Anion Gap 7 (3-11) 08/17/21 BUN 23 mg/dl (6-23) 08/17/21 Creatinine 1.23 mg/dl (0.6-1.4) 08/17/21 Est Cr Clr Drug Dosing 54.1 ml/min 08/17/21 Estimated GFR ( Amer) 68.3 ml/min 08/17/21 Estimated GFR (Non-Af Amer) 58.9 ml/min 08/17/21 BUN/Creatinine Ratio 18.5 (10-20) 08/17/21 Glu 137 mg/dl (70-99) H 08/17/21 HbA1c 7.4 % (4.5-5.6) H 08/17/21 Ca 8.6 mg/dl (8.5-10.1) 08/17/21 Phosphorus Level 3.8 mg/dl (2.5-4.9) 05/26/21 Mg 1.7 mg/dl (1.7-2.4) 08/16/21 Ferritin 106.1 ng/ml (8-388) 08/17/21 Total Bilirubin 0.4 mg/dl (0.2-1.0) 08/16/21 Direct Bilirubin < 0.1 mg/dl (0-0.2) 12/10/20 AST 17 U/L (13-39) 08/16/21 ALT 19 U/L (7-52) 08/16/21 Alkaline Phosphatase 43 U/L (34-104) 08/16/21 CK 618 U/L (30-223) H 08/17/21 Total Protein 7.0 gm/dl (6.0-8.3) 08/16/21 Albumin 4.2 gm/dl (3.4-5.0) 08/16/21 Globulin 2.8 gm/dl (2.5-4.0) 08/16/21 Albumin/Globulin Ratio 1.5 (0.9-2) 08/16/21 Triglycerides 179 mg/dl (0-150) H 08/17/21 Cholesterol Level 114 mg/dl (0-200) 08/17/21 LDL Cholesterol, Calculated 33 mg/dl 08/17/21 LDL Cholesterol Direct 42 mg/dl 08/17/21 VLDL Cholesterol, Calculated 36 mg/dl 08/17/21 HDL Cholesterol 45 mg/dl 08/17/21 Cholesterol/HDL Ratio 2.5 08/17/21 Vitamin B12 415 pg/ml (211-911) 08/17/21 TSH 1.730 uIu/ml (0.300-4.500) 03/30/21 Folate > 22.30 ng/ml (>5.38) 08/17/21 PTH Intact 44.0 pg/ml (12.0-88.0) 08/17/21 PSA 2.420 ng/ml (0-4) 08/17/21 Iron 65 mcg/dl (35-175) 08/17/21 Transferrin 185 mg/dl (200-360) L 08/17/21 Urine Color Dark Yellow 08/16/21 Urine Appearance Clear (Clear) 08/16/21 Urine pH 5.0 (4.5-7.5) 08/16/21 Urine Specific [place] 1.022 (1.000-1.030) 08/16/21 Urine Protein 2+ (Negative) H 08/16/21 Urine Glucose (UA) 2+ (Negative) H 08/16/21 Urine Ketones Trace (Negative) H 08/16/21 Urine Blood Trace (Negative) H 08/16/21 Urine Nitrite Negative (Negative) 08/16/21 Urine Bilirubin Negative (Negative) 08/16/21 Urine Urobilinogen Negative (Negative) 08/16/21 Urine Leukocyte Esterase Negative (Negative) 08/16/21 Urine WBC (Auto) 1-5 /hpf (0-5) 08/16/21 Urine RBC (Auto) 5-10 /hpf (0-4) H 08/16/21 U Hyaline Casts (Auto) 1-5 /lpf (0-5) 08/16/21 U Epithelial Cells (Auto) 5-10 /lpf (0-5) H 08/16/21 Urine Bacteria (Auto) Negative (Negative) 08/16/21 Urine Yeast Not Reportable 08/16/21 Urine Protein/Creatinine Ratio 1.5 (0-0.2) H 12/05/20 Urine Microalbumin/Creatinine Ratio 849.4 mcg/mg (0-30) H 06/19/20 PG Care Time/CCT Total # of Minutes Spent Total Time Spent: 60 Total Time Spent with Patient: Total time spent is greater than 50% in coordination of care (as documented) at patient's floor/unit and/or counseling patient: Coding Level of Care Code 31017 Subseq Hosp Care Lvl 3 Diagnoses Basilar artery stenosis with infarction I63.22 CAD (coronary artery disease) I25.10 Carotid artery stenosis I65.29 Diabetes mellitus type 2, controlled, with complications E11.8 Hyperkalemia E87.5 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
[2021-08-17] MEDS: COLESTIPOL HCL 1 GM TAB PO SCH (10:20)
[2021-08-17] MEDS: cefTRIAXone SODIUM 2,000 MG in DEXTROSE 5% 50 ML IV SCH (11:10)
[2021-08-17 12:21] LABS: Chol HDL Ratio 2.5
--- NOTE | 2021-08-17 12:23 | Psychiatric Consultation ---
Date of Consultation August 17, 2021 Impression / Recommendations Impression This is a 70 yo old admitted for encephalopathy with history of vascular dementia, depression and RLS. Diagnostically consistent with encephalopathy/delirium superimposed on vascular dementia with behavioral d isturbance. Goal in dementia is to avoid medication management of behaviors if possible by maximizing non-pharmacologic strategies for behavioral management. However, given worsening agitation prior to admission and ongoing challenges antipsychotic as risk/benefit profile continues to favor treatment. Note all antipsychotic medications carry black box warning for increased risk of all- cause mortality in setting of dementia. Currently behaviorally appropriate though per discussion with his nurse confusion waxes and wanes as is consistent with delirium so potential for agitation to emerge if confusion worsens. Continue seroquel qhs for agitation. Consider adding melatonin to help with sleep, dementia with sundowning and delirium. Could consider reducing lexapro dose as side effect can be dreams and sleep behaviors. Could also consider tapering ropinorole for RLS as the dopaminergic activity may be contributing to psychosis and sleep behaviors at night. -If agitation develops consider 1-on-1, for now safe and appropriate behavior -Continue seroquel 50 mg qhs -Consider melatonin 3mg qhs -Consider discontinuing ropinirole (gabapentin would be a safer alternative for RLS) -could also consider reducing lexapro from 20mg to 10 mg in the future if symptoms persist after ropinirole is discontinued -Continue medical management to treat any underlying causes contributing to potential delirium, avoid or limit use of deliriogenic medications (benzodiazepines, opioids, anticholinergics) -Continue with delirium prevention measures: raising blinds during the day, closing at night, frequent re-orientation, contact with family/friends, explaining procedures/nursing care measures prior to physical contact, correct any hearing and visual impairments -For behavioral emergency: olanzapine 2.5 mg IM x 1 (DO NOT exceed 5mg per 24 hours, check EKG if IM dose required, NEVER co-administer with IM or IV benzodiazepines). -They do not meet criteria for inpatient psychiatric hospitalization as primary cause of current symptoms is felt to be due to delirium and/or dementia; geriatric psychiatric outpatient evaluation vs hospitalization could be considered in the future (family or PCP can self-refer to specialized geriatric psychiatric facilities) if symptoms persist after discharge even after completion of medical treatment and with medication changes (1) Restless leg syndrome: (2) Vascular dementia with behavior disturbance: (3) Encephalopathy acute: see impression above Risk Factors Assessment Do You Have Access To A Gun?: No Psych History Identifying Data 70 yo man with history of vascular dementia, CVAs, holden syndrome with cortical blindness and history of depression who was admitted medically for encephalopathy after wandering outside in the cold and developing hypothermia. Psychiatry consulted for recommendations regarding agitation/dementia. Chief Complaint "I fall asleep and start dreaming and then I begin wandering after I wake up to use the bathroom but I'm still dreaming and think people are there who aren't and I wander sometimes". History of Present Illness Steve presents for encephalopathy with history of vascular dementia and cortical blindness following prior CVA. Per chart review and his report he has a history of depression on lexapro, hx restless leg syndrome on ropinirole, and hx of agitation associated with vascular dementia on seroquel. Over the last few months he's experienced worsened agitation at night including tearing apart his bedroom and breaking a TV. Last night he reports he must have wandered outside while in a dream-like state after getting up to use the bathroom. He states he often gets confused at night and thinks he's getting trapped in the bathroom or can't find the right door and becomes frightened then gets angry and agitated. He believes last night he somehow found his way outside as his found him in the front yard and he was only wearing a T-shirt, flannel PJ pants and socks. Psychiatric ROS notable for history of depression and worsening confusion with periods of visual hallucinations and sometimes hears his saying things at night since stroke and cortical blindness but states he has never heard command AH. No history of suicide attempts. No hx psych hospitalization. No access to guns. Currently endorses stable mood, making jokes at times appropriately, insightful about events prior to hospitalization and recent behaviors. Oriented to hospital ([facility]), month, year, city and reason for admission. Per discussion with RN he has been behaviorally appropriate since admission. Confused at times but remains pleasant. Past Psychiatric History Outpatient Services: outpt psychiatrist helping with dementia with behaviors Previous Psych Admissions: n/a Do You Have Access To A Gun?: No History of Previous Suicide Attempt: No Allergies Allergy/AdvReac Type Severity Reaction Status Date / Time Tetanus Vaccines and Toxoid AdvReac Mild "TETANUS Verified 08/16/21 11:56 SHOT" - FEVER Home Medications Medication Instructions Recorded Confirmed Type multivitamin (Daily Multi-Vitamin) 1 tab PO QAM 07/06/18 08/16/21 History cholecalciferol (vitamin D3) 50 2,000 unit PO QAM 08/31/18 08/16/21 History mcg (2,000 unit) tablet (Vitamin D3) aspirin 81 mg chewable tablet 81 mg PO QAM 01/29/20 08/16/21 History (Selvin Chewable Low Dose Aspirin) atenolol 50 mg tablet 50 mg PO QAM #90 tab 09/25/20 08/16/21 Rx linagliptin 5 mg tablet (Tradjenta) 5 mg PO HS #90 tab 02/26/21 08/16/21 Rx escitalopram oxalate 20 mg tablet 20 mg PO QAM 03/30/21 08/16/21 History (Lexapro) glipizide 10 mg tablet (Glucotrol) 10 mg PO .AC BID 03/30/21 08/16/21 History acetaminophen 500 mg tablet 500 mg PO Q6H PRN 05/22/21 08/16/21 History (Tylenol Extra Strength) quetiapine 50 mg tablet (Seroquel) 50 mg PO HS #90 tab 05/30/21 08/16/21 Rx blood sugar diagnostic (OneTouch #100 ea 05/31/21 Rx Ultra Test) tamsulosin 0.4 mg capsule (Flomax) 0.4 mg PO HS #90 cap 06/05/21 08/16/21 Rx losartan 100 mg tablet (Cozaar) 100 mg PO QAM #90 tab 06/13/21 08/16/21 Rx atorvastatin 80 mg tablet (Lipitor) 80 mg PO QAM #90 tab 06/20/21 08/16/21 Rx ticagrelor 60 mg tablet (Brilinta) 60 mg PO BID #180 tab 07/04/21 08/16/21 Rx lorazepam 0.5 mg tablet (Ativan) 0.5 mg PO HS PRN #135 tab 08/06/21 08/16/21 Rx ropinirole 0.25 mg tablet 0.25 mg PO HS #90 tab 08/06/21 08/16/21 Rx calcium polycarbophil 625 mg 625 mg PO DAILY 08/16/21 08/16/21 History tablet (Fiber (calcium polycarbophil)) desonide 0.05 % topical cream 1 applic TOPICAL DIRECTED PRN 08/16/21 08/16/21 History fluticasone 100 mcg-salmeterol 50 1 inh INHALATION BID 08/16/21 08/16/21 History mcg/dose blistr powdr for inhalation (Advair Diskus) Personal History Living Arrangements: Home (with ) Beliefs That Will Affect Care: None Patient History Medical History (Updated 08/17/21 @ 12:14 by Lucila Andrews MD) Acute CVA (cerebrovascular accident) december 2018 x3; february 2019 x2; March 2019 x2 -- generalized weakness, unstable and poor depth perception. follows with Neurology [facility] (Dr. Stef Zavaleta) Anxiety Asthma DOES NOT USE AN INHALER Barretts esophagus Basal cell carcinoma of face BPH (benign prostatic hyperplasia) Chronic obstructive pulmonary disease STABLE>NO INHALER CKD (chronic kidney disease), stage II Depression Diabetes mellitus, type 2 NIDDM Diabetic retinopathy Fall GERD (gastroesophageal reflux disease) Hearing loss Hematoma of abdominal wall History of poliomyelitis Hyperlipidemia Hypertension Hypertensive retinopathy of left eye IBS (irritable bowel syndrome) POSSIBLE Restless leg syndrome Sleep apnea NO DEVICE Vascular dementia with behavior disturbance Surgical History History of basal cell carcinoma excision History of colonoscopy (~07/15/18) History of cystoscopy History of esophagogastroduodenoscopy (EGD) History of right inguinal hernia repair History of tooth extraction S/P arterial stent "small artery in the brain" [facility] March 2019 s/p multiple strokes Family History Sister Family history of diabetes mellitus 2 Colorectal cancer Father Family history of lung cancer Mother Family history of adrenal cancer Other No family history of adverse response to anesthesia Denies family history of Ovarian cancer Prostate cancer Myocardial infarction Breast cancer Social History Smoking Status: Former smoker Tobacco Type: Cigarettes Age Quit Using Tobacco: 51; packs per day: 1; Years Smoked: 30; Second Hand Exposure: No; Hx Alcohol Use: Yes Alcohol type: hard liquor Hx Substance Use: No Preferred Language: Czech Communication Ability: Effective Visual Impairment: No Limitations Hearing Ability: Normal Online Education Manager Required: No Beliefs That Will Affect Care: None marital status: Current Living Situation: Spouse current occupational status: retired 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 Feels Safe at Home: Yes Safety Concerns: Feels Safe At This Time Childhood Exposure to Second-Hand Smoke: Yes caffeine: Yes during the past year weight has: remained stable Dental Care, Regularly: Yes Physical Activity Frequency: Daily Seatbelt Use: always Sunscreen Use: Yes Assistive Devices: Walker Physical Exam Psychiatric: Orientation: alert and oriented x 3 Apperance: appropriately dressed and appropriately groomed Eye Contact: good eye contact Motor Behavior: no abnormal motor movements Speech: normal rate/rhythm/volume of speech Affect: euthymic affect Mood: no depressed mood, no anxious mood and no irritable mood Thought Process: goal directed thought process Thought Content: reality based without delusions Suicidal Thoughts: denies suicidal thoughts Homicidal Thoughts: denies homicidal thoughts Hallucinations: no auditory hallucinations and no visual hallucinations Cognition: recent memory grossly intact, remote memory grossly intact, attention grossly intact and language grossly intact Estimated Intelligence: consistent with education level Insight: + fair insight Judgement: + impaired judgement Vital Signs (Past 24 Hours): Last Vital Signs Temp 36.5 C 08/17/21 08:01 Pulse 83 08/17/21 08:01 Resp 18 08/17/21 08:01 BP 148/66 H 08/17/21 08:01 Pulse Ox 98 08/17/21 08:01 Review of Systems All systems reviewed & are unremarkable except as noted in HPI & below Results & Data (PSY) Medications Administered Aspirin (Aspirin 81 Mg Chew) 81 mg PO [facility] Stop: 09/16/21 08:59 Last Admin: 08/17/21 08:11 Dose: 81 mg Documented by: [id number] Atenolol (Atenolol 50 Mg Tablet) 50 mg PO [facility] Stop: 09/16/21 08:59 Last Admin: 08/17/21 08:12 Dose: 50 mg Documented by: [id number] Atorvastatin Calcium ([facility]vastatin 40 Mg Tab) [facility] [place]: 09/16/21 08:59 Last Admin: 08/17/21 08:11 Dose: 80 mg Documented by: [id number] Colestipol HCl (Colestipol Hcl 1 Gm Tab) 2 gm PO DAILY@1100 [facility] Stop: 09/16/21 10:59 Last Admin: 08/17/21 10:20 Dose: 2 gm Documented by: [id number] Diphenoxylate HCl/Atropine (Diphenoxylate/Atropine 2.5/0.025mg Tab) 1 tab PO [facility] Stop: 09/16/21 08:59 Last Admin: 08/17/21 08:11 Dose: 1 tab Documented by: [id number] Escitalopram Oxalate (Escitalopram Oxalate 20 Mg Tab) 20 mg PO [facility] Stop: 09/16/21 08:59 Last Admin: 08/17/21 08:11 Dose: 20 mg Documented by: [id number] Heparin Sodium (Porcine) (Heparin Sod 5,000 Unit/0.5 Ml Vial) 5,000 units SQ Q12 [facility] Stop: 09/15/21 20:59 Last Admin: 08/17/21 08:12 Dose: 5,000 units Documented by: [id number] Admin: 08/16/21 20:38 Dose: 5,000 units Documented by: [id number] Ceftriaxone Sodium 2,000 mg/ (Dextrose) 50 mls @ 100 mls/hr IV Q24H [facility]; Protocol Stop: 08/22/21 11:59 Last Infusion: 08/17/21 11:35 Dose: 0 mls/hr Documented by: [id number] Admin: 08/17/21 11:10 Dose: 100 mls/hr Documented by: [id number] Lactated Ringer's (Lr) 1,000 mls @ 80 mls/hr IV .[id number] [facility] Stop: 08/17/21 14:18 Last Infusion: 08/17/21 11:34 Dose: 0 mls/hr Documented by: [id number] Admin: 08/17/21 04:08 Dose: 80 mls/hr Documented by: [id number] Infusion: 08/17/21 04:08 Dose: 80 mls/hr Documented by: [id number] Admin: 08/16/21 16:17 Dose: 80 mls/hr Documented by: [id number] Insulin Aspart (Insulin Aspart Per Unit) 0 units SC ACHS [facility] Stop: 09/15/21 14:29 Last Admin: 08/17/21 08:39 Dose: 5 units Documented by: [id number] Cosigned by: [id number] Admin: 08/16/21 20:39 Dose: Not Given Documented by: [id number] Admin: 08/16/21 17:52 Dose: 3 units Documented by: [id number] Cosigned by: [id number] Admin: 08/16/21 14:47 Dose: 6 units Documented by: [id number] Cosigned by: [id number] Losartan Potassium (Losartan Potassium 50 Mg Tab) 100 mg PO QAM [facility] Stop: 09/16/21 08:59 Last Admin: 08/17/21 08:11 Dose: 100 mg Documented by: [id number] Miscellaneous (Order Awaiting Action [Ticagrelor [Brilinta] 60 Mg Tablet)]) 1 ea N/A QS [facility] Stop: 09/15/21 15:59 Last Admin: 08/17/21 07:40 Dose: Not Given Documented by: [id number] Admin: 08/17/21 00:14 Dose: Not Given Documented by: [id number] Admin: 08/16/21 16:20 Dose: Not Given Documented by: [id number] Multivitamins (Multivitamin Tab) 1 tab PO [facility] Stop: 09/16/21 08:59 Last Admin: 08/17/21 08:11 Dose: 1 tab Documented by: [id number] Pantoprazole Sodium (Pantoprazole 40 Mg Tab) 40 mg PO [facility] Stop: 09/16/21 08:59 Last Admin: 08/17/21 08:12 Dose: 40 mg Documented by: [id number] Patiromer (Patiromer Calcium Sorbitex 8.4 Gm Pack) 8.4 gm PO DAILY [facility] Stop: 09/16/21 08:59 Last Admin: 08/17/21 08:40 Dose: 8.4 gm Documented by: [id number] Quetiapine Fumarate (Quetiapine Fumarate 25 Mg Tablet) 50 mg PO [facility] Stop: 09/15/21 20:59 Last Admin: 08/16/21 20:38 Dose: 50 mg Documented by: [id number] Ropinirole HCl (Ropinirole Hcl 0.25 Mg Tablet) 0.25 mg PO [facility] Stop: 09/15/21 20:59 Last Admin: 08/16/21 20:38 Dose: 0.25 mg Documented by: [id number] Tamsulosin HCl (Tamsulosin Hcl 0.4 Mg Cap) 0.4 mg PO [facility] Stop: 09/15/21 20:59 Last Admin: 08/16/21 20:38 Dose: 0.4 mg Documented by: [id number] Vitamin D (Cholecalciferol 1,000 Units 25 Mcg Tab) 2,000 units PO QAM [facility] Stop: 09/16/21 08:59 Last Admin: 08/17/21 08:11 Dose: 2,000 units Documented by: [id number] Coding Level of Care Code 41509 Inpt Consult Level 3 Diagnoses Restless leg syndrome G25.81 Vascular dementia with behavior disturbance F01.51 Encephalopathy acute G93.40
[2021-08-17 12:34] LABS: Ferritin 106.1 ng/ml (8-388)
[2021-08-17 12:53] LABS: Folate (Folic Acid) > 22.30 ng/ml (>5.38)
[2021-08-17 12:54] LABS: Vitamin B12 415 pg/ml (211-911)
[2021-08-17] MEDS: MELATONIN 3 MG TAB PO SCH (20:41)
[2021-08-17] MEDS: BRILINTA 60 MG PO SCH (20:41)
[2021-08-17] MEDS: GABAPENTIN 100 MG CAP PO SCH (20:43)
[2021-08-17] MEDS: TAMSULOSIN HCL 0.4 MG CAP PO SCH (20:43)
[2021-08-17] MEDS: QUEtiapine FUMARATE 25 MG TABLET PO SCH (20:44)
[2021-08-17] MEDS: ACETAMINOPHEN 325 MG TAB PO PRN (21:20)
[2021-08-18] MEDS: MULTIVITAMIN TAB PO SCH (08:33)
[2021-08-18] MEDS: ATORVASTATIN 40 MG TAB PO SCH (08:33)
[2021-08-18] MEDS: ESCITALOPRAM OXALATE 20 MG TAB PO SCH (08:33)
[2021-08-18] MEDS: DIPHENOXYLATE/ATROPINE 2.5/0.025MG TAB PO SCH (08:33)
[2021-08-18] MEDS: ASPIRIN 81 MG CHEW PO SCH (08:33)
[2021-08-18] MEDS: LOSARTAN POTASSIUM 50 MG TAB PO SCH (08:33)
[2021-08-18] MEDS: CHOLECALCIFEROL 1,000 UNITS 25 MCG TAB PO SCH (08:33)
[2021-08-18] MEDS: PANTOprazole 40 MG TAB PO SCH (08:33)
[2021-08-18] MEDS: BRILINTA 60 MG PO SCH ×2 (08:34→20:23)
[2021-08-18] MEDS: ATENOLOL 50 MG TABLET PO SCH (08:34)
[2021-08-18] MEDS: HEPARIN SOD 5,000 UNIT/0.5 ML VIAL SQ SCH ×2 (08:37→20:26)
[2021-08-18] MEDS: INSULIN ASPART PER UNIT SC SCH ×4 (08:40→21:30)
[2021-08-18 09:39] LABS: Hematocrit (blood only) 40.4 % (42-52); Hemoglobin 13.5 g/dL (14.0-18.0); Mean Corpuscular Hemoglobin 31.8 pg (25-34); Mean Corpuscular Hgb Conc 33.4 g/dL (32-36); Mean Corpuscular Volume 95.3 fL (80-100); Mean Platelet Volume 9.6 fL (7.4-10.4); Platelet Count 271 K/uL (130-400); RDW Standard Deviation 49.1 fL (36.4-46.3); Red Blood Count 4.24 M/uL (4.7-6.1)
[2021-08-18 09:40] LABS: Base Excess VBG -0.3 mEq/L; pH VBG 7.36 (7.36-7.41)
[2021-08-18 10:12] LABS: Calcium 8.7 mg/dl (8.5-10.1); Creatinine Clr Calc Pharmacy 53.3 ml/min; Est GFR (Non-African American) 57.8 ml/min; Potassium 3.7 mmol/L (3.5-5.1)
[2021-08-18 10:21] LABS: Lyme Ab IgG w/WB Rflx Negative (Negative); Lyme Ab IgM w/WB Rflx Negative (Negative)
[2021-08-18] MEDS: PATIROMER CALCIUM SORBITEX 8.4 GM PACK PO SCH (10:50)
[2021-08-18] MEDS: COLESTIPOL HCL 1 GM TAB PO SCH (11:22)
[2021-08-18 12:33] LABS: Patient Weight 77.9 kg
[2021-08-18] MEDS: cefTRIAXone SODIUM 2,000 MG in DEXTROSE 5% 50 ML IV SCH (13:08)
[2021-08-18 14:33] LABS: Urine Creatinine 62.6 mg/dl; Urine Total Protein 65.2 mg/dl
[2021-08-18 15:27] LABS: Creatinine 24 Hour Urine 0.7 gm/24 HR (0.6-2.5); Total Protein 24 Hour Urine 749.8 mg/24 Hr (0-149.1)
--- NOTE | 2021-08-18 16:44 | Hospitalist Progress Note ---
Date of Service August 18, 2021 Assessment & Plan (1) Sleep disturbance: Plan: - in talking with the and the patient, I suspect that patient is experiencing an underlying sleep behavioral disorder--> sleep walking with confusional arounsals - per the 's accords, seems awake but wandering at night and smashing TV/destroyed his room and then found outside. When he "comes to", he's aware of these event - patient does take Requip, SSRI and Seroquel-- which per up-to-date, may not be the best mediations for this type of disturbance - suspect would likely benefit from a dedicated sleep study (which can not be facilitated as an IP) - will reach out to Dr. Cardenas for added recommendations Had metabolic work-up for altered mental status but does not seem to be the case. - Thus far, urine culture showing no growth. Stop antibiotics - no signs of infection (WBC normal, CXR negative, BS NGTD) - MRI of the brain showing no acute pathology - MRA of the nexk with > 75% R ICA and 50% stenosis of the L ICA-- unchanged from 01/21 (on DAPT) - TSH normal at 1.5 - B12 aceptable at 415 - ammonia normal at 25 - vitamin d pending - RPR pending - VBG: normal-- no hypercapnia (2) COPD (chronic obstructive pulmonary disease): Plan: Does not appear to be in an acute exacerbation - continue advair as prior to hospitalization (3) Basilar artery stenosis with infarction: Plan: MRA of the neck performed and stable from 01/21 Continue dual antiplatelet therapy and statin therapy as prior to hospitalization (4) Restless leg syndrome: Plan: - on requip (but this may need changed as per up-to-date, not ideal with underlying sleep disturbance). - will plan to reach out to sleep Doctor (5) Type 2 diabetes mellitus with chronic kidney disease and hypertension: Plan: - Prescribed glipizide which is currently on hold - Monitor blood sugars and continue sliding scale coverage with correction dosing (6) Depression with anxiety: Plan: Continue Lexapro as prior to hospitalization but again this may need transitioned Plan: - At this point, there are safety concerns with patient being discharged home given underlying sleep disturbance - Case management on board and looking into placement as struggling to provide care at home given his wandering. In addition, there are physical safety concerns as he has become more combative overnight likely due to this underlying sleep disturbance - We will reach out to Dr. Cardenas. Appreciate his recommendations--> likely needs a dedicated sleep study Admission and Anticipated Discharge Date Admission Date: August 18, 2021 Subjective Patient seen on daily rounds today. Awake, alert-- answering all of my questions appropriately. Annoyed/agitated with questions but answers them and cooperative. Spoke with his who reports that this has been an ongoing issue. He has been having "spells" overnight that describes as sleep walking. He has his own bedroom with alarms on the door. awoke and noticed that his bedroom door was open but he was not in the bed or the house. She found the deadbolt on the front door to be broken and the patient was sitting out in the yard (in 29 degree temperature). She was unable to get him up and she reports that "he didn't seem to understand what he had done". A few days prior, he had "destroyed his room" overnight. Smashed his TV, the martinez, etc. The following morning, he was unaware that he had done this. reports that he wanders and she is concerned it his (as well as her) safety. Review of Systems Review of Systems: All systems reviewed and are unremarkable except as noted in HPI and below Denies fevers, chills, headache, nasal congestion, sore throat, cough, chest pain, shortness of breath, palpitations, orthopnea, PND, abdominal pain, nausea, vomiting, diarrhea, constipation, dysuria, hematuria, frequency, back pain, joint pain or swelling, easy bruising or bleeding, skin lesions or rashes. Physical Exam Physical Exam: General: Resting comfortably in his hospital bed. Answers all questions appropriately but easily agitated/annoyed. NAD. HEENT: Head is AT/NC buccal mucosa is moist and pink Neck: No JVD. Negative hepatojugular reflex Cardiac: RRR Lungs: CTA without W/R/R Abdomen: Normoactive X4. Soft and nontender in all quadrants. Extremities: No peripheral clubbing cyanosis or edema Neuro: A&O X4. cranial nerves II through XII are grossly intact no focal neuro deficits Skin: No obvious skin lesions or rashes Psych: Appropriate affect pleasant and cooperative Results & Data Results & Data ([facility]) Vital Signs (Past 12 Hours) Vital Signs Temp Pulse Resp BP Pulse Ox 08/18/21 15:34 36.8 C 73 18 139/72 94 08/18/21 08:13 36.9 C 74 18 157/89 H 94 Laboratory Results 08/18/21 08:47 08/18/21 08:47 TSH: 1.514 08/18/21 09:18 VBG pH 7.36 VBG pCO2 46 VBG pO2 40 VBG HCO3 25 VBG O2 Saturation 72.0 VBG Base Excess -0.3 B12: 415 PG Care Time/CCT Total # of Minutes Spent Total Time Spent with Patient: Total time spent is greater than 50% in coordination of care (as documented) at patient's floor/unit and/or counseling patient: Coding Level of Care Code 59436 Subseq Hosp Care Lvl 2 Diagnoses Sleep disturbance G47.9 COPD (chronic obstructive pulmonary disease) J44.9 Basilar artery stenosis with infarction I63.22 Restless leg syndrome G25.81 Type 2 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
[2021-08-18] MEDS: MELATONIN 3 MG TAB PO SCH (20:22)
[2021-08-18] MEDS: ACETAMINOPHEN 325 MG TAB PO PRN ×2 (20:22→20:26)
[2021-08-18] MEDS: QUEtiapine FUMARATE 25 MG TABLET PO SCH (20:24)
[2021-08-18] MEDS: GABAPENTIN 100 MG CAP PO SCH (20:24)
[2021-08-18] MEDS: TAMSULOSIN HCL 0.4 MG CAP PO SCH (20:24)
[2021-08-19 06:23] LABS: Basophils # (auto) 0.02 K/uL (0-0.2); Basophils % (auto) 0.3 %; Eosinophils # (auto) 0.35 K/uL (0-0.5); Eosinophils % (auto) 4.8 %; Hemoglobin 12.5 g/dL (14.0-18.0); Immature Granulocytes # (auto) 0.01 K/uL (0.00-0.02); Immature Granulocytes % (auto) 0.1 %; Lymphocytes # (auto) 1.58 K/uL (1.2-3.4); Lymphocytes % (auto) 21.7 %; Mean Corpuscular Hemoglobin 31.5 pg (25-34); Mean Corpuscular Hgb Conc 32.9 g/dL (32-36); Mean Corpuscular Volume 95.7 fL (80-100); Mean Platelet Volume 9.5 fL (7.4-10.4); Monocytes # (auto) 0.77 K/uL (0.11-0.59); Monocytes % (auto) 10.6 %; Neutrophils # (auto) 4.54 K/uL (1.4-6.5); Neutrophils % (auto) 62.5 %; Platelet Count 254 K/uL (130-400); RDW Coefficient of Variation 13.5 % (11.5-14.5); RDW Standard Deviation 47.4 fL (36.4-46.3); Red Blood Count 3.97 M/uL (4.7-6.1); White Blood Count 7.27 K/uL (4.8-10.8)
[2021-08-19 06:46] LABS: Albumin Globulin Ratio 1.3 (0.9-2); Albumin Level 3.5 gm/dl (3.4-5.0); Bilirubin,Total 0.3 mg/dl (0.2-1.0); Calcium 8.5 mg/dl (8.5-10.1); Creatinine Clr Calc Pharmacy 50.5 ml/min; Est GFR (African American) 62.8 ml/min; Est GFR (Non-African American) 54.2 ml/min; Globulin 2.6 gm/dl (2.5-4.0); Magnesium 1.7 mg/dl (1.7-2.4); Potassium 3.6 mmol/L (3.5-5.1); Total Protein 6.1 gm/dl (6.0-8.3)
[2021-08-19] MEDS: ASPIRIN 81 MG CHEW PO SCH (08:41)
[2021-08-19] MEDS: DIPHENOXYLATE/ATROPINE 2.5/0.025MG TAB PO SCH (08:42)
[2021-08-19] MEDS: ATENOLOL 50 MG TABLET PO SCH (08:42)
[2021-08-19] MEDS: CHOLECALCIFEROL 1,000 UNITS 25 MCG TAB PO SCH (08:42)
[2021-08-19] MEDS: ATORVASTATIN 40 MG TAB PO SCH (08:43)
[2021-08-19] MEDS: MULTIVITAMIN TAB PO SCH (08:43)
[2021-08-19] MEDS: ESCITALOPRAM OXALATE 20 MG TAB PO SCH (08:44)
[2021-08-19] MEDS: LOSARTAN POTASSIUM 50 MG TAB PO SCH (08:44)
[2021-08-19] MEDS: BRILINTA 60 MG PO SCH ×2 (08:45→21:21)
[2021-08-19] MEDS: HEPARIN SOD 5,000 UNIT/0.5 ML VIAL SQ SCH ×2 (08:46→21:22)
[2021-08-19] MEDS: INSULIN ASPART PER UNIT SC SCH ×4 (08:51→22:00)
[2021-08-19] MEDS: PANTOprazole 40 MG TAB PO SCH (08:54)
--- NOTE | 2021-08-19 09:22 | Hospitalist Progress Note ---
Date of Service August 19, 2021 Assessment & Plan (1) Sleep disturbance: Plan: - in talking with the and the patient, I suspect that patient is experiencing an underlying sleep behavioral disorder--> sleep walking with confusional arousals/REM sleep disturbance - per the 's accords, seems awake but wandering at night and smashing TV/destroyed his room and then found outside. When he "comes to", he's aware of these event - patient does take Requip, SSRI and Seroquel-- which per up-to-date, may not be the best mediations for this type of disturbance - suspect would likely benefit from a dedicated sleep study (which can not be facilitated as an IP) - will reach out to Dr. Cardenas (Sleep Medicine) for added recommendations regarding medication changes in the interim Had metabolic work-up for altered mental status but does not seem to be the case. - Thus far, urine culture showing no growth (Rocephin started upfront but stopped 08/18) - no signs of infection (WBC normal, CXR negative, BS NGTD) - MRI of the brain showing no acute pathology - MRA of the neck with > 75% R ICA and 50% stenosis of the L ICA-- unchanged from 01/21 (on DAPT) - TSH normal at 1.5 - B12 acceptable at 415 - ammonia normal at 25 - vitamin d low at 21.1--> likely not causative factor in above but needed for brain support. Start supplementation - RPR pending - VBG: normal-- no hypercapnia (2) COPD (chronic obstructive pulmonary disease): Plan: Does not appear to be in an acute exacerbation - continue advair as prior to hospitalization (3) Basilar artery stenosis with infarction: Plan: MRA of the neck performed and stable from 01/21 Continue dual antiplatelet therapy and statin therapy as prior to hospitalization (4) Restless leg syndrome: Plan: - on requip (but this may need changed as per up-to-date, not ideal with underlying sleep disturbance). 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 In addition, there are physical safety concerns as he has become more combative overnight likely due to this underlying sleep disturbance - We will reach out to Dr. Cardenas. Appreciate his recommendations--> likely needs a dedicated sleep study Admission and Anticipated Discharge Date Admission Date: August 18, 2021 Subjective Patient seen on daily rounds today. Pleasant. Denies fevers, chills, chest pain, shortness of breath, abdominal pain, nausea or vomiting. Review of Systems Review of Systems: All systems reviewed and are unremarkable except as noted in HPI and below Denies fevers, chills, headache, nasal congestion, sore throat, cough, chest pain, shortness of breath, palpitations, orthopnea, PND, abdominal pain, nausea, vomiting, diarrhea, constipation, dysuria, hematuria, frequency, back pain, joint pain or swelling, easy bruising or bleeding, skin lesions or rashes. Physical Exam Physical Exam: General: Resting comfortably in his hospital bed. Answers all questions appropriately but easily agitated/annoyed. NAD. HEENT: Head is AT/NC buccal mucosa is moist and pink Neck: No JVD. Negative hepatojugular reflex Cardiac: RRR Lungs: CTA without W/R/R Abdomen: Normoactive X4. Soft and nontender in all quadrants. Extremities: No peripheral clubbing cyanosis or edema Neuro: A&O X4. cranial nerves II through XII are grossly intact no focal neuro deficits Skin: No obvious skin lesions or rashes Psych: Appropriate affect pleasant and cooperative Results & Data Results & Data ([facility]) Vital Signs (Past 12 Hours) Vital Signs Temp Pulse Resp BP Pulse Ox 08/19/21 08:33 72 147/88 H 08/19/21 08:08 36.4 C L 67 18 168/80 H 08/18/21 23:27 36.5 C 79 16 133/76 94 Laboratory Results 08/19/21 05:15 08/19/21 05:15 PG Care Time/CCT Total # of Minutes Spent Total Time Spent with Patient: Total time spent is greater than 50% in coordination of care (as documented) at patient's floor/unit and/or counseling patient: Coding Level of Care Code 33493 Subseq Hosp Care Lvl 1 Diagnoses Sleep disturbance G47.9 COPD (chronic obstructive pulmonary disease) J44.9 Basilar artery stenosis with infarction I63.22 Restless leg syndrome G25.81 Type 2 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
[2021-08-19] MEDS: PATIROMER CALCIUM SORBITEX 8.4 GM PACK PO SCH ×2 (11:52→16:25)
[2021-08-19] MEDS: COLESTIPOL HCL 1 GM TAB PO SCH (11:53)
[2021-08-19] MEDS: MELATONIN 3 MG TAB PO SCH (21:20)
[2021-08-19] MEDS: ACETAMINOPHEN 325 MG TAB PO PRN (21:20)
[2021-08-19] MEDS: QUEtiapine FUMARATE 25 MG TABLET PO SCH (21:21)
[2021-08-19] MEDS: GABAPENTIN 100 MG CAP PO SCH (21:21)
[2021-08-19] MEDS: TAMSULOSIN HCL 0.4 MG CAP PO SCH (21:21)
[2021-08-20] MEDS: ACETAMINOPHEN 325 MG TAB PO PRN (01:35)
[2021-08-20 06:21] LABS: Hematocrit (blood only) 41.9 % (42-52); Hemoglobin 13.9 g/dL (14.0-18.0); Mean Corpuscular Hemoglobin 31.7 pg (25-34); Mean Corpuscular Hgb Conc 33.2 g/dL (32-36); Mean Corpuscular Volume 95.4 fL (80-100); Mean Platelet Volume 9.5 fL (7.4-10.4); Platelet Count 280 K/uL (130-400); RDW Coefficient of Variation 13.6 % (11.5-14.5); Red Blood Count 4.39 M/uL (4.7-6.1); White Blood Count 6.39 K/uL (4.8-10.8)
[2021-08-20 06:43] LABS: BUN Creatinine Ratio 18.5 (10-20); Creatinine Clr Calc Pharmacy 49.7 ml/min; Est GFR (African American) 61.6 ml/min; Est GFR (Non-African American) 53.2 ml/min; Potassium 3.7 mmol/L (3.5-5.1)
[2021-08-20] MEDS ORDERED: CHOLECALCIFEROL 1,000 UNITS 25 MCG TAB PO SCH (09:00)
[2021-08-20] MEDS: INSULIN ASPART PER UNIT SC SCH ×4 (09:02→21:20)
[2021-08-20] MEDS: ATORVASTATIN 40 MG TAB PO SCH (09:03)
[2021-08-20] MEDS: DIPHENOXYLATE/ATROPINE 2.5/0.025MG TAB PO SCH (09:03)
[2021-08-20] MEDS: HEPARIN SOD 5,000 UNIT/0.5 ML VIAL SQ SCH ×2 (09:03→21:19)
[2021-08-20] MEDS: PANTOprazole 40 MG TAB PO SCH (09:03)
[2021-08-20] MEDS: ASPIRIN 81 MG CHEW PO SCH (09:03)
[2021-08-20] MEDS: MULTIVITAMIN TAB PO SCH (09:03)
[2021-08-20] MEDS: LOSARTAN POTASSIUM 50 MG TAB PO SCH (09:03)
[2021-08-20] MEDS: ESCITALOPRAM OXALATE 20 MG TAB PO SCH (09:03)
[2021-08-20] MEDS: BRILINTA 60 MG PO SCH ×2 (09:04→21:20)
[2021-08-20] MEDS: ATENOLOL 50 MG TABLET PO SCH (09:04)
[2021-08-20] MEDS: CHOLECALCIFEROL 1,000 UNITS 25 MCG TAB PO SCH (10:02)
--- NOTE | 2021-08-20 10:28 | Hospitalist Progress Note ---
Date of Service August 20, 2021 Assessment & Plan (1) Sleep disturbance: Plan: - in talking with the and the patient, I suspect that patient is experiencing an underlying sleep behavioral disorder--> sleep walking with confusional arousals/REM sleep disturbance - per the 's accords, seems awake but wandering at night and smashing TV/destroyed his room and then found outside. When he "comes to", he's aware of these event - Requip has already been transitioned to Neurontin as recommended by psych. Requip not recommended and underlying sleep disturbances. Remains on SSRI which is also to be used with caution and sleep disturbances. Will need to follow-up with sleep physician - suspect would likely benefit from a dedicated sleep study (which can not be facilitated as an IP) Had metabolic work-up for altered mental status but does not seem to be the case. - Thus far, urine culture showing no growth (Rocephin started upfront but stopped 08/18) - no signs of infection (WBC normal, CXR negative, BS NGTD) - MRI of the brain showing no acute pathology - MRA of the neck with > 75% R ICA and 50% stenosis of the L ICA-- unchanged from 01/21 (on DAPT) - TSH normal at 1.5 - B12 acceptable at 415 - ammonia normal at 25 - vitamin d low at 21.1--> likely not causative factor in above but needed for brain support. Start supplementation - RPR pending - VBG: normal-- no hypercapnia - at this point, There are safety concerns for D/C to home (as outlined below)-- looking into placement (personal care facility) (2) COPD (chronic obstructive pulmonary disease): Plan: Does not appear to be in an acute exacerbation - continue advair as prior to hospitalization (3) Basilar artery stenosis with infarction: Plan: MRA of the neck performed and stable from 01/21 Continue dual antiplatelet therapy and statin therapy as prior to hospitalization (4) Restless leg syndrome: Plan: - was on requip (but this may need changed as per up-to-date, not ideal with underlying sleep disturbance)--> since changed to Neurontin as per psych - Dr. Cardenas (sleep Physician) does not do IP consults (and really, no reason to be seen as an IP). 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: Plan: - Prescribed glipizide which is currently on hold - Monitor blood sugars and continue sliding scale coverage with correction dosin g (6) Depression with anxiety: Plan: Continue Lexapro as prior to hospitalization but again this may need transitioned (7) Hyperkalemia: Plan: - 5.6 upon presentation to the ED - Treated with 1 dose of Veltassa and subsequent potassium levels have been within normal limits - Exact etiology unclear but does take ARB routinely - Will need routine monitoring Plan: - At this point, there are safety concerns with patient being discharged home given underlying sleep disturbance - Case management on board and looking into placement (personal care) as struggling to provide care at home given his wandering. In addition, there are physical safety concerns as he has become more combative overnight likely due to this underlying sleep disturbance - to se Dr. Cardenas as an OP--> likely needs a dedicated sleep study Admission and Anticipated Discharge Date Admission Date: August 18, 2021 Subjective Patient seen on daily rounds today. Pleasant. Denies fevers, chills, chest pain, shortness of breath, abdominal pain, nausea or vomiting. Review of Systems Review of Systems: All systems reviewed and are unremarkable except as noted in HPI and below Denies fevers, chills, headache, nasal congestion, sore throat, cough, chest pain, shortness of breath, palpitations, orthopnea, PND, abdominal pain, nausea, vomiting, diarrhea, constipation, dysuria, hematuria, frequency, back pain, joint pain or swelling, easy bruising or bleeding, skin lesions or rashes. Physical Exam Physical Exam: General: Resting comfortably in his hospital bed. Answers all questions appropriately but easily agitated/annoyed. NAD. HEENT: Head is AT/NC buccal mucosa is moist and pink Neck: No JVD. Negative hepatojugular reflex Cardiac: RRR Lungs: CTA without W/R/R Abdomen: Normoactive X4. Soft and nontender in all quadrants. Extremities: No peripheral clubbing cyanosis or edema Neuro: A&O X4. cranial nerves II through XII are grossly intact no focal neuro deficits Skin: No obvious skin lesions or rashes Psych: Appropriate affect pleasant and cooperative Results & Data Results & Data ([facility]) Vital Signs (Past 12 Hours) Vital Signs Temp Pulse Resp BP Pulse Ox 08/20/21 07:15 36.4 C L 70 18 153/77 H 94 08/19/21 23:32 36.6 C 78 18 142/81 H 93 PG Care Time/CCT Total # of Minutes Spent Total Time Spent with Patient: Total time spent is greater than 50% in coordination of care (as documented) at patient's floor/unit and/or counseling patient: Coding Level of Care Code 86426 Subseq Hosp Care Lvl 1 Diagnoses Sleep disturbance G47.9 COPD (chronic obstructive pulmonary disease) J44.9 Basilar artery stenosis with infarction I63.22 Restless leg syndrome G25.81 Type 2 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 Hyperkalemia E87.5
[2021-08-20] MEDS: COLESTIPOL HCL 1 GM TAB PO SCH (11:47)
[2021-08-20] MEDS: PATIROMER CALCIUM SORBITEX 8.4 GM PACK PO SCH (17:16)
[2021-08-20] MEDS: QUEtiapine FUMARATE 25 MG TABLET PO SCH (21:19)
[2021-08-20] MEDS: MELATONIN 3 MG TAB PO SCH (21:19)
[2021-08-20] MEDS: TAMSULOSIN HCL 0.4 MG CAP PO SCH (21:20)
[2021-08-20] MEDS: GABAPENTIN 100 MG CAP PO SCH (21:21)
[2021-08-21] MEDS: ACETAMINOPHEN 325 MG TAB PO PRN (01:00)
[2021-08-21] MEDS: BRILINTA 60 MG PO SCH ×2 (08:26→19:33)
[2021-08-21] MEDS: ESCITALOPRAM OXALATE 20 MG TAB PO SCH (08:27)
[2021-08-21] MEDS: ASPIRIN 81 MG CHEW PO SCH (08:27)
[2021-08-21] MEDS: CHOLECALCIFEROL 1,000 UNITS 25 MCG TAB PO SCH (08:28)
[2021-08-21] MEDS: ATORVASTATIN 40 MG TAB PO SCH (08:28)
[2021-08-21] MEDS: DIPHENOXYLATE/ATROPINE 2.5/0.025MG TAB PO SCH (08:28)
[2021-08-21] MEDS: PANTOprazole 40 MG TAB PO SCH (08:28)
[2021-08-21] MEDS: ATENOLOL 50 MG TABLET PO SCH (08:29)
[2021-08-21] MEDS: MULTIVITAMIN TAB PO SCH (08:29)
[2021-08-21] MEDS: LOSARTAN POTASSIUM 50 MG TAB PO SCH (08:29)
[2021-08-21] MEDS: HEPARIN SOD 5,000 UNIT/0.5 ML VIAL SQ SCH ×2 (08:30→19:32)
[2021-08-21] MEDS: INSULIN ASPART PER UNIT SC SCH ×4 (08:37→21:10)
[2021-08-21] MEDS: COLESTIPOL HCL 1 GM TAB PO SCH (11:40)
--- NOTE | 2021-08-21 12:22 | Communication Note ---
Date of Service: August 21, 2021 interim progress has been reviewed daily with psychiatric liaison, RN. Continues to tolerate current medicine. Nightime sleep phenomena haven't recurred in hospital, of note Requip was held so cannot exclude that was side effect. No additional recs at this time.
--- NOTE | 2021-08-21 15:54 | Hospitalist Progress Note ---
Date of Service August 21, 2021 Assessment & Plan (1) Sleep disturbance: Plan: - in talking with the and the patient, I suspect that patient is experiencing an underlying sleep behavioral disorder--> sleep walking with confusional arousals/REM sleep disturbance - per the 's accords, seems awake but wandering at night and smashing TV/destroyed his room and then found outside. When he "comes to", he's aware of these event - Requip has already been transitioned to Neurontin as recommended by psych. Requip not recommended and underlying sleep disturbances. Remains on SSRI which is also to be used with caution and sleep disturbances. Will need to follow-up with sleep physician -- was able to get in touch with patient's PCP and patient has been on Gabapentin in the past and didn't do well on this. She is requesting this be stopped - would benefit from a dedicated sleep study (which can not be facilitated as an IP)-- this has been arranged by the nurse navigator Had metabolic work-up for altered mental status but does not seem to be the case. - Thus far, urine culture showing no growth (Rocephin started upfront but stopped 08/18) - no signs of infection (WBC normal, CXR negative, BS NGTD) - MRI of the brain showing no acute pathology - MRA of the neck with > 75% R ICA and 50% stenosis of the L ICA-- unchanged from 01/21 (on DAPT) - TSH normal at 1.5 - B12 acceptable at 415 - ammonia normal at 25 - vitamin d low at 21.1--> likely not causative factor in above but needed for brain support. Start supplementation - RPR pending - VBG: normal-- no hypercapnia - at this point, There are safety concerns for D/C to home (as outlined below)-- looking into placement (personal care facility) -lengthy D/W in what she can do at home to prepare for his return (ondina alarm, putting locks on the BOTTOM of the doors that he may not think to unlatch while in a sleep cycle, etc). Hopefully, Dr. Cardenas will have other suggestions. (2) COPD (chronic obstructive pulmonary disease): Plan: Does not appear to be in an acute exacerbation - continue advair as prior to hospitalization (3) Basilar artery stenosis with infarction: Plan: MRA of the neck performed and stable from 01/21 Continue dual antiplatelet therapy and statin therapy as prior to hospitalization (4) Restless leg syndrome: Plan: - was on requip (but this may need changed as per up-to-date, not ideal with underlying sleep disturbance)--> Requip stopped. Psych recommended changing to Neurontin but intolerant to this in the past so stopped. - hold off on additional meds at this time as may potentiate #1. - Dr. Cardenas (sleep Physician) does not do IP consults (and really, no reason to be seen as an IP). 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: Plan: - resume Tradjenta and Glipizide - Monitor blood sugars and continue sliding scale coverage with correction dosing (6) Depression with anxiety: Plan: Continue Lexapro as prior to hospitalization but again this may need transitioned (7) Hyperkalemia: Plan: - 5.6 upon presentation to the ED - Treated with 1 dose of Veltassa and subsequent potassium levels have been within normal limits - Exact etiology unclear but does take ARB routinely - Will need routine monitoring Plan: - At this point, there are safety concerns with patient being discharged home given underlying sleep disturbance - Case management on board and plan is for D/C to PC tomorrow as struggling to provide care at home given his wandering. In addition, there are physical safety concerns as he has become more combative overnight likely due to this underlying sleep disturbance - to se Dr. Cardenas as an OP--> likely needs a dedicated sleep study Admission and Anticipated Discharge Date Admission Date: August 18, 2021 Subjective Patient seen on daily rounds today. Overall no complaints or concerns. Denies fevers, chills, chest pain, shortness of breath, abdominal pain, nausea or vomiting. Did report to a very detailed dream last evening but no sleep behavioral disturbances noted while in hospital. Nursing voices no complaints or concerns. Review of Systems Review of Systems: All systems reviewed and are unremarkable except as noted in HPI and below Denies fevers, chills, headache, nasal congestion, sore throat, cough, chest pain, shortness of breath, palpitations, orthopnea, PND, abdominal pain, nausea, vomiting, diarrhea, constipation, dysuria, hematuria, frequency, back pain, joint pain or swelling, easy bruising or bleeding, skin lesions or rashes. Physical Exam Physical Exam: General: Resting comfortably in his hospital bed. pleasant HEENT: Head is AT/NC buccal mucosa is moist and pink Neck: No JVD. Negative hepatojugular reflex Cardiac: RRR Lungs: CTA without W/R/R Abdomen: Normoactive X4. Soft and nontender in all quadrants. Extremities: No peripheral clubbing cyanosis or edema Neuro: A&O X4. cranial nerves II through XII are grossly intact no focal neuro deficits Skin: No obvious skin lesions or rashes Psych: Appropriate affect pleasant and cooperative Results & Data Results & Data ([facility]) Vital Signs (Past 12 Hours) Vital Signs Temp Pulse Resp BP Pulse Ox 08/21/21 15:32 36.8 C 71 16 188/94 H 97 08/21/21 07:48 36.5 C 70 16 165/86 H 96 08/21/21 07:30 36.8 C 68 16 116/63 94 Laboratory Results no lab data today PG Care Time/CCT Total # of Minutes Spent Total Time Spent with Patient: Total time spent is greater than 50% in coordination of care (as documented) at patient's floor/unit and/or counseling patient: Coding Level of Care Code 97055 Subseq Hosp Care Lvl 1 Diagnoses Sleep disturbance G47.9 COPD (chronic obstructive pulmonary disease) J44.9 Basilar artery stenosis with infarction I63.22 Restless leg syndrome G25.81 Type 2 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 Hyperkalemia E87.5
[2021-08-21] MEDS: PATIROMER CALCIUM SORBITEX 8.4 GM PACK PO SCH (16:01)
[2021-08-21] MEDS ORDERED: glipiZIDE 5 MG TAB PO SCH (16:15)
[2021-08-21] MEDS: MELATONIN 3 MG TAB PO SCH (19:31)
[2021-08-21] MEDS: QUEtiapine FUMARATE 25 MG TABLET PO SCH (19:32)
[2021-08-21] MEDS: TAMSULOSIN HCL 0.4 MG CAP PO SCH (19:32)
[2021-08-21] MEDS ORDERED: NON-FORMULARY MEDICATION (Linagliptin [Tradjenta] 5 mg tablet) PO SCH (21:00)
[2021-08-22 00:56] LABS: ANCA Screen Negative (Negative); Complement C3 146 mg/dL (82-185); Free Kappa 38.4 mg/L (3.3-19.4); Free Kappa/Lambda Ratio 1.35 (0.26-1.65); Free Lambda 28.4 mg/L (5.7-26.3)
[2021-08-22 01:49] LABS: Rapid Plasma Reagin Nonreactive (Nonreactive)
[2021-08-22] MEDS: BRILINTA 60 MG PO SCH (08:13)
[2021-08-22] MEDS: ASPIRIN 81 MG CHEW PO SCH (08:14)
[2021-08-22] MEDS: MULTIVITAMIN TAB PO SCH (08:14)
[2021-08-22] MEDS: ESCITALOPRAM OXALATE 20 MG TAB PO SCH (08:14)
[2021-08-22] MEDS: PANTOprazole 40 MG TAB PO SCH (08:14)
[2021-08-22] MEDS: CHOLECALCIFEROL 1,000 UNITS 25 MCG TAB PO SCH (08:15)
[2021-08-22] MEDS: LOSARTAN POTASSIUM 50 MG TAB PO SCH (08:15)
[2021-08-22] MEDS: DIPHENOXYLATE/ATROPINE 2.5/0.025MG TAB PO SCH (08:15)
[2021-08-22] MEDS: ATENOLOL 50 MG TABLET PO SCH (08:15)
[2021-08-22] MEDS: ATORVASTATIN 40 MG TAB PO SCH (08:15)
[2021-08-22] MEDS: HEPARIN SOD 5,000 UNIT/0.5 ML VIAL SQ SCH (08:16)
[2021-08-22] MEDS: INSULIN ASPART PER UNIT SC SCH ×2 (08:22→12:41)
[2021-08-22] MEDS ORDERED: FLUTICASONE/VILANTEROL 100/25MCG 14 PUFFS/INHALER INH SCH (09:00)
[2021-08-22] MEDS: COLESTIPOL HCL 1 GM TAB PO SCH (11:32)
--- NOTE | 2021-08-22 16:29 | Discharge Summary ---
Date of Service August 22, 2021 Admission HPI Per Admitting Provider 70-year-old male with a history of multiple infarct dementia who has been having escalation of nighttime agitation according to his . On the day of presentation his found him in the morning sitting in the yard for undisclosed period of time. To this he has been quite agitated in the early evening hours tearing apart his bedroom and breaking a television. The says he has had escalation of nighttime agitation over the last few months. She had been seeing outpatient psychiatric care who attempted to use medication to control his behavior without good success. In the emergency department he pres ented with hypothermia leukocytosis and an abnormal urine analysis with a mild elevation of lactic acid. The patient upon my evaluation can follow commands he does have upward outward gaze to the right which his says sometimes occurs with him but she has been in discussion with his neurologist who was in [facility] about performing repeat carotid imaging as the patient previously has had a vertebral artery stent placed. She is concerned that his escalation of agitation is from cerebral ischemia as his previous strokes have all been associated with behavioral change and not focal deficits. 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 Principal Diagnosis 1. Sleep disturbance with behavioral disorder 2. Transient hypothermiasecondary to #1 and resolved 3. Hyperkalemiaresolved 4. RLS Discharge Exam General: Resting comfortably in his hospital bed. pleasant HEENT: Head is AT/NC buccal mucosa is moist and pink Neck: No JVD. Negative hepatojugular reflex Cardiac: RRR Lungs: CTA without W/R/R Abdomen: Normoactive X4. Soft and nontender in all quadrants. Extremities: No peripheral clubbing cyanosis or edema Neuro: A&O X4. cranial nerves II through XII are grossly intact no focal neuro deficits Skin: No obvious skin lesions or rashes Psych: Appropriate affect pleasant and cooperative Discharge Data Allergies Allergy/AdvReac Type Severity Reaction Status Date / Time Tetanus Vaccines and Toxoid AdvReac Mild "TETANUS Verified 08/16/21 11:56 SHOT" - FEVER Consultations 08/16/21 12:39 ED Decision to Admit Stat 08/17/21 10:52 Consult Psychiatry Routine Impression This is a 70 yo old admitted for encephalopathy with history of vascular dementia, depression and RLS. Diagnostically consistent with encephalopathy/delirium superimposed on vascular dementia with behavioral disturbance. Goal in dementia is to avoid medication management of behaviors if possible by maximizing non-pharmacologic strategies for behavioral management. However, given worsening agitation prior to admission and ongoing challenges antipsychotic as risk/benefit profile continues to favor treatment. Note all antipsychotic medications carry black box warning for increased risk of all- cause mortality in setting of dementia. Currently behaviorally appropriate though per discussion with his nurse confusion waxes and wanes as is consistent with delirium so potential for agitation to emerge if confusion worsens. Continue seroquel qhs for agitation. Consider adding melatonin to help with sleep, dementia with sundowning and delirium. Could consider reducing lexapro dose as side effect can be dreams and sleep behaviors. Could also consider tapering ropinorole for RLS as the dopaminergic activity may be contributing to psychosis and sleep behaviors at night. -If agitation develops consider 1-on-1, for now safe and appropriate behavior -Continue seroquel 50 mg qhs -Consider melatonin 3mg qhs -Consider discontinuing ropinirole (gabapentin would be a safer alternative for RLS) -could also consider reducing lexapro from 20mg to 10 mg in the future if symptoms persist after ropinirole is discontinued -Continue medical management to treat any underlying causes contributing to potential delirium, avoid or limit use of deliriogenic medications (benzodiazepines, opioids, anticholinergics) -Continue with delirium prevention measures: raising blinds during the day, closing at night, frequent re-orientation, contact with family/friends, explaining procedures/nursing care measures prior to physical contact, correct any hearing and visual impairments -For behavioral emergency: olanzapine 2.5 mg IM x 1(DO NOT exceed 5mg per 24 hours, check EKG if IM dose required,NEVER co-administer with IM or IV benzodiazepines). -They do not meet criteria for inpatient psychiatric hospitalization as primary cause of current symptoms is felt to be due to delirium and/or dementia; geriatric psychiatric outpatient evaluation vs hospitalization could be considered in the future (family or PCP can self-refer to specialized geriatric psychiatric facilities) if symptoms persist after discharge even after completion of medical treatment and with medication changes (1) Restless leg syndrome: (2) Vascular dementia with behavior disturbance: (3) Encephalopathy acute: see impression above Date of Service: August 21, 2021 interim progress has been reviewed daily with psychiatric liaison, RN. Continues to tolerate current medicine. Nightime sleep phenomena haven't recurred in hospital, of note Requip was held so cannot exclude that was side effect. No additional recs at this time. Ordered Studies 08/16/21 13:21 MR brain wo con Routine IMPRESSION: 1. No acute intracranial abnormality. No acute or subacute infarct. 2. Chronic findings as above. 08/16/21 20:27 MR angio neck wo/w con Routine IMPRESSION: 1. There is greater than 75% focal stenosis at the origin of the right internal carotid artery. 2. There is approximately 50% focal stenosis at the origin of the left internal carotid artery. 3. These findings are similar to the 01/29/2020 CT angiogram of the neck Hospital Course (1) Sleep disturbance: - in talking with the and the patient, I suspect that patient is experiencing an underlying sleep behavioral disorder--> sleep walking with confusional arousals/REM sleep disturbance - per the 's accords, seems awake but wandering at night and smashing TV/destroyed his room and then found outside. When he "comes to", he's aware of these event - ? Side effect to Requip-- medication since stopped. No sleep disturbances while in house - would benefit from a dedicated sleep study (which can not be facilitated as an IP)-- this has been arranged by the nurse navigator Had metabolic work-up for altered mental status but does not seem to be the case. - Thus far, urine culture showing no growth (Rocephin started upfront but stopped 08/18) - no signs of infection (WBC normal, CXR negative, BS NGTD) - MRI of the brain showing no acute pathology - MRA of the neck with > 75% R ICA and 50% stenosis of the L ICA-- unchanged from 01/21 (on DAPT) - TSH normal at 1.5 - B12 acceptable at 415 - ammonia normal at 25 - vitamin d low at 21.1--> likely not causative factor in above but needed for brain support. Start supplementation - RPR pending - VBG: normal-- no hypercapnia - at this point, There are safety concerns for D/C to home (as outlined below)-- D/C to Personal Care Facility with PT/OT -lengthy D/W in what she can do at home to prepare for his return ([place] alarm, putting locks on the BOTTOM of the doors that he may not think to unlatch while in a sleep cycle, etc). Hopefully, Dr. Cardenas will have other suggestions. (2) COPD (chronic obstructive pulmonary disease): Does not appear to be in an acute exacerbation - continue advair as prior to hospitalization (3) Basilar artery stenosis with infarction: MRA of the neck performed and stable from 01/21 Continue dual antiplatelet therapy and statin therapy as prior to hospitalization (4) Restless leg syndrome: - was on requip (but this may need changed as per up-to-date, not ideal with underlying sleep disturbance)--> Requip stopped. Psych recommended changing to Neurontin but intolerant to this in the past so stopped. - hold off on additional meds at this time as may potentiate #1. - Dr. Cardenas (sleep Physician) does not do IP consults (and really, no reason to be seen as an IP). 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: - resume Tradjenta and Glipizide as RETAIL EVENT ASSISTANT (6) Depression with anxiety: Continue Lexapro as prior to hospitalization but again this may need transitioned as the literature suggests that this medication may also potentiate sleep disturbance behaviors (7) Hyperkalemia: - 5.6 upon presentation to the ED - Treated with 1 dose of Veltassa and subsequent potassium levels have been within normal limits - Exact etiology unclear but does take ARB routinely - Will need routine monitoring (8) Hypothermia: - patient found by his outside (overnight in 29 degree temperature)-- s/s #1 - temp on arrival was 95.9 but quickly returned to normal with being indoors and warming blankets. - At this point, there are safety concerns with patient being discharged home given underlying sleep disturbance - D/C to [facility] with home Pt/OT - to see Dr. Cardenas as an OP--> likely needs a dedicated sleep study Total Time Total Time Spent Total Time Spent (In Minutes): 45 min including time spent with patient, coordination of care, D/W pt and calling his Nikia garcia Nurse navigator regarding OP needs and preparation of documentation Discharge Plan Discharge Items Patient Disposition: [facility] Reason For Visit: HYPOTHERMIA Discharge Diagnosis: 1. Hypothermia- resolved 2. Sleep Behavior Disturbance-- ? side effect of Requip 3. Hyperkalemia- resolved Activity: Resume your previous activity Non-emergency contact: Primary Care Provider and Specialist Call non-emergency contact if: you have any medication questions Follow-up/Referrals: Jus Gayle MD [Primary Care Provider] - 08/27/21 8:30 am Keith Cardenas MD [Physician] - 10/23/21 10:30 am Diet: Regular Addtl Attending Provider Instructions: - patient was brought to the ED after being found outside (in 29 degree weather) in the overnight hours by his . - has been having intermittent "episodes" that occur during the overnight hours when patient seems awake but he has no recollection of these events - initially it was thought to be encephalopathy (for which a thorough workup was completed and unremarkable) - Also, thought to potentially be dementia with sundowning (worsening confusion in the evenings) - after length discussion with patient and -- it seems that patient is experiencing a sleep disturbance disorder. His Requip has been stopped (as literature suggests that this could be a potential side effect). No disturbances while in house - Was going to change Requip to Neurontin (for his RLS) but reports that he was intolerant to this medication in the past. Will hold off on any additional medication as this time - Given concern for wandering and his safety for himself and his -- he is being discharged to a personal care facility - plan is for patient to follow up with Dr. Cardenas (sleep Physician) and will likely need a dedicated sleep study - home PT/OT being arranged - follow up with PCP: 7-10 days - recommend follow up labs in 2 weeks to trend electrolytes (at discretion of PCP) - PCP to consider down-tapering and possible discontinuation of Seroquel if deemed necessary Pending Studies at Discharge: No Stand-Alone Forms: My [facility] Skilled Items Patient informed of condition?: Yes DNR: Yes Discharge Level of Care: Other Communicable Disease: No Discharge Prognosis: Stable Lines: None Urinary Catheter: No Medications and DC Order Prescriptions: Continued atenolol 50 mg tablet 50 mg PO QAM Qty: 90 RF: 3 Tradjenta 5 mg tablet 5 mg PO HS Qty: 90 RF: 3 quetiapine [Seroquel] 50 mg tablet 50 mg PO HS Qty: 90 RF: 1 (DME) OneTouch Ultra Test Strip See Rx Instructions .Route Qty: 100 RF: 3 tamsulosin [Flomax] 0.4 mg capsule 0.4 mg PO HS Qty: 90 RF: 3 losartan [Cozaar] 100 mg tablet 100 mg PO QAM Qty: 90 RF: 3 atorvastatin [Lipitor] 80 mg tablet 80 mg PO QAM Qty: 90 RF: 3 Brilinta 60 mg tablet 60 mg PO BID Qty: 180 RF: 3 lorazepam [Ativan] 0.5 mg tablet 0.5 mg PO HS PRN (Reason: Anxiety) Qty: 135 RF: 0 multivitamin [Daily Multi-Vitamin] Tablet 1 tab PO QAM RF: 0 cholecalciferol (vitamin D3) [Vitamin D3] 2,000 unit Tablet 2,000 unit PO QAM RF: 0 aspirin [Selvin Chewable Aspirin] 81 mg tablet,chewable 81 mg PO QAM RF: 0 acetaminophen [Tylenol Extra Strength] 500 mg Tablet 500 mg PO Q6H PRN (Reason: Pain) RF: 0 desonide 0.05 % Cream 1 applic TOPICAL DIRECTED PRN (Reason: NEEDED) RF: 0 calcium polycarbophil [Fiber (calcium polycarbophil)] 625 mg Tablet 625 mg PO DAILY RF: 0 fluticasone propion-salmeterol [Advair Diskus] 100-50 mcg/dose Blister With Device 1 inh INHALATION BID RF: 0 glipizide [Glucotrol] 10 mg tablet 10 mg PO .AC BID RF: 0 escitalopram oxalate [Lexapro] 20 mg tablet 20 mg PO QAM RF: 0 Discontinued ropinirole 0.25 mg tablet 0.25 mg PO HS Qty: 90 RF: 1 Discharge Orders: Discharge Order (Routine); Ordered 08/22/21 Ordered By: Reanna Shukla/Other Patient Handouts: High Blood Sugar (Hyperglycemia), Hypoglycemia (Low Blood Sugar), Managing Type 2 Diabetes Admission Data Admit Date/Time: 08/18/21 12:04 Attending Provider: Manzano,[place] J. Admit Provider: Tony Dobbs Primary Care Provider: Jus Gayle Other Providers: Tony Dobbs ; Lucila Andrews ; Janice Nguyen ; Angélica Ardon ; Aidan Damon Other Interventions: Discharge Summary Assessment (RN) Last Done: 08/22/21 11:51 Supervising Physician Co-Signing Physician Notes I supervised Reanna Burnette PA-C on the care of this patient. I interviewed and examined the patient independently of her. The plan is as written in her note except for any following changes/exceptions: None Doing well today. No major issues. Ready for discharge. 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
[2021-08-23 08:58] LABS: Abnormal Protein Band 1 DNR mg/24 h (NONE DETECTED); Abnormal Protein Band 2 DNR mg/24 h (NONE DETECTED); Abnormal Protein Band 3 DNR mg/24 h (NONE DETECTED); Creatinine, 24 hr Urine 0.76 g/24 h (0.50-2.15); Protein, Urine 24 Hour 736 mg/24 h (<150); Ur Protein/Creatinine Rat mg/g 970 mg/g creat (< OR = 114)
[2021-08-23 17:57] LABS: Albumin 3.4 g/dL (3.8-4.8); Alpha 1 Globulin 0.3 g/dL (0.2-0.3); Beta-1-Globulin 0.3 g/dL (0.4-0.6); Beta-2-Globulin 0.4 g/dL (0.2-0.5); Gamma Globulin 0.7 g/dL (0.8-1.7); Monoclonal Protein Band 1 DNR g/dL (NONE DETECTED); Monoclonal Protein Band 2 DNR g/dL (NONE DETECTED); Monoclonal Protein Band 3 DNR g/dL (NONE DETECTED); Total Protein 6.1 g/dL (6.1-8.1)
== END 2021-08-22 15:24 | disposition home or self-care (01) ==
LOC: ED 08:51 → 3W 08:51 → SUATTDRO 11:50 → 3W 13:04